=== PATIENT | female | born 1955 | race African-American/Black ===

== ENCOUNTER 2016-10-30 14:17 | Emergency (ER) | payer MEDICAID, OTHER ==
[~2016-10-30] VITALS: Ht 167.6 cm; Wt 104.1 kg
[~2016-10-30 14:17] MED LIST: ASPI81TA82 PO; CEPH-460 PO; CYCL5TAB PO; HYDR-3533 PO; HYDR2.5%T PR; LISI-587 PO; METH4PAK PO; METO25 PO; ZANT150T2 PO
[2016-10-30 14:19] VITALS: BP 120/72; PULSE 75; RESP 12; TEMP 98.2; O2SAT 97
[2016-10-30] MEDS ORDERED: METO25TA3 PO (14:39)
[2016-10-30] MEDS ORDERED: AMLO10 PO (14:39)
[2016-10-30] MEDS ORDERED: SODIUM CHLORIDE 0.9% FLUSH 5 ML FLUSH IVF PRN (14:45)
[2016-10-30] MEDS ORDERED: SODIUM CHLORID 0.9% 500 ML INJ 500 ML IV ONE ×2 (14:45→16:15)
--- NOTE | 2016-10-30 15:04 | PD ---
HPI Chief Complaint: General Weakness Time Seen by Provider: 14:29 Travel History International Travel<30 days: No Contact w/Intl Traveler<30days: No Traveled to known affect area: No History of Present Illness HPI 61-year-old female with a history of hypertension, arthritis, who presents today with complaints of general weakness and near syncopal episode. The patient states that she's been having chronic back pain and it's gotten a little worse over the last couple days. She states that while at the store today she became lightheaded and felt as though she is given a pass out. She states she feels better when she is lying flat. She denies any other complaints time my examination. PFSH Past Medical History Arthritis: Yes Heart Rhythm Problems: No Cancer: No Cardiac Catheterization: No Cardiovascular Problems: Yes (htn) High Cholesterol: No Congestive Heart Failure: No Diabetes: No Diminished Hearing: No Diverticulitis: Yes (COLONOSCOPY 2004 WAS TOLD SHE HAD "ALITIS") Endocrine: No GERD: Yes (ABD TENDER) Genitourinary: No Hepatitis: No Hiatal Hernia: No Hypertension: Yes Immune Disorder: No Musculoskeletal: Yes (ARTHRITIS, BACK PROBLEMS) Neurologic: No Psychiatric: Yes (SLIGHTLY CLAUSTROPHOBIC) Reproductive: No Respiratory: No Thyroid Disease: No Tetanus Vaccination: > 5 Years Menopausal: Yes : 8 Para: 6 Miscarriage: 2 Past Surgical History Abdominal Surgery: Yes (CHOLECYSTECTOMY ) AICD: No Cholecystectomy: Yes Coronary Artery Bypass Graft: No Gynecologic Surgery: Yes (HYSTERECTOMY ) Hysterectomy: Yes Joint Replacement: Yes (left knee) Pacemaker: No Other Surgery: Yes Social History Alcohol Use: Yes (glass of wine daily ) Tobacco Use: No Substance Use: No Allergies-Medications (Allergen,Severity, Reaction): Coded Allergies: Cipro (Verified Allergy, Severe, 10/30/16) Codeine (Verified Allergy, Severe, Rash, 10/30/16) Darvon (Verified Allergy, Severe, N&V, 10/30/16) Reported Meds & Prescriptions Reported Meds & Active Scripts Active Reported Metoprolol Tartrate 25 Mg Tab 25 Mg PO BID Norvasc (Amlodipine Besylate) 10 Mg Tab 10 Mg PO DAILY Review of Systems Except as stated in HPI: all other systems reviewed are Neg General / Constitutional: No: Fever, Chills HENT: Positive: Lightheadedness, No: Headaches, Vertigo Cardiovascular: No: Chest Pain or Discomfort, Palpitations Respiratory: No: Cough, Shortness of Breath Gastrointestinal: No: Nausea, Vomiting Genitourinary: No: Urgency, Frequency Musculoskeletal: Positive: Weakness (generalized), Pain (chronic back pain) Skin: No Rash Neurologic: Positive: Weakness (generalized), Other (felt as though she was given a pass out), No: Dizziness, Syncope Physical Exam Narrative GENERAL: Well-developed well-nourished female in no acute respiratory distress SKIN: Warm and dry. HEAD: Atraumatic. Normocephalic. EYES: No scleral icterus. No injection or drainage. ENT: No nasal bleeding or discharge. Mucous membranes pink and moist. NECK: Trachea midline. Supple CARDIOVASCULAR: Regular rate and rhythm. No murmur appreciated. RESPIRATORY: No accessory muscle use. Clear to auscultation. Breath sounds equal bilaterally. GASTROINTESTINAL: Abdomen soft, non-tender, nondistended. No pulsatile masses appreciated. MUSCULOSKELETAL: No obvious deformities. No clubbing. No cyanosis. Question trace edema bilateral lower extremities NEUROLOGICAL: Awake and alert. No obvious cranial nerve deficits. Motor grossly within normal limits. Normal speech. Data Data Last Documented VS Vital Signs Date Time Temp Pulse Resp B/P Pulse Ox O2 Delivery O2 Flow Rate FiO2 10/30/16 16:15 78 18 138/53 10/30/16 16:14 99 10/30/16 14:19 98.2 Room Air Orders Electrocardiogram (10/30/16 14:37) Basic Metabolic Panel (Bmp) (10/30/16 14:37) Complete Blood Count With Diff (10/30/16 14:37) Urinalysis - C+S If Indicated (10/30/16 14:37) Ecg Monitoring (10/30/16 14:37) Iv Access Insert/Monitor (10/30/16 14:37) Oximetry (10/30/16 14:37) Sodium Chloride 0.9% Flush (Ns Flush) (10/30/16 14:45) Orthostatic Vital Signs (10/30/16 14:37) Sodium Chlorid 0.9% 500 Ml Inj (Ns 500 M (10/30/16 14:45) Sodium Chlorid 0.9% 500 Ml Inj (Ns 500 M (10/30/16 16:15) Labs Laboratory Tests Test 10/30/16 10/30/16 14:51 15:55 White Blood Count 7.8 TH/MM3 Red Blood Count 4.10 MIL/MM3 Hemoglobin 12.1 GM/DL Hematocrit 36.1 % Mean Corpuscular Volume 88.0 FL Mean Corpuscular Hemoglobin 29.5 PG Mean Corpuscular Hemoglobin 33.5 % Concent Red Cell Distribution Width 14.3 % Platelet Count 213 TH/MM3 Mean Platelet Volume 8.9 FL Neutrophils (%) (Auto) 63.3 % Lymphocytes (%) (Auto) 28.5 % Monocytes (%) (Auto) 6.9 % Eosinophils (%) (Auto) 0.5 % Basophils (%) (Auto) 0.8 % Neutrophils # (Auto) 4.9 TH/MM3 Lymphocytes # (Auto) 2.2 TH/MM3 Monocytes # (Auto) 0.5 TH/MM3 Eosinophils # (Auto) 0.0 TH/MM3 Basophils # (Auto) 0.1 TH/MM3 CBC Comment DIFF FINAL Differential Comment Sodium Level 143 MEQ/L Potassium Level 3.8 MEQ/L Chloride Level 109 MEQ/L Carbon Dioxide Level 25.6 MEQ/L Anion Gap 8 MEQ/L Blood Urea Nitrogen 20 MG/DL Creatinine 0.90 MG/DL Estimat Glomerular Filtration 77 ML/MIN Rate Random Glucose 104 MG/DL Calcium Level 9.0 MG/DL Urine Color LIGHT-YELLOW Urine Turbidity CLEAR Urine pH 6.0 Urine Specific [place] 1.010 Urine Protein NEG mg/dL Urine Glucose (UA) NEG mg/dL Urine Ketones NEG mg/dL Urine Occult Blood NEG Urine Nitrite NEG Urine Bilirubin NEG Urine Urobilinogen LESS THAN 2.0 MG/DL Urine Leukocyte Esterase NEG Urine RBC 1 /hpf Urine WBC 2 /hpf Urine Squamous Epithelial 1 /hpf Cells Urine Bacteria OCC /hpf Urine Mucus FEW /lpf Microscopic Urinalysis Comment CULT NOT INDICATED MDM Medical Decision Making Medical Screen Exam Complete: Yes Emergency Medical Condition: Yes Medical Record Reviewed: Yes Differential Diagnosis Near syncope versus dehydration versus anemia electrolyte abnormality Narrative Course 61-year-old female with multiple medical complaints. The patient reports she had a dizzy spell where she felt as though she was given a pass out what the store. Patient has chronic back pain. She denies any weakness of her extremities. She denies any numbness of her extremities. She does report that she's had tingling in her legs but states that was when she felt as though she was given a pass out. The patient was noted to be dehydrated by laboratory tests with an elevated BUN/creatinine ratio. She's been given 1 L fluid in his been observed and went to and from the restroom with no difficulty. I did inform the patient that she will need to increase her fluid intake. Nursing notes were reviewed. This includes past medical and social history. Diagnosis Primary Impression: Postural dizziness with presyncope Additional Impression: Mild dehydration Additional Instructions: Increase fluid intake. Make appointment with a new primary care physician. His important that you have routine follow up appointments with a primary care physician. Disposition: 01 DISCHARGE HOME Condition: Stable Jomar Alva MD Oct 30, 2016 15:04 Jomar Alva MD Oct 30, 2016 15:04
[2016-10-30 15:18] LABS: AUTOMATED NEUTROPHIL # 4.9 TH/MM3 (1.8-7.7); BASOPHIL # 0.1 TH/MM3 (0-0.2); BASOPHIL % 0.8 % (0.0-2.0); EOSINOPHIL % 0.5 % (0.0-4.0); HEMATOCRIT 36.1 % (35.0-46.0); HEMO FLAGS DIFF FINAL; LYMPH % 28.5 % (9.0-44.0); LYMPHOCYTE # 2.2 TH/MM3 (1.0-4.8); MEAN CORPUSCULAR HEMOGLOBIN 29.5 PG (27.0-34.0); MEAN CORPUSCULAR HGB CONC 33.5 % (32.0-36.0); MONO % 6.9 % (0.0-8.0); NEUT % 63.3 % (16.0-70.0); PLATELET COUNT 213 TH/MM3 (150-450); RED CELL DISTRIBUTION WIDTH 14.3 % (11.6-17.2); WHITE BLOOD COUNT 7.8 TH/MM3 (4.0-11.0)
[2016-10-30 15:37] LABS: BICARBONATE 25.6 MEQ/L (21.0-32.0); POTASSIUM 3.8 MEQ/L (3.5-5.1)
[2016-10-30 16:14] VITALS: BP_SYST 138; BP_SYST 139; BP_DIAS 77; BP_DIAS 83; PULSE 78; RESP 18; O2SAT 99
[2016-10-30 16:15] VITALS: BP 138/53; RESP 18
[2016-10-30 16:24] LABS: BACTERIA, URINE OCC /hpf; BLOOD, URINE NEG (NEG); COMMENT (UR) CULT NOT INDICATED; CULTURE IF INDICATED CULT NOT INDICATED; GLUCOSE,URINE NEG (NEG); KETONE, URINE NEG (NEG); MUCUS URINE FEW /lpf (OCC); NITRITE,URINE NEG (NEG); SQUAMOUS EPITHELIAL CELL URINE 1 /hpf (0-5); URINE COLOR LIGHT-YELLOW (YELLW/STRAW)
[2016-10-30 17:00] VITALS: BP 127/75; PULSE 60; RESP 18; O2SAT 97
--- NOTE | 2016-10-31 20:43 | EKG ---
Date Performed: 10/30/2016 Time Performed: 15:48:33 PTAGE: 61 years EKG: SINUS BRADYCARDIA MODERATE VOLTAGE CRITERIA FOR LVH, CONSIDER NORMAL VARIANT. When compared to previous tracing, heart rate is slower, Otherwise no significant change. BORDERLINE ECG PREVIOUS TRACING : 09/14/2016 19.11 DOCTOR: Dontrell Quinones Interpretating Date/Time 10/31/2016 20:43:22
== END 2016-10-30 18:40 | disposition home or self-care (01) ==
LOC: NEPC 14:17
DX: R42 Dizziness and giddiness (principal); E86.0 Dehydration; R94.31 Abnormal electrocardiogram [ECG] [EKG]; I10 Essential (primary) hypertension; Z88.5 Allergy status to narcotic agent
CPT/HCPCS: 80048; 81001; 85025; 93005; 99285; J7040

== ENCOUNTER → 2016-12-22 | Outpatient (CLI) | payer OTHER, MEDICAID ==
[~2016-12-22] MED LIST changes: +AMLO10 PO; -ASPI81TA82 PO; -CEPH-460 PO; -CYCL5TAB PO; +DICL75TA PO; +GAS-80CH CHEW; -HYDR-3533 PO; -HYDR2.5%T PR; -LISI-587 PO; -METH4PAK PO; -METO25 PO; +METO25TA3 PO; +PANT40TA3 PO; +PRED50 PO; +PROM25TA5 PO; +SITA25 PO; +TRAM50TA PO
[2016-12-22 08:41] LABS: HEMATOCRIT 36.2 % (35.0-46.0); MEAN CELL VOLUME 88.3 FL (80.0-100.0); MEAN CORPUSCULAR HEMOGLOBIN 28.8 PG (27.0-34.0); MEAN CORPUSCULAR HGB CONC 32.7 % (32.0-36.0); PLATELET COUNT 200 TH/MM3 (150-450); RED CELL DISTRIBUTION WIDTH 14.8 % (11.6-17.2); REVIEW FLAG FINAL; WHITE BLOOD COUNT 5.1 TH/MM3 (4.0-11.0)
[2016-12-22 09:30] LABS: ALKALINE PHOSPHATASE 88 U/L (45-117); ALT (GPT) 18 U/L (10-53); ANION GAP 10 MEQ/L (5-15); AST (GOT) 10 U/L (15-37); BICARBONATE 25.2 MEQ/L (21.0-32.0); BLOOD UREA NITROGEN 11 MG/DL (7-18); CHLORIDE 109 MEQ/L (98-107); GLOMERULAR FILTRATION RATE 90 ML/MIN (>89); GLUCOSE,FASTING 131 MG/DL (74-99); HDL CHOLESTEROL 60.5 MG/DL (40.0-60.0); LDL CHOLESTEROL 101 MG/DL (0-99); POTASSIUM 3.6 MEQ/L (3.5-5.1); SODIUM (NA) 144 MEQ/L (136-145); TOTAL BILIRUBIN ADULT 0.4 MG/DL (0.2-1.0)
== END ==
LOC: CLAB 08:16
PROVIDERS: ATTEND Family Medicine
DX: I10 Essential (primary) hypertension (principal); M75.52 Bursitis of left shoulder
CPT/HCPCS: 36415; 80050; 80053; 80061; 84443; 85027

== ENCOUNTER 2017-01-14 18:41 | Emergency (ER) | payer OTHER, MEDICAID ==
[~2017-01-14] VITALS: Ht 167.6 cm; Wt 100.0 kg
[~2017-01-14 18:41] MED LIST changes: -DICL75TA PO; -GAS-80CH CHEW; -PANT40TA3 PO; -PRED50 PO; -PROM25TA5 PO; -SITA25 PO; -TRAM50TA PO; -ZANT150T2 PO
[2017-01-14 18:42] VITALS: BP 126/84; PULSE 80; RESP 15; TEMP 98.2; O2SAT 98
--- NOTE | 2017-01-14 19:16 | PD ---
HPI Chief Complaint: Pain: Acute or Chronic Time Seen by Provider: 19:08 Travel History International Travel<30 days: No Contact w/Intl Traveler<30days: No Traveled to known affect area: No History of Present Illness HPI This is a 61-year-old female who presents for evaluation of left leg pain. Symptoms started 2-3 weeks ago. She describes it as a pressure that seems to encompass the lower leg from the knee to the ankle. Pain is worse when walking and standing. She denies any trauma or increase in activity. She notes that she walks a somewhat irregular about and she typically ambulates with a cane. She has been using ibuprofen and an occasional small dose of [place] for pain control. She has never had this type of pain before. She relays a history of total knee replacement in the left knee in 2014 and she is concerned that this has something to do with her pain today. She saw her primary care physician, Dr. Garcia, today about this issue and he was going to "run some tests" but she decided to come here instead. She denies any recent travel, recent surgery , history of DVT or PE. Denies any pain, shortness of breath, abdominal pain, numbness or tingling or weakness.. She has no other complaints at this time. PFSH Past Medical History Arthritis: Yes Heart Rhythm Problems: No Cancer: No Cardiac Catheterization: No Cardiovascular Problems: Yes (HTN) High Cholesterol: No Congestive Heart Failure: No Diabetes: Yes ("BORDERLINE" ) Patient Takes Glucophage: No Diminished Hearing: No Diverticulitis: Yes (COLONOSCOPY 2004 WAS TOLD SHE HAD "ALITIS") Endocrine: No GERD: Yes (ABD TENDER) Genitourinary: No Hepatitis: No Hiatal Hernia: No Hypertension: Yes Immune Disorder: No Musculoskeletal: Yes (ARTHRITIS, BACK PROBLEMS) Neurologic: No Psychiatric: Yes (SLIGHTLY CLAUSTROPHOBIC) Reproductive: No Respiratory: No Thyroid Disease: No Tetanus Vaccination: Never Vaccinated Influenza Vaccination: No Menopausal: Yes : 8 Para: 6 Miscarriage: 2 Past Surgical History Abdominal Surgery: Yes (CHOLECYSTECTOMY ) AICD: No Cholecystectomy: Yes Coronary Artery Bypass Graft: No Gynecologic Surgery: Yes (HYSTERECTOMY ) Hysterectomy: Yes Joint Replacement: Yes (left knee) Pacemaker: No Other Surgery: Yes Social History Alcohol Use: Yes (glass of wine daily ) Tobacco Use: Yes (chew) Substance Use: No Allergies-Medications (Allergen,Severity, Reaction): Coded Allergies: Cipro (Verified Allergy, Severe, 01/14/17) Codeine (Verified Allergy, Severe, Rash, 01/14/17) Darvon (Verified Allergy, Severe, N&V, 01/14/17) Reported Meds & Prescriptions Reported Meds & Active Scripts Active Diclofenac Sodium DR (Diclofenac Sodium) 75 Mg Tabdr 75 Mg PO BID 10 Days Tramadol (Tramadol HCl) 50 Mg Tab 50 Mg PO Q6H PRN Reported Metoprolol Tartrate 25 Mg Tab 25 Mg PO BID Norvasc (Amlodipine Besylate) 10 Mg Tab 10 Mg PO DAILY Review of Systems Except as stated in HPI: all other systems reviewed are Neg Physical Exam Narrative GENERAL: Well-developed well-nourished female in no acute distress SKIN: Warm and dry. Old surgical scar noted to the anterior left knee. CARDIOVASCULAR: Regular rate and rhythm. No murmur appreciated. RESPIRATORY: No accessory muscle use. Clear to auscultation. Breath sounds equal bilaterally. GASTROINTESTINAL: Abdomen soft, nontender, nondistended. Musculoskeletal: There is slight tenderness to palpation to the left knee and ankle joints. There is no joint effusion. There is no erythema or soft tissue swelling. There is no lower extremity pitting edema. She has some pain with Homans test in the left calf region. Achilles tendon is intact. 2+ dorsalis pedis and posterior tibial pulses. She maintains full spontaneous use of the hips, knees and ankles bilaterally with no apparent difficulty or range of motion limitation. NEUROLOGICAL: Awake and alert. No obvious cranial nerve deficits. Motor grossly within normal limits. Normal speech. Data Data Last Documented VS Vital Signs Date Time Temp Pulse Resp B/P Pulse Ox O2 Delivery O2 Flow Rate FiO2 01/14/17 18:42 98.2 80 15 126/84 98 Orders Tibia/Fibula (Ap/Lat) (01/14/17 ) Us Leg Venous Doppler (01/14/17 20:04) MDM Medical Decision Making Medical Screen Exam Complete: Yes Emergency Medical Condition: Yes Medical Record Reviewed: Yes Differential Diagnosis Muscle strain, arthritis, DVT, tendinitis Narrative Course 61-year-old female with history of left total knee replacement in 2014 presents with 2-3 weeks of pain in the left lower leg from the knee to the ankle. Examination is unremarkable. Plan is for ultrasound to rule out DVT, tibia- fibula x-ray. She is declining pain medication on initial examination. The patient's x-ray reveals nonspecific soft tissue swelling, no acute abnormality. Doppler ultrasound is negative for DVT. Suspect nonspecific musculoskeletal pain as etiology for her symptoms. She'll be discharged with a short course of NSAIDs, tramadol for pain control. Diagnosis Primary Impression: Left leg pain Additional Instructions: Medication as needed. Do not drive or drink alcohol when taking tramadol. Phenergan for nausea. Take diclofenac with meals. Follow-up with primary care physician in 2 weeks for recheck. Return for any emergent medical conditions. Med/Other Pt SpecificInfo: Prescription(s) given Scripts Promethazine (Phenergan)25 Mg Tab25 Mg PO Q6H PRN (Nausea/Vomiting) #20 TAB Ref 0 Prov:Ned Eaton MD 01/14/[address] 75 Mg Tabdr75 Mg PO BID 10 Days Ref 0 Prov:Ned Eaton MD 01/14/17 Tramadol 50 Mg Tab50 Mg PO Q6H PRN (PAIN) #20 TAB Ref 0 Prov:Ned Eaton MD 01/14/17 Disposition: 01 DISCHARGE HOME Condition: Stable Lucio Moreno Jan 14, 2017 19:15
--- NOTE | 2017-01-14 20:02 | RADRPT ---
EXAM DATE/TIME: 01/14/2017 19:33 [facility] COMPARISON: No previous studies available for comparison. INDICATIONS : Left tibia pain with no known injury. MEDICAL HISTORY : None. SURGICAL HISTORY : Total knee replacement, left. ENCOUNTER: Initial ACUITY: 2 weeks PAIN SCORE: 9/10 LOCATION: Left middle tibia. FINDINGS: Left tibia and fibula are intact. Soft tissues are diffusely edematous. No radiopaque foreign body. Patient has a left total knee arthroplasty appears intact and normally aligned. No evidence of hardwa re failure or loosening. CONCLUSION: Nonspecific diffuse soft tissue edema. No fracture. Bora Yin MD on January 14, 2017 at 19:59 Board Certified Radiologist. This report was verified electronically.
--- NOTE | 2017-01-14 21:00 | RADRPT ---
EXAM DATE/TIME: 01/14/2017 20:28 [facility] COMPARISON: No previous studies available for comparison. INDICATIONS : Left leg pain. MEDICAL HISTORY : Diverticulitis. Gastroesophageal reflux disease. Hypertension. . Arthritis. Borderline di abetic. Hiatal hernia. SURGICAL HISTORY : Hysterectomy. Cholecystectomy. Left knee replacement. ENCOUNTER: Initial ACUITY: 1 week PAIN SCORE: 2/10 LOCATION: Left leg. TECHNIQUE: Venous ultrasound of the leg was performed from the inguinal ligament to the proximal calf. Real-ulysses e, color Doppler and spectral tracing, compression and augmentation techniques were used. FINDINGS: There is normal compressibility of the deep venous system from the inguinal region to the proximal ca lf. No echogenic clot is seen in the lumen of the common femoral, femoral, popliteal, and posterior tibial veins. There is a normal response of the venous system to proximal and distal augmentation an d respiration. CONCLUSION: Normal. No DVT of the left lower extremity. Bora Yin MD on January 14, 2017 at 20:58 Board Certified Radiologist. This report was verified electronically.
[2017-01-14] MEDS ORDERED: TRAM50TA PO (21:03)
[2017-01-14] MEDS ORDERED: DICL75TA PO (21:03)
[2017-01-14] MEDS ORDERED: PROM25TA5 PO (21:08)
== END 2017-01-14 21:31 | disposition home or self-care (01) ==
LOC: NEPK 18:41
DX: M79.605 Pain in left leg (principal); I10 Essential (primary) hypertension; R60.9 Edema, unspecified; Z72.0 Tobacco use; Z96.652 Presence of left artificial knee joint
CPT/HCPCS: 73590; 93971

== ENCOUNTER 2017-02-05 21:09 | Emergency (ER) | payer OTHER, MEDICAID ==
[~2017-02-05] VITALS: Ht 175.3 cm; Wt 88.0 kg
[~2017-02-05 21:09] MED LIST changes: +DICL75TA PO; +PROM25TA5 PO; +TRAM50TA PO
[2017-02-05 21:12] VITALS: BP 121/78; PULSE 77; RESP 16; TEMP 98.2; O2SAT 98
[2017-02-06] MEDS ORDERED: PRED50 PO (18:47)
== END 2017-02-06 00:55 | disposition left against medical advice (07) ==
LOC: NED 21:09
DX: M54.5 Low back pain (principal)
CPT/HCPCS: 99281

== ENCOUNTER 2017-02-06 17:50 | Emergency (ER) | payer OTHER, MEDICAID ==
[~2017-02-06] VITALS: Ht 167.6 cm; Wt 102.0 kg
[2017-02-06 17:52] VITALS: BP 131/66; PULSE 98; RESP 13; TEMP 98.7; O2SAT 98
--- NOTE | 2017-02-06 18:06 | PD ---
HPI . back pain Chief Complaint: Pain: Acute or Chronic Time Seen by Provider: 18:00 Travel History International Travel<30 days: No Contact w/Intl Traveler<30days: No Traveled to known affect area: No History of Present Illness HPI 61-year-old female with history of chronic back pain here with complaints of acute back pain. Patient tells me that she recently had x-rays done and has been trying to get in touch with her primary care provider, but has been unable to do so. She decided to come to the emergency department today as she noticed increased back pain, increased urine production and some dysuria. She tells me the pain in her back is a pulling sensation and she rates it as moderate. She has not had injury to the area. She does report longstanding hx of over 5 years worth of back pain, but tells me that often times that pain is higher up. She admits to some constipation and is not taking anything. She denies any fever or chills. She denies any urinary hesitancy or dribbling. No bowel or bladder dysfunction. No saddle anesthesia. She is requesting lab work. PFSH Past Medical History Arthritis: Yes Heart Rhythm Problems: No Cancer: No Cardiac Catheterization: No Cardiovascular Problems: Yes (HTN) High Cholesterol: No Congestive Heart Failure: No Diabetes: Yes ("BORDERLINE" ) Diminished Hearing: No Diverticulitis: Yes (COLONOSCOPY 2004 WAS TOLD SHE HAD "ALITIS") Endocrine: No GERD: Yes (ABD TENDER) Genitourinary: No Hepatitis: No Hiatal Hernia: No Hypertension: Yes Immune Disorder: No Musculoskeletal: Yes (ARTHRITIS, BACK PROBLEMS) Neurologic: No Psychiatric: Yes (SLIGHTLY CLAUSTROPHOBIC) Reproductive: No Respiratory: No Thyroid Disease: No ?: Not Menopausal: Yes : 8 Para: 6 Miscarriage: 2 Past Surgical History Abdominal Surgery: Yes (CHOLECYSTECTOMY ) AICD: No Cholecystectomy: Yes Coronary Artery Bypass Graft: No Gynecologic Surgery: Yes (HYSTERECTOMY ) Hysterectomy: Yes Joint Replacement: Yes (left knee) Pacemaker: No Other Surgery: Yes Social History Alcohol Use: Yes (glass of wine daily ) Tobacco Use: Yes (chew) Substance Use: No Allergies-Medications (Allergen,Severity, Reaction): Coded Allergies: Cipro (Verified Allergy, Severe, 02/06/17) Darvon (Verified Allergy, Severe, N&V, 02/06/17) Reported Meds & Prescriptions Reported Meds & Active Scripts Active Prednisone 50 Mg Tab 50 Mg PO DAILY Reported Metoprolol Tartrate 25 Mg Tab 25 Mg PO BID Norvasc (Amlodipine Besylate) 10 Mg Tab 10 Mg PO DAILY Review of Systems General / Constitutional: No: Fever Eyes: No: Visual changes HENT: No: Headaches Cardiovascular: No: Chest Pain or Discomfort Respiratory: No: Shortness of Breath Gastrointestinal: Positive: Constipation, No: Abdominal Pain Genitourinary: Positive: Frequency, Dysuria Musculoskeletal: Positive: Pain Skin: No Rash Neurologic: No: Weakness Psychiatric: No: Depression Endocrine: No: Polydipsia Hematologic/Lymphatic: No: Easy Bruising Physical Exam Narrative GENERAL: AAO x 3, no acute distress, Well-nourished, well-developed patient. SKIN: Warm and dry. No visible rashes or bruising. normal skin turgor HEAD: Normocephalic and atraumatic. EYES: No scleral icterus. No injection or drainage. ENT: No nasal drainage noted. Mucous membranes pink. Airway patent. Moist mucous membranes. NECK: Supple, trachea midline. No JVD. CARDIOVASCULAR: Regular rate and rhythm without murmurs, gallops, or rubs. RESPIRATORY: Breath sounds equal bilaterally. No accessory muscle use. No rhonchi or rales. GASTROINTESTINAL: Abdomen soft, non-tender, nondistended. normoactive bowel sounds EXTREMITIES: No cyanosis or edema. BACK: Nontender without obvious deformity. No CVA tenderness. No paraspinal muscle tenderness. Negative SLR b/l. Gait normal. PSYCH: AAO x 3, normal affect. Data Data Last Documented VS Vital Signs Date Time Temp Pulse Resp B/P Pulse Ox O2 Delivery O2 Flow Rate FiO2 02/06/17 17:52 98.7 98 13 131/66 98 Orders Urinalysis - C+S If Indicated (02/06/17 18:06) Labs Laboratory Tests Test 02/06/17 18:15 Urine Color YELLOW Urine Turbidity CLEAR Urine pH 5.5 Urine Specific [place] 1.023 Urine Protein TRACE mg/dL Urine Glucose (UA) NEG mg/dL Urine Ketones TRACE mg/dL Urine Occult Blood NEG Urine Nitrite NEG Urine Bilirubin NEG Urine Urobilinogen LESS THAN 2.0 MG/DL Urine Leukocyte Esterase NEG Urine WBC LESS THAN 1 /hpf Urine Squamous Epithelial 1 /hpf Cells Urine Bacteria OCC /hpf Urine Hyaline Casts 1 /lpf Urine Mucus FEW /lpf Microscopic Urinalysis Comment CULT NOT INDICATED MDM Medical Decision Making Medical Screen Exam Complete: Yes Emergency Medical Condition: Yes Medical Record Reviewed: Yes Differential Diagnosis acute on chronic back pain, UTI, lumbar radiculopathy Narrative Course 61 yr old female here with acute on chronic back pain and symptoms suggesting UTI. UA ordered. She recently had images done at [facility]. I do not see the need for additional imaging or labs except UA. Patient agreed that she does not want additional imaging due to radiation exposure. I will check UA, if positive, I will treat her for UTI. She is not taking any medications for back pain. She has history of bulging discs and is being worked up by her PCP. She could be discharged home with a short course of steroids to reduce inflammation and f/u with PCP. UA is negative. In regards to her constipation, I advised her to try OTC stool softener such as miralax. Patient verbalized understanding of instructions, questions were answered, and thanked me for their care. I advised them if their condition worsens, please return to the nearest emergency room for further care. Diagnosis Primary Impression: Lumbago Qualified Code: M54.5 - Chronic midline low back pain without sciatica Additional Impression: Constipated Qualified Code: K59.00 - Constipation, unspecified constipation type Patient Instructions: General Instructions Additional Instructions: Please return to emergency department if your symptoms return or worsen. Follow up with your primary care provider. Take medications as prescribed. You can try alternating ice and heat to her back as tolerated. Try [id number] Miralax for constipation. Med/Other Pt SpecificInfo: Prescription(s) given Scripts Prednisone 50 Mg Tab50 Mg PO DAILY #5 TAB Prov:Brendon Mcnulty MD 02/06/17 Disposition: 01 DISCHARGE HOME Condition: Stable Chloé Wallace February 06, 2017 18:06
[2017-02-06 18:40] LABS: BACTERIA, URINE OCC /hpf; BLOOD, URINE NEG (NEG); COMMENT (UR) CULT NOT INDICATED; CULTURE IF INDICATED CULT NOT INDICATED; GLUCOSE,URINE NEG (NEG); HYALINE CAST, URINE 1 /lpf (RARE); KETONE, URINE TRACE mg/dL (NEG); MUCUS URINE FEW /lpf (OCC); NITRITE,URINE NEG (NEG); PH, URINE 5.5 (5.0-8.5); SQUAMOUS EPITHELIAL CELL URINE 1 /hpf (0-5); URINE COLOR YELLOW (YELLW/STRAW)
[2017-02-06] MEDS ORDERED: PRED50 PO (18:47)
== END 2017-02-06 18:54 | disposition home or self-care (01) ==
LOC: NEPK 17:50
DX: M54.5 Low back pain (principal); K59.00 Constipation, unspecified; I10 Essential (primary) hypertension; Z72.0 Tobacco use
CPT/HCPCS: 81001; 99283

== ENCOUNTER 2017-02-09 14:21 | Emergency (ER) | payer OTHER, MEDICAID ==
[~2017-02-09 14:21] MED LIST changes: -DICL75TA PO; +PRED50 PO; -PROM25TA5 PO; -TRAM50TA PO
[2017-02-09 14:22] VITALS: BP 142/79; PULSE 84; RESP 16; TEMP 98.2; O2SAT 98
--- NOTE | 2017-02-09 15:15 | PD ---
Physical Exam Date Seen by Provider: February 09, 2017 Time Seen by Provider: 15:13 Narrative 61 y/o female presents with epigastric pain and nausea today. Seemed to start after eating a tuna sandwich. Patient tried some Zantac without relief. No fever or Vomitting. V/S Stable Awaiting Bed Placement. Data Data Last Documented VS Vital Signs Date Time Temp Pulse Resp B/P Pulse Ox O2 Delivery O2 Flow Rate FiO2 02/09/17 14:22 98.2 84 16 142/79 98 MDM Medical Record Reviewed: Yes Supervised Visit with MEGAN: Yes Condition: Stable Lowell Mcgee February 09, 2017 15:15
--- NOTE | 2017-02-09 16:47 | PD ---
HPI Chief Complaint: Medical Clearance Time Seen by Provider: 16:47 Travel History International Travel<30 days: No Contact w/Intl Traveler<30days: No Traveled to known affect area: No History of Present Illness HPI 61-year-old female with a history of hypertension and diabetes presents to the emergency department for evaluation of an episode of shortness of breath after eating a tuna sandwich. States about 1 hour ago she ate a sandwich and about 30 minutes afterward she had a sudden feeling of "not being able to catch my breath" that lasted about 2-3 minutes with some nausea. States that she drank water and the symptoms resolved. States that she has had some excessive belching over the past week. She denies any chest pain, lightheadedness, dizziness, abdominal pain, vomiting, diarrhea. She does describe a slight epigastric burning sensation but no abdominal pain. She does have a history of constipation, last bowel movement was 2 days ago. States that she also has a history of reflux. PCP Dr. Castelan. No other complaints. PFSH Past Medical History Arthritis: Yes Heart Rhythm Problems: No Cancer: No Cardiac Catheterization: No Cardiovascular Problems: Yes (HTN) High Cholesterol: No Congestive Heart Failure: No Diabetes: Yes ("BORDERLINE" ) Patient Takes Glucophage: Yes Diminished Hearing: No Diverticulitis: Yes (COLONOSCOPY 2004 WAS TOLD SHE HAD "ALITIS") Endocrine: No GERD: Yes (ABD TENDER) Genitourinary: No Hepatitis: No Hiatal Hernia: No Heparin Induced Thrombocytopen: No Hypertension: Yes Immune Disorder: No Medical other: No Musculoskeletal: Yes (ARTHRITIS, BACK PROBLEMS) Neurologic: No Psychiatric: Yes (SLIGHTLY CLAUSTROPHOBIC) Reproductive: No Respiratory: No Thyroid Disease: No ?: Not Menopausal: Yes : 8 Para: 6 Miscarriage: 2 Past Surgical History Abdominal Surgery: Yes (CHOLECYSTECTOMY ) AICD: No Cholecystectomy: Yes Coronary Artery Bypass Graft: No Gynecologic Surgery: Yes (HYSTERECTOMY ) Hysterectomy: Yes Joint Replacement: Yes (left knee) Pacemaker: No Other Surgery: Yes Family History Family Myocardial Infarction: No Social History Alcohol Use: Yes (glass of wine daily ) Tobacco Use: Yes (chew) Substance Use: No Allergies-Medications (Allergen,Severity, Reaction): Coded Allergies: Cipro (Verified Allergy, Severe, rash, 02/09/17) Darvon (Verified Adverse Reaction, Severe, N&V, 02/09/17) Reported Meds & Prescriptions Reported Meds & Active Scripts Active Prednisone 50 Mg Tab 50 Mg PO DAILY Reported Metoprolol Tartrate 25 Mg Tab 25 Mg PO BID Norvasc (Amlodipine Besylate) 10 Mg Tab 10 Mg PO DAILY Review of Systems Except as stated in HPI: all other systems reviewed are Neg Physical Exam Narrative GENERAL: Well-nourished and well-developed pleasant female patient in no acute distress who is nontoxic appearing. SKIN: Warm and dry. HEAD: Normocephalic and atraumatic. EYES: No injection, drainage, or hyphema noted. PERRLA. EOMI. ENT: No nasal drainage noted. Oropharynx is clear. NECK: Supple and the trachea is midline. CARDIOVASCULAR: Regular rate and rhythm. RESPIRATORY: Breath sounds are equal bilaterally with no accessory muscle use, wheezing, rhonchi, or crackles. GASTROINTESTINAL: Abdomen is soft, non-tender, and nondistended. MUSCULOSKELETAL: No obvious deformities, swelling, cyanosis, or ecchymosis is present throughout the upper and lower extremities. Patient has full range of motion without any signs of neurovascular compromise. NEUROLOGICAL: Awake, alert, and oriented. Normal speech and gait. Cranial nerves are grossly intact. Data Data Last Documented VS Vital Signs Date Time Temp Pulse Resp B/P Pulse Ox O2 Delivery O2 Flow Rate FiO2 02/09/17 17:29 98.6 87 22 118/67 02/09/17 14:22 98 Orders Electrocardiogram (02/09/17 16:46) Chest, Pa & Lat (02/09/17 16:46) [facility] Medical Decision Making Medical Screen Exam Complete: Yes Emergency Medical Condition: Yes Differential Diagnosis Indigestion versus reflux versus pleurisy versus other Narrative Course 61-year-old female presents to the emergency department for evaluation of episode of shortness of breath after eating a tuna sandwich. Patient is afebrile, vital signs are stable. Physical examination is essentially benign. Patient appears well overall. She seems to be describing an episode of indigestion. We'll do EKG and chest x-ray. If these are unremarkable the patient can be discharged home to follow-up with her PCP. EKG shows normal sinus rhythm with no acute ST elevations or depressions. Chest x-ray is negative for any acute abnormalities. Patient has remained stable and without complaint while here in the emergency department. Discussed results with the patient. She is stable to be discharged home to follow-up with her PCP. I discussed the case with my attending physician Dr. Hutton who is aware of the patients history, physical examination findings, and treatment plan. 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 Follow-up with your Primary Care Physician. Return to the ED for any acute worsening of symptoms. Med/Other Pt SpecificInfo: Prescription(s) given Scripts Simethicone (Gas-X)80 Mg Chew80 Mg CHEW QID PRN (GAS RETENTION) 5 Days Ref 0 Prov:Cary Hutton MD 02/09/17 Ranitidine (Zantac)150 Mg Ihs464 Mg PO BID 7 Days Ref 0 Prov:Cary Hutton MD 02/09/17 Disposition: 01 DISCHARGE HOME Condition: Stable Jody Bar February 09, 2017 16:47
[2017-02-09 17:29] VITALS: BP 118/67; PULSE 87; RESP 22; TEMP 98.6
--- NOTE | 2017-02-09 17:32 | RADRPT ---
EXAM DATE/TIME: 02/09/2017 17:15 [facility] COMPARISON: No previous studies available for comparison. INDICATIONS : Short of breath. MEDICAL HISTORY : Gastroesophageal reflux disease. Hypertension Diverticulitis. SURGICAL HISTORY : Total knee replacement, left. Hysterectomy. Cholecystectomy. ENCOUNTER: Initial ACUITY: 1 day PAIN SCORE: 5/10 LOCATION: Bilateral upper chest FINDINGS: PA and lateral views of the chest demonstrate the lungs to be symmetrically aerated without evidence of mass, infiltrate or effusion. The cardiomediastinal contours are unremarkable. Osseous structure s are intact. CONCLUSION: No acute disease. Edilson Mcgrath MD on February 09, 2017 at 17:30 Board Certified Radiologist. This report was verified electronically.
[2017-02-09] MEDS ORDERED: ZANT150T2 PO (17:39)
[2017-02-09] MEDS ORDERED: GAS-80CH CHEW (17:39)
--- NOTE | 2017-02-10 15:18 | EKG ---
Date Performed: 02/09/2017 Time Performed: 16:58:07 PTAGE: 61 years EKG: SINUS BRADYCARDIA MINIMAL VOLTAGE CRITERIA FOR LVH, CONSIDER NORMAL VARIANT NONSPECIFIC T-W AVE ABNORMALITY BORDERLINE ECG INTERPRETATION BASED ON A DEFAULT AGE OF 40 YEARS Compared to prior tr acing no significant change PREVIOUS TRACING : 10/30/2016 15.48 DOCTOR: Ramon Bernardo Interpretating Date/Time 02/10/2017 15:17:20
== END 2017-02-09 17:58 | disposition home or self-care (01) ==
LOC: NEPD 14:21
DX: K30 Functional dyspepsia (principal); R94.31 Abnormal electrocardiogram [ECG] [EKG]; I10 Essential (primary) hypertension; R73.03 Prediabetes; Z72.0 Tobacco use; Z87.39 Personal history of other diseases of the musculoskeletal system and connective tissue; Z86.79 Personal history of other diseases of the circulatory system; Z87.19 Personal history of other diseases of the digestive system
CPT/HCPCS: 71020; 93005; 99284

== ENCOUNTER 2017-03-09 23:21 | Emergency (ER) | payer OTHER, MEDICAID ==
[~2017-03-09] VITALS: Ht 167.6 cm; Wt 97.0 kg
[~2017-03-09 23:21] MED LIST changes: +GAS-80CH CHEW; +ZANT150T2 PO
[2017-03-09 23:23] VITALS: BP 116/77; PULSE 62; RESP 16; TEMP 98.7; O2SAT 98
[2017-03-09] MEDS ORDERED: SITA25 PO (23:30)
--- NOTE | 2017-03-09 23:33 | PD ---
HPI . patient here because she is not certain if her januvia is working properly Chief Complaint: Diabetic Time Seen by Provider: 23:39 Travel History International Travel<30 days: No Contact w/Intl Traveler<30days: No Traveled to known affect area: No History of Present Illness HPI 61-year-old female who recently started Januvia 10 days ago here because she was concerned about her blood sugars fluctuating between 105-112. She tells me that at one point her sugar was at 82 and also got as high as 140. She tells me that her primary care provider did not review what would happen with her blood sugars with this medication and she did not know what to expect. She had some nausea, that is now gone and tells me she never vomited. She has no complaints right now, but just needed to know how Januvia works. She also tells me she needs a test for a hiatal hernia and colonoscopy and she was getting in through her PCP, but it is taking long. She has no other complaints. PFSH Past Medical History Arthritis: Yes Heart Rhythm Problems: No Cancer: No Cardiac Catheterization: No Cardiovascular Problems: Yes (HTN) High Cholesterol: No Congestive Heart Failure: No Diabetes: Yes ("BORDERLINE" ) Patient Takes Glucophage: No Diminished Hearing: No Diverticulitis: Yes (COLONOSCOPY 2004 WAS TOLD SHE HAD "ALITIS") Endocrine: No GERD: Yes (ABD TENDER) Genitourinary: No Hepatitis: No Hiatal Hernia: No Heparin Induced Thrombocytopen: No Hypertension: Yes Immune Disorder: No Musculoskeletal: Yes (ARTHRITIS, BACK PROBLEMS) Neurologic: No Psychiatric: Yes (SLIGHTLY CLAUSTROPHOBIC) Reproductive: No Respiratory: No Thyroid Disease: No Influenza Vaccination: No Menopausal: Yes : 8 Para: 6 Miscarriage: 2 Past Surgical History Abdominal Surgery: Yes (CHOLECYSTECTOMY ) AICD: No Cholecystectomy: Yes Coronary Artery Bypass Graft: No Gynecologic Surgery: Yes (HYSTERECTOMY ) Hysterectomy: Yes Joint Replacement: Yes (left knee) Pacemaker: No Other Surgery: Yes Social History Alcohol Use: Yes (glass of wine daily ) Tobacco Use: Yes (chew) Substance Use: No Allergies-Medications (Allergen,Severity, Reaction): Coded Allergies: Cipro (Verified Allergy, Severe, rash, 03/09/17) Darvon (Verified Adverse Reaction, Severe, N&V, 03/09/17) Reported Meds & Prescriptions Reported Meds & Active Scripts Active Zantac (Ranitidine HCl) 150 Mg Tab 150 Mg PO BID 7 Days Prednisone 50 Mg Tab 50 Mg PO DAILY Reported Januvia (Sitagliptin Phosphate) 25 Mg Tab 25 Mg PO DAILY Metoprolol Tartrate 25 Mg Tab 25 Mg PO BID Norvasc (Amlodipine Besylate) 10 Mg Tab 10 Mg PO DAILY Review of Systems General / Constitutional: No: Fever Eyes: No: Visual changes HENT: No: Headaches Cardiovascular: No: Chest Pain or Discomfort Respiratory: No: Shortness of Breath Gastrointestinal: No: Abdominal Pain Genitourinary: No: Dysuria Musculoskeletal: No: Pain Skin: No Rash Neurologic: No: Weakness Psychiatric: No: Depression Endocrine: No: Polydipsia Hematologic/Lymphatic: No: Easy Bruising Physical Exam Narrative GENERAL: AAO x 3, no acute distress, Well-nourished, well-developed patient. SKIN: Warm and dry. No visible rashes or bruising. HEAD: Normocephalic and atraumatic. EYES: No scleral icterus. No injection or drainage. EOM intact, PERRLA ENT: No nasal drainage noted. Mucous membranes pink. Airway patent. NECK: Supple, trachea midline. No JVD. CARDIOVASCULAR: Regular rate and rhythm without murmurs, gallops, or rubs. RESPIRATORY: Breath sounds equal bilaterally. No accessory muscle use. No rhonchi or rales. GASTROINTESTINAL: Abdomen soft, non-tender, nondistended. EXTREMITIES: No cyanosis or edema. BACK: Nontender without obvious deformity. No CVA tenderness. NEURO: CN II-12 intact, still tender strength normal b/l, UE and LE 5/5, no focal deficits PSYCH: AAO x 3, normal affect. Data Data Last Documented VS Vital Signs Date Time Temp Pulse Resp B/P Pulse Ox O2 Delivery O2 Flow Rate FiO2 03/09/17 23:28 16 03/09/17 23:23 98.7 62 116/77 98 Orders Blood Glucose (03/09/17 23:45) [facility] Medical Decision Making Medical Screen Exam Complete: Yes Emergency Medical Condition: Yes Medical Record Reviewed: Yes Differential Diagnosis medication side effects, diabetes education, newly dx diabetes Narrative Course 61 yr old female here with questions about her blood sugars. She started Januvia and has sugars that are jumping around. Exam is unremarkable. I have had a discussion with her regarding this medication and possible side effects. I discussed hypoglycemia and what to do if an event occurs. Her current blood sugar is 107. I advised her that I cannot get the test for her hiatal hernia here nor can I order the screening colonoscopy here. She has no other complaints. I recommend she f/u with her PCP this week to further discuss her diabetes meds. Diagnosis Primary Impression: Diabetes Qualified Code: E11.9 - Type 2 diabetes mellitus without complication, without long-term current use of insulin Patient Instructions: Diabetic Hypoglycemia (ED), General Instructions Additional Instructions: Please follow-up with your primary care provider as we discussed. Return to the emergency department for any worsening of your condition. Med/Other Pt SpecificInfo: No Change to Meds Disposition: 01 DISCHARGE HOME Condition: Stable Chloé Wallace Mar 09, 2017 23:33 Chloé Wallace Mar 09, 2017 23:33
== END 2017-03-10 00:07 | disposition home or self-care (01) ==
LOC: NEPD 23:21
DX: E11.9 Type 2 diabetes mellitus without complications (principal); Z72.0 Tobacco use; Z96.652 Presence of left artificial knee joint
CPT/HCPCS: 99282

== ENCOUNTER 2017-03-15 05:22 | Emergency (ER) | payer OTHER, MEDICAID ==
[~2017-03-15] VITALS: Ht 167.6 cm; Wt 97.0 kg
[~2017-03-15 05:22] MED LIST changes: +SITA25 PO
[2017-03-15 05:25] VITALS: BP 146/79; PULSE 73; RESP 16; TEMP 99.1; O2SAT 98
[2017-03-15] MEDS ORDERED: PANT40TA3 PO (05:48)
[2017-03-15] MEDS ORDERED: SODIUM CHLORIDE 0.9% FLUSH 10 ML FLUSH IVF PRN (06:00)
[2017-03-15] MEDS ORDERED: SODIUM CHLORID 0.9% 500 ML INJ 500 ML IV ONE (06:00)
[2017-03-15 06:06] VITALS: O2SAT 98
--- NOTE | 2017-03-15 06:08 | PD ---
HPI Chief Complaint: Medical Clearance Time Seen by Provider: 05:51 Travel History International Travel<30 days: No Contact w/Intl Traveler<30days: No Traveled to known affect area: No History of Present Illness HPI The patient is a 61-year-old [place] female who presents to the emergency Department with multiple complaints. The patient states she was discharged from [facility] approximately 10 days ago and a new medication for her diabetes, Januvia. The patient started the medication and now is complaining of multiple complaints including generalized weakness, lightheadedness, palpitations, and occasional nausea. The patient has been monitoring her blood sugars and they have ranged between 80 and 120. Her blood sugar upon arrival was 132. The patient has not followed up with her primary physician in regards to her questions about Januvia. She denies any current chest pain, shortness of breath, or headache. She denies any associated dysuria , frequency, or urgency. Symptoms are intermittent, appeared to have started after she started Januvia, and there are no current alleviating factors. She has been eating without difficulty. PFSH Past Medical History Arthritis: Yes Heart Rhythm Problems: No Cancer: No Cardiac Catheterization: No Cardiovascular Problems: Yes (HTN) High Cholesterol: No Congestive Heart Failure: No Diabetes: Yes ("BORDERLINE" ) Patient Takes Glucophage: No Diminished Hearing: No Diverticulitis: Yes (COLONOSCOPY 2004 WAS TOLD SHE HAD "ALITIS") Endocrine: No GERD: Yes Genitourinary: No Hepatitis: No Hiatal Hernia: No Heparin Induced Thrombocytopen: No Hypertension: Yes Immune Disorder: No Musculoskeletal: Yes (BONE SPUR LEFT SHOULDER, BACK PROBLEMS) Neurologic: No Psychiatric: Yes (SLIGHTLY CLAUSTROPHOBIC) Reproductive: No Respiratory: No Thyroid Disease: No Menopausal: Yes : 8 Para: 6 Miscarriage: 2 Past Surgical History Abdominal Surgery: Yes (CHOLECYSTECTOMY ) AICD: No Cholecystectomy: Yes Coronary Artery Bypass Graft: No Gynecologic Surgery: Yes (HYSTERECTOMY ) Hysterectomy: Yes Joint Replacement: Yes (left knee) Pacemaker: No Other Surgery: Yes Social History Alcohol Use: Yes (glass of wine daily ) Tobacco Use: Yes (chew 2X PER WEEK) Substance Use: No Allergies-Medications (Allergen,Severity, Reaction): Coded Allergies: Cipro (Verified Allergy, Severe, rash, 03/15/17) Darvon (Verified Adverse Reaction, Severe, N&V, 03/15/17) Reported Meds & Prescriptions Reported Meds & Active Scripts Active Prednisone 50 Mg Tab 50 Mg PO DAILY Reported Pantoprazole (Pantoprazole Sodium) 40 Mg Tab 40 Mg PO DAILY Januvia (Sitagliptin Phosphate) 25 Mg Tab 25 Mg PO DAILY Metoprolol Tartrate 25 Mg Tab 25 Mg PO BID Norvasc (Amlodipine Besylate) 10 Mg Tab 10 Mg PO DAILY Review of Systems Except as stated in HPI: all other systems reviewed are Neg General / Constitutional: No: Fever HENT: Positive: Lightheadedness Cardiovascular: Positive: Palpitations, No: Chest Pain or Discomfort Gastrointestinal: Positive: Nausea, No: Vomiting, Abdominal Pain Genitourinary: No: Dysuria Musculoskeletal: Positive: Weakness Neurologic: Positive: Weakness, Dizziness Physical Exam Narrative GENERAL: Awake, alert, pleasant 61-year-old female who appears her stated age and is in no acute respiratory distress. SKIN: Focused skin assessment warm/dry. HEAD: Atraumatic. Normocephalic. EYES: Pupils equal and round. Pupils are 4 mm bilateral reactive. ENT: No nasal bleeding or discharge. Mucous membranes pink and moist. No upper or lower teeth noted. NECK: Trachea midline. No JVD. CARDIOVASCULAR: Regular rate and rhythm. No murmur appreciated. RESPIRATORY: No accessory muscle use. Clear to auscultation. Breath sounds equal bilaterally. Abdomen: Soft, nontender, no rebound tenderness, guarding, rigidity. MUSCULOSKELETAL: No obvious deformities. No clubbing. No cyanosis. No edema. NEUROLOGICAL: Awake and alert. No obvious cranial nerve deficits. Motor grossly within normal limits. Normal speech. PSYCHIATRIC: Appropriate mood and affect; insight and judgment normal. Data Data Last Documented VS Vital Signs Date Time Temp Pulse Resp B/P Pulse Ox O2 Delivery O2 Flow Rate FiO2 03/15/17 09:25 80 20 110/57 98 03/15/17 07:00 Room Air 03/15/17 05:25 99.1 Orders Electrocardiogram (03/15/17 05:58) Complete Blood Count With Diff (03/15/17 05:58) Comprehensive Metabolic Panel (03/15/17 05:58) Urinalysis - C+S If Indicated (03/15/17 05:58) Ecg Monitoring (03/15/17 05:58) Iv Access Insert/Monitor (03/15/17 05:58) Oximetry (03/15/17 05:58) Sodium Chloride 0.9% Flush (Ns Flush) (03/15/17 06:00) Sodium Chlorid 0.9% 500 Ml Inj (Ns 500 M (03/15/17 06:00) Labs Laboratory Tests Test 03/15/17 03/15/17 06:14 07:35 White Blood Count 5.6 TH/MM3 Red Blood Count 4.22 MIL/MM3 Hemoglobin 12.3 GM/DL Hematocrit 36.9 % Mean Corpuscular Volume 87.4 FL Mean Corpuscular Hemoglobin 29.1 PG Mean Corpuscular Hemoglobin 33.3 % Concent Red Cell Distribution Width 14.8 % Platelet Count 193 TH/MM3 Mean Platelet Volume 8.7 FL Neutrophils (%) (Auto) 63.1 % Lymphocytes (%) (Auto) 27.1 % Monocytes (%) (Auto) 9.0 % Eosinophils (%) (Auto) 0.4 % Basophils (%) (Auto) 0.4 % Neutrophils # (Auto) 3.5 TH/MM3 Lymphocytes # (Auto) 1.5 TH/MM3 Monocytes # (Auto) 0.5 TH/MM3 Eosinophils # (Auto) 0.0 TH/MM3 Basophils # (Auto) 0.0 TH/MM3 CBC Comment DIFF FINAL Differential Comment Sodium Level 143 MEQ/L Potassium Level 3.4 MEQ/L Chloride Level 107 MEQ/L Carbon Dioxide Level 27.6 MEQ/L Anion Gap 8 MEQ/L Blood Urea Nitrogen 10 MG/DL Creatinine 0.80 MG/DL Estimat Glomerular Filtration 88 ML/MIN Rate Random Glucose 126 MG/DL Calcium Level 9.3 MG/DL Total Bilirubin 0.4 MG/DL Aspartate Amino Transf 15 U/L (AST/SGOT) Alanine Aminotransferase 28 U/L (ALT/SGPT) Alkaline Phosphatase 107 U/L Total Protein 7.5 GM/DL Albumin 3.6 GM/DL Urine Color LIGHT-YELLOW Urine Turbidity CLEAR Urine pH 7.0 Urine Specific [place] 1.006 Urine Protein NEG mg/dL Urine Glucose (UA) NEG mg/dL Urine Ketones NEG mg/dL Urine Occult Blood NEG Urine Nitrite NEG Urine Bilirubin NEG Urine Urobilinogen LESS THAN 2.0 MG/DL Urine Leukocyte Esterase NEG Urine RBC LESS THAN 1 /hpf Urine WBC 1 /hpf Urine Squamous Epithelial <1 /hpf Cells Microscopic Urinalysis Comment CULT NOT INDICATED MDM Medical Decision Making Medical Screen Exam Complete: Yes Emergency Medical Condition: Yes Medical Record Reviewed: Yes Interpretation(s) EKG reveals normal sinus rhythm with a rate of 63. Nonspecific T-wave changes. Differential Diagnosis Differential diagnosis includes medication side effect, hypoglycemia, hyperglycemia, dehydration, electrolyte abnormality, UTI. Narrative Course IV was established, labs are drawn and sent, and the patient was placed on cardiac telemetry monitoring and continuous pulse oximetry monitoring. EKG was ordered and interpreted. UA was ordered. I had a discussion with the patient regarding the need to follow-up with her primary physician in regards to her medications, if she believes the Januvia is causing the symptoms, she may consider stopping the Januvia, monitoring her blood sugars closely, and evaluating if her symptoms resolve. The patient was signed out to the oncoming physician with laboratory evaluation pending. If labs are unremarkable, patient can follow-up with her primary physician on an outpatient basis. Diagnosis Primary Impression: Diabetes Qualified Code: E11.8 - Type 2 diabetes mellitus with complication, without long-term current use of insulin Additional Impression: Generalized weakness Patient Instructions: General Instructions Additional Instructions: Please provide the patient a copy of her labs at discharge. Follow-up with your primary physician. Monitor your blood sugars. Disposition: 01 DISCHARGE HOME Condition: Stable Ramos Mo MD Mar 15, 2017 06:07
[2017-03-15 06:34] LABS: AUTOMATED NEUTROPHIL # 3.5 TH/MM3 (1.8-7.7); BASOPHIL % 0.4 % (0.0-2.0); EOSINOPHIL % 0.4 % (0.0-4.0); HEMATOCRIT 36.9 % (35.0-46.0); HEMO FLAGS DIFF FINAL; LYMPH % 27.1 % (9.0-44.0); LYMPHOCYTE # 1.5 TH/MM3 (1.0-4.8); MEAN CELL VOLUME 87.4 FL (80.0-100.0); MEAN CORPUSCULAR HEMOGLOBIN 29.1 PG (27.0-34.0); MEAN CORPUSCULAR HGB CONC 33.3 % (32.0-36.0); NEUT % 63.1 % (16.0-70.0); PLATELET COUNT 193 TH/MM3 (150-450); RED BLOOD COUNT 4.22 MIL/MM3 (4.00-5.30); RED CELL DISTRIBUTION WIDTH 14.8 % (11.6-17.2); WHITE BLOOD COUNT 5.6 TH/MM3 (4.0-11.0)
[2017-03-15 06:49] LABS: ALT (GPT) 28 U/L (10-53); ANION GAP 8 MEQ/L (5-15); AST (GOT) 15 U/L (15-37); BICARBONATE 27.6 MEQ/L (21.0-32.0); BLOOD UREA NITROGEN 10 MG/DL (7-18); CHLORIDE 107 MEQ/L (98-107); GLOMERULAR FILTRATION RATE 88 ML/MIN (>89); POTASSIUM 3.4 MEQ/L (3.5-5.1); SODIUM (NA) 143 MEQ/L (136-145)
[2017-03-15 06:52] LABS: ALKALINE PHOSPHATASE 107 U/L (45-117); TOTAL BILIRUBIN ADULT 0.4 MG/DL (0.2-1.0)
[2017-03-15 07:00] VITALS: BP 110/64; PULSE 68; RESP 18; O2SAT 97
[2017-03-15 08:05] LABS: BLOOD, URINE NEG (NEG); GLUCOSE,URINE NEG (NEG); KETONE, URINE NEG (NEG); NITRITE,URINE NEG (NEG); SQUAMOUS EPITHELIAL CELL URINE <1 /hpf (0-5); URINE COLOR LIGHT-YELLOW (YELLW/STRAW)
[2017-03-15 08:07] LABS: COMMENT (UR) CULT NOT INDICATED; CULTURE IF INDICATED CULT NOT INDICATED
--- NOTE | 2017-03-15 08:19 | PD ---
Physical Exam Date Seen by Provider: Mar 15, 2017 Narrative GENERAL: SKIN: Warm and dry. HEAD: Atraumatic. Normocephalic. EYES: Pupils equal and round. No scleral icterus. No injection or drainage. ENT: No nasal bleeding or discharge. Mucous membranes pink and moist. NECK: Trachea midline. No JVD. CARDIOVASCULAR: Regular rate and rhythm. RESPIRATORY: No accessory muscle use. Clear to auscultation. Breath sounds equal bilaterally. GASTROINTESTINAL: Abdomen soft, non-tender, nondistended. MUSCULOSKELETAL: Extremities without clubbing, cyanosis, or edema. No obvious deformities. NEUROLOGICAL: Awake and alert. No obvious cranial nerve deficits. Motor grossly within normal limits. Five out of 5 muscle strength in the arms and legs. Normal speech. PSYCHIATRIC: Appropriate mood and affect; insight and judgment normal. Data Data Last Documented VS Vital Signs Date Time Temp Pulse Resp B/P Pulse Ox O2 Delivery O2 Flow Rate FiO2 03/15/17 07:00 68 18 110/64 97 Room Air 03/15/17 05:25 99.1 Orders Electrocardiogram (03/15/17 05:58) Complete Blood Count With Diff (03/15/17 05:58) Comprehensive Metabolic Panel (03/15/17 05:58) Urinalysis - C+S If Indicated (03/15/17 05:58) Ecg Monitoring (03/15/17 05:58) Iv Access Insert/Monitor (03/15/17 05:58) Oximetry (03/15/17 05:58) Sodium Chloride 0.9% Flush (Ns Flush) (03/15/17 06:00) Sodium Chlorid 0.9% 500 Ml Inj (Ns 500 M (03/15/17 06:00) Labs Laboratory Tests Test 03/15/17 03/15/17 06:14 07:35 White Blood Count 5.6 TH/MM3 Red Blood Count 4.22 MIL/MM3 Hemoglobin 12.3 GM/DL Hematocrit 36.9 % Mean Corpuscular Volume 87.4 FL Mean Corpuscular Hemoglobin 29.1 PG Mean Corpuscular Hemoglobin 33.3 % Concent Red Cell Distribution Width 14.8 % Platelet Count 193 TH/MM3 Mean Platelet Volume 8.7 FL Neutrophils (%) (Auto) 63.1 % Lymphocytes (%) (Auto) 27.1 % Monocytes (%) (Auto) 9.0 % Eosinophils (%) (Auto) 0.4 % Basophils (%) (Auto) 0.4 % Neutrophils # (Auto) 3.5 TH/MM3 Lymphocytes # (Auto) 1.5 TH/MM3 Monocytes # (Auto) 0.5 TH/MM3 Eosinophils # (Auto) 0.0 TH/MM3 Basophils # (Auto) 0.0 TH/MM3 CBC Comment DIFF FINAL Differential Comment Sodium Level 143 MEQ/L Potassium Level 3.4 MEQ/L Chloride Level 107 MEQ/L Carbon Dioxide Level 27.6 MEQ/L Anion Gap 8 MEQ/L Blood Urea Nitrogen 10 MG/DL Creatinine 0.80 MG/DL Estimat Glomerular Filtration 88 ML/MIN Rate Random Glucose 126 MG/DL Calcium Level 9.3 MG/DL Total Bilirubin 0.4 MG/DL Aspartate Amino Transf 15 U/L (AST/SGOT) Alanine Aminotransferase 28 U/L (ALT/SGPT) Alkaline Phosphatase 107 U/L Total Protein 7.5 GM/DL Albumin 3.6 GM/DL Urine Color LIGHT-YELLOW Urine Turbidity CLEAR Urine pH 7.0 Urine Specific [place] 1.006 Urine Protein NEG mg/dL Urine Glucose (UA) NEG mg/dL Urine Ketones NEG mg/dL Urine Occult Blood NEG Urine Nitrite NEG Urine Bilirubin NEG Urine Urobilinogen LESS THAN 2.0 MG/DL Urine Leukocyte Esterase NEG Urine RBC LESS THAN 1 /hpf Urine WBC 1 /hpf Urine Squamous Epithelial <1 /hpf Cells Microscopic Urinalysis Comment CULT NOT INDICATED MDM Medical Record Reviewed: Yes Supervised Visit with MEGAN: No Diagnosis Primary Impression: Diabetes Qualified Code: E11.8 - Type 2 diabetes mellitus with complication, without long-term current use of insulin Additional Impression: Generalized weakness Patient Instructions: General Instructions Additional Instruction: Please provide the patient a copy of her labs at discharge. Follow-up with your primary physician to fully discuss if your symptoms are related to januvia. Monitor your blood sugars. Disposition: 01 DISCHARGE HOME Condition: Stable Howard Mccoy MD Mar 15, 2017 08:19
[2017-03-15 09:25] VITALS: BP 110/57
--- NOTE | 2017-03-15 12:14 | EKG ---
Date Performed: 03/15/2017 Time Performed: 06:10:18 PTAGE: 61 years EKG: Sinus rhythm MODERATE VOLTAGE CRITERIA FOR LVH, CONSIDER NORMAL VARIANT NONSPECIFIC T-WAVE ABNORMALITY Since prev ious tracing, no significant change noted BORDERLINE ECG PREVIOUS TRACING : 02/09/2017 16.58 DOCTOR: Hugo Rodríguez Interpretating Date/Time 03/15/2017 12:12:26
== END 2017-03-15 09:25 | disposition home or self-care (01) ==
LOC: NEPC 05:22
DX: E11.8 Type 2 diabetes mellitus with unspecified complications (principal); R53.1 Weakness; R42 Dizziness and giddiness; R00.2 Palpitations; R11.0 Nausea; R94.31 Abnormal electrocardiogram [ECG] [EKG]; I10 Essential (primary) hypertension; Z72.0 Tobacco use; Z79.84 Long term (current) use of oral hypoglycemic drugs; Z87.39 Personal history of other diseases of the musculoskeletal system and connective tissue; Z87.19 Personal history of other diseases of the digestive system; Z86.79 Personal history of other diseases of the circulatory system
CPT/HCPCS: 80053; 81001; 85025; 93005; 96360; 99284; J7040

== ENCOUNTER 2017-03-25 21:21 | Emergency (ER) | payer OTHER, MEDICAID ==
[~2017-03-25] VITALS: Ht 167.6 cm; Wt 100.0 kg
[~2017-03-25 21:21] MED LIST changes: -GAS-80CH CHEW; +PANT40TA3 PO; -ZANT150T2 PO
[2017-03-25 21:23] VITALS: BP 132/72; PULSE 84; RESP 16; TEMP 98.6; O2SAT 99
== END 2017-03-25 22:41 | disposition left against medical advice (07) ==
LOC: NED 21:21
DX: R68.89 Other general symptoms and signs (principal)
CPT/HCPCS: 99281

== ENCOUNTER 2017-03-28 16:50 | Emergency (ER) | payer OTHER, MEDICAID ==
[~2017-03-28] VITALS: Ht 167.6 cm; Wt 100.0 kg
[2017-03-28 16:52] VITALS: BP 138/83; PULSE 97; RESP 16; TEMP 98.2; O2SAT 98
[2017-03-28] MEDS ORDERED: DULA10IN SQ (17:09)
[2017-03-28] MEDS ORDERED: DULA0.5I SQ (17:09)
--- NOTE | 2017-03-28 17:24 | PD ---
HPI Chief Complaint: Diabetic Time Seen by Provider: 16:59 Travel History International Travel<30 days: No Contact w/Intl Traveler<30days: No Traveled to known affect area: No History of Present Illness HPI 61 y/o female presents with feeling like her sugar was low so she had a peppermint and is now feeling better. She states she felt lightheaded before she took the peppermint. She denies any other concurrent complaints. She denies current symptoms at this time. She states that Thursday she was given a shot of trulicity for the first time through her primary care physician for management of her diabetes. She states that she gets the shot weekly. She states that she could not tolerate januvia and that is why they switched her. She states when she checked her sugar at home and it was 91 and did not drop below this. PFSH Past Medical History Arthritis: Yes Heart Rhythm Problems: No Cancer: No Cardiac Catheterization: No Cardiovascular Problems: Yes High Cholesterol: No Congestive Heart Failure: No Diabetes: Yes Patient Takes Glucophage: No Diminished Hearing: No Diverticulitis: Yes (COLONOSCOPY 2004 WAS TOLD SHE HAD "ALITIS") Endocrine: No GERD: Yes Genitourinary: No Hepatitis: No Hiatal Hernia: No Heparin Induced Thrombocytopen: No Hypertension: Yes Immune Disorder: No Medical other: No Musculoskeletal: Yes (BONE SPUR LEFT SHOULDER, BACK PROBLEMS) Neurologic: No Psychiatric: Yes (SLIGHTLY CLAUSTROPHOBIC) Reproductive: No Respiratory: No Thyroid Disease: No Menopausal: Yes : 8 Para: 6 Miscarriage: 2 Past Surgical History Abdominal Surgery: Yes (CHOLECYSTECTOMY ) AICD: No Cholecystectomy: Yes Coronary Artery Bypass Graft: No Gynecologic Surgery: Yes (HYSTERECTOMY ) Hysterectomy: Yes Joint Replacement: Yes (left knee) Pacemaker: No Other Surgery: Yes Social History Alcohol Use: Yes (glass of wine daily ) Tobacco Use: Yes (chew 2X PER WEEK) Substance Use: No Allergies-Medications (Allergen,Severity, Reaction): Coded Allergies: Cipro (Verified Allergy, Severe, rash, 03/25/17) Darvon (Verified Adverse Reaction, Severe, N&V, 03/25/17) Reported Meds & Prescriptions Reported Meds & Active Scripts Active Reported Trulicity Inj (Dulaglutide Inj) 0.75 Mg/0.5 Ml Pen 0.75 Mg SQ Q7D Pantoprazole (Pantoprazole Sodium) 40 Mg Tab 40 Mg PO DAILY Metoprolol Tartrate 25 Mg Tab 25 Mg PO BID Norvasc (Amlodipine Besylate) 10 Mg Tab 10 Mg PO DAILY Review of Systems Except as stated in HPI: all other systems reviewed are Neg Physical Exam Narrative GENERAL: Well-nourished, well-developed patient. well appearing SKIN: Warm and dry. HEAD: Normocephalic and atraumatic. EYES: No injection or drainage. ENT: No nasal drainage noted. NECK: Supple, trachea midline. CARDIOVASCULAR: Regular rate and rhythm RESPIRATORY: no increased effort. No accessory muscle use. GASTROINTESTINAL: Abdomen soft, non-tender, nondistended. NEUROLOGICAL: Awake and alert. Motor and sensory grossly within normal limits. Normal speech. Data Data Last Documented VS Vital Signs Date Time Temp Pulse Resp B/P Pulse Ox O2 Delivery O2 Flow Rate FiO2 03/28/17 16:52 98.2 97 16 138/83 98 Orders Complete Blood Count With Diff (03/28/17 17:09) Basic Metabolic Panel (Bmp) (03/28/17 17:09) Urinalysis - C+S If Indicated (03/28/17 17:09) Iv Access Insert/Monitor (03/28/17 17:09) Blood Glucose (03/28/17 17:09) Blood Glucose (03/28/17 18:30) Labs Laboratory Tests Test 03/28/17 17:15 White Blood Count 5.0 TH/MM3 Red Blood Count 4.29 MIL/MM3 Hemoglobin 12.3 GM/DL Hematocrit 38.1 % Mean Corpuscular Volume 88.7 FL Mean Corpuscular Hemoglobin 28.6 PG Mean Corpuscular Hemoglobin 32.3 % Concent Red Cell Distribution Width 14.9 % Platelet Count 198 TH/MM3 Mean Platelet Volume 8.6 FL Neutrophils (%) (Auto) 58.7 % Lymphocytes (%) (Auto) 31.9 % Monocytes (%) (Auto) 8.6 % Eosinophils (%) (Auto) 0.3 % Basophils (%) (Auto) 0.5 % Neutrophils # (Auto) 3.0 TH/MM3 Lymphocytes # (Auto) 1.6 TH/MM3 Monocytes # (Auto) 0.4 TH/MM3 Eosinophils # (Auto) 0.0 TH/MM3 Basophils # (Auto) 0.0 TH/MM3 CBC Comment DIFF FINAL Differential Comment Urine Color LIGHT-YELLOW Urine Turbidity CLEAR Urine pH 6.0 Urine Specific [place] 1.002 Urine Protein NEG mg/dL Urine Glucose (UA) NEG mg/dL Urine Ketones NEG mg/dL Urine Occult Blood NEG Urine Nitrite NEG Urine Bilirubin NEG Urine Urobilinogen LESS THAN 2.0 MG/DL Urine Leukocyte Esterase NEG Urine WBC 1 /hpf Urine Squamous Epithelial <1 /hpf Cells Urine Bacteria OCC /hpf Microscopic Urinalysis Comment CULT NOT INDICATED Sodium Level 143 MEQ/L Potassium Level 3.4 MEQ/L Chloride Level 106 MEQ/L Carbon Dioxide Level 27.6 MEQ/L Anion Gap 9 MEQ/L Blood Urea Nitrogen 9 MG/DL Creatinine 0.87 MG/DL Estimat Glomerular Filtration 80 ML/MIN Rate Random Glucose 108 MG/DL Calcium Level 9.5 MG/DL [facility] Medical Decision Making Medical Screen Exam Complete: Yes Emergency Medical Condition: Yes Medical Record Reviewed: Yes (pmh confirmed) Interpretation(s) CBC & BMP Diagram 03/28/17 17:15 ua no acute Differential Diagnosis Electrolyte abnormality, renal failure, transient hypoglycemia Narrative Course Will check blood work, urinalysis and reevaluate. Patient without documented hypoglycemia here in triage but this is after a peppermint so we'll need to observe here repeat glucose after 1.5 hours 107, Patient denies any new complaints and states that they are feeling better. Patient happy with care, all questions answered. Patient knows that follow up is incumbent on them and to return to the emergency room immediately if new or worsening symptoms develop. Patient given strict return precautions, vitals reviewed and are normal, agrees to further workup as an outpatient. Diagnosis Primary Impression: Lightheaded Patient Instructions: General Instructions Additional Instructions: return as needed, follow with primary thursday, eat dinner Med/Other Pt SpecificInfo: No Change to Meds Disposition: 01 DISCHARGE HOME Condition: Stable Jeanette Figueroa MD Mar 28, 2017 17:24
[2017-03-28 17:40] LABS: BACTERIA, URINE OCC /hpf; BLOOD, URINE NEG (NEG); COMMENT (UR) CULT NOT INDICATED; CULTURE IF INDICATED CULT NOT INDICATED; GLUCOSE,URINE NEG (NEG); KETONE, URINE NEG (NEG); NITRITE,URINE NEG (NEG); SQUAMOUS EPITHELIAL CELL URINE <1 /hpf (0-5); URINE COLOR LIGHT-YELLOW (YELLW/STRAW)
[2017-03-28 17:53] LABS: BICARBONATE 27.6 MEQ/L (21.0-32.0); POTASSIUM 3.4 MEQ/L (3.5-5.1)
[2017-03-28 17:58] LABS: BASOPHIL % 0.5 % (0.0-2.0); EOSINOPHIL % 0.3 % (0.0-4.0); HEMATOCRIT 38.1 % (35.0-46.0); HEMO FLAGS DIFF FINAL; LYMPH % 31.9 % (9.0-44.0); LYMPHOCYTE # 1.6 TH/MM3 (1.0-4.8); MEAN CELL VOLUME 88.7 FL (80.0-100.0); MEAN CORPUSCULAR HEMOGLOBIN 28.6 PG (27.0-34.0); MEAN CORPUSCULAR HGB CONC 32.3 % (32.0-36.0); MONO % 8.6 % (0.0-8.0); NEUT % 58.7 % (16.0-70.0); PLATELET COUNT 198 TH/MM3 (150-450); RED BLOOD COUNT 4.29 MIL/MM3 (4.00-5.30); RED CELL DISTRIBUTION WIDTH 14.9 % (11.6-17.2)
== END 2017-03-28 19:46 | disposition home or self-care (01) ==
LOC: NEPE 16:50
DX: R42 Dizziness and giddiness (principal); E11.9 Type 2 diabetes mellitus without complications; K21.9 Gastro-esophageal reflux disease without esophagitis; I10 Essential (primary) hypertension; Z72.0 Tobacco use
CPT/HCPCS: 80048; 81001; 85025; 99283

== ENCOUNTER 2017-03-28 22:46 | Emergency (ER) | payer OTHER ==
[~2017-03-28] VITALS: Ht 167.6 cm; Wt 100.0 kg
[~2017-03-28 22:46] MED LIST changes: +DULA0.5I SQ; +DULA10IN SQ
[2017-03-28 22:49] VITALS: BP 120/73; PULSE 83; RESP 16; TEMP 99; O2SAT 98
--- NOTE | 2017-03-28 23:51 | PD ---
HPI Chief Complaint: GI Complaint Time Seen by Provider: 23:50 Travel History International Travel<30 days: No Contact w/Intl Traveler<30days: No Traveled to known affect area: No History of Present Illness HPI 61-year-old female came to the emergency room with history of rectal bleeding. Patient was seen in the emergency department and discharged just couple hours ago for constipation. Patient says she went home and had 2 bowel movements and both of them had some blood in it. So is complaining of some lower abdominal discomfort. She describes the discomfort in the left lower quadrant which is vague in nature. No aggravating or relieving factors identified. When she was here earlier last night she had blood work done which were within normal limits. Vital signs are stable. Patient says she has been little woozy since this started. She is awake and answering questions appropriately. Does not look in any distress. Patient says she had a colonoscopy done on March 13. They had removed 2 polyps and said she has diverticulosis she thinks. [facility] Past Medical History Narrative Medical List of her past medical, surgical, social and family history is reviewed from the nursing note. Arthritis: Yes Heart Rhythm Problems: No Cancer: No Cardiac Catheterization: No Cardiovascular Problems: Yes High Cholesterol: No Congestive Heart Failure: No Diabetes: Yes Diminished Hearing: No Diverticulitis: Yes (COLONOSCOPY 2004 WAS TOLD SHE HAD "ALITIS") Endocrine: No GERD: Yes Genitourinary: No Hepatitis: No Hiatal Hernia: No Heparin Induced Thrombocytopen: No Hypertension: Yes Immune Disorder: No Musculoskeletal: Yes (BONE SPUR LEFT SHOULDER, BACK PROBLEMS) Neurologic: No Psychiatric: Yes (SLIGHTLY CLAUSTROPHOBIC) Reproductive: No Respiratory: No Thyroid Disease: No Menopausal: Yes : 8 Para: 6 Miscarriage: 2 Past Surgical History Abdominal Surgery: Yes (CHOLECYSTECTOMY ) AICD: No Cholecystectomy: Yes Coronary Artery Bypass Graft: No Gynecologic Surgery: Yes (HYSTERECTOMY ) Hysterectomy: Yes Joint Replacement: Yes (left knee) Pacemaker: No Other Surgery: Yes Social History Alcohol Use: Yes (glass of wine daily ) Tobacco Use: Yes (chew 2X PER WEEK) Substance Use: No Allergies-Medications (Allergen,Severity, Reaction): Coded Allergies: Cipro (Verified Allergy, Severe, rash, 03/30/17) Darvon (Verified Adverse Reaction, Severe, N&V, 7/10/17) Comments List of her past medical, surgical, social and family history is reviewed from the nursing note. Reported Meds & Prescriptions Reported Meds & Active Scripts Active Reported Trulicity Inj (Dulaglutide Inj) 0.75 Mg/0.5 Ml Pen 0.75 Mg SQ Q7D Pantoprazole (Pantoprazole Sodium) 40 Mg Tab 40 Mg PO DAILY Metoprolol Tartrate 25 Mg Tab 25 Mg PO BID Norvasc (Amlodipine Besylate) 10 Mg Tab 10 Mg PO DAILY Narrative Medication List of her home medications reviewed from the nursing note. Review of Systems Except as stated in HPI: all other systems reviewed are Neg Physical Exam Narrative GENERAL: Awake, alert, no obvious distress SKIN: Focused skin assessment warm/dry. HEAD: Atraumatic. Normocephalic. EYES: Pupils equal and round. No scleral icterus. No injection or drainage. ENT: No nasal bleeding or discharge. Mucous membranes pink and moist. NECK: Trachea midline. No JVD. CARDIOVASCULAR: Regular rate and rhythm. No murmur appreciated. RESPIRATORY: No accessory muscle use. Clear to auscultation. Breath sounds equal bilaterally. GASTROINTESTINAL: Abdomen soft, non-tender, nondistended. Hepatic and splenic margins not palpable. MUSCULOSKELETAL: No obvious deformities. No clubbing. No cyanosis. No edema. NEUROLOGICAL: Awake and alert. No obvious cranial nerve deficits. Motor grossly within normal limits. Normal speech. PSYCHIATRIC: Appropriate mood and affect; insight and judgment normal. Data Data Last Documented VS Vital Signs Date Time Temp Pulse Resp B/P Pulse Ox O2 Delivery O2 Flow Rate FiO2 03/28/17 23:59 79 16 119/79 03/28/17 22:49 99.0 98 Room Air MDM Medical Decision Making Medical Screen Exam Complete: Yes Emergency Medical Condition: Yes Medical Record Reviewed: Yes Differential Diagnosis Upper GI bleed, lower GI bleed Narrative Course 12:06 AM based on negative Hemoccult and normal orthostatic vital signs and the fact that she recently was assessed thoroughly along with lab work I'm comfortable discharging her home. Procedures EKG Prior to Arrival: No HemaPrompt Point of Care Internal Pos. & Neg. Controls: Passed Fecal Specimen Occult Blood: Negative Diagnosis Primary Impression: Normal physical exam Referrals: Primary Care Physician Additional Instructions: Follow-up with your primary care physician. Disposition: 01 DISCHARGE HOME Condition: Stable Sierra Diaz MD Mar 28, 2017 23:51
[2017-03-28 23:58] VITALS: BP 117/71; RESP 16
[2017-03-28 23:59] VITALS: BP_SYST 119; BP_SYST 120; BP_DIAS 77; BP_DIAS 79; RESP 16
== END 2017-03-29 00:44 | disposition home or self-care (01) ==
LOC: NEPE 22:46
DX: K62.5 Hemorrhage of anus and rectum (principal)
CPT/HCPCS: 99281

== ENCOUNTER 2017-03-30 19:42 | Observation (INO) | payer OTHER ==
[~2017-03-30] VITALS: Ht 167.6 cm; Wt 95.0 kg
[~2017-03-30 19:42] MED LIST changes: -DULA0.5I SQ; -PRED50 PO; -SITA25 PO
[2017-03-30 19:43] VITALS: BP 128/70; PULSE 100; RESP 16; TEMP 99.2; O2SAT 98
[2017-03-30 21:10] VITALS: BP 108/69; PULSE 81; RESP 18; O2SAT 98
[2017-03-30 21:21] VITALS: RESP 18; O2SAT 98
--- NOTE | 2017-03-30 21:23 | PD ---
HPI Chief Complaint: Chest Pain Time Seen by Provider: 21:07 Travel History International Travel<30 days: No Contact w/Intl Traveler<30days: No Traveled to known affect area: No History of Present Illness HPI The patient is a 61 year old female who presents to the [facility] emergency department with a history of reportedly having a sensation of an irregular heartbeat that lasted for a few minutes one time last night and then again at 7 PM today. The patient also reports that she has intermittently today experienced pain in the center of her chest. She reports that this comes and goes and is brought on with movement. She reports that she also has a pain in her upper back. She reports that the pain in her upper back as a 9 out of 10 in severity. She denies having any chest pain at this time. She reports that she did have some shortness of breath while driving to the emergency department, however this also resolved. She denies having any diaphoresis. She does report having some acid reflux symptoms, however she has been taking pantoprazole on a daily basis. She denies having any increased lower extremity edema, calf pain, or erythema. She does report having a history of hypertension , hyperlipidemia, and chest pain in the past. From reviewing the electronic medical record, the patient had an abnormal stress test in October 2015. She has not had a stress test since then or a cardiac catheterization previously. On review of systems, the patient denies any recent fevers, cough, congestion, neck pain, abdominal pain, vomiting, diarrhea, urinary symptoms, or neurologic symptoms. The patient denies taking an aspirin on a daily basis. [facility] Past Medical History Narrative Medical The patient's past medical history consists of hypertension, arthritis, history of an abnormal stress test in October 2015 with a follow-up consultation with Dr. Herman while in the hospital. At that time the patient was ruled out with serial cardiac enzymes. The chest pain at the patient was experiencing on that occasion was atypical. He recommended medical management at that time and did prescribe Imdur and low-dose aspirin daily in addition to her metoprolol and amlodipine that she was on at that time. He recommended that she closely follow up with him. He did not recommend a cardiac catheterization at that time. The patient reports having a history of hyperlipidemia. Arthritis: Yes Heart Rhythm Problems: No Cancer: No Cardiac Catheterization: No Cardiovascular Problems: Yes High Cholesterol: No Congestive Heart Failure: No Diabetes: Yes Patient Takes Glucophage: No Diminished Hearing: No Diverticulitis: Yes (COLONOSCOPY 2004 WAS TOLD SHE HAD "ALITIS") Endocrine: No GERD: Yes Genitourinary: No Hepatitis: No Hiatal Hernia: No Heparin Induced Thrombocytopen: No Hypertension: Yes Immune Disorder: No Musculoskeletal: Yes (BONE SPUR LEFT SHOULDER, BACK PROBLEMS) Neurologic: No Psychiatric: Yes (SLIGHTLY CLAUSTROPHOBIC) Reproductive: No Respiratory: No Thyroid Disease: No Tetanus Vaccination: > 5 Years Influenza Vaccination: No Menopausal: Yes : 8 Para: 6 Miscarriage: 2 Past Surgical History Narrative Surgical The patient's past surgical history is significant for a prior left knee surgery , cholecystectomy, and a hysterectomy. Abdominal Surgery: Yes (CHOLECYSTECTOMY ) AICD: No Cholecystectomy: Yes Coronary Artery Bypass Graft: No Gynecologic Surgery: Yes (HYSTERECTOMY ) Hysterectomy: Yes Joint Replacement: Yes (left knee) Pacemaker: No Other Surgery: Yes Social History Alcohol Use: Yes (glass of wine daily ) Tobacco Use: No Substance Use: No Allergies-Medications (Allergen,Severity, Reaction): Coded Allergies: Cipro (Verified Allergy, Severe, rash, 03/30/17) Darvon (Verified Adverse Reaction, Severe, N&V, 03/30/17) Reported Meds & Prescriptions Reported Meds & Active Scripts Active Reported Trulicity Inj (Dulaglutide Inj) 0.75 Mg/0.5 Ml Pen 0.75 Mg SQ Q7D Pantoprazole (Pantoprazole Sodium) 40 Mg Tab 40 Mg PO DAILY Metoprolol Tartrate 25 Mg Tab 25 Mg PO BID Norvasc (Amlodipine Besylate) 10 Mg Tab 10 Mg PO DAILY Review of Systems Except as stated in HPI: all other systems reviewed are Neg General / Constitutional: No: Fever Eyes: No: Visual changes HENT: No: Headaches Cardiovascular: Positive: Chest Pain or Discomfort, Irregular Rhythm Respiratory: Positive: Shortness of Breath Gastrointestinal: No: Abdominal Pain Genitourinary: No: Dysuria Musculoskeletal: Positive: Myalgias, Pain Skin: No Rash Neurologic: No: Weakness Psychiatric: No: Depression Endocrine: No: Polydipsia Hematologic/Lymphatic: No: Easy Bruising Physical Exam Narrative General: The patient is a well-developed well-nourished female in no acute distress. Head and Neck exam: Head is normocephalic atraumatic. Eyes: EOMI, pupils are equal round and reactive to light. Nose: Midline septum with pink mucous membranes Mouth: Dentition unremarkable. Moist mucus membranes. Posterior oropharynx is not erythematous. No tonsillar hypertrophy. Uvula midline. Airway patent. Neck: No palpable lymphadenopathy. No nuchal rigidity. No thyromegaly. Cardiovascular: Regular rate and rhythm without murmurs, gallops, or rubs. No pulse deficit to the extremities and simultaneous auscultation and palpation of her radial artery. Lungs: Clear to auscultation bilaterally. No wheezes, rhonchi, or rales. Abdomen: Soft, without tenderness to palpation in all 4 quadrants of the abdomen. No guarding, rebound, or rigidity. Normal bowel sounds are audible. No tenderness on palpation of McBurney's point. Negative Ringoes sign. Extremities: No clubbing or cyanosis. The patient has trace pedal edema bilateral lower extremities. 2+ pulses in all 4 extremities. No calf tenderness on palpation. Back: No spinous process tenderness to palpation. No costovertebral angle tenderness to palpation. Neurologic Exam: Grossly nonfocal. Skin Exam: No rash noted. Intact skin that is warm and dry. Data Data Last Documented VS Vital Signs Date Time Temp Pulse Resp B/P Pulse Ox O2 Delivery O2 Flow Rate FiO2 03/30/17 21:21 18 98 Room Air 03/30/17 21:10 85 03/30/17 21:10 108/69 03/30/17 19:43 99.2 Orders Electrocardiogram (03/30/17 ) Electrocardiogram (03/30/17 21:14) Complete Blood Count With Diff (03/30/17 21:14) Comprehensive Metabolic Panel (03/30/17 21:14) Creatine Kinase (Cpk) (03/30/17 21:14) Ckmb (Isoenzyme) Profile (03/30/17 21:14) Troponin I (03/30/17 21:14) B-Type Natriuretic Peptide (03/30/17 21:14) Prothrombin Time / Inr (Pt) (03/30/17 21:14) Act Partial Throm Time (Ptt) (03/30/17 21:14) Lipase (03/30/17 21:14) Magnesium (Mg) (03/30/17 21:14) Thyroid Stimulating Hormone (03/30/17 21:14) Chest, Single Ap (03/30/17 21:14) Iv Access Insert/Monitor (03/30/17 21:14) Ecg Monitoring (03/30/17 21:14) Oximetry (03/30/17 21:14) Admit Order (Ed Use Only) (03/30/17 22:40) Labs Laboratory Tests Test 03/30/17 21:15 White Blood Count 5.9 TH/MM3 Red Blood Count 4.17 MIL/MM3 Hemoglobin 12.2 GM/DL Hematocrit 36.7 % Mean Corpuscular Volume 87.8 FL Mean Corpuscular Hemoglobin 29.2 PG Mean Corpuscular Hemoglobin 33.3 % Concent Red Cell Distribution Width 15.1 % Platelet Count 219 TH/MM3 Mean Platelet Volume 8.5 FL Neutrophils (%) (Auto) 63.6 % Lymphocytes (%) (Auto) 23.9 % Monocytes (%) (Auto) 9.3 % Eosinophils (%) (Auto) 0.8 % Basophils (%) (Auto) 2.4 % Neutrophils # (Auto) 3.7 TH/MM3 Lymphocytes # (Auto) 1.4 TH/MM3 Monocytes # (Auto) 0.5 TH/MM3 Eosinophils # (Auto) 0.0 TH/MM3 Basophils # (Auto) 0.1 TH/MM3 CBC Comment DIFF FINAL Differential Comment Prothrombin Time 11.1 SEC Prothromb Time International 1.0 RATIO Ratio Activated Partial 23.8 SEC Thromboplast Time Sodium Level 141 MEQ/L Potassium Level 3.5 MEQ/L Chloride Level 108 MEQ/L Carbon Dioxide Level 25.0 MEQ/L Anion Gap 8 MEQ/L Blood Urea Nitrogen 14 MG/DL Creatinine 0.95 MG/DL Estimat Glomerular Filtration 72 ML/MIN Rate Random Glucose 95 MG/DL Calcium Level 9.5 MG/DL Magnesium Level 2.2 MG/DL Total Bilirubin 0.5 MG/DL Aspartate Amino Transf 17 U/L (AST/SGOT) Alanine Aminotransferase 21 U/L (ALT/SGPT) Alkaline Phosphatase 102 U/L Total Creatine Kinase 95 U/L Troponin I LESS THAN 0.02 NG/ML B-Type Natriuretic Peptide 2 PG/ML Total Protein 7.4 GM/DL Albumin 3.6 GM/DL Lipase 327 U/L Thyroid Stimulating Hormone 1.760 uIU/ML [facility] Medical Decision Making Medical Screen Exam Complete: Yes Emergency Medical Condition: Yes Medical Record Reviewed: Yes Interpretation(s) Last Impressions Chest X-Ray 03/30/172113 Signed Impressions: Service Date/Time: Thursday, March 30, 2017 21:10 - CONCLUSION: No acute disease. Edinson Carter MD FACR Differential Diagnosis Acute coronary syndrome, versus acid reflux, versus pneumonia, versus new-onset congestive heart failure Narrative Course During the course of the patients emergency department visit, the patients history, examination, and differential diagnosis were reviewed with the patient. The patient had IV access obtained and blood work sent for analysis. The patient was placed on a shelter monitor with oximetry and blood pressure monitoring. An ECG was done on arrival. The patient's ECG reveals a sinus rhythm of 69, QRS duration 94 ms, QTC 395 ms, no acute ST segment elevation or depression, T waves are inverted in V1. The patient was initially provided aspirin and 162 mg by mouth 1. The patients laboratory studies were reviewed and remarkable for a white count of 5.9, hemoglobin 12.2, platelets 219 with 9.3 monocytes, CMP is remarkable for chloride of 108, GFR 72, CPK 95, troponin I less than 0.02, BNP 2, lipase 327, TSH 1.76, PT 11.1, PTT 23.8. Radiology studies were reviewed and remarkable for a chest x-ray that showed no acute abnormality. The patients results were discussed with the patient, including the plan of care. I explained that further testing and/ or monitoring is indicated based on the patients history, examination, and/ or laboratory findings. Therefore, I recommended admission for additional evaluation. The patient expressed understanding and was agreeable with this plan. The patient was admitted to the hospital in stable condition and sent to a bed under the care of the chest pain center. Diagnosis Primary Impression: Chest pain, rule out acute myocardial infarction Admitting Information Admitting Physician Requests: Observation Janis Cedeno MD Mar 30, 2017 21:23
--- NOTE | 2017-03-30 21:34 | RADRPT ---
EXAM DATE/TIME: 03/30/2017 21:10 [place] COMPARISON: CHEST SINGLE AP, September 14, 2016, 18:58. INDICATIONS : Heart palpitations. Some shortness of breath that started today. MEDICAL HISTORY : Gastroesophageal reflux disease. Hypertension Diverticulitis SURGICAL HISTORY : Hysterectomy. Cholecystectomy ENCOUNTER: Initial ACUITY: 1 day PAIN SCORE: 5/10 LOCATION: Bilateral chest FINDINGS: A single view of the chest demonstrates the lungs to be symmetrically aerated without evidence of mas s, infiltrate or effusion. The cardiomediastinal contours are unremarkable. Osseous structures are intact. CONCLUSION: No acute disease. Edinson Carter MD FACR on March 30, 2017 at 21:32 Board Certified Radiologist. This report was verified electronically.
[2017-03-30 21:56] LABS: AUTOMATED NEUTROPHIL # 3.7 TH/MM3 (1.8-7.7); BASOPHIL # 0.1 TH/MM3 (0-0.2); BASOPHIL % 2.4 % (0.0-2.0); EOSINOPHIL % 0.8 % (0.0-4.0); HEMATOCRIT 36.7 % (35.0-46.0); HEMO FLAGS DIFF FINAL; LYMPH % 23.9 % (9.0-44.0); LYMPHOCYTE # 1.4 TH/MM3 (1.0-4.8); MEAN CELL VOLUME 87.8 FL (80.0-100.0); MEAN CORPUSCULAR HEMOGLOBIN 29.2 PG (27.0-34.0); MEAN CORPUSCULAR HGB CONC 33.3 % (32.0-36.0); MONO % 9.3 % (0.0-8.0); NEUT % 63.6 % (16.0-70.0); PLATELET COUNT 219 TH/MM3 (150-450); RED BLOOD COUNT 4.17 MIL/MM3 (4.00-5.30); RED CELL DISTRIBUTION WIDTH 15.1 % (11.6-17.2); WHITE BLOOD COUNT 5.9 TH/MM3 (4.0-11.0)
[2017-03-30 22:00] LABS: APTT (PATIENT) 23.8 SEC (24.3-30.1); PROTHROMBIN TIME - PATIENT 11.1 SEC (9.8-11.6)
[2017-03-30 22:08] LABS: ALT (GPT) 21 U/L (10-53); ANION GAP 8 MEQ/L (5-15); AST (GOT) 17 U/L (15-37); BLOOD UREA NITROGEN 14 MG/DL (7-18); CHLORIDE 108 MEQ/L (98-107); GLOMERULAR FILTRATION RATE 72 ML/MIN (>89); MAGNESIUM 2.2 MG/DL (1.5-2.5); POTASSIUM 3.5 MEQ/L (3.5-5.1); SODIUM (NA) 141 MEQ/L (136-145)
[2017-03-30 22:18] LABS: ALKALINE PHOSPHATASE 102 U/L (45-117); TOTAL BILIRUBIN ADULT 0.5 MG/DL (0.2-1.0)
[2017-03-30 22:32] LABS: CREATINE KINASE 95 U/L (26-192)
[2017-03-31] MEDS ORDERED: ONDANSETRON HCL 4 MG/2 ML VIAL IV PRN
[2017-03-31] MEDS ORDERED: SODIUM CHLORIDE 0.9% FLUSH 10 ML FLUSH IV FLUSH PRN
[2017-03-31 01:03] LABS: CREATINE KINASE 76 U/L (26-192)
[2017-03-31 02:21] VITALS: BP 101/57; PULSE 83; RESP 18; TEMP 98.3; O2SAT 98
[2017-03-31 04:20] LABS: CREATINE KINASE 73 U/L (26-192)
[2017-03-31 04:57] VITALS: BP 114/69; PULSE 81; RESP 18; TEMP 98.4; O2SAT 99
[2017-03-31 06:16] VITALS: O2SAT 98
[2017-03-31 07:22] VITALS: BP 116/70; PULSE 94; RESP 18; TEMP 98.7; O2SAT 99
[2017-03-31 08:00] VITALS: PULSE 75; PULSE 85
[2017-03-31] MEDS ORDERED: PANTOPRAZOLE SOD 40 MG DELAYED RELEASE TAB PO SCH (09:00)
[2017-03-31] MEDS ORDERED: SODIUM CHLORIDE 0.9% FLUSH 10 ML FLUSH IV FLUSH SCH (09:00)
--- NOTE | 2017-03-31 10:59 | HHI.HP ---
[facility] Primary Care Physician Bora Frederick DO Chief Complaint Chest pain History of Present Illness This is a 61-year-old female with history of hypertension, diabetes, and hyperlipidemia that presents to the ED with a complaint of 2 episodes of chest discomfort that began yesterday afternoon. She states around 7:00 while she is walking in her house she developed a sharp discomfort in the center of her chest. She states the last a couple seconds at most. But then it recurred a few minutes later also lasting a couple seconds at the most. There are some air -filled little nauseous and weak. No shortness breath or diaphoresis. The discomfort has not recurred. She denies history of coronary disease. Upon reviewing her records, patient had a stress test in October 2015 that had a reversible defect. She was seen by Dr. Herman in consultation and was placed on Imdur and he followed her in the office. She states that she has seen in his office a couple times in his and EKGs. She is no longer on Imdur. She is on amlodipine and metoprolol. She denies recent illness. Denies fevers or chills. Review of Systems General: Patient denies fevers, chills recent, and recent travel HEENT: Patient denies headache, sore throat, difficulty swallowing. Cardiovascular: Has the chest discomfort as mentioned above. Denies sensation of heart beating rapidly or irregularly. No syncope. Denies diaphoresis. Respiratory: Denies shortness of breath or inspirational chest discomfort. Denies coughing wheezing or hemoptysis. GI: Brief episode of nausea without emesis during her second episode of chest discomfort. Patient denies vomiting, diarrhea, abdominal pain, bloody stools. Musculoskeletal: Patient denies joint pain or edema. Denies calf pain or edema. Neurovascular: Patient denies numbness, tingling, weakness in extremities. Denies headache. Endocrine: Denies polyuria and polydipsia. Hematologic: Denies easy bruising. Skin: Denies rash or itching. Past Family Social History Allergies: Coded Allergies: Cipro (Verified Allergy, Severe, rash, 03/30/17) Darvon (Verified Adverse Reaction, Severe, N&V, 03/30/17) Past Medical History Hypertension, diabetes, and hyperlipidemia however she states she takes the medication. Denies known coronary artery disease. Past Surgical History Cholecystectomy, hysterectomy, and left knee replacement. Reported Medications Reported Meds & Active Scripts Active Reported Trulicity Inj (Dulaglutide Inj) 0.75 Mg/0.5 Ml Pen 0.75 Mg SQ Q7D Pantoprazole (Pantoprazole Sodium) 40 Mg Tab 40 Mg PO DAILY Metoprolol Tartrate 25 Mg Tab 25 Mg PO BID Norvasc (Amlodipine Besylate) 10 Mg Tab 10 Mg PO DAILY Active Ordered Medications Current Medications Medications (Trade) Dose Ordered Sig/Dino Route Start Time Stop Time Status Last Admin (NS Flush) 2 ml UNSCH PRN IV FLUSH 03/31/17 00:00 (NS Flush) 2 ml BID IV FLUSH 03/31/17 09:00 03/31/17 08:56 (Zofran Inj) 4 mg Q6H PRN IV 03/31/17 00:00 (Protonix) 40 mg DAILY PO 03/31/17 09:00 03/31/17 08:55 Family History She cannot recall family history of CAD. Social History Patient does not smoke. She has occasional glass of wine. Denies illicit drugs. Physical Exam Vital Signs Vital Signs Date Time Temp Pulse Resp B/P Pulse Ox O2 Delivery O2 Flow Rate FiO2 03/31/17 07:22 98.7 94 18 116/70 99 03/31/17 06:16 98 21 03/31/17 04:57 98.4 81 18 114/69 99 03/31/17 02:21 98.3 83 18 101/57 98 03/30/17 21:21 18 98 Room Air 03/30/17 21:10 85 98 Room Air 03/30/17 21:10 81 18 108/69 98 Room Air 03/30/17 19:43 99.2 100 16 128/70 98 Room Air Physical Exam GENERAL: This is a well-nourished, well-developed patient, in no apparent distress. Patient speaks in clear complete sentences. Patient is pleasant. HEENT: Head is atraumatic and normocephalic. Neck is supple without lymphadenopathy and trachea is midline. No JVD or carotid bruits. CARDIOVASCULAR: Regular rate and rhythm without murmurs, gallops, or rubs. RESPIRATORY: Clear to auscultation. Breath sounds equal bilaterally. No wheezes , rales, or rhonchi. Chest wall is tender when palpating over the sternum. She states this brings back the discomfort she had yesterday. No use of accessory muscles. GASTROINTESTINAL: Abdomen is nontender, nondistended. Abdomen soft. No obvious pulsatile mass or bruit. No CVA tenderness. Strong femoral pulses bilaterally. Normal bowel sounds in all quadrants. MUSCULOSKELETAL: Patient is moving upper and lower extremities freely. No calf tenderness or edema, no Homans sign. Strong pulses in upper and lower extremities. NEUROLOGICAL: Patient is alert and oriented. Cranial nerves 2-12 are grossly intact. No focal deficits and speech is clear. SKIN: No rash and turgor is normal. Laboratory Laboratory Tests Test 03/30/17 03/31/17 03/31/17 21:15 00:10 03:30 White Blood Count 5.9 Red Blood Count 4.17 Hemoglobin 12.2 Hematocrit 36.7 Mean Corpuscular Volume 87.8 Mean Corpuscular Hemoglobin 29.2 Mean Corpuscular Hemoglobin 33.3 Concent Red Cell Distribution Width 15.1 Platelet Count 219 Mean Platelet Volume 8.5 Neutrophils (%) (Auto) 63.6 Lymphocytes (%) (Auto) 23.9 Monocytes (%) (Auto) 9.3 Eosinophils (%) (Auto) 0.8 Basophils (%) (Auto) 2.4 Neutrophils # (Auto) 3.7 Lymphocytes # (Auto) 1.4 Monocytes # (Auto) 0.5 Eosinophils # (Auto) 0.0 Basophils # (Auto) 0.1 CBC Comment DIFF FINAL Differential Comment Prothrombin Time 11.1 Prothromb Time International 1.0 Ratio Activated Partial 23.8 Thromboplast Time Sodium Level 141 Potassium Level 3.5 Chloride Level 108 Carbon Dioxide Level 25.0 Anion Gap 8 Blood Urea Nitrogen 14 Creatinine 0.95 Estimat Glomerular Filtration 72 Rate Random Glucose 95 Calcium Level 9.5 Magnesium Level 2.2 Total Bilirubin 0.5 Aspartate Amino Transf 17 (AST/SGOT) Alanine Aminotransferase 21 (ALT/SGPT) Alkaline Phosphatase 102 Total Creatine Kinase 95 76 73 Troponin I LESS THAN 0.02 LESS THAN 0.02 LESS THAN 0.02 B-Type Natriuretic Peptide 2 Total Protein 7.4 Albumin 3.6 Lipase 327 Thyroid Stimulating Hormone 1.760 3rd Gen Result Diagram: 03/30/17211403/30/172114 Imaging Last 24 hours Impressions Chest X-Ray 03/30/172113 Signed Impressions: Service Date/Time: Thursday, March 30, 2017 21:10 - CONCLUSION: No acute disease. Edinson Carter MD FACR Course EKGs have sinus rhythm without significant ST segment depressions or elevations. Assessment and Plan Assessment and Plan * Atypical chest pain: Patient has had serial cardiac enzymes and EKGs for ruling out purposes. She has been seen by Dr. 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 Herman. * Diabetes: Patient should follow diabetic diet. She does not was stay on the diabetic medication that was just recently started. She states she's due for the injection tomorrow with her PCP. She should discuss this with Dr. Frederick tomorrow to see if they can switch her medication. * Hypertension: Continue current medication. * Hyperlipidemia: Patient states takes a medication. She should discuss this with her physician. Patient is stable at this time. She is agreeable to this plan. Manny Castaneda Mar 31, 2017 10:59
--- NOTE | 2017-03-31 11:02 | HHI.DCPOC ---
Discharge Care Plan Diagnosis: (1) Chest pain, atypical (2) Hypertension (3) Diabetes (4) Hyperlipidemia Goals to Promote Your Health Discuss taking cholesterol medication with your primary care physician. Also discuss taking an LEAH inhibitor as you have diabetes and this may be of benefit to prevent kidney issues. * To prevent worsening of your condition and complications * To maintain your health at the optimal level Directions to Meet Your Goals Take your medications as prescribed Follow your dietary instruction Follow activity as directed Keep your appointments as scheduled Take your immunizations and boosters as scheduled If your symptoms worsen call your PCP, if no PCP go to Urgent Care Center or Emergency Room Smoking is Dangerous to Your Health. Avoid second hand smoke Call the 24-hour hour crisis hotline for domestic abuse at Manny Castaneda Mar 31, 2017 11:01
--- NOTE | 2017-03-31 11:08 | PD.CARD.PN ---
Subjective Subjective Remarks CARDIOLOGY ATTENDING NOTE S: 61 yo black female known to Dr. Herman who has followed up on an abnormal stress test previous developed sudden sharp CP last night lasting only a second or so. She also felt a heart flip-flop. This recurred again later but lasted a bit longer. She became concerned and came to the ED. She has hx of back pain , HTN, lipids and GERD. O: HEENT mildly obese WNWD CHEST Tender over lower CC jcts but clear to AP CV RSR no GRM ABD Diffusely tender but no GR and no mass EXT no CC but a trace of pitting edema EKG neg x3 LAB neg x3 CXR neg A: Atypical CP, non cardiac but in pt with known hx of an abnormal stress test P: She has ruled out for ACS and pain is non cardiac. Repeating stress test would be useless in view of previous positive. Since she is known to Dr. Herman and followed closely we will discharge her to his care for determination of how he wishes to proceed. She may return if she has any further concern. Objective Vital Signs / I&O Vital Signs Date Time Temp Pulse Resp B/P Pulse Ox O2 Delivery O2 Flow Rate FiO2 03/31/17 07:22 98.7 94 18 116/70 99 03/31/17 06:16 98 21 03/31/17 04:57 98.4 81 18 114/69 99 03/31/17 02:21 98.3 83 18 101/57 98 03/30/17 21:21 18 98 Room Air 03/30/17 21:10 85 98 Room Air 03/30/17 21:10 81 18 108/69 98 Room Air 03/30/17 19:43 99.2 100 16 128/70 98 Room Air Laboratory Laboratory Tests Test 03/30/17 03/31/17 03/31/17 21:15 00:10 03:30 White Blood Count 5.9 TH/MM3 Red Blood Count 4.17 MIL/MM3 Hemoglobin 12.2 GM/DL Hematocrit 36.7 % Mean Corpuscular Volume 87.8 FL Mean Corpuscular Hemoglobin 29.2 PG Mean Corpuscular Hemoglobin 33.3 % Concent Red Cell Distribution Width 15.1 % Platelet Count 219 TH/MM3 Mean Platelet Volume 8.5 FL Neutrophils (%) (Auto) 63.6 % Lymphocytes (%) (Auto) 23.9 % Monocytes (%) (Auto) 9.3 % Eosinophils (%) (Auto) 0.8 % Basophils (%) (Auto) 2.4 % Neutrophils # (Auto) 3.7 TH/MM3 Lymphocytes # (Auto) 1.4 TH/MM3 Monocytes # (Auto) 0.5 TH/MM3 Eosinophils # (Auto) 0.0 TH/MM3 Basophils # (Auto) 0.1 TH/MM3 CBC Comment DIFF FINAL Differential Comment Prothrombin Time 11.1 SEC Prothromb Time International 1.0 RATIO Ratio Activated Partial 23.8 SEC Thromboplast Time Sodium Level 141 MEQ/L Potassium Level 3.5 MEQ/L Chloride Level 108 MEQ/L Carbon Dioxide Level 25.0 MEQ/L Anion Gap 8 MEQ/L Blood Urea Nitrogen 14 MG/DL Creatinine 0.95 MG/DL Estimat Glomerular Filtration 72 ML/MIN Rate Random Glucose 95 MG/DL Calcium Level 9.5 MG/DL Magnesium Level 2.2 MG/DL Total Bilirubin 0.5 MG/DL Aspartate Amino Transf 17 U/L (AST/SGOT) Alanine Aminotransferase 21 U/L (ALT/SGPT) Alkaline Phosphatase 102 U/L Total Creatine Kinase 95 U/L 76 U/L 73 U/L Troponin I LESS THAN 0.02 LESS THAN 0.02 LESS THAN 0.02 NG/ML NG/ML NG/ML B-Type Natriuretic Peptide 2 PG/ML Total Protein 7.4 GM/DL Albumin 3.6 GM/DL Lipase 327 U/L Thyroid Stimulating Hormone 1.760 uIU/ML 3rd Gen Gage Vale MD Mar 31, 2017 11:08
[2017-03-31 11:10] VITALS: BP 124/76; PULSE 88; RESP 18; TEMP 99.1; O2SAT 97
[2017-03-31] MEDS ORDERED: GLUCAGON 1 MG/ML VIAL IM/SQ PRN (11:15)
[2017-03-31] MEDS ORDERED: DEXTROSE 50% IN WATER 50 ML VIAL(D50) IV PRN (11:15)
--- NOTE | 2017-03-31 15:25 | EKG ---
Date Performed: 03/31/2017 Time Performed: 03:44:12 PTAGE: 61 years EKG: Sinus rhythm NORMAL ECG NO SIG CHANGE PREVIOUS TRACING : 03/31/2017 00.20 DOCTOR: Gage Vale Interpretating Date/Time 03/31/2017 15:23:49
--- NOTE | 2017-03-31 15:28 | EKG ---
Date Performed: 03/31/2017 Time Performed: 00:20:10 PTAGE: 61 years EKG: Sinus rhythm NONSPECIFIC T-WAVE ABNORMALITY BORDERLINE ECG NO SIG CHANGE PREVIOUS TRACING : 03/30/2017 20.52 DOCTOR: Gage Vale Interpretating Date/Time 03/31/2017 15:26:24
--- NOTE | 2017-03-31 15:30 | EKG ---
Date Performed: 03/30/2017 Time Performed: 20:52:07 PTAGE: 61 years EKG: Sinus rhythm NS STT CHANGES BUT NO SIG CHANGE PREVIOUS TRACING : 03/15/2017 06.10 DOCTOR: Gage Vale Interpretating Date/Time 03/31/2017 15:29:06
[2017-03-31] MEDS ORDERED: INSULIN ASPART SUPPLEMENTAL SCALE SQ SCH (16:00)
== END 2017-03-31 14:43 | disposition home or self-care (01) ==
LOC: NEPC 19:42 → NEDA 22:41 → NEPFCDU 03-31 01:18
PROVIDERS: ADMIT Internal Medicine Cardiovascular Disease; ATTEND Internal Medicine Cardiovascular Disease
DX: R07.89 Other chest pain (principal); I10 Essential (primary) hypertension; E78.5 Hyperlipidemia, unspecified; E11.9 Type 2 diabetes mellitus without complications; Z79.899 Other long term (current) drug therapy; Z79.84 Long term (current) use of oral hypoglycemic drugs
CPT/HCPCS: 71010; 80053; 82550; 82948; 83690; 83735; 83880; 84443; 84484; 85025; 85610; 85730; 93005; 99285; G0378

== ENCOUNTER 2017-04-05 05:13 | Emergency (ER) | payer OTHER ==
[2017-04-05 05:19] VITALS: BP 128/85; PULSE 85; RESP 18; TEMP 98.6; O2SAT 98
--- NOTE | 2017-04-05 06:12 | PD ---
HPI Chief Complaint: Medical Clearance Time Seen by Provider: 06:02 Travel History International Travel<30 days: No Contact w/Intl Traveler<30days: No Traveled to known affect area: No History of Present Illness HPI 61-year-old female with history of HTN, HLD, DM here with complaint of palpitations, nausea. Patient states that she started a new medication, Trulicity, for her diabetes. This is a once weekly injection, she has taken 2 of them. Since starting the medication patient states she feels nauseous. She has not had any associated diarrhea or abdominal pain. She notes some palpitations as though her heart is racing and skipping beats. She has not however had any chest pain since her recent overnight hospitalization for chest pain here earlier in March. PFSH Past Medical History Arthritis: Yes Heart Rhythm Problems: No Cancer: No Cardiac Catheterization: No Cardiovascular Problems: Yes High Cholesterol: No Congestive Heart Failure: No Diabetes: Yes Diminished Hearing: No Diverticulitis: Yes (COLONOSCOPY 2004 WAS TOLD SHE HAD "ALITIS") Endocrine: No GERD: Yes Genitourinary: No Hepatitis: No Hiatal Hernia: No Heparin Induced Thrombocytopen: No Hypertension: Yes Immune Disorder: No Musculoskeletal: Yes (BONE SPUR LEFT SHOULDER, BACK PROBLEMS) Neurologic: No Psychiatric: Yes (SLIGHTLY CLAUSTROPHOBIC) Reproductive: No Respiratory: No Thyroid Disease: No Menopausal: Yes : 8 Para: 6 Miscarriage: 2 Past Surgical History Abdominal Surgery: Yes (CHOLECYSTECTOMY ) AICD: No Cholecystectomy: Yes Coronary Artery Bypass Graft: No Gynecologic Surgery: Yes (HYSTERECTOMY ) Hysterectomy: Yes Joint Replacement: Yes (left knee) Pacemaker: No Other Surgery: Yes Social History Alcohol Use: Yes (glass of wine daily ) Tobacco Use: No Substance Use: No Allergies-Medications (Allergen,Severity, Reaction): Coded Allergies: Cipro (Verified Allergy, Severe, rash, 04/05/17) Darvon (Verified Adverse Reaction, Severe, N&V, 04/05/17) Reported Meds & Prescriptions Reported Meds & Active Scripts Active Reported Trulicity Inj (Dulaglutide Inj) 0.75 Mg/0.5 Ml Pen 0.75 Mg SQ Q7D Pantoprazole (Pantoprazole Sodium) 40 Mg Tab 40 Mg PO DAILY Metoprolol Tartrate 25 Mg Tab 25 Mg PO BID Norvasc (Amlodipine Besylate) 10 Mg Tab 10 Mg PO DAILY Review of Systems Except as stated in HPI: all other systems reviewed are Neg Physical Exam Narrative GENERAL: Well-appearing female in no acute distress SKIN: Focused skin assessment warm/dry. HEAD: Normocephalic. EYES: No scleral icterus. No injection or drainage. ENT: Mucous membranes pink and moist. NECK: Supple CARDIOVASCULAR: Regular rate and rhythm. No murmur appreciated. RESPIRATORY: No accessory muscle use. Clear to auscultation. Breath sounds equal bilaterally. GASTROINTESTINAL: Abdomen soft, non-tender, nondistended. MUSCULOSKELETAL: No obvious deformities. No edema. NEUROLOGICAL: Awake and alert. Normal gait. Normal speech. PSYCHIATRIC: Appropriate mood and affect; insight and judgment normal. Data Data Last Documented VS Vital Signs Date Time Temp Pulse Resp B/P Pulse Ox O2 Delivery O2 Flow Rate FiO2 04/05/17 06:22 18 96 Room Air 04/05/17 05:19 98.6 85 128/85 Orders Electrocardiogram (04/05/17 06:07) Basic Metabolic Panel (Bmp) (04/05/17 06:07) Complete Blood Count With Diff (04/05/17 06:07) Magnesium (Mg) (04/05/17 06:07) Ecg Monitoring (04/05/17 06:07) Iv Access Insert/Monitor (04/05/17 06:07) Oximetry (04/05/17 06:07) Sodium Chloride 0.9% Flush (Ns Flush) (04/05/17 06:15) Labs Laboratory Tests Test 04/05/17 06:18 White Blood Count 4.4 TH/MM3 Red Blood Count 4.14 MIL/MM3 Hemoglobin 12.2 GM/DL Hematocrit 36.7 % Mean Corpuscular Volume 88.5 FL Mean Corpuscular Hemoglobin 29.5 PG Mean Corpuscular Hemoglobin 33.3 % Concent Red Cell Distribution Width 15.2 % Platelet Count 187 TH/MM3 Mean Platelet Volume 8.1 FL Neutrophils (%) (Auto) 56.8 % Lymphocytes (%) (Auto) 30.0 % Monocytes (%) (Auto) 11.1 % Eosinophils (%) (Auto) 0.6 % Basophils (%) (Auto) 1.5 % Neutrophils # (Auto) 2.5 TH/MM3 Lymphocytes # (Auto) 1.3 TH/MM3 Monocytes # (Auto) 0.5 TH/MM3 Eosinophils # (Auto) 0.0 TH/MM3 Basophils # (Auto) 0.1 TH/MM3 CBC Comment DIFF FINAL Differential Comment Sodium Level 144 MEQ/L Potassium Level 3.5 MEQ/L Chloride Level 109 MEQ/L Carbon Dioxide Level 28.0 MEQ/L Anion Gap 7 MEQ/L Blood Urea Nitrogen 9 MG/DL Creatinine 0.81 MG/DL Estimat Glomerular Filtration 86 ML/MIN Rate Random Glucose 104 MG/DL Calcium Level 9.2 MG/DL Magnesium Level 2.4 MG/DL [facility] Medical Decision Making Medical Screen Exam Complete: Yes Emergency Medical Condition: Yes Medical Record Reviewed: Yes Differential Diagnosis 61-year-old female with history of HTN, HLD, DM here with complaint of nausea and palpitations since starting a new that occasion, Trulicity. Differential includes medication side effect, approximately 12 to 21% will experience nausea and 3-6% low experience some degree of tachycardia, arrhythmia, palpitations. I suspect given the temporal relation that this is a medication side effect. Differential includes arrhythmia, electrolyte abnormality, symptomatic anemia, anxiety Narrative Course Patient placed on monitor, IV established and blood obtained. A twelve-lead EKG showed sinus rhythm without notable ST or T-wave abnormalities, normal intervals. CBC, BMP, magnesium unremarkable. Diagnosis Primary Impression: Medication side effect Qualified Code: T88.7XXA - Medication side effect, initial encounter Additional Impressions: Nausea Palpitations Additional Instructions: Discontinue Trulicity. Follow-up with prescribing physician for further diabetic management. Med/Other Pt SpecificInfo: Med Stopped Disposition: DISCHARGE HOME Condition: Stable Katelyn Dawn MD Apr 05, 2017 06:12
[2017-04-05] MEDS ORDERED: SODIUM CHLORIDE 0.9% FLUSH 10 ML FLUSH IVF PRN (06:15)
[2017-04-05 06:22] VITALS: RESP 18; O2SAT 96
[2017-04-05 06:30] LABS: AUTOMATED NEUTROPHIL # 2.5 TH/MM3 (1.8-7.7); BASOPHIL # 0.1 TH/MM3 (0-0.2); BASOPHIL % 1.5 % (0.0-2.0); EOSINOPHIL % 0.6 % (0.0-4.0); HEMATOCRIT 36.7 % (35.0-46.0); HEMO FLAGS DIFF FINAL; LYMPHOCYTE # 1.3 TH/MM3 (1.0-4.8); MEAN CELL VOLUME 88.5 FL (80.0-100.0); MEAN CORPUSCULAR HEMOGLOBIN 29.5 PG (27.0-34.0); MEAN CORPUSCULAR HGB CONC 33.3 % (32.0-36.0); MONO % 11.1 % (0.0-8.0); NEUT % 56.8 % (16.0-70.0); PLATELET COUNT 187 TH/MM3 (150-450); RED BLOOD COUNT 4.14 MIL/MM3 (4.00-5.30); RED CELL DISTRIBUTION WIDTH 15.2 % (11.6-17.2); WHITE BLOOD COUNT 4.4 TH/MM3 (4.0-11.0)
[2017-04-05 06:57] LABS: MAGNESIUM 2.4 MG/DL (1.5-2.5); POTASSIUM 3.5 MEQ/L (3.5-5.1)
--- NOTE | 2017-04-05 12:57 | EKG ---
Date Performed: 04/05/2017 Time Performed: 06:14:08 PTAGE: 61 years EKG: Sinus rhythm MINIMAL VOLTAGE CRITERIA FOR LVH, CONSIDER NORMAL VARIANT Compared to previous tracing, LVH is more appearant BORDERLINE ECG PREVIOUS TRACING : 03/31/2017 03.44 DOCTOR: Uriel Sams Interpretating Date/Time 04/05/2017 12:56:19
== END 2017-04-05 07:15 | disposition home or self-care (01) ==
LOC: NEPE 05:13
DX: T50.995A Adverse effect of other drugs, medicaments and biological substances, initial encounter (principal); R00.2 Palpitations; R11.0 Nausea; I10 Essential (primary) hypertension; E78.5 Hyperlipidemia, unspecified; E11.9 Type 2 diabetes mellitus without complications; M13.80 Other specified arthritis, unspecified site; K21.9 Gastro-esophageal reflux disease without esophagitis; Z79.899 Other long term (current) drug therapy
CPT/HCPCS: 80048; 83735; 85025; 93005

== ENCOUNTER 2017-04-08 00:04 | Emergency (ER) | payer OTHER ==
[2017-04-08 00:07] VITALS: BP 124/74; PULSE 74; RESP 18; TEMP 98.5; O2SAT 98
[2017-04-08] MEDS ORDERED: ALPR.25 PO (02:09)
--- NOTE | 2017-04-08 02:09 | PD ---
HPI Chief Complaint: Anxiety Time Seen by Provider: 01:58 Travel History International Travel<30 days: No Contact w/Intl Traveler<30days: No Traveled to known affect area: No History of Present Illness HPI This is a 61-year-old female who presents to the emergency department with sleeplessness. She says she feels somewhat anxious and hasn't been able to sleep in several nights. She doesn't feel herself ever since she started taking a new diabetes medication. She was seen here yesterday in the emergency department for similar symptoms and she was admitted earlier in the week for chest pain. She denies any chest pain or shortness of breath currently. PFSH Past Medical History Arthritis: Yes Heart Rhythm Problems: No Cancer: No Cardiac Catheterization: No Cardiovascular Problems: Yes High Cholesterol: No Congestive Heart Failure: No Diabetes: Yes Patient Takes Glucophage: Yes Diminished Hearing: No Diverticulitis: Yes (COLONOSCOPY 2004 WAS TOLD SHE HAD "ALITIS") Endocrine: No Gastrointestinal Disorders: Yes (HIATAL HERNIA, CONSTIPATION) GERD: Yes Genitourinary: No Hepatitis: No Hiatal Hernia: No Heparin Induced Thrombocytopen: No Hypertension: Yes Immune Disorder: No Musculoskeletal: Yes (BONE SPUR LEFT SHOULDER, BACK PROBLEMS) Neurologic: No Psychiatric: Yes (SLIGHTLY CLAUSTROPHOBIC) Reproductive: No Respiratory: No Thyroid Disease: No Menopausal: Yes : 8 Para: 6 Miscarriage: 2 Past Surgical History Abdominal Surgery: Yes (CHOLECYSTECTOMY ) AICD: No Cholecystectomy: Yes Coronary Artery Bypass Graft: No Gynecologic Surgery: Yes (HYSTERECTOMY ) Hysterectomy: Yes Joint Replacement: Yes (left knee) Pacemaker: No Other Surgery: Yes Social History Tobacco Use: No (never) Substance Use: No Allergies-Medications (Allergen,Severity, Reaction): Coded Allergies: Cipro (Verified Allergy, Severe, rash, 04/05/17) Darvon (Verified Adverse Reaction, Severe, N&V, 04/05/17) Reported Meds & Prescriptions Reported Meds & Active Scripts Active Reported Trulicity Inj (Dulaglutide Inj) 0.75 Mg/0.5 Ml Pen 0.75 Mg SQ Q7D Pantoprazole (Pantoprazole Sodium) 40 Mg Tab 40 Mg PO DAILY Metoprolol Tartrate 25 Mg Tab 25 Mg PO BID Norvasc (Amlodipine Besylate) 10 Mg Tab 10 Mg PO DAILY Review of Systems Except as stated in HPI: all other systems reviewed are Neg Physical Exam Narrative GENERAL:Well appearing, no acute distress SKIN: Focused skin assessment warm and dry. HEAD: Atraumatic. Normocephalic. EYES: Pupils equal and round. No injection or drainage. ENT: Moist mucous membranes NECK: Trachea midline. CARDIOVASCULAR: Regular rate and rhythm. No murmur appreciated. RESPIRATORY: Clear to auscultation. Breath sounds equal bilaterally. GASTROINTESTINAL: Abdomen soft, non-tender, nondistended. MUSCULOSKELETAL: No obvious deformities. NEUROLOGICAL: Awake and alert. No obvious cranial nerve deficits. Moving all extremities. Data Data Last Documented VS Vital Signs Date Time Temp Pulse Resp B/P Pulse Ox O2 Delivery O2 Flow Rate FiO2 04/08/17 00:07 98.5 74 18 124/74 98 MDM Medical Decision Making Medical Screen Exam Complete: Yes Emergency Medical Condition: Yes Interpretation(s) Afebrile, no tachycardia, normotensive Differential Diagnosis Anxiety, panic attack, medication side effect Narrative Course This is a 61-year-old female who presents to the emergency department with nonspecific symptoms her chief concern being that she can't sleep. She's been here multiple times this week with variable complaints. She's had multiple workups which have been unremarkable. I think she may benefit from some low- dose benzodiazepine just to help her with anxiety. I asked her to follow up with her primary care physician. I don't think any further lab testing would be high yield in this patient. Patient was discharged home. Diagnosis Primary Impression: Anxiety Patient Instructions: General Instructions Additional Instructions: If you develop severe chest pain, shortness of breath, sweating, lightheadedness , dizziness or difficulty breathing return to the emergency department immediately. Followup with your primary care physician in 2-3 days if your symptoms are not resolved. Med/Other Pt SpecificInfo: Prescription(s) given Scripts Alprazolam (Xanax)0.25 Mg Tab0.25 Mg PO Q8H PRN (ANXIETY) #10 TAB Ref 0 Prov:Eloise Richter MD 04/08/17 Disposition: 01 DISCHARGE HOME Condition: Stable Eloise Richter MD Apr 08, 2017 02:09
[2017-04-08] MEDS ORDERED: ALPRAZolam 0.5 MG TAB PO ONE (02:15)
[2017-04-08 03:06] VITALS: BP 108/66
== END 2017-04-08 03:14 | disposition home or self-care (01) ==
LOC: NEPE 00:04
DX: F41.9 Anxiety disorder, unspecified (principal); I10 Essential (primary) hypertension; E11.9 Type 2 diabetes mellitus without complications; M13.80 Other specified arthritis, unspecified site; K21.9 Gastro-esophageal reflux disease without esophagitis; Z79.899 Other long term (current) drug therapy
CPT/HCPCS: 99283

== ENCOUNTER 2017-04-14 13:52 | Emergency (ER) | payer OTHER ==
[~2017-04-14] VITALS: Ht 167.6 cm; Wt 100.0 kg
[~2017-04-14 13:52] MED LIST changes: +ALPR.25 PO
[2017-04-14 13:54] VITALS: BP 107/65; PULSE 75; RESP 15; TEMP 98.2; O2SAT 99
[2017-04-14 14:42] LABS: BLOOD, URINE NEG (NEG); CALCIUM OXALATE CRYSTALS,URINE OCC /hpf; COMMENT (UR) CULT NOT INDICATED; CULTURE IF INDICATED CULT NOT INDICATED; GLUCOSE,URINE TRACE mg/dL (NEG); HYALINE CAST, URINE 11 /lpf (RARE); KETONE, URINE NEG (NEG); MUCUS URINE MANY /lpf (OCC); NITRITE,URINE NEG (NEG); SQUAMOUS EPITHELIAL CELL URINE 1 /hpf (0-5); URINE COLOR YELLOW (YELLW/STRAW)
[2017-04-14 14:59] LABS: AUTOMATED NEUTROPHIL # 2.6 TH/MM3 (1.8-7.7); BASOPHIL % 0.7 % (0.0-2.0); EOSINOPHIL % 0.9 % (0.0-4.0); HEMATOCRIT 38.2 % (35.0-46.0); HEMO FLAGS DIFF FINAL; LYMPH % 32.5 % (9.0-44.0); LYMPHOCYTE # 1.5 TH/MM3 (1.0-4.8); MEAN CELL VOLUME 90.1 FL (80.0-100.0); MEAN CORPUSCULAR HEMOGLOBIN 29.2 PG (27.0-34.0); MEAN CORPUSCULAR HGB CONC 32.4 % (32.0-36.0); MONO % 9.9 % (0.0-8.0); PLATELET COUNT 214 TH/MM3 (150-450); RED BLOOD COUNT 4.24 MIL/MM3 (4.00-5.30); WHITE BLOOD COUNT 4.7 TH/MM3 (4.0-11.0)
[2017-04-14 15:13] LABS: ANION GAP 7 MEQ/L (5-15); BICARBONATE 29.4 MEQ/L (21.0-32.0); BLOOD UREA NITROGEN 11 MG/DL (7-18); CHLORIDE 108 MEQ/L (98-107); GLOMERULAR FILTRATION RATE 70 ML/MIN (>89); POTASSIUM 3.9 MEQ/L (3.5-5.1); SODIUM (NA) 144 MEQ/L (136-145)
[2017-04-14 15:43] LABS: CREATINE KINASE 62 U/L (26-192)
--- NOTE | 2017-04-14 17:24 | PD ---
HPI Chief Complaint: General Weakness Time Seen by Provider: 17:10 Travel History International Travel<30 days: No Contact w/Intl Traveler<30days: No Traveled to known affect area: No History of Present Illness HPI This is a 60-year-old female who presents for evaluation of anxiety, sleeplessness and fatigue. Symptoms have been going on for at least 2 months. She denies any feelings of depression or suicidal thoughts. She denies any chest pain, shortness breath, nausea or vomiting, recent illness, abdominal pain , diarrhea or constipation. She reports that the only recent medication change was she was started on trajenta however this was discontinued by her primary care physician. The patient has been seen here several times in the past few months with similar complaints and also with other various complaints. She's had numerous workups. Most recently she was seen here April 07 and prescribed Xanax for anxiety. She reports that this helps a little bit but symptoms have persisted which prompted evaluation. She has not yet seen her primary care physician about this. She has no other complaints at this time. PFSH Past Medical History Arthritis: Yes Heart Rhythm Problems: No Cancer: No Cardiac Catheterization: No Cardiovascular Problems: Yes High Cholesterol: No Congestive Heart Failure: No Diabetes: Yes Patient Takes Glucophage: No Diminished Hearing: No Diverticulitis: Yes (COLONOSCOPY 2004 WAS TOLD SHE HAD "ALITIS") Endocrine: No Gastrointestinal Disorders: Yes (HIATAL HERNIA, CONSTIPATION) GERD: Yes Genitourinary: No Hepatitis: No Hiatal Hernia: No Heparin Induced Thrombocytopen: No Hypertension: Yes Immune Disorder: No Musculoskeletal: Yes (BONE SPUR LEFT SHOULDER, BACK PROBLEMS) Neurologic: No Psychiatric: Yes (SLIGHTLY CLAUSTROPHOBIC) Reproductive: No Respiratory: No Thyroid Disease: No Menopausal: Yes : 8 Para: 6 Miscarriage: 2 Past Surgical History Abdominal Surgery: Yes (CHOLECYSTECTOMY ) AICD: No Cholecystectomy: Yes Coronary Artery Bypass Graft: No Gynecologic Surgery: Yes (HYSTERECTOMY ) Hysterectomy: Yes Joint Replacement: Yes (left knee) Pacemaker: No Other Surgery: Yes Social History Alcohol Use: Yes (RARE ) Tobacco Use: No (never) Substance Use: No Allergies-Medications (Allergen,Severity, Reaction): Coded Allergies: Cipro (Verified Allergy, Severe, rash, 04/14/17) Darvon (Verified Adverse Reaction, Severe, N&V, 04/14/17) Reported Meds & Prescriptions Reported Meds & Active Scripts Active Xanax (Alprazolam) 0.25 Mg Tab 0.25 Mg PO Q8H PRN Reported Trulicity Inj (Dulaglutide Inj) 0.75 Mg/0.5 Ml Pen 0.75 Mg SQ Q7D Pantoprazole (Pantoprazole Sodium) 40 Mg Tab 40 Mg PO DAILY Metoprolol Tartrate 25 Mg Tab 25 Mg PO BID Norvasc (Amlodipine Besylate) 10 Mg Tab 10 Mg PO DAILY Review of Systems Except as stated in HPI: all other systems reviewed are Neg Physical Exam Narrative GENERAL: Pleasant well-developed well-nourished female in no acute distress SKIN: Warm and dry. HEAD: Atraumatic. Normocephalic. EYES: Pupils equal and round. No scleral icterus. No injection or drainage. ENT: No nasal bleeding or discharge. Mucous membranes pink and moist. NECK: Trachea midline. No JVD. CARDIOVASCULAR: Regular rate and rhythm. No murmur appreciated. RESPIRATORY: No accessory muscle use. Clear to auscultation. Breath sounds equal bilaterally. GASTROINTESTINAL: Abdomen soft, non-tender, nondistended. Hepatic and splenic margins not palpable. MUSCULOSKELETAL: No obvious deformities. No clubbing. No cyanosis. No edema. NEUROLOGICAL: Awake and alert. No obvious cranial nerve deficits. Motor grossly within normal limits. Normal speech. PSYCHIATRIC: Appropriate mood and affect; insight and judgment normal. Slightly anxious. Data Data Last Documented VS Vital Signs Date Time Temp Pulse Resp B/P Pulse Ox O2 Delivery O2 Flow Rate FiO2 04/14/17 13:54 98.2 75 15 107/65 99 Orders Electrocardiogram (04/14/17 14:08) Complete Blood Count With Diff (04/14/17 14:08) Basic Metabolic Panel (Bmp) (04/14/17 14:08) Ckmb (Isoenzyme) Profile (04/14/17 14:08) Troponin I (04/14/17 14:08) Urinalysis - C+S If Indicated (04/14/17 14:10) Labs Laboratory Tests Test 04/14/17 04/14/17 14:10 14:40 Urine Color YELLOW Urine Turbidity HAZY Urine pH 6.0 Urine Specific [place] 1.026 Urine Protein 30 mg/dL Urine Glucose (UA) TRACE mg/dL Urine Ketones NEG mg/dL Urine Occult Blood NEG Urine Nitrite NEG Urine Bilirubin NEG Urine Urobilinogen 2.0 MG/DL Urine Leukocyte Esterase NEG Urine RBC 3 /hpf Urine WBC 2 /hpf Urine Squamous Epithelial 1 /hpf Cells Urine Calcium Oxalate Crystals OCC /hpf Urine Hyaline Casts 11 /lpf Urine Mucus MANY /lpf Microscopic Urinalysis Comment CULT NOT INDICATED White Blood Count 4.7 TH/MM3 Red Blood Count 4.24 MIL/MM3 Hemoglobin 12.4 GM/DL Hematocrit 38.2 % Mean Corpuscular Volume 90.1 FL Mean Corpuscular Hemoglobin 29.2 PG Mean Corpuscular Hemoglobin 32.4 % Concent Red Cell Distribution Width 15.0 % Platelet Count 214 TH/MM3 Mean Platelet Volume 8.3 FL Neutrophils (%) (Auto) 56.0 % Lymphocytes (%) (Auto) 32.5 % Monocytes (%) (Auto) 9.9 % Eosinophils (%) (Auto) 0.9 % Basophils (%) (Auto) 0.7 % Neutrophils # (Auto) 2.6 TH/MM3 Lymphocytes # (Auto) 1.5 TH/MM3 Monocytes # (Auto) 0.5 TH/MM3 Eosinophils # (Auto) 0.0 TH/MM3 Basophils # (Auto) 0.0 TH/MM3 CBC Comment DIFF FINAL Differential Comment Sodium Level 144 MEQ/L Potassium Level 3.9 MEQ/L Chloride Level 108 MEQ/L Carbon Dioxide Level 29.4 MEQ/L Anion Gap 7 MEQ/L Blood Urea Nitrogen 11 MG/DL Creatinine 0.97 MG/DL Estimat Glomerular Filtration 70 ML/MIN Rate Random Glucose 115 MG/DL Calcium Level 9.6 MG/DL Total Creatine Kinase 62 U/L Troponin I LESS THAN 0.02 NG/ML MDM Medical Decision Making Medical Screen Exam Complete: Yes Emergency Medical Condition: Yes Medical Record Reviewed: Yes Differential Diagnosis Anxiety, insomnia, sleep apnea, medication side effect, hypothyroidism, metabolic disturbance Narrative Course This is a 60-year-old female who has been suffering from insomnia, anxiety for the past few months. She's been seen here several times in the past few months and had numerous tests done. Her symptoms seem more related to anxiety or insomnia than anything else. She may be suffering from sleep apnea. Lab work was done in triage including a urinalysis, CBC, BMP, troponin and CK which were essentially unremarkable. The patient's arrived and discussed the findings of all the previous visits with him as well. He has noticed symptoms at night that seems suspicious for sleep apnea which could be explaining her symptoms of anxiety/sleepiness/insomnia. At this point in time the plan will be to have the patient follow up with her primary care physician for further testing and treatment. She is agreeable. Diagnosis Primary Impression: Anxiety Additional Impression: Fatigue due to sleep pattern disturbance Additional Instructions: As discussed, follow-up closely with primary care physician for further evaluation. Return for any emergent medical conditions. Med/Other Pt SpecificInfo: No Change to Meds Disposition: 01 DISCHARGE HOME Condition: Stable Lucio Moreno Apr 14, 2017 17:24
--- NOTE | 2017-04-15 21:11 | EKG ---
Date Performed: 04/14/2017 Time Performed: 17:34:14 PTAGE: 61 years EKG: Sinus rhythm NORMAL ECG PREVIOUS TRACING : 04/05/2017 06.14 Compared to prior tracing no significant change DOCTOR: Ankita Barber Interpretating Date/Time 04/15/2017 21:10:49
== END 2017-04-14 18:20 | disposition home or self-care (01) ==
LOC: NEPE 13:52
DX: F41.9 Anxiety disorder, unspecified (principal); G47.00 Insomnia, unspecified; R53.83 Other fatigue; E11.9 Type 2 diabetes mellitus without complications; K21.9 Gastro-esophageal reflux disease without esophagitis; M19.90 Unspecified osteoarthritis, unspecified site; R07.9 Chest pain, unspecified
CPT/HCPCS: 80048; 81001; 82550; 84484; 85025; 93005

== ENCOUNTER 2017-05-23 20:11 | Emergency (ER) | payer OTHER, MEDICAID ==
[~2017-05-23] VITALS: Ht 167.6 cm; Wt 88.0 kg
[2017-05-23 20:17] VITALS: BP 152/83; PULSE 71; RESP 16; TEMP 98.4; O2SAT 99
[2017-05-23] MEDS ORDERED: ESCI10TA PO (20:24)
[2017-05-23] MEDS ORDERED: TRAZ50TA12 PO (20:24)
[2017-05-23 20:34] VITALS: BP 115/65; PULSE 63; RESP 16; O2SAT 98
[2017-05-23] MEDS ORDERED: SODIUM CHLORIDE 0.9% FLUSH 10 ML FLUSH IVF PRN (21:15)
[2017-05-23] MEDS ORDERED: ASPIRIN 81 MG CHEW TAB CHEW ONE (21:15)
[2017-05-23 21:24] VITALS: RESP 16; O2SAT 98
[2017-05-23 21:34] LABS: BASOPHIL % 0.7 % (0.0-2.0); EOSINOPHIL # 0.1 TH/MM3 (0-0.4); HEMATOCRIT 36.3 % (35.0-46.0); HEMO FLAGS DIFF FINAL; LYMPH % 37.9 % (9.0-44.0); LYMPHOCYTE # 2.2 TH/MM3 (1.0-4.8); MEAN CELL VOLUME 89.8 FL (80.0-100.0); MEAN CORPUSCULAR HEMOGLOBIN 29.3 PG (27.0-34.0); MEAN CORPUSCULAR HGB CONC 32.6 % (32.0-36.0); MONO % 9.1 % (0.0-8.0); NEUT % 51.3 % (16.0-70.0); PLATELET COUNT 255 TH/MM3 (150-450); RED BLOOD COUNT 4.05 MIL/MM3 (4.00-5.30); RED CELL DISTRIBUTION WIDTH 14.9 % (11.6-17.2); WHITE BLOOD COUNT 5.7 TH/MM3 (4.0-11.0)
--- NOTE | 2017-05-23 21:34 | PD ---
HPI Chief Complaint: Chest Pain Time Seen by Provider: 21:05 Travel History International Travel<30 days: No Contact w/Intl Traveler<30days: No Traveled to known affect area: No History of Present Illness HPI 61-year-old female presents to the emergency department by private transportation for complaint of intermittent shortness of breath and recurrent chest discomfort since 7 PM. No prior history of shortness of breath. Patient has history of hypertension dyslipidemia and diabetes. Patient is a nonsmoker. Patient denies any history of known coronary vessel disease. Patient has had chest pain in the past. Patient states she has been evaluated for GI issues and is to have a special procedure performed in 2 months. Patient denies any recent long distance travel protracted bedrest her surgical procedure. Patient' s had no lower from a pain or swelling. Patient does not report any orthopnea or PND. Patient's had no recent febrile illness or productive cough. Patient' s had minor cough but does not seem to be a problem today. Patient's had no wheezing. Patient is currently not short of breath and has no discomfort at this time. Pain is 0/10 in intensity. Reportedly at home pain was 8/10 in intensity. Patient took no medications prior to arrival. Patient is unable to identify exacerbating or alleviating factors. Patient reports history of anxiety and has not taken her antianxiety medication. PFSH Past Medical History Narrative Medical Hypertension diabetes dyslipidemia no tobacco use hiatal hernia GERD cholecystectomy hysterectomy: Nursing notes reviewed Arthritis: Yes Anxiety: Yes Heart Rhythm Problems: No Cancer: No Cardiac Catheterization: No Cardiovascular Problems: Yes High Cholesterol: No Congestive Heart Failure: No Diabetes: Yes Patient Takes Glucophage: No Diminished Hearing: No Diverticulitis: Yes Endocrine: No Gastrointestinal Disorders: Yes (HIATAL HERNIA, CONSTIPATION) GERD: Yes Genitourinary: No Hepatitis: No Hiatal Hernia: No Heparin Induced Thrombocytopen: No Hypertension: Yes Immune Disorder: No Musculoskeletal: Yes (BONE SPUR LEFT SHOULDER, BACK PROBLEMS) Neurologic: No Psychiatric: Yes (SLIGHTLY CLAUSTROPHOBIC) Reproductive: No Respiratory: No Thyroid Disease: No Tetanus Vaccination: < 5 Years Influenza Vaccination: No ?: Not Menopausal: Yes : 8 Para: 6 Miscarriage: 2 Past Surgical History Abdominal Surgery: Yes (CHOLECYSTECTOMY ) AICD: No Cholecystectomy: Yes Coronary Artery Bypass Graft: No Gynecologic Surgery: Yes (hysterctomy) Hysterectomy: Yes Joint Replacement: Yes (left knee) Pacemaker: No Other Surgery: Yes Social History Alcohol Use: Yes (RARE ) Tobacco Use: No (never) Substance Use: No Allergies-Medications (Allergen,Severity, Reaction): Coded Allergies: ciprofloxacin (Unverified Allergy, Severe, rash, 05/05/17) propoxyphene (Unverified Adverse Reaction, Severe, N&V, 05/05/17) Reported Meds & Prescriptions Reported Meds & Active Scripts Active Xanax (Alprazolam) 0.25 Mg Tab 0.25 Mg PO Q8H PRN Reported Trazodone (Trazodone HCl) 50 Mg Tab 50 Mg PO HS Escitalopram (Escitalopram Oxalate) 10 Mg Tab 10 Mg PO DAILY Pantoprazole (Pantoprazole Sodium) 40 Mg Tab 40 Mg PO DAILY Metoprolol Tartrate 25 Mg Tab 25 Mg PO BID Norvasc (Amlodipine Besylate) 10 Mg Tab 10 Mg PO DAILY Review of Systems Except as stated in HPI: all other systems reviewed are Neg General / Constitutional: No: Fever, Chills HENT: No: Congestion Cardiovascular: Positive: Chest Pain or Discomfort ("on occasion") Respiratory: Positive: Shortness of Breath, No: Cough Gastrointestinal: No: Nausea, Vomiting, Diarrhea, Abdominal Pain Genitourinary: No: Dysuria, Decreased Urinary Output Musculoskeletal: No: Myalgias, Arthralgias, Edema, Pain Skin: No Rash Neurologic: No: Weakness Hematologic/Lymphatic: No: Easy Bruising Physical Exam Narrative GENERAL: Well-developed well-nourished female in no acute distress appears mildly anxious SKIN: Warm and dry. HEAD: Normocephalic. EYES: No scleral icterus. No injection or drainage. NECK: Supple, trachea midline. No JVD or lymphadenopathy. CARDIOVASCULAR: Regular rate and rhythm without murmurs, gallops, or rubs. RESPIRATORY: Breath sounds equal bilaterally. No accessory muscle use. GASTROINTESTINAL: Abdomen soft, non-tender, nondistended. MUSCULOSKELETAL: No cyanosis, or edema. BACK: Nontender without obvious deformity. No CVA tenderness. Data Data Last Documented VS Vital Signs Date Time Temp Pulse Resp B/P (MAP) Pulse Ox O2 Delivery O2 Flow Rate FiO2 05/24/17 00:31 05/23/17 21:24 16 98 Room Air 05/23/17 20:37 64 05/23/17 20:17 98.4 Orders Orders Complete Blood Count With Diff (05/23/17 21:05) Comprehensive Metabolic Panel (05/23/17 21:05) B-Type Natriuretic Peptide (05/23/17 21:05) D-Dimer (05/23/17 21:05) Act Partial Throm Time (Ptt) (05/23/17 21:05) Prothrombin Time / Inr (Pt) (05/23/17 21:05) Magnesium (Mg) (05/23/17 21:05) Ckmb (Isoenzyme) Profile (05/23/17 21:05) Troponin I (05/23/17 21:05) Iv Access Insert/Monitor (05/23/17 21:05) Electrocardiogram (05/23/17 21:05) Ecg Monitoring (05/23/17 21:05) Oximetry (05/23/17 21:05) Oxygen Administration (05/23/17 21:05) Chest, Single Ap (05/23/17 21:05) Sodium Chloride 0.9% Flush (Ns Flush) (05/23/17 21:15) Aspirin Chew (Aspirin Chew) (05/23/17 21:15) Ct Pulmonary Angiogram (05/23/17 ) Iohexol 350 Inj (Omnipaque 350 Inj) (05/23/17 22:48) Labs Laboratory Tests Test 05/23/17 21:12 White Blood Count 5.7 TH/MM3 Red Blood Count 4.05 MIL/MM3 Hemoglobin 11.8 GM/DL Hematocrit 36.3 % Mean Corpuscular Volume 89.8 FL Mean Corpuscular Hemoglobin 29.3 PG Mean Corpuscular Hemoglobin Concent 32.6 % Red Cell Distribution Width 14.9 % Platelet Count 255 TH/MM3 Mean Platelet Volume 9.0 FL Neutrophils (%) (Auto) 51.3 % Lymphocytes (%) (Auto) 37.9 % Monocytes (%) (Auto) 9.1 % Eosinophils (%) (Auto) 1.0 % Basophils (%) (Auto) 0.7 % Neutrophils # (Auto) 3.0 TH/MM3 Lymphocytes # (Auto) 2.2 TH/MM3 Monocytes # (Auto) 0.5 TH/MM3 Eosinophils # (Auto) 0.1 TH/MM3 Basophils # (Auto) 0.0 TH/MM3 CBC Comment DIFF FINAL Differential Comment Prothrombin Time 11.6 SEC Prothromb Time International Ratio 1.0 RATIO Activated Partial Thromboplast Time 23.8 SEC D-Dimer Quantitative (PE/DVT) 3.10 MG/L FEU Blood Urea Nitrogen 11 MG/DL Creatinine 0.90 MG/DL Random Glucose 126 MG/DL Total Protein 7.2 GM/DL Albumin 3.5 GM/DL Calcium Level 9.0 MG/DL Magnesium Level 2.2 MG/DL Alkaline Phosphatase 122 U/L Aspartate Amino Transf (AST/SGOT) 18 U/L Alanine Aminotransferase (ALT/SGPT) 28 U/L Total Bilirubin 0.4 MG/DL Sodium Level 142 MEQ/L Potassium Level 3.5 MEQ/L Chloride Level 109 MEQ/L Carbon Dioxide Level 25.8 MEQ/L Anion Gap 7 MEQ/L Estimat Glomerular Filtration Rate 77 ML/MIN Total Creatine Kinase 56 U/L Troponin I LESS THAN 0.02 NG/ML B-Type Natriuretic Peptide 13 PG/ML MDM Medical Decision Making Medical Screen Exam Complete: Yes Emergency Medical Condition: Yes Medical Record Reviewed: Yes Interpretation(s) Troponin I: 0.02, not elevated; CK: 56, not elevated; BNP: 13, not elevated D-dimer: 3.10, elevated Last Impressions Chest X-Ray 05/23/17 2105 Signed Impressions: Service Date/Time: Tuesday, May 23, 2017 21:33 - CONCLUSION: No acute disease. Edilson Mcgrath MD CT Angiography 05/23/17 0000 Signed Impressions: Service Date/Time: Tuesday, May 23, 2017 22:45 - CONCLUSION: 1. Negative for pulmonary embolus. Mild atelectasis in the lungs dependently with trace right pleural fluid. Felipe Sanchez MD CBC & BMP Diagram 05/23/17 21:12 Total Protein 7.2, Albumin 3.5, Calcium Level 9.0, Magnesium Level 2.2, Alkaline Phosphatase 122 H, Aspartate Amino Transf (AST/SGOT) 18, Alanine Aminotransferase (ALT/SGPT) 28, Total Bilirubin 0.4 Vital Signs Date Time Temp Pulse Resp B/P (MAP) Pulse Ox O2 Delivery O2 Flow Rate FiO2 05/23/17 21:24 16 98 Room Air 05/23/17 20:37 64 65 99 Room Air 05/23/17 20:34 63 16 115/65 (82) 98 Room Air 05/23/17 20:17 98.4 71 16 152/83 (106) 99 Room Air EKG: Normal sinus rhythm EKG: Normal sinus rhythm rate [address] elevation or injury pattern or ectopy noted QS inferiorly age-indeterminate Differential Diagnosis Dyspnea, CHF, ACS, PA, PE, uncontrolled hypertension, pneumonia, anemia, dehydration, anxiety Narrative Course Patient placed on media technician IV access obtained EKG performed which shows sinus rhythm no acute ST elevation or injury pattern patient administered aspirin 162 mg by mouth; patient without any discomfort pain or shortness of breath Chest x-ray reveals no acute process Cardiac enzymes are found to be within normal range D-dimer is elevated at 3.[address] pulmonary angiogram ordered CT pulmonary angiogram reveals no acute abnormalities specifically no PE also no report of mass infiltrate or vascular congestion. Trace right pleural effusion noted Patient informed of lab results patient states she feels well states she does not want to be admitted for observation states she just wanted to check to see if this was her anxiety but did not take her medication to see if it would relieve her symptoms at home. Patient offered observation admission for atypical chest pain to obtain serial enzymes and possible stress test and patient states that she does not want to stay that she is asymptomatic and only had symptoms for 5 minutes that resolved but because she was concerned it was her anxiety decided to come to the emergency room. Diagnosis Primary Impression: Dyspnea, unspecified Qualified Codes: R06.02 - Shortness of breath Additional Impression: History of anxiety Referrals: Primary Care Physician Patient Instructions: General Instructions Additional Instructions: Increase fluid hydration Follow-up with primary care provider Return to the emergency department for any concerns or change in condition continue chronic medications as chronically prescribed Med/Other Pt SpecificInfo: No Change to Meds Disposition: 01 DISCHARGE HOME Condition: Stable Berta Gamez MD May 23, 2017 21:34
--- NOTE | 2017-05-23 21:42 | RADRPT ---
EXAM DATE/TIME: 05/23/2017 21:33 [facility] COMPARISON: CHEST SINGLE AP, March 30, 2017, 21:10. INDICATIONS : Short of breath. MEDICAL HISTORY : None. SURGICAL HISTORY : None. ENCOUNTER: Initial ACUITY: 1 day PAIN SCORE: 6/10 LOCATION: Bilateral chest FINDINGS: A single view of the chest obtained it is more Midinspiratory. This demonstrates the lungs to be symm etrically aerated without evidence of mass, infiltrate or effusion. The cardiomediastinal contours a re unremarkable. Osseous structures are intact. CONCLUSION: No acute disease. Edilson Mcgrath MD on May 23, 2017 at 21:39 Board Certified Radiologist. This report was verified electronically.
[2017-05-23 21:47] LABS: ALT (GPT) 28 U/L (10-53); ANION GAP 7 MEQ/L (5-15); AST (GOT) 18 U/L (15-37); BICARBONATE 25.8 MEQ/L (21.0-32.0); BLOOD UREA NITROGEN 11 MG/DL (7-18); CHLORIDE 109 MEQ/L (98-107); GLOMERULAR FILTRATION RATE 77 ML/MIN (>89); MAGNESIUM 2.2 MG/DL (1.5-2.5); POTASSIUM 3.5 MEQ/L (3.5-5.1); SODIUM (NA) 142 MEQ/L (136-145)
[2017-05-23 21:48] LABS: APTT (PATIENT) 23.8 SEC (24.3-30.1); PROTHROMBIN TIME - PATIENT 11.6 SEC (9.8-11.6)
[2017-05-23 21:52] LABS: ALKALINE PHOSPHATASE 122 U/L (45-117); TOTAL BILIRUBIN ADULT 0.4 MG/DL (0.2-1.0)
[2017-05-23 21:54] LABS: CREATINE KINASE 56 U/L (26-192)
[2017-05-23] MEDS ORDERED: IOHEXOL 350 MG/ML 10 ML VIAL (for RAD DIAG) IVCONTRAST ONE (22:48)
--- NOTE | 2017-05-23 23:12 | RADRPT ---
EXAM DATE/TIME: 05/23/2017 22:45 [facility] COMPARISON: CT PULMONARY ANGIOGRAM, June 30, 2016, 4:26. INDICATIONS : Shortness of breath; rule out pulmonary embolus. IV CONTRAST: 75 cc Omnipaque 350 (iohexol) IV RADIATION DOSE: 23.27 CTDIvol (mGy) MEDICAL HISTORY : Diverticulitis. Hypertension. Hernia, hiatal.GERD. SURGICAL HISTORY : Hysterectomy. Cholecystectomy. ENCOUNTER: Initial ACUITY: 1 day PAIN SCALE: 8/10 LOCATION: Bilateral chest TECHNIQUE: Volumetric scanning of the chest was performed using a pulmonary embolism protocol MIP images were re constructed. Using automated exposure control and adjustment of the mA and/or kV according to patien t size, radiation dose was kept as low as reasonably achievable to obtain optimal diagnostic quality images. DICOM format image data is available electronically for review and comparison. Follow-up recommendations for detected pulmonary nodules are based at a minimum on nodule size and pa tient risk factors according to Fleischner Society Guidelines. FINDINGS: Dependent atelectasis in the lungs. No focal consolidation. No significant left effusion. Trace right pleural fluid. No filling defects to suggest pulmonary embolus. Upper abdomen unremarkable. CONCLUSION: 1. Negative for pulmonary embolus. Mild atelectasis in the lungs dependently with trace right pleural fluid. Felipe Sanchez MD on May 23, 2017 at 23:04 Board Certified Radiologist. This report was verified electronically.
--- NOTE | 2017-05-24 09:13 | EKG ---
Date Performed: 05/23/2017 Time Performed: 20:40:58 PTAGE: 61 years EKG: Sinus rhythm MINIMAL VOLTAGE CRITERIA FOR LVH, CONSIDER NORMAL VARIANT NONSPECIFIC T-WAVE ABNORMALITY BORDERLINE ECG NO PREVIOUS TRACING DOCTOR: Truman Leblanc Interpretating Date/Time 05/24/2017 09:11:21
== END 2017-05-24 00:32 | disposition home or self-care (01) ==
LOC: NEPC 20:11
DX: R06.02 Shortness of breath (principal); R07.89 Other chest pain; F41.9 Anxiety disorder, unspecified; E78.5 Hyperlipidemia, unspecified; E11.9 Type 2 diabetes mellitus without complications; I10 Essential (primary) hypertension; Z79.899 Other long term (current) drug therapy
CPT/HCPCS: 71010; 71275; 80053; 82550; 83735; 83880; 84484; 85025; 85379; 85610; 85730; 93005; 99285; Q9967

== ENCOUNTER 2017-05-29 14:36 | Emergency (ER) | payer OTHER, MEDICAID ==
[~2017-05-29] VITALS: Ht 167.6 cm; Wt 90.0 kg
[~2017-05-29 14:36] MED LIST changes: -DULA10IN SQ; +ESCI10TA PO; +TRAZ50TA12 PO
[2017-05-29 14:40] VITALS: BP 121/77; PULSE 89; RESP 15; TEMP 98.4; O2SAT 98
[2017-05-29] MEDS ORDERED: IBUPROFEN 600 MG TAB PO ONE (15:15)
--- NOTE | 2017-05-29 15:34 | RADRPT ---
EXAM DATE/TIME: 05/29/2017 15:18 [facility] COMPARISON: CHEST SINGLE AP, May 23, 2017, 21:33. INDICATIONS : Left sided chest pain. MEDICAL HISTORY : None. SURGICAL HISTORY : None. ENCOUNTER: Initial ACUITY: 2 days PAIN SCORE: 5/10 LOCATION: Left chest FINDINGS: The lungs are clear without infiltrate, nodule, or mass. There is no appreciable pleural effusion fo r technique. Heart and mediastinum are unremarkable. CONCLUSION: No acute cardiopulmonary disease. Rozina Thomas MD on May 29, 2017 at 15:32 Board Certified Radiologist. This report was verified electronically.
--- NOTE | 2017-05-29 16:15 | PD ---
HPI Chief Complaint: Chest Pain Time Seen by Provider: 15:01 Travel History International Travel<30 days: No Contact w/Intl Traveler<30days: No Traveled to known affect area: No History of Present Illness HPI 61-year-old female describes a history of anxiety. She reports feeling some chest pain which she states is typical when she feels anxious. She takes anxiolytics at home, 5 mg however she cannot recall the name of the medication. Her medical record shows 0.25 mg Xanax every 8 hours. The patient reports taking anxiolytics 2 hours prior to ER arrival and still reports anxiety. She describes some pain in the region of the posterior left shoulder and the anterior chest wall which is worse with palpation and with elevation of left arm. No pleuritic chest pain or shortness of breath. No diaphoresis. The patient underwent chest pain center protocol in March with 3 negative troponins and more than 10 negative troponins are record within the last 2 years. The patient also describes some constipation. She has been taking MiraLAX which seems to help at times. No vomiting. PFSH Past Medical History Arthritis: Yes Anxiety: Yes Heart Rhythm Problems: No Cancer: No Cardiac Catheterization: No Cardiovascular Problems: Yes High Cholesterol: No Congestive Heart Failure: No Diabetes: Yes Patient Takes Glucophage: No Diminished Hearing: No Diverticulitis: Yes Endocrine: No Gastrointestinal Disorders: Yes (HIATAL HERNIA, CONSTIPATION) GERD: Yes Genitourinary: No Hepatitis: No Hiatal Hernia: No Heparin Induced Thrombocytopen: No Hypertension: Yes Immune Disorder: No Musculoskeletal: Yes (BONE SPUR LEFT SHOULDER, BACK PROBLEMS) Neurologic: No Psychiatric: Yes (SLIGHTLY CLAUSTROPHOBIC) Reproductive: No Respiratory: No Thyroid Disease: No ?: Not Menopausal: Yes : 8 Para: 6 Miscarriage: 2 Past Surgical History Abdominal Surgery: Yes (CHOLECYSTECTOMY ) AICD: No Cholecystectomy: Yes Coronary Artery Bypass Graft: No Gynecologic Surgery: Yes (hysterctomy) Hysterectomy: Yes Joint Replacement: Yes (left knee) Pacemaker: No Other Surgery: Yes Social History Alcohol Use: Yes (RARE ) Tobacco Use: No (never) Substance Use: No Allergies-Medications (Allergen,Severity, Reaction): Coded Allergies: ciprofloxacin (Unverified Allergy, Severe, rash, 05/05/17) propoxyphene (Unverified Adverse Reaction, Severe, N&V, 05/05/17) Reported Meds & Prescriptions Reported Meds & Active Scripts Active Valium (Diazepam) 5 Mg Tab 5 Mg PO BID PRN Xanax (Alprazolam) 0.25 Mg Tab 0.25 Mg PO Q8H PRN Reported Trazodone (Trazodone HCl) 50 Mg Tab 50 Mg PO HS Escitalopram (Escitalopram Oxalate) 10 Mg Tab 10 Mg PO DAILY Pantoprazole (Pantoprazole Sodium) 40 Mg Tab 40 Mg PO DAILY Metoprolol Tartrate 25 Mg Tab 25 Mg PO BID Norvasc (Amlodipine Besylate) 10 Mg Tab 10 Mg PO DAILY Review of Systems Except as stated in HPI: all other systems reviewed are Neg General / Constitutional: No: Fever Cardiovascular: Positive: Chest Pain or Discomfort Respiratory: No: Cough, Shortness of Breath Physical Exam Narrative GENERAL: Well-nourished well-developed 61-year-old female no acute distress SKIN: Warm and dry. HEAD: Atraumatic. Normocephalic. EYES: Pupils equal and round. No scleral icterus. No injection or drainage. ENT: No nasal bleeding or discharge. Mucous membranes pink and moist. NECK: Trachea midline. No JVD. CARDIOVASCULAR: Regular rate and rhythm. RESPIRATORY: No accessory muscle use. Clear to auscultation. Breath sounds equal bilaterally. GASTROINTESTINAL: Abdomen soft, non-tender, nondistended. Hepatic and splenic margins not palpable. MUSCULOSKELETAL: Extremities without clubbing, cyanosis, or edema. No obvious deformities. NEUROLOGICAL: Awake and alert. No obvious cranial nerve deficits. Motor grossly within normal limits. Five out of 5 muscle strength in the arms and legs. Normal speech. PSYCHIATRIC: No suicidal or homicidal ideation. Data Data Last Documented VS Vital Signs Date Time Temp Pulse Resp B/P (MAP) Pulse Ox O2 Delivery O2 Flow Rate FiO2 05/29/17 14:40 98.4 89 15 121/77 (92) 98 Vital signs reviewed Orders Orders Electrocardiogram (05/29/17 15:06) Chest, Single Ap (05/29/17 15:06) Ibuprofen (Motrin) (05/29/17 15:15) MDM Medical Decision Making Medical Screen Exam Complete: Yes Emergency Medical Condition: Yes Medical Record Reviewed: Yes Differential Diagnosis NSTEMI, unstable angina, coronary vasospasm, PE, PTX, aortic dissection, pericarditis, myocarditis, endocarditis, PNA, esophageal disease, aneurysm, musculoskeletal etiologies, anxiety, cocaine/sympathomimetic abuse Narrative Course Overall presentation is considered to be most in keeping with a musculoskeletal etiology for the patient's chest pain and/or anxiety as she has attributed similar symptoms numerous times previously to anxiety. EKG shows sinus bradycardia rate 53 ischemic injury pattern Chest x-ray reveals no acute cardio pulmonary disease. Dialyzed on modification discussed along with a plan to stop taking Xanax and to use Valium to taper off. states he will keep care of the pt's Xanax and ensure she takes none of it. Patient agreeable with plan. Diagnosis Primary Impression: Anxiety Referrals: Primary Care Physician 2 days Additional Instructions: You have a choice when it comes to health care, and we are glad that you chose [facility]. Hopefully, we have met your expectations on today's visit. You are welcome to return to [facility] at any time, as we are committed to meeting the health care needs of our community. Scripts Diazepam (Valium) 5 Mg Tab 5 MG PO BID Y for MOD - SEVERE ANXIETY/AGITATION, #30 TAB 0 Refills Prov: Osbaldo Nix MD 05/29/17 Disposition: 01 DISCHARGE HOME Condition: Stable Osbaldo Nix MD May 29, 2017 16:15
[2017-05-29] MEDS ORDERED: DIAZ5 PO (16:26)
[2017-05-29 16:32] VITALS: BP 137/69
--- NOTE | 2017-05-30 13:32 | EKG ---
Date Performed: 05/29/2017 Time Performed: 16:17:01 PTAGE: 61 years EKG: SINUS BRADYCARDIA MINIMAL VOLTAGE CRITERIA FOR LVH, CONSIDER NORMAL VARIANT Compared to mina or tracing no significant change BORDERLINE ECG PREVIOUS TRACING : 05/23/2017 20.40 DOCTOR: Uriel Sams Interpretating Date/Time 05/30/2017 13:31:01
== END 2017-05-29 16:51 | disposition home or self-care (01) ==
LOC: NEPE 14:36
DX: F41.9 Anxiety disorder, unspecified (principal); I10 Essential (primary) hypertension
CPT/HCPCS: 71010; 93005; 99284

== ENCOUNTER 2017-05-30 14:34 | Emergency (ER) | payer MEDICAID, OTHER ==
[~2017-05-30] VITALS: Ht 167.6 cm; Wt 90.0 kg
[~2017-05-30 14:34] MED LIST changes: +DIAZ5 PO
[2017-05-30 14:38] VITALS: BP 151/83; PULSE 92; RESP 20; TEMP 98.8; O2SAT 98
[2017-05-30] MEDS ORDERED: SODIUM CHLORIDE 0.9% FLUSH 10 ML FLUSH IVF PRN (15:15)
[2017-05-30] MEDS ORDERED: diphenhydrAMINE HCL 50 MG/ML VIAL IV PUSH ONE (15:15)
[2017-05-30] MEDS ORDERED: ASPIRIN 81 MG CHEW TAB PO ONE (15:15)
[2017-05-30 16:03] LABS: AUTOMATED NEUTROPHIL # 2.9 TH/MM3 (1.8-7.7); BASOPHIL % 0.5 % (0.0-2.0); EOSINOPHIL % 0.3 % (0.0-4.0); HEMO FLAGS DIFF FINAL; LYMPH % 30.7 % (9.0-44.0); LYMPHOCYTE # 1.5 TH/MM3 (1.0-4.8); MEAN CELL VOLUME 90.6 FL (80.0-100.0); MEAN CORPUSCULAR HEMOGLOBIN 29.7 PG (27.0-34.0); MEAN CORPUSCULAR HGB CONC 32.9 % (32.0-36.0); MONO % 8.3 % (0.0-8.0); NEUT % 60.2 % (16.0-70.0); PLATELET COUNT 195 TH/MM3 (150-450); RED BLOOD COUNT 4.08 MIL/MM3 (4.00-5.30); RED CELL DISTRIBUTION WIDTH 14.8 % (11.6-17.2); WHITE BLOOD COUNT 4.8 TH/MM3 (4.0-11.0)
[2017-05-30 16:09] VITALS: RESP 19; O2SAT 98
[2017-05-30 16:25] LABS: ANION GAP 6 MEQ/L (5-15); BICARBONATE 28.5 MEQ/L (21.0-32.0); BLOOD UREA NITROGEN 13 MG/DL (7-18); CHLORIDE 108 MEQ/L (98-107); GLOMERULAR FILTRATION RATE 82 ML/MIN (>89); POTASSIUM 3.8 MEQ/L (3.5-5.1); SODIUM (NA) 142 MEQ/L (136-145)
[2017-05-30 16:26] LABS: CREATINE KINASE 60 U/L (26-192)
[2017-05-30 16:28] LABS: APTT (PATIENT) 24.5 SEC (24.3-30.1); PROTHROMBIN TIME - PATIENT 11.6 SEC (9.8-11.6)
--- NOTE | 2017-05-30 16:36 | RADRPT ---
EXAM DATE/TIME: 05/30/2017 15:53 [facility] COMPARISON: CHEST SINGLE AP, May 29, 2017, 15:18. INDICATIONS : Short of Breath with chest pain MEDICAL HISTORY : None. SURGICAL HISTORY : None. ENCOUNTER: Initial ACUITY: 2 days PAIN SCORE: 0/10 LOCATION: Bilateral chest FINDINGS: Single AP view of the chest. Subsegmental atelectasis of the left lung base. The lungs are c otherwis e lear. Cardiomediastinal silhouette within normal limits. No evidence of pleural effusion or pneumot horax. Left glenohumeral joint osteoarthritic findings. CONCLUSION: Left lung base subsegmental atelectasis. No other acute cardiopulmonary disease id entified. Jez Bahena MD on May 30, 2017 at 16:33 Board Certified Radiologist. This report was verified electronically.
--- NOTE | 2017-05-30 17:22 | PD ---
HPI Chief Complaint: Anxiety Time Seen by Provider: 14:58 Travel History International Travel<30 days: No Contact w/Intl Traveler<30days: No Traveled to known affect area: No History of Present Illness HPI Patient is a 61-year-old female comes in complaining of an anxiety attack. She has been here multiple times for this. Most recently she was here yesterday and was given a prescription for 30 Valium. She has this and took one this morning, but says it is not helping. She complains of pain in her chest and shortness of breath. These are typical symptoms she has had in the past. Every time she has had any blood work or testing done, it has been within normal limits. She denies fever or chills. She denies cough or cold symptoms. PFSH Past Medical History Arthritis: Yes Anxiety: Yes Heart Rhythm Problems: No Cancer: No Cardiac Catheterization: No Cardiovascular Problems: Yes High Cholesterol: No Congestive Heart Failure: No Diabetes: Yes Patient Takes Glucophage: No Diminished Hearing: No Diverticulitis: Yes Endocrine: No Gastrointestinal Disorders: Yes (HIATAL HERNIA, CONSTIPATION) GERD: Yes Genitourinary: No Hepatitis: No Hiatal Hernia: No Heparin Induced Thrombocytopen: No Hypertension: Yes Immune Disorder: No Musculoskeletal: Yes (BONE SPUR LEFT SHOULDER, BACK PROBLEMS) Neurologic: No Psychiatric: Yes (SLIGHTLY CLAUSTROPHOBIC) Reproductive: No Respiratory: No Thyroid Disease: No ?: Not Menopausal: Yes : 8 Para: 6 Miscarriage: 2 Past Surgical History Abdominal Surgery: Yes (CHOLECYSTECTOMY ) AICD: No Cholecystectomy: Yes Coronary Artery Bypass Graft: No Gynecologic Surgery: Yes (hysterctomy) Hysterectomy: Yes Joint Replacement: Yes (left knee) Pacemaker: No Other Surgery: Yes Social History Alcohol Use: Yes (RARE ) Tobacco Use: No (never) Substance Use: No Allergies-Medications (Allergen,Severity, Reaction): Coded Allergies: ciprofloxacin (Unverified Allergy, Severe, rash, 05/05/17) propoxyphene (Unverified Adverse Reaction, Severe, N&V, 05/05/17) Reported Meds & Prescriptions Reported Meds & Active Scripts Active Valium (Diazepam) 5 Mg Tab 5 Mg PO BID PRN Xanax (Alprazolam) 0.25 Mg Tab 0.25 Mg PO Q8H PRN Reported Trazodone (Trazodone HCl) 50 Mg Tab 50 Mg PO HS Escitalopram (Escitalopram Oxalate) 10 Mg Tab 10 Mg PO DAILY Pantoprazole (Pantoprazole Sodium) 40 Mg Tab 40 Mg PO DAILY Metoprolol Tartrate 25 Mg Tab 25 Mg PO BID Norvasc (Amlodipine Besylate) 10 Mg Tab 10 Mg PO DAILY Review of Systems Except as stated in HPI: all other systems reviewed are Neg General / Constitutional: No: Fever, Chills HENT: No: Headaches, Lightheadedness Cardiovascular: Positive: Chest Pain or Discomfort, Palpitations Respiratory: Positive: Shortness of Breath Gastrointestinal: No: Nausea, Vomiting Musculoskeletal: No: Edema, Pain Skin: No Rash, No Change in Pigmentation Neurologic: No: Weakness, Dizziness Physical Exam Narrative GENERAL: Awake and alert, in no acute distress. SKIN: Focused skin assessment warm/dry. HEAD: Atraumatic. Normocephalic. EYES: Pupils equal and round. No scleral icterus. ENT: Mucous membranes pink and moist. NECK: Trachea midline. No JVD. CARDIOVASCULAR: Regular rate and rhythm. No murmur appreciated. RESPIRATORY: No accessory muscle use. Clear to auscultation. Breath sounds equal bilaterally. GASTROINTESTINAL: Abdomen soft, non-tender, nondistended. MUSCULOSKELETAL: No obvious deformities. No clubbing. No cyanosis. No edema. NEUROLOGICAL: Awake and alert. No obvious cranial nerve deficits. Motor grossly within normal limits. Normal speech. PSYCHIATRIC: Appropriate mood and affect; insight and judgment normal. Data Data Last Documented VS Vital Signs Date Time Temp Pulse Resp B/P (MAP) Pulse Ox O2 Delivery O2 Flow Rate FiO2 05/30/17 16:09 98 Room Air 05/30/17 16:09 19 05/30/17 14:38 98.8 92 Orders Orders Electrocardiogram (05/30/17 15:12) Basic Metabolic Panel (Bmp) (05/30/17 15:12) Ckmb (Isoenzyme) Profile (05/30/17 15:12) Complete Blood Count With Diff (05/30/17 15:12) Prothrombin Time / Inr (Pt) (05/30/17 15:12) Act Partial Throm Time (Ptt) (05/30/17 15:12) Troponin I (05/30/17 15:12) Chest, Single Ap (05/30/17 15:12) Ecg Monitoring (05/30/17 15:12) Bilateral Bp Monitoring (05/30/17 15:12) Iv Access Insert/Monitor (05/30/17 15:12) Oximetry (05/30/17 15:12) Oxygen Administration (05/30/17 15:12) Aspirin Chew (Aspirin Chew) (05/30/17 15:15) Sodium Chloride 0.9% Flush (Ns Flush) (05/30/17 15:15) Diphenhydramine Inj (Benadryl Inj) (05/30/17 15:15) Labs Laboratory Tests Test 05/30/17 15:30 White Blood Count 4.8 TH/MM3 Red Blood Count 4.08 MIL/MM3 Hemoglobin 12.1 GM/DL Hematocrit 37.0 % Mean Corpuscular Volume 90.6 FL Mean Corpuscular Hemoglobin 29.7 PG Mean Corpuscular Hemoglobin Concent 32.9 % Red Cell Distribution Width 14.8 % Platelet Count 195 TH/MM3 Mean Platelet Volume 8.4 FL Neutrophils (%) (Auto) 60.2 % Lymphocytes (%) (Auto) 30.7 % Monocytes (%) (Auto) 8.3 % Eosinophils (%) (Auto) 0.3 % Basophils (%) (Auto) 0.5 % Neutrophils # (Auto) 2.9 TH/MM3 Lymphocytes # (Auto) 1.5 TH/MM3 Monocytes # (Auto) 0.4 TH/MM3 Eosinophils # (Auto) 0.0 TH/MM3 Basophils # (Auto) 0.0 TH/MM3 CBC Comment DIFF FINAL Differential Comment Prothrombin Time 11.6 SEC Prothromb Time International Ratio 1.0 RATIO Activated Partial Thromboplast Time 24.5 SEC Blood Urea Nitrogen 13 MG/DL Creatinine 0.85 MG/DL Random Glucose 127 MG/DL Calcium Level 8.4 MG/DL Sodium Level 142 MEQ/L Potassium Level 3.8 MEQ/L Chloride Level 108 MEQ/L Carbon Dioxide Level 28.5 MEQ/L Anion Gap 6 MEQ/L Estimat Glomerular Filtration Rate 82 ML/MIN Total Creatine Kinase 60 U/L Troponin I LESS THAN 0.02 NG/ML MDM Medical Decision Making Medical Screen Exam Complete: Yes Emergency Medical Condition: Yes Medical Record Reviewed: Yes Interpretation(s) ECG shows normal sinus rhythm at 80, no ST elevation or depression, normal intervals Differential Diagnosis Anxiety versus panic attack versus ACS (unlikely) Narrative Course Patient is a 61-year-old female who comes in complaining of an anxiety attack. Exam shows no acute abnormalities. IV established, labs sent. Labs show no acute abnormalities. Patient given a dose of Benadryl. She says she feels much better. She is advised to take one medication at a time and see if this helps her. Advised to take medications only as needed. Advised follow-up with a primary care doctor. Advised to return to the ED as needed for any worsening symptoms. Diagnosis Primary Impression: Anxiety Patient Instructions: Anxiety (ED), General Instructions Additional Instructions: Medication as needed. Only take one medication at a time and give it time to work before taking anything else. Follow-up with your doctor. Return to the ED as needed for any worsening symptoms. Disposition: 01 DISCHARGE HOME Condition: Stable Idalia Galindo MD May 30, 2017 17:22
--- NOTE | 2017-05-31 09:42 | EKG ---
Date Performed: 05/30/2017 Time Performed: 15:16:33 PTAGE: 61 years EKG: Sinus rhythm NONSPECIFIC T-WAVE ABNORMALITY Compared to previous tracing, sinus rate is faster BORDERLINE ECG PREVIOUS TRACING : 05/29/2017 16.17 DOCTOR: Uriel Sams Interpretating Date/Time 05/31/2017 09:40:37
== END 2017-05-30 18:23 | disposition home or self-care (01) ==
LOC: NEPC 14:34
DX: F41.9 Anxiety disorder, unspecified (principal); I10 Essential (primary) hypertension; E11.9 Type 2 diabetes mellitus without complications; R07.9 Chest pain, unspecified; R00.2 Palpitations
CPT/HCPCS: 71010; 80048; 82550; 84484; 85025; 85610; 85730; 93005; 96374; 99285; J1200

== ENCOUNTER 2017-06-02 10:03 | Observation (INO) | payer OTHER ==
[2017-06-02] VITALS (13 sets, daily range): BP systolic 120–139; BP diastolic 74–86; PULSE 60–100; RESP 17–20; TEMP 98.4; O2SAT 94–99
[~2017-06-02] VITALS: Ht 167.6 cm; Wt 89.0 kg
--- NOTE | 2017-06-02 10:22 | PD ---
HPI Chief Complaint: Chest Pain Time Seen by Provider: 10:21 Travel History International Travel<30 days: No Contact w/Intl Traveler<30days: No Traveled to known affect area: No History of Present Illness HPI 61-year-old female came to the emergency room with history of left-sided chest pain. Patient says that the pain started this morning. She is also experiencing a lot of anxiety she said. She was here twice in the past 1 week with chest pain and anxiety. She was discharged home on Valium. Patient says that she has not taken any Valium since when she took it once it made her sick. She took 2 baby aspirin last night. Patient had a stress test done 2 months ago which was abnormal. She has not had any follow-up cardiac catheterization since then. 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 Vital signs are stable. Pain radiates to the left shoulder. She does not know of any aggravating or relieving factors. PFSH Past Medical History Narrative Medical List of her past medical, surgical, social and family history is reviewed from the nursing note. Hx Anticoagulant Therapy: No Arthritis: Yes Anxiety: Yes Heart Rhythm Problems: No Cancer: No Cardiac Catheterization: No Cardiovascular Problems: No High Cholesterol: No Chemotherapy: No Congestive Heart Failure: No Cerebrovascular Accident: No Diabetes: Yes Diminished Hearing: No Diverticulitis: Yes Endocrine: No Gastrointestinal Disorders: Yes (HIATAL HERNIA, CONSTIPATION) GERD: Yes Genitourinary: No Hepatitis: No Hiatal Hernia: No Heparin Induced Thrombocytopen: No Hypertension: Yes Immune Disorder: No Musculoskeletal: Yes (BONE SPUR LEFT SHOULDER, BACK PROBLEMS) Neurologic: No Psychiatric: Yes (SLIGHTLY CLAUSTROPHOBIC) Reproductive: No Respiratory: No Thyroid Disease: No ?: Not Menopausal: Yes : 8 Para: 6 Miscarriage: 2 Past Surgical History Abdominal Surgery: Yes (CHOLECYSTECTOMY ) AICD: No Cholecystectomy: Yes Coronary Artery Bypass Graft: No Gynecologic Surgery: Yes (hysterctomy) Hysterectomy: No Joint Replacement: Yes (left knee) Pacemaker: No Other Surgery: Yes Social History Alcohol Use: Yes (RARE ) Tobacco Use: No (never) Substance Use: No Allergies-Medications (Allergen,Severity, Reaction): Coded Allergies: ciprofloxacin (Unverified Allergy, Severe, rash, 06/02/17) propoxyphene (Unverified Adverse Reaction, Severe, N&V, 06/02/17) Comments List of her allergies reviewed from the nursing note. Reported Meds & Prescriptions Reported Meds & Active Scripts Active Reported Trazodone (Trazodone HCl) 50 Mg Tab 50 Mg PO HS Escitalopram (Escitalopram Oxalate) 10 Mg Tab 10 Mg PO DAILY Pantoprazole (Pantoprazole Sodium) 40 Mg Tab 40 Mg PO DAILY Metoprolol Tartrate 25 Mg Tab 25 Mg PO BID Norvasc (Amlodipine Besylate) 10 Mg Tab 10 Mg PO DAILY Narrative Medication List of her home medications reviewed from the nursing note. Review of Systems Except as stated in HPI: all other systems reviewed are Neg Physical Exam Narrative GENERAL: Awake, alert, mild distress, obese SKIN: Focused skin assessment warm/dry. HEAD: Atraumatic. Normocephalic. EYES: Pupils equal and round. No scleral icterus. No injection or drainage. ENT: No nasal bleeding or discharge. Mucous membranes pink and moist. NECK: Trachea midline. No JVD. CARDIOVASCULAR: Regular rate and rhythm. No murmur appreciated. RESPIRATORY: No accessory muscle use. Clear to auscultation. Breath sounds equal bilaterally. GASTROINTESTINAL: Abdomen soft, non-tender, nondistended. Hepatic and splenic margins not palpable. MUSCULOSKELETAL: No obvious deformities. No clubbing. No cyanosis. No edema. NEUROLOGICAL: Awake and alert. No obvious cranial nerve deficits. Motor grossly within normal limits. Normal speech. PSYCHIATRIC: Appropriate mood and affect; insight and judgment normal. Data Data Last Documented VS Vital Signs Date Time Temp Pulse Resp B/P (MAP) Pulse Ox O2 Delivery O2 Flow Rate FiO2 06/02/17 10:40 99 06/02/17 10:05 98.4 93 17 Orders Orders Electrocardiogram (06/02/17 10:45) Basic Metabolic Panel (Bmp) (06/02/17 10:45) Ckmb (Isoenzyme) Profile (06/02/17 10:45) Complete Blood Count With Diff (06/02/17 10:45) Magnesium (Mg) (06/02/17 10:45) Prothrombin Time / Inr (Pt) (06/02/17 10:45) Act Partial Throm Time (Ptt) (06/02/17 10:45) Troponin I (06/02/17 10:45) Chest, Single Ap (06/02/17 10:45) Ecg Monitoring (06/02/17 10:45) Bilateral Bp Monitoring (06/02/17 10:45) Iv Access Insert/Monitor (06/02/17 10:45) Oximetry (06/02/17 10:45) Oxygen Administration (06/02/17 10:45) Aspirin Chew (Aspirin Chew) (06/02/17 10:45) Sodium Chloride 0.9% Flush (Ns Flush) (06/02/17 10:45) Labs Laboratory Tests Test 06/02/17 10:45 White Blood Count 5.7 TH/MM3 Red Blood Count 4.60 MIL/MM3 Hemoglobin 13.8 GM/DL Hematocrit 41.2 % Mean Corpuscular Volume 89.5 FL Mean Corpuscular Hemoglobin 30.0 PG Mean Corpuscular Hemoglobin Concent 33.6 % Red Cell Distribution Width 15.0 % Platelet Count 207 TH/MM3 Mean Platelet Volume 8.9 FL Neutrophils (%) (Auto) 64.5 % Lymphocytes (%) (Auto) 27.6 % Monocytes (%) (Auto) 7.4 % Eosinophils (%) (Auto) 0.2 % Basophils (%) (Auto) 0.3 % Neutrophils # (Auto) 3.7 TH/MM3 Lymphocytes # (Auto) 1.6 TH/MM3 Monocytes # (Auto) 0.4 TH/MM3 Eosinophils # (Auto) 0.0 TH/MM3 Basophils # (Auto) 0.0 TH/MM3 CBC Comment DIFF FINAL Differential Comment Prothrombin Time 11.7 SEC Prothromb Time International Ratio 1.1 RATIO Activated Partial Thromboplast Time 24.0 SEC Blood Urea Nitrogen 10 MG/DL Creatinine 0.86 MG/DL Random Glucose 165 MG/DL Calcium Level 9.4 MG/DL Magnesium Level 2.2 MG/DL Sodium Level 141 MEQ/L Potassium Level 3.5 MEQ/L Chloride Level 108 MEQ/L Carbon Dioxide Level 24.8 MEQ/L Anion Gap 8 MEQ/L Estimat Glomerular Filtration Rate 81 ML/MIN Total Creatine Kinase 57 U/L Troponin I LESS THAN 0.02 NG/ML MDM Medical Decision Making Medical Screen Exam Complete: Yes Emergency Medical Condition: Yes Medical Record Reviewed: Yes Interpretation(s) Twelve-lead EKG was reviewed by me. Normal sinus rhythm, left axis deviation, nonspecific ST-T wave changes. Heart rate of 88 bpm. Differential Diagnosis ACS, non-STEMI, unstable angina Narrative Course 11:13 AM based on the last stress test it was abnormal and patient did not have a cardiac catheterization. I discussed with Dr. Herman who happened to be in the department and he agreed with admission. He'll consult on the patient and probably do a cardiac catheterization. 11:31 AM blood test results of back and within normal limit. Awaiting for the hospitalist to call back. Procedures EKG Prior to Arrival: No Physician Communication Physician Communication Dr. Herman Diagnosis Primary Impression: Chest pain Qualified Codes: R07.9 - Chest pain, unspecified Admitting Information Admitting Physician Requests: Observation Sierra Diaz MD Jun 02, 2017 10:22
[2017-06-02] MEDS ORDERED: ASPIRIN 81 MG CHEW TAB PO ONE (10:45)
[2017-06-02] MEDS ORDERED: SODIUM CHLORIDE 0.9% FLUSH 10 ML FLUSH IVF PRN (10:45)
[2017-06-02 11:03] LABS: AUTOMATED NEUTROPHIL # 3.7 TH/MM3 (1.8-7.7); BASOPHIL % 0.3 % (0.0-2.0); EOSINOPHIL % 0.2 % (0.0-4.0); HEMATOCRIT 41.2 % (35.0-46.0); HEMO FLAGS DIFF FINAL; LYMPH % 27.6 % (9.0-44.0); LYMPHOCYTE # 1.6 TH/MM3 (1.0-4.8); MEAN CELL VOLUME 89.5 FL (80.0-100.0); MEAN CORPUSCULAR HGB CONC 33.6 % (32.0-36.0); MONO % 7.4 % (0.0-8.0); NEUT % 64.5 % (16.0-70.0); PLATELET COUNT 207 TH/MM3 (150-450); WHITE BLOOD COUNT 5.7 TH/MM3 (4.0-11.0)
[2017-06-02 11:14] LABS: INTERNATIONAL NORMALIZED RATIO 1.1 RATIO; PROTHROMBIN TIME - PATIENT 11.7 SEC (9.8-11.6)
[2017-06-02 11:29] LABS: ANION GAP 8 MEQ/L (5-15); BICARBONATE 24.8 MEQ/L (21.0-32.0); BLOOD UREA NITROGEN 10 MG/DL (7-18); CHLORIDE 108 MEQ/L (98-107); GLOMERULAR FILTRATION RATE 81 ML/MIN (>89); MAGNESIUM 2.2 MG/DL (1.5-2.5); POTASSIUM 3.5 MEQ/L (3.5-5.1); SODIUM (NA) 141 MEQ/L (136-145)
[2017-06-02 11:30] LABS: CREATINE KINASE 57 U/L (26-192)
--- NOTE | 2017-06-02 11:56 | RADRPT ---
EXAM DATE/TIME: 06/02/2017 11:11 [facility] COMPARISON: CHEST SINGLE AP, May 30, 2017, 15:53. INDICATIONS : Midsternal chest pains radiating into back and left chest. MEDICAL HISTORY : None. SURGICAL HISTORY : None. ENCOUNTER: Initial ACUITY: 2 days PAIN SCORE: 8/10 LOCATION: Left chest FINDINGS: A single view of the chest demonstrates the lungs to be symmetrically aerated without evidence of mas s, infiltrate or effusion. The cardiomediastinal contours are unremarkable. Osseous structures are intact. CONCLUSION: No acute disease. Edilson Mcgrath MD on June 02, 2017 at 11:54 Board Certified Radiologist. This report was verified electronically.
[2017-06-02] MEDS: SODIUM CHLOR 0.9% 1000 ML INJ 1,000 ML IV SCH (12:02)
[2017-06-02] MEDS ORDERED: IOHEXOL 350 MG/ML 50 ML BTL (for Cath Lab) OTHER ONE (12:05)
[2017-06-02] MEDS ORDERED: BISACODYL 10 MG SUPP RECTAL PRN (12:15)
[2017-06-02] MEDS ORDERED: LACTULOSE SYRUP 20 GM/30 ML CUP PO PRN (12:15)
[2017-06-02] MEDS ORDERED: DIAZEPAM 10 MG TAB PO SCH (12:15)
[2017-06-02] MEDS ORDERED: ONDANSETRON HCL 4 MG/2 ML VIAL IVP PRN (12:15)
[2017-06-02] MEDS ORDERED: MAGNESIUM HYDROXIDE SUSP 30 ML CUP PO PRN (12:15)
[2017-06-02] MEDS ORDERED: diphenhydrAMINE HCL 50 MG CAP PO SCH (12:15)
[2017-06-02] MEDS ORDERED: SENNOSIDES 8.6 MG TAB PO PRN (12:15)
[2017-06-02] MEDS ORDERED: NALOXONE HCL 0.4 MG/ML AMP IV PRN (12:15)
[2017-06-02] MEDS: NITROGLYCERIN 2% OINT 1 GM PACKET TOPICAL SCH ×2 (12:15→17:53)
[2017-06-02] MEDS ORDERED: ASPIRIN 325 MG TAB PO SCH (12:15)
[2017-06-02] MEDS ORDERED: LORazepam 2 MG/ML VIAL IV PUSH ONE (12:15)
[2017-06-02] MEDS ORDERED: SODIUM CHLORIDE 0.9% FLUSH 10 ML FLUSH IV FLUSH PRN (12:15)
[2017-06-02] MEDS: ESCITALOPRAM OXALATE 10 MG TAB PO SCH (12:15)
[2017-06-02] MEDS: ASPIRIN EC 81 MG TABEC PO SCH (12:15)
[2017-06-02] MEDS ORDERED: ENOXAPARIN SODIUM 40 MG/0.4 ML SYRINGE SQ SCH (13:00)
--- NOTE | 2017-06-02 16:26 | HHI.HP ---
HPI Service [facility] Primary Care Physician Bora Bellamy M.D. Admission Diagnosis chest pain, stable angina Diagnoses: (1) Chest pain (2) Anxiety Chief Complaint: Chest pain Travel History International Travel<30 Days: No Contact w/Intl Traveler <30 Da: No Traveled to Known Affected Are: No History of Present Illness Written by Idalia Medina, acting as scribe for Dr. Moyer on 06/02/17 at 16:06. Ms. Borjas is a 61-year-old female patient with a known medical history of anxiety, diet controlled diabetes and hypertension who presented to the ED with complaints of left sided chest pain. She states that this chest pain started early this morning, intermittent, located in her left anterior chest with radiation to her left shoulder and back, rated an 8/10 on pain scale, tight and heavy in nature. Patient states pain is worse with increased stress and activity. Patient states she has been having multiple anxiety attacks over the past few months with multiple presentations to the hospital for complaints of anxiety with associated chest pain. She states that she was discharged home with Valium but believes it has not been effective in relieving her anxiety. Its important to note that patient had an abnormal stress test done 2 months ago with no further cardiac cancerization or work up. Heel Padder is Dr. Herman. Does admit to recent nonproductive cough. Denies any recent fever, chills , cough, shortness of breath, abdominal pain, nausea, vomiting, diarrhea or dysuria. Review of Systems Constitutional: DENIES: Fever Respiratory: COMPLAINS OF: Cough, Shortness of breath Cardiovascular: COMPLAINS OF: Chest pain, Palpitations Gastrointestinal: COMPLAINS OF: Constipation, DENIES: Nausea, Vomiting Psychiatric: COMPLAINS OF: Anxiety Except as stated in HPI: all other systems reviewed are Neg Past Family Social History Past Medical History Anxiety Depression Diet controlled diabetes mellitus Diverticulitis Hiatal hernia Constipation GERD Hypertension Past Surgical History Cholecystectomy Hysterectomy Left knee replacement Reported Medications Active Reported Trazodone (Trazodone HCl) 50 Mg Tab 50 Mg PO HS Escitalopram (Escitalopram Oxalate) 10 Mg Tab 10 Mg PO DAILY Pantoprazole (Pantoprazole Sodium) 40 Mg Tab 40 Mg PO DAILY Metoprolol Tartrate 25 Mg Tab 25 Mg PO BID Norvasc (Amlodipine Besylate) 10 Mg Tab 10 Mg PO DAILY Allergies: Coded Allergies: ciprofloxacin (Unverified Allergy, Severe, rash, 06/02/17) propoxyphene (Unverified Adverse Reaction, Severe, N&V, 06/02/17) Active Ordered Medications Current Medications Medications (Trade) Dose Ordered Sig/Dino Route Start Time Stop Time Status Last Admin (NS Flush) 2 ml UNSCH PRN IVF 06/02/17 10:45 (NS Flush) 2 ml UNSCH PRN IV FLUSH 06/02/17 12:15 (NS Flush) 2 ml BID IV FLUSH 06/02/17 21:00 (Zofran Inj) 4 mg Q6H PRN IVP 06/02/17 12:15 (Lovenox Inj) 40 mg Q24H SQ 06/02/17 13:00 06/02/17 12:44 (Narcan Inj) 0.4 mg UNSCH PRN IV 06/02/17 12:15 (Puja-Colace) 1 tab BID PO 06/02/17 21:00 (Milk Of Magnesia Liq) 30 ml Q12H PRN PO 06/02/17 12:15 (Senokot) 17.2 mg Q12H PRN PO 06/02/17 12:15 (Dulcolax Supp) 10 mg DAILY PRN RECTAL 06/02/17 12:15 (Lactulose Liq) 30 ml DAILY PRN PO 06/02/17 12:15 (Norvasc) 10 mg DAILY PO 06/03/17 09:00 (Lopressor) 25 mg Q12HR PO 06/02/17 21:00 (Nitroglycerin 2% Oint) 0.5 inch Q6HR TOPICAL 06/02/17 12:15 06/02/17 12:15 (Ecotrin Ec) 81 mg DAILY PO 06/02/17 12:15 06/02/17 12:15 Sodium Chloride 1,000 ml @ 100 mls/hr Q10H IV 06/02/17 12:02 06/07/17 12:01 06/02/17 12:02 (Aspirin) 325 mg PST SPECIALIST PO 9/12/17 12:15 06/06/17 12:14 (Benadryl) 50 mg PST SPECIALIST PO 06/02/17 12:15 06/06/17 12:14 (Valium) 10 mg PST SPECIALIST PO 06/02/17 12:15 06/06/17 12:14 (Desyrel) 50 mg HS PO 06/02/17 21:00 (Lexapro) 10 mg DAILY PO 06/02/17 12:15 06/02/17 12:15 Family History Significant family medical history significant for hypertension, hyperlipidemia , DM and stroke. Social History Denies any current tobacco use. Denies any alcohol use. Denies any illicit drug use. Physical Exam Vital Signs Vital Signs Date Time Temp Pulse Resp B/P (MAP) Pulse Ox O2 Delivery O2 Flow Rate FiO2 06/02/17 16:02 78 20 120/74 (89) 95 06/02/17 15:17 94 06/02/17 10:40 99 06/02/17 10:40 99 06/02/17 10:05 98.4 93 17 139/86 (103) 99 Physical Exam GENERAL: This is a well-nourished, well-developed female patient, lying in bed in no apparent distress. SKIN: No rashes, ecchymoses or lesions. Warm and dry. HEENT: Atraumatic. Normocephalic. Pupils equal round and reactive. Extraocular motions intact. No scleral icterus. No injection or drainage. Nose without bleeding. Airway patent. NECK: Trachea midline. No JVD. Supple. CARDIOVASCULAR: Regular rate and rhythm without murmurs, gallops, or rubs. RESPIRATORY: Clear to auscultation. Breath sounds equal bilaterally. No wheezes , rales, or rhonchi. GASTROINTESTINAL: Abdomen soft, non-tender, nondistended. No guarding. MUSCULOSKELETAL: Extremities without clubbing, cyanosis, or edema. No joint tenderness, effusion, or edema noted. NEUROLOGICAL: Awake and alert. Cranial nerves II through XII intact. Motor and sensory grossly within normal limits. Five out of 5 muscle strength in all muscle groups. Normal speech. Laboratory Laboratory Tests Test 06/02/17 10:45 White Blood Count 5.7 Red Blood Count 4.60 Hemoglobin 13.8 Hematocrit 41.2 Mean Corpuscular Volume 89.5 Mean Corpuscular Hemoglobin 30.0 Mean Corpuscular Hemoglobin Concent 33.6 Red Cell Distribution Width 15.0 Platelet Count 207 Mean Platelet Volume 8.9 Neutrophils (%) (Auto) 64.5 Lymphocytes (%) (Auto) 27.6 Monocytes (%) (Auto) 7.4 Eosinophils (%) (Auto) 0.2 Basophils (%) (Auto) 0.3 Neutrophils # (Auto) 3.7 Lymphocytes # (Auto) 1.6 Monocytes # (Auto) 0.4 Eosinophils # (Auto) 0.0 Basophils # (Auto) 0.0 CBC Comment DIFF FINAL Differential Comment Prothrombin Time 11.7 Prothromb Time International Ratio 1.1 Activated Partial Thromboplast Time 24.0 Blood Urea Nitrogen 10 Creatinine 0.86 Random Glucose 165 Calcium Level 9.4 Magnesium Level 2.2 Sodium Level 141 Potassium Level 3.5 Chloride Level 108 Carbon Dioxide Level 24.8 Anion Gap 8 Estimat Glomerular Filtration Rate 81 Total Creatine Kinase 57 Troponin I LESS THAN 0.02 Result Diagram: 06/02/17 1045 06/02/17 1045 Imaging Last Impressions Chest X-Ray 06/02/17 1045 Signed Impressions: Service Date/Time: Friday, June 02, 2017 11:11 - CONCLUSION: No acute disease. Edilson Mcgrath MD Caprini VTE Risk Assessment Caprini VTE Risk Assessment: Mod/High Risk (score >= 2) Caprini Risk Assessment Model Point Value = 1 Point Value = 2 Point Value = 3 Point Value = 5 Age 41-60 Minor surgery BMI > 25 kg/m2 Swollen legs Varicose veins or History of unexplained or recurrent spontaneous Oral contraceptives or hormone replacement Sepsis (< 1 month) Serious lung disease, including pneumonia (< 1 month) Abnormal pulmonary function Acute myocardial infarction Congestive heart failure (< 1 month) History of inflammatory bowel disease Medical patient at bed rest Age 61-74 Arthroscopic surgery Major open surgery (> 45 min) Laparoscopic surgery (> 45 min) Malignancy Confined to bed (> 72 hours) Immobilizing plaster cast Central venous access Age >= 75 History of VTE Family history of VTE Factor V Leiden Prothrombin [id number] Lupus anticoagulant Anticardiolipin antibodies Elevated serum homocysteine Heparin-induced thrombocytopenia Other congenital or acquired thrombophilia Stroke (< 1 month) Elective arthroplasty Hip, pelvis, or leg fracture Acute spinal cord injury (< 1 month) Prophylaxis Regimen Total Risk Factor Score Risk Level Prophylaxis Regimen 0-1 Low Early ambulation 2 Moderate Order ONE of the following: *Sequential Compression Device (SCD) *Heparin 5000 units SQ BID 3-4 Higher Order ONE of the following medications: *Heparin 5000 units SQ TID *Enoxaparin/Lovenox 40 mg SQ daily (WT < 150 kg, CrCl > 30 mL/min) *Enoxaparin/Lovenox 30 mg SQ daily (WT < 150 kg, CrCl > 10-29 mL/min) *Enoxaparin/Lovenox 30 mg SQ BID (WT < 150 kg, CrCl > 30 mL/min) AND/OR *Sequential Compression Device (SCD) 5 or more Highest Order ONE of the following medications: *Heparin 5000 units SQ TID (Preferred with Epidurals) *Enoxaparin/Lovenox 40 mg SQ daily (WT < 150 kg, CrCl > 30 mL/min) *Enoxaparin/Lovenox 30 mg SQ daily (WT < 150 kg, CrCl > 10-29 mL/min) *Enoxaparin/Lovenox 30 mg SQ BID (WT < 150 kg, CrCl > 30 mL/min) AND *Sequential Compression Device (SCD) Assessment and Plan Assessment and Plan Ms. Borjas is a 61-year-old female patient with a known medical history of anxiety, diet controlled diabetes and hypertension who presented to the ED with complaints of left sided chest pain. She states that this chest pain started early this morning, intermittent, located in her left anterior chest with radiation to her left shoulder and back, rated an 8/10 on pain scale, tight and heavy in nature. Patient states pain is worse with increased stress and activity. Chest pain - Consult placed to cardiology, patient known to Dr. Herman. Appreciate input. Plan for possible cardiac catheterization tomorrow. NPO after midnight. - Trending troponins. Initial troponin flat. - EKG reviewed showing SR, no arrhythmias. - CXR reviewed showing no acute disease. - Continue IVF NS @ 100 ml/hr. - Supplemental O2 to keep sats > 92%. Hypertension, controlled: Continue home Amlodipine. Monitor BP trends. Depression: Continue home Lexapro. Anxiety: Valium available PRN. DVT prophylaxis: SCDs/Lovenox This note was transcribed by kaitlyn RICHTER I, Dr. Concepción Cosma personally performed the history, physical exam, and medical decision making; and confirmed the accuracy of the information in the transcribed note. Authenticated by Dr. Concepción Moyer on 06/02/17 at 16:06. Physician Certification 2 Midnight Certification Type: Admission for Inpatient Services Order for Inpatient Services The services are ordered in accordance with Medicare regulations or non- Medicare payer requirements, as applicable. In the case of services not specified as inpatient-only, they are appropriately provided as inpatient services in accordance with the 2-midnight benchmark. Estimated LOS (days): 2 2 days is the estimated time the patient will need to remain in the hospital, assuming treatment plan goals are met and no additional complications. Post-Hospital Plan: Home Problem Qualifiers (1) Chest pain: Qualified Codes: R07.9 - Chest pain, unspecified Idalia Medina Jun 02, 2017 16:26 Concepción Moyer MD Jun 02, 2017 20:09
[2017-06-02] MEDS: DOCUSATE SODIUM 50 MG/SENNA 8.6 MG TAB PO SCH (20:56)
[2017-06-02] MEDS: METOPROLOL TARTRATE 25 MG TAB PO SCH (20:56)
[2017-06-02] MEDS ORDERED: traZODone HCL 50 MG TAB PO SCH (21:00)
[2017-06-02 22:46] LABS: CREATINE KINASE 50 U/L (26-192)
--- NOTE | 2017-06-02 23:10 | PD.CONS ---
HPI Service Consult dictated ~12 hours ago, still not transcribed. Recommend cath in am. Consult Requested By Primary Care Physician Bora Bellamy M.D. Past Family Social History Allergies: Coded Allergies: ciprofloxacin (Unverified Allergy, Severe, rash, 06/02/17) propoxyphene (Unverified Adverse Reaction, Severe, N&V, 06/02/17) Reported Medications Reported Meds & Active Scripts Active Reported Trazodone (Trazodone HCl) 50 Mg Tab 50 Mg PO HS Escitalopram (Escitalopram Oxalate) 10 Mg Tab 10 Mg PO DAILY Pantoprazole (Pantoprazole Sodium) 40 Mg Tab 40 Mg PO DAILY Metoprolol Tartrate 25 Mg Tab 25 Mg PO BID Norvasc (Amlodipine Besylate) 10 Mg Tab 10 Mg PO DAILY Active Ordered Medications Current Medications Medications (Trade) Dose Ordered Sig/Dino Route Start Time Stop Time Status Last Admin (NS Flush) 2 ml UNSCH PRN IVF 06/02/17 10:45 (NS Flush) 2 ml UNSCH PRN IV FLUSH 06/02/17 12:15 (NS Flush) 2 ml BID IV FLUSH 06/02/17 21:00 (Zofran Inj) 4 mg Q6H PRN IVP 06/02/17 12:15 (Lovenox Inj) 40 mg Q24H SQ 06/02/17 13:00 06/02/17 12:44 (Narcan Inj) 0.4 mg UNSCH PRN IV 06/02/17 12:15 (Puja-Colace) 1 tab BID PO 06/02/17 21:00 06/02/17 20:56 (Milk Of Magnesia Liq) 30 ml Q12H PRN PO 06/02/17 12:15 (Senokot) 17.2 mg Q12H PRN PO 06/02/17 12:15 (Dulcolax Supp) 10 mg DAILY PRN RECTAL 06/02/17 12:15 (Lactulose Liq) 30 ml DAILY PRN PO 06/02/17 12:15 (Norvasc) 10 mg DAILY PO 06/03/17 09:00 (Lopressor) 25 mg Q12HR PO 06/02/17 21:00 06/02/17 20:56 (Nitroglycerin 2% Oint) 0.5 inch Q6HR TOPICAL 9/12/17 12:15 06/02/17 17:53 (Ecotrin Ec) 81 mg DAILY PO 06/02/17 12:15 06/02/17 12:15 Sodium Chloride 1,000 ml @ 100 mls/hr Q10H IV 06/02/17 12:02 06/07/17 12:01 06/02/17 12:02 (Aspirin) 325 mg ACCOUNT ASSOCIATE PO 06/02/17 12:15 06/06/17 12:14 (Benadryl) 50 mg ACCOUNT ASSOCIATE PO 06/02/17 12:15 06/06/17 12:14 (Valium) 10 mg ACCOUNT ASSOCIATE PO 06/02/17 12:15 06/06/17 12:14 (Desyrel) 50 mg HS PO 06/02/17 21:00 06/02/17 20:56 (Lexapro) 10 mg DAILY PO 06/02/17 12:15 06/02/17 12:15 Physical Exam Vital Signs Vital Signs Date Time Temp Pulse Resp B/P (MAP) Pulse Ox O2 Delivery O2 Flow Rate FiO2 06/02/17 20:46 100 18 139/85 (103) 98 06/02/17 18:00 88 06/02/17 17:00 92 06/02/17 16:02 78 20 120/74 (89) 95 06/02/17 16:00 100 06/02/17 15:17 94 06/02/17 10:40 99 06/02/17 10:40 99 06/02/17 10:05 98.4 93 17 139/86 (103) 99 Laboratory Laboratory Tests Test 06/02/17 10:45 06/02/17 20:24 White Blood Count 5.7 Red Blood Count 4.60 Hemoglobin 13.8 Hematocrit 41.2 Mean Corpuscular Volume 89.5 Mean Corpuscular Hemoglobin 30.0 Mean Corpuscular Hemoglobin Concent 33.6 Red Cell Distribution Width 15.0 Platelet Count 207 Mean Platelet Volume 8.9 Neutrophils (%) (Auto) 64.5 Lymphocytes (%) (Auto) 27.6 Monocytes (%) (Auto) 7.4 Eosinophils (%) (Auto) 0.2 Basophils (%) (Auto) 0.3 Neutrophils # (Auto) 3.7 Lymphocytes # (Auto) 1.6 Monocytes # (Auto) 0.4 Eosinophils # (Auto) 0.0 Basophils # (Auto) 0.0 CBC Comment DIFF FINAL Differential Comment Prothrombin Time 11.7 Prothromb Time International Ratio 1.1 Activated Partial Thromboplast Time 24.0 Blood Urea Nitrogen 10 Creatinine 0.86 Random Glucose 165 Calcium Level 9.4 Magnesium Level 2.2 Sodium Level 141 Potassium Level 3.5 Chloride Level 108 Carbon Dioxide Level 24.8 Anion Gap 8 Estimat Glomerular Filtration Rate 81 Total Creatine Kinase 57 50 Troponin I LESS THAN 0.02 LESS THAN 0.02 Result Diagram: 06/02/17 1045 06/02/17 1045 Melvin Herman MD Jun 02, 2017 23:10
[2017-06-03] VITALS (19 sets, daily range): BP systolic 114–124; BP diastolic 70–80; PULSE 48–80; RESP 18–20; TEMP 98.3–98.6; O2SAT 96–98
[2017-06-03] MEDS: SODIUM CHLOR 0.9% 1000 ML INJ 1,000 ML IV SCH (01:27)
[2017-06-03] MEDS: NITROGLYCERIN 2% OINT 1 GM PACKET TOPICAL SCH ×2 (01:27→06:00)
[2017-06-03] MEDS: SODIUM CHLORIDE 0.9% FLUSH 10 ML FLUSH IV FLUSH SCH ×2 (01:28→08:47)
[2017-06-03 02:16] LABS: AUTOMATED NEUTROPHIL # 2.7 TH/MM3 (1.8-7.7); BASOPHIL # 0.1 TH/MM3 (0-0.2); EOSINOPHIL # 0.1 TH/MM3 (0-0.4); EOSINOPHIL % 1.1 % (0.0-4.0); HEMATOCRIT 36.6 % (35.0-46.0); HEMO FLAGS DIFF FINAL; LYMPH % 37.4 % (9.0-44.0); MEAN CELL VOLUME 89.9 FL (80.0-100.0); MEAN CORPUSCULAR HEMOGLOBIN 30.2 PG (27.0-34.0); MEAN CORPUSCULAR HGB CONC 33.6 % (32.0-36.0); NEUT % 50.5 % (16.0-70.0); PLATELET COUNT 185 TH/MM3 (150-450); RED BLOOD COUNT 4.07 MIL/MM3 (4.00-5.30); RED CELL DISTRIBUTION WIDTH 15.1 % (11.6-17.2); WHITE BLOOD COUNT 5.4 TH/MM3 (4.0-11.0)
[2017-06-03 02:33] LABS: ALT (GPT) 22 U/L (10-53); ANION GAP 8 MEQ/L (5-15); AST (GOT) 13 U/L (15-37); BICARBONATE 25.5 MEQ/L (21.0-32.0); BLOOD UREA NITROGEN 13 MG/DL (7-18); CHLORIDE 110 MEQ/L (98-107); GLOMERULAR FILTRATION RATE 71 ML/MIN (>89); POTASSIUM 3.5 MEQ/L (3.5-5.1); SODIUM (NA) 143 MEQ/L (136-145)
[2017-06-03 02:39] LABS: ALKALINE PHOSPHATASE 115 U/L (45-117); HDL CHOLESTEROL 46.8 MG/DL (40.0-60.0); LDL CHOLESTEROL 108 MG/DL (0-99); TOTAL BILIRUBIN ADULT 0.5 MG/DL (0.2-1.0)
[2017-06-03 03:00] LABS: CREATINE KINASE 43 U/L (26-192)
--- NOTE | 2017-06-03 08:19 | HHI.PR ---
Subjective Remarks In the bed. little anxious for upcoming procedure. Says no pain overnight. No sob, nausea, diaphoresis. Denies fever or chills. Objective Vitals Vital Signs Date Time Temp Pulse Resp B/P (MAP) Pulse Ox O2 Delivery O2 Flow Rate FiO2 06/03/17 07:05 76 20 124/80 (95) 98 06/03/17 07:00 64 06/03/17 06:00 48 06/03/17 05:00 63 06/03/17 04:00 98.6 64 18 114/70 (85) 98 06/03/17 04:00 60 06/03/17 03:00 49 06/03/17 02:00 61 06/03/17 01:00 74 06/03/17 00:00 98.4 64 18 118/73 (88) 96 06/03/17 00:00 62 06/02/17 23:00 60 06/02/17 22:00 70 06/02/17 21:00 98 06/02/17 20:46 98.4 63 18 139/85 (103) 98 06/02/17 20:00 94 06/02/17 19:00 90 06/02/17 18:00 88 06/02/17 17:00 92 06/02/17 16:02 78 20 120/74 (89) 95 06/02/17 16:00 100 06/02/17 15:17 94 06/02/17 10:40 99 06/02/17 10:40 99 06/02/17 10:05 98.4 93 17 139/86 (103) 99 I/O 06/02/17 06/02/17 06/02/17 06/03/17 06/03/17 06/03/17 07:00 15:00 23:00 07:00 15:00 23:00 Intake Total 240 ml Balance 240 ml Intake Oral 240 ml # Voids 1 Result Diagram: 06/03/17 0150 06/03/17 0150 Imaging Last Impressions Chest X-Ray 06/02/17 1045 Signed Impressions: Service Date/Time: Friday, June 02, 2017 11:11 - CONCLUSION: No acute disease. Edilson Mcgrath MD Objective Remarks GENERAL: This is a well-nourished, well-developed female patient, lying in bed in no apparent distress. CARDIOVASCULAR: Regular rate and rhythm without murmurs, gallops, or rubs. RESPIRATORY: Clear to auscultation. Breath sounds equal bilaterally. No wheezes , rales, or rhonchi. GASTROINTESTINAL: Abdomen soft, non-tender, nondistended. No guarding. MUSCULOSKELETAL: Extremities without clubbing, cyanosis, or edema. No joint tenderness, effusion, or edema noted. NEUROLOGICAL: Awake and alert. Cranial nerves II through XII intact. Motor and sensory grossly within normal limits. Five out of 5 muscle strength in all muscle groups. Normal speech. A/P Problem List: (1) Chest pain ICD Code: R07.9 - Chest pain, unspecified Status: Acute (2) Anxiety ICD Code: F41.9 - Anxiety disorder, unspecified Status: Acute Assessment and Plan Ms. Borjas is a 61-year-old female patient with a known medical history of anxiety, diet controlled diabetes and hypertension who presented to the ED with complaints of left sided chest pain. She states that this chest pain started early this morning, intermittent, located in her left anterior chest with radiation to her left shoulder and back, rated an 8/10 on pain scale, tight and heavy in nature. Patient states pain is worse with increased stress and activity. Chest pain r/o ACS Consult placed to cardiology, patient known to Dr. Herman. Appreciate input. Plan for possible cardiac catheterization tomorrow. NPO after midnight. Troponins neg EKG reviewed showing SR, no arrhythmias. CXR reviewed showing no acute disease. Continue IVF NS @ 100 ml/hr. Supplemental O2 to keep sats > 92%. NPO after midnight, plan for cardiac cath today AM Hypertension, controlled: Continue home Amlodipine. Monitor BP trends. Depression: Continue home Lexapro. Anxiety: Valium available PRN. DVT prophylaxis: SCDs/Lovenox Discussed with the patient, nurse Problem Qualifiers (1) Chest pain: Qualified Codes: R07.9 - Chest pain, unspecified Concepción Moyer MD Jun 03, 2017 08:19
--- NOTE | 2017-06-03 08:47 | MB ---
cc: AYESHA TAPIA M.D. DATE OF CONSULTATION: 06/02/2017 REASON FOR CONSULTATION Chest pain. HISTORY OF PRESENT ILLNESS The patient is somewhat of a poor historian. She is a 61-year-old -[place] female with a history of hypertension who, for the past several days, has been having daily episodes of left parasternal chest discomfort described as "pressure" without associated shortness of breath, nausea or diaphoresis. The chest discomforts last up to 30 minutes and are almost always precipitated by anxiety attacks. She has had similar chest discomforts for at least the last couple of years. Rarely, she experiences these chest pains while relaxed and at rest. She denies pleurisy, dizziness, syncope, near-syncope, palpitations, pedal edema, paroxysmal nocturnal dyspnea. This morning she continues to have episodic left-sided chest discomfort with anxiety. PAST MEDICAL HISTORY 1. Hypertension. 2. Diet-controlled diabetes. PAST SURGICAL HISTORY 1. Left total knee arthroplasty 2014. 2. Cholecystectomy. 3. Hysterectomy. MEDICATIONS Her cardiac medications at home: 1. Metoprolol tartrate 25 mg b.i.d. 2. Amlodipine 10 mg daily. ALLERGIES CIPRO. PROPOXYPHENE. FAMILY HISTORY Noncontributory. SOCIAL HISTORY The patient denies any history of alcohol or tobacco abuse. REVIEW OF SYSTEMS Review of systems as in the history of present illness otherwise negative or noncontributory. She also denies headache, visual changes, unilateral weakness or numbness, abdominal pain, melena, dyspepsia, bright red blood per rectum. PHYSICAL EXAMINATION VITAL SIGNS: Blood pressure 139/86 with a pulse of 93, respirations 17. GENERAL: In general she is a well-developed, well-nourished -[place] female in no acute distress. HEAD, EYES, EARS, NOSE, AND THROAT: On HEENT examination, jugular venous pressure is normal. Carotid pulses are 2+ bilaterally and without bruits. Examination of the chest reveals clear lung branham. CARDIAC: On cardiac examination, she has a regular rhythm and rate without S3-S4 or murmur. ABDOMEN: On abdominal examination, she has a soft, nontender abdomen. Bowel sounds are present. There is no definite hepatosplenomegaly. EXTREMITIES: Examination of extremities, reveals no clubbing, cyanosis or edema. Peripheral pulses are normal throughout. EKG shows sinus rhythm, nonspecific T-wave abnormalities. LABORATORY DATA Laboratory data includes normal CBC, potassium 3.5, BUN 10, creatinine 0.86, CK 57. Chest x-ray shows no acute disease. IMPRESSION Daily chest pains in this 61-year-old -[place] female with a history of hypertension, diet-controlled diabetes. Initial cardiac enzymes are negative for myocardial infarction. EKG shows no acute diagnostic ST-segment or T-wave changes. Most of her symptoms are somewhat atypical for myocardial ischemia. Some of her symptoms certainly could be due to angina precipitated by emotional stress. She did have a nuclear stress test sometime last year showing inferior and apical ischemia. In light of the instability of her symptoms and her history of abnormal nuclear stress testing, I would agree with the need for cardiac catheterization. She has been in the emergency room two or three times recently with chest pains. The nature of cardiac catheterization and the potential risks including but not limited to , myocardial infarction, stroke, arrhythmia, bleeding, infection, renal failure have been outlined to the patient. She agrees to proceed. RECOMMENDATIONS 1. Cardiac catheterization tomorrow. 2. Continue her same home cardiac medications. 3. Daily aspirin. 4. Check a fasting lipid profile. MD SOUMYA Chino/JESUS /11:57 AM /8:31 AM MTDD
[2017-06-03] MEDS: METOPROLOL TARTRATE 25 MG TAB PO SCH (08:48)
[2017-06-03] MEDS: ASPIRIN EC 81 MG TABEC PO SCH (08:48)
[2017-06-03] MEDS: ESCITALOPRAM OXALATE 10 MG TAB PO SCH (08:48)
[2017-06-03] MEDS: DOCUSATE SODIUM 50 MG/SENNA 8.6 MG TAB PO SCH (09:00)
[2017-06-03] MEDS ORDERED: HEPARIN-NS/PF INJ 1,000 ML ONE (09:33)
[2017-06-03] MEDS ORDERED: VERAPAMIL HCL 5 MG/2 ML VIAL ONE (09:56)
[2017-06-03] MEDS ORDERED: HEPARIN SODIUM - IV 10,000 UNITS/10 ML VIAL ONE (09:57)
[2017-06-03] MEDS ORDERED: NITROGLYCERIN INJ 5 ML ONE ×2 (09:57→10:19)
--- NOTE | 2017-06-03 10:27 | CATHPROC ---
[employer] HIS Report Study Information Study Number Scheduled Start Study Start [id number] 06/03/2017 Jun 03 2017 9:16AM Referring Institution Admit Source Facility Department 1 Emergency department [facility] - Crew Leader Physician and Clinical Staff Initial Melvin Becerra Environmental Remediation Specialist Cristine Bishop,VIPUL Environmental Remediation SpecialistDeya Kaminski,VIPUL Other Dorina Cesar,ACTIVITY AID TECH2 Recorder Angelo Kay,RT(R) Scrub Sophie De La Torre,RT(R) Procedures Performed Procedure Location (Site) Vessel Name Coronary Angiograms LCA Left Coronary Coronary Angiograms RCA Right Coronary L Heart Cath LV Gram-hand inj. LV LV Ventricle Equipment Time Surgical Aide Description Size Mfg Part Number Used/Scraped TRANSDUCER, TRUWAVE [id number] 09:18 CONTRERAS POWER * Used W/STOCKCOCK *[id number] *[id number] WIRE, HYDROSTEER 260CM [id number] 10:02 DAIG/ST. MOUSTAPHA MEDICAL 260CM Used ANGLED GLIDE *[id number] 09:18 MALLINCKRODT SYRINGE, ANGIOMAT 150ML 150ML *[id number] Used 2S Flypad CONCEPT DRAPE, RADIAL FEMORAL FULL 09:18 * [id number] *[id number] Used DEVELOPMENT BODY [id number] 09:18 [employer] PACK, CCL CUSTOM * Used *[id number] 09:18 [employer] SUPPORT, ARTERIAL ADULT [id number] *[id number] Used [id number] 09:18 [employer] PACER PEN, SKIN DUAL W/ RULER * Used *[id number] BAND, RADIAL COMPRESSION TR [id number] 10:13 [employer] MEDICAL 24CM Used SHORT 24 *[id number] 09:18 [place] WIRE, EXCHANGE 260CM 3MMJ 260CM Used *[id number] 09:18 NAMIC MANIFOLD, 4 PORT * Used *[id number] 10:11 NAMIC TUBING, HIGH PRESSURE 48" 48" Used *[id number] 09:18 [employer] OMNIPAQUE, 350 MG, 150ML 150ML [id number] Used [id number] 09:18 [employer] BLANKET,WARM AIR CCL * Used *[id number] CATHETER, FR5 OPTITORQUE [id number] 09:58 [employer] FR 5 Used RADIAL TIG 4.0 *[id number] SHEATH, FR6 TRANSRADIAL RM*[id number] 09:58 [employer] FR 6 Used SLENDER 10CM *[id number] Equipment Model, Serial, Lot Number and Expiration Data Description Model Number Serial Number Lot Number Expiration Date MARYCRUZ WILLIAMSTEER 260CM [id number] 11-19-2019 ANGLED GLIDE History: Current Medications Medication Dosage/Unit Route Frequency Last Date/Time Taken ASA LOVENOX NORVASC NTG Patch LOPRESSOR History: Allergies Allergy Reaction Cipro rash Codeine Rash Darvon N propoxyphene N ciprofloxacin rash History: Risk Factors Family History of Hypertension Dyslipidemia Previous KS Previous Heart Failure Premature CAD Yes Yes No No No Prior Valve Prior PCI Prior CABG Surgery No No No Cerebrovascular Peripheral Artery Chronic Lung On Dialysis Diabetes Diabetes Therapy Disease Disease Disease No No No No Yes Diet History: Symptoms/Diagnosis Selection Items Chest pain History: Stress Tests Stress or Imaging Studies Performed Yes Standard Exercise Stress Test No Stress Echo No Stress Test SPECT Stress Test SPECT Result Yes Positive Stress Test CMR No Cardiac CTA Coronary Calcium Score No No History: Other Disease Selection Items HTN History: Other Current Smoker No Labs Hgb (g/dl) Hct (%) RBC (MIL/MM3) WBC (l/cumm) Platelets (thousands) 11.60-17.00 35.00-51.00 4.00-5.90 4.00-11.00 150.00-450.00 13.8 41.2 4.6 5.7 207 Glucose (mg/dl) BUN (mg/dl) Creatinine (mg/dl) BUN:Creatinine (1:x) 74.00-106.00 7.00-18.00 0.50-1.30 10.00-20.00 165 10 0.8 12.5 Na (meq/l) K (meq/l) Cl (meq/l) CO2 (mmol/L) Ca (mg/dl) 136.00-145.00 3.50-5.10 98.00-107.00 21.00-32.00 8.50-10.10 141 3.5 108 24.8 9.4 PT (sec) PTT (sec) INR (PTT:PT) 9.80-11.60 24.30-30.10 0.90-1.10 11.7 24 1.1 Troponin I (ng/ml) CPK (u/l) CPK-MB (ng/ML) 0.02-0.05 26.00-308.00 0.50-3.60 0.02 57 Not Drawn Medication Medication Total Dose (Bolus/Oral) Medication Total Dosage/Unit 1% XYLOCAINE 5 mL FENTANYL 50 mcg RADIAL COCKTAIL 5 mL (Bolus) Medications (Bolus/Oral) Medication Time Given Dosage/Unit Administered By Reason 1% XYLOCAINE 06/03/2017 9:56:13 AM 5 mL Cristine Bishop 5 mL 1% XYLOCAINE given in lab by Cristine Bishop RN in Right Radial via Subcutaneous. Ntg 200mcg Verapamil 2.5mg Heparin RADIAL COCKTAIL 06/03/2017 9:58:53 AM 5 mL (Bolus) Cristine Bishop 2500U 5 mL (Bolus) RADIAL COCKTAIL given in lab by Cristine Bishop RN via Radial. Using [Solution Name]. R benitez: Ntg 200mcg Heparin 2500U. FENTANYL 06/03/2017 10:06:47 AM 50 mcg Cristine Bishop 50 mcg FENTANYL given in lab by Cristine Bishop RN in Right Antecubital via Peripheral IV. Medication (Drip) Medication Time Given Dosage/Unit Concentration/Unit Diluent (ml) Solution IV Solutions 06/03/2017 9:35:52 AM 0 mL (IV) 500 NaCl .9 IV Solutions given in lab by rCistine Bishop RN in Right Antecubital via Peripheral IV. Pump/Drip Fl ow = 20 ml/hr using NaCl .9. Initial Case Assessment Cardiovascular HR Rhythm NIBP Chest Pain 57 Sinus 119/72 0 Edema Present Skin color Skin None Normal Warm Dry Circulatory - Right Pulses Dorsalis Pedis Femoral Radial 2 2 2 Scale (0,1,2,3,4,d) Circulatory - Left Pulses Dorsalis Pedis Femoral Radial 2 Scale (0,1,2,3,4,d) Neurological State Oriented to time-place- Alert Moves all extremities person Respiration - General Respiration Rate SpO2 (%) O2 (lpm) (B/min) 17 98 0 Final Case Assessment Cardiovascular HR Rhythm NIBP Chest Pain 64 Sinus 116/73 0 Edema Present Skin color Skin None Normal Warm Dry Circulatory - Right Pulses Dorsalis Pedis Femoral Radial 2 2 2 Scale (0,1,2,3,4,d) Circulatory - Left Pulses Dorsalis Pedis Femoral Radial 2 Scale (0,1,2,3,4,d) Neurological State Oriented to time-place- Alert Moves all extremities person Respiration - General Respiration Rate SpO2 (%) O2 (lpm) (B/min) 14 93 0 Chronological Log Time Study Chronological Log 9:26:04 Patient arrived via Bed. 9:26:04 Patient Name, D.O.B, / Armband Verified By R.N. 9:26:05 Consent signed by the physician and the patient and verified by the Crew Leader staff. 9:26:06 Pre-op and post- op instructions given; patient acknowledges understanding of instructions. 9:26:13 Presedation assessment performed by Crew Leader RN. 9:26:16 Allens test performed on the right radial and ulnar artery. 9:26:28 Patient has been NPO for More than 6Hrs. 9:26:29 Skin Breakdown- none per patient. 9:26:29 Patient Warmer Placed on the Table. 9:26:30 Srikanth Prominences Protected 9:26:32 A # 20 IV was noted in the Antecubital (right). Grade = 0 9:26:34 History and physical on the chart or being dictated. Assessment: Initial Case, HR=57 BPM, Rhythm=Sinus, LVBW=963/72 mmhg, Chest Pain=0, Edema=None, Color=Normal, Skin = Warm, Dry Right Pulses: Choco Ped=2, Femoral=2, Radial=2 9:26:35 Left Pulses: Femoral=2 Neurological: State=Alert, Ox3, MATTA Respiration: Resp=17 B/min, SpO2=98 %, O2=0 lpm 9:26:41 Verbal Stimulation=2 Physical Stimulation=2 Airway=2 Respiration=2 TOTAL=8. (0=absent, 1=li mited, 2=present) Vitals capture started with the following parameters, Patient=Adult, Interval=5 min, Initial Pr nxekkq=226 mmHg, 9:32:48 Deflation Rate=5 mmHg, Cuff placed on Right Arm 9:32:50 Vitals capture stopped. Vitals capture started with the following parameters, Patient=Adult, Interval=5 min, Initial Pr hdpqho=305 mmHg, 9:32:56 Deflation Rate=5 mmHg, Cuff placed on Right Arm 9:33:31 HR=56 bpm, QZST=250/72 mmhg, SpO2=98.0 %, Resp=17 B/min, Pain=0, Cecelia=10, Caballero=2 IV Solutions given in lab by Cristine Bishop, RN in Right Antecubital via Peripheral IV. Pump/D rip Flow = 20 ml/hr 9:35:52 using NaCl .9. 9:38:30 HR=55 bpm, DFLV=967/70 mmhg, SpO2=97.0 %, Resp=16 B/min, Pain=0, Cecelia=10, Caballero=2 9:42:01 Right Radial and groin(s) prepped with 2% chlorhexidine, and with a 3 min. waiting time. 9:43:29 HR=53 bpm, LBRP=961/71 mmhg, Resp=18 B/min, Pain=0, Cecelia=10, Caballero=2 9:43:42 MD paged 9:45:47 MD responded 9:47:08 Pressure channel 1 zeroed. 9:48:30 HR=60 bpm, TYTN=883/72 mmhg, SpO2=96.0 %, Resp=15 B/min, Pain=0, Cecelia=10, Caballero=2 9:52:12 MD arrived. 9:52:32 Reference ECG taken 9:53:31 HR=56 bpm, WPXC=798/67 mmhg, SpO2=99.0 %, Resp=17 B/min, Pain=0, Cecelia=10, Caballero=2 Time Out. Correct patient, correct procedure,correct physician, power injector not loaded with contrast with surgical 9:55:34 team present. Time Out Concurred by MD, individual staff in procedure 9:56:02 Case Start 9:56:13 5 mL 1% XYLOCAINE given in lab by Cristine Bishop, RN in Right Radial via Subcutaneous. 9:57:43 Access site was Radial Artery. A SHEATH, FR6 TRANSRADIAL SLENDER 10CM FR 6 was advanced into the Radial (right) using the Perc utaneous 9:58:14 technique. 9:58:28 HR=55 bpm, EROV=506/70 mmhg, Resp=10 B/min, Pain=0, Cecelia=10, Caballero=2 5 mL (Bolus) RADIAL COCKTAIL given in lab by Cristine Bishop, RN via Radial. Using [Solution Na me]. Reason: Ntg 9:58:53 200mcg Heparin 2500U. A CATHETER, FR5 OPTITORQUE RADIAL TIG 4.0 FR 5 was advanced over a wire. OMNIPAQUE, 350 MG, 150 ML 150ML 9:59:48 was used for injections. 10:01:59 The previous wire was exchanged for a WIRE, HYDROSTEER 260CM ANGLED GLIDE 260CM. 10:03:31 HR=59 bpm, ISGV=452/66 mmhg, SpO2=94.0 %, Resp=17 B/min, Pain=0, Cecelia=10, Caballero=2 10:04:39 The LCA was injected and visualized at various angles. OMNIPAQUE, 350 MG, 150ML 150ML used . Recorded Pressure: Ao, HR=63, Condition=Condition 1 10:05:45 (Aorta) Ao 108/69/87 10:06:47 50 mcg FENTANYL given in lab by Cristine Bishop, VIPUL in Right Antecubital via Peripheral IV. 10:08:10 The RCA was injected and visualized at various angles. OMNIPAQUE, 350 MG, 150ML 150ML used . 10:08:28 HR=59 bpm, LNBG=267/68 mmhg, Resp=0 B/min, Pain=0, Cecelia=10, Caballero=2 After removing the current catheter a CATHETER, FR5 OPTITORQUE RADIAL TIG 4.0 FR 5 was advanced over a WIRE, 10:09:32 EXCHANGE 260CM 3MMJ 260CM. Recorded Pressure: LV, HR=68, Condition=Condition 1 10:11:59 (Left Ventricle) LV 117/7/14 10:12:15 The LV was manually injected with 8 cc's and visualized. OMNIPAQUE, 350 MG, 150ML 150ML use d. Recorded Pressure: LV, Ao, HR=73, Condition=Condition 1 10:12:26 (Left Ventricle) LV 106/5/14, (Aorta) Ao 123/68/93 10:12:44 Catheter was removed 10:13:29 HR=67 bpm, PIIM=848/73 mmhg, SpO2=92.0 %, Resp=0 B/min, Pain=0, Cecelia=10, Caballero=2 10:13:43 Case End 10:13:57 No case complications noted. 10:13:59 Cine recording checked. Assessment: Final Case, HR=64 BPM, Rhythm=Sinus, FXCA=117/73 mmhg, Chest Pain=0, Edema=None, Color=Normal, Skin = Warm, Dry Right Pulses: Choco Ped=2, Femoral=2, Radial=2 10:15:33 Left Pulses: Femoral=2 Neurological: State=Alert, Ox3, MATTA Respiration: Resp=14 B/min, SpO2=93 %, O2=0 lpm Radial Compression Device Used. 12 mLs of air placed in BAND, RADIAL COMPRESSION TR SHORT 24 2 4CM. Affected 10:18:08 hand 95 % O2 saturation. 10:18:55 Bedside Report will be given. 10:19:00 A Left Heart Cath was performed. 10:22:02 Patient moved to stretcher End Study - Contrast Media Used In Study Contrast Total Opened (mL) Total Used (mL) Total Wasted (mL) Omnipaque 150 50 100 End Study - Maximum Contrast Load Max Contrast Load (mL) 562.5 End Study - Radiation Exposure Fluoro Time (minutes) 6.1 End Study - Patient Disposition Complications Transferred To Interventional Outcome No Telemetry Bed No attempt made
--- NOTE | 2017-06-03 10:29 | PD.CARD.PN ---
Subjective Subjective Remarks No CP today. No dyspnea, dizziness, palpitations. Objective Medications Item Value Date Time Amlodipine 10 mg 06/03/17 0900 Besylate DAILY/PO 06/03/17 0848 (Norvasc) Metoprolol 25 mg 06/02/17 2100 Tartrate Q12HR/PO 06/03/17 0848 (Lopressor) Enoxaparin Sodium 40 mg 06/02/17 1300 (Lovenox Inj) Q24H/SQ 06/02/17 1244 Nitroglycerin 0.5 inch 06/02/17 1215 (Nitroglycerin Q6HR/TOPICAL 2% Oint) Aspirin 81 mg 06/02/17 1215 (Ecotrin Ec) DAILY/PO 06/03/17 0848 Vital Signs / I&O Vital Signs Date Time Temp Pulse Resp B/P (MAP) Pulse Ox O2 Delivery O2 Flow Rate FiO2 06/03/17 09:47 96 06/03/17 07:05 76 20 124/80 (95) 98 06/03/17 07:00 64 06/03/17 06:00 48 06/03/17 05:00 63 06/03/17 04:00 98.6 64 18 114/70 (85) 98 06/03/17 04:00 60 06/03/17 03:00 49 06/03/17 02:00 61 06/03/17 01:00 74 06/03/17 00:00 98.4 64 18 118/73 (88) 96 06/03/17 00:00 62 06/02/17 23:00 60 06/02/17 22:00 70 06/02/17 21:00 98 06/02/17 20:46 98.4 63 18 139/85 (103) 98 06/02/17 20:00 94 06/02/17 19:00 90 06/02/17 18:00 88 06/02/17 17:00 92 06/02/17 16:02 78 20 120/74 (89) 95 06/02/17 16:00 100 06/02/17 15:17 94 06/02/17 10:40 99 06/02/17 10:40 99 I/O 06/02/17 06/02/17 06/02/17 06/03/17 06/03/17 06/03/17 07:00 15:00 23:00 07:00 15:00 23:00 Intake Total 240 ml Balance 240 ml Intake Oral 240 ml # Voids 1 Physical Exam GENERAL: Well developed, well nourished. No acute distress. HEENT: Jugular venous pressure is normal. CHEST: Lungs clear to auscultation bilaterally. Unlabored respiratory effort. CARDIAC: Regular rate and rhythm without S3, S4, or murmur. ABDOMEN: Soft, nontender, no hepatosplenomegaly. Bowel sounds present. EXTREMITIES: No clubbing, cyanosis, or edema. Laboratory Laboratory Tests Test 06/02/17 10:45 06/02/17 20:24 06/03/17 01:50 White Blood Count 5.7 TH/MM3 5.4 TH/MM3 Red Blood Count 4.60 MIL/MM3 4.07 MIL/MM3 Hemoglobin 13.8 GM/DL 12.3 GM/DL Hematocrit 41.2 % 36.6 % Mean Corpuscular Volume 89.5 FL 89.9 FL Mean Corpuscular Hemoglobin 30.0 PG 30.2 PG Mean Corpuscular Hemoglobin Concent 33.6 % 33.6 % Red Cell Distribution Width 15.0 % 15.1 % Platelet Count 207 TH/MM3 185 TH/MM3 Mean Platelet Volume 8.9 FL 8.6 FL Neutrophils (%) (Auto) 64.5 % 50.5 % Lymphocytes (%) (Auto) 27.6 % 37.4 % Monocytes (%) (Auto) 7.4 % 10.0 % Eosinophils (%) (Auto) 0.2 % 1.1 % Basophils (%) (Auto) 0.3 % 1.0 % Neutrophils # (Auto) 3.7 TH/MM3 2.7 TH/MM3 Lymphocytes # (Auto) 1.6 TH/MM3 2.0 TH/MM3 Monocytes # (Auto) 0.4 TH/MM3 0.5 TH/MM3 Eosinophils # (Auto) 0.0 TH/MM3 0.1 TH/MM3 Basophils # (Auto) 0.0 TH/MM3 0.1 TH/MM3 CBC Comment DIFF FINAL DIFF FINAL Differential Comment Prothrombin Time 11.7 SEC Prothromb Time International Ratio 1.1 RATIO Activated Partial Thromboplast Time 24.0 SEC Blood Urea Nitrogen 10 MG/DL 13 MG/DL Creatinine 0.86 MG/DL 0.96 MG/DL Random Glucose 165 MG/DL 110 MG/DL Calcium Level 9.4 MG/DL 9.0 MG/DL Magnesium Level 2.2 MG/DL Sodium Level 141 MEQ/L 143 MEQ/L Potassium Level 3.5 MEQ/L 3.5 MEQ/L Chloride Level 108 MEQ/L 110 MEQ/L Carbon Dioxide Level 24.8 MEQ/L 25.5 MEQ/L Anion Gap 8 MEQ/L 8 MEQ/L Estimat Glomerular Filtration Rate 81 ML/MIN 71 ML/MIN Total Creatine Kinase 57 U/L 50 U/L 43 U/L Troponin I LESS THAN 0.02 NG/ML LESS THAN 0.02 NG/ML LESS THAN 0.02 NG/ML Total Protein 6.7 GM/DL Albumin 3.3 GM/DL Alkaline Phosphatase 115 U/L Aspartate Amino Transf (AST/SGOT) 13 U/L Alanine Aminotransferase (ALT/SGPT) 22 U/L Total Bilirubin 0.5 MG/DL Triglycerides Level 63 MG/DL Cholesterol Level 167 MG/DL LDL Cholesterol 108 MG/DL HDL Cholesterol 46.8 MG/DL Cholesterol/HDL Ratio 3.56 RATIO Assessment and Plan Problem List: (1) Chest pain ICD Codes: R07.9 - Chest pain, unspecified Status: Acute Plan: Stable overnight. Cardiac cath today shows no CAD though possibly slightly sluggish flow in the coronaries. She may have "microvascular disease" . Rec add isosorbide 60 mg qd. Can discharge home today, 3-4 week f/u with me. Code Status full code Discussed Condition With patient and her Problem Qualifiers (1) Chest pain: Qualified Codes: R07.9 - Chest pain, unspecified Melvin Herman MD Jun 03, 2017 10:29
[2017-06-03] MEDS ORDERED: MISC INFORMATION XX ONE (10:30)
[2017-06-03] MEDS ORDERED: ISOSORBIDE MONONITRATE 60 MG TAB PO SCH (10:30)
--- NOTE | 2017-06-03 15:11 | MA ---
cc: AYESHA TAPIA M.D. DATE: 06/03/2017. PROCEDURE PERFORMED: Left heart catheterization, selective coronary angiography, left ventriculography. PROCEDURE NOTE: The patient was brought to the cardiac catheterization laboratory in a fasting state after having signed informed consent. The right radial region was prepped and draped as per policy and anesthetized with 1% lidocaine. Arterial access was obtained via the right radial artery and a 6-Slovak sheath placed. Coronary arteriography was performed using a Kirkland catheter. Left ventriculography was done using a multipurpose catheter. There were no apparent immediate complications. A radial artery compression band was applied to her right wrist at the end of the case to achieve good hemostasis. HEMODYNAMIC DATA: Left ventricle 126 with an end-diastolic pressure of 16. Aorta 130/70 with a mean of 88. There was no significant transvalvular aortic gradient on pullback of the pigtail catheter. CORONARY ARTERIOGRAPHY: The left main is a large vessel with no disease. The left anterior descending is a large vessel giving rise to a medium-sized diagonal. No disease is seen in the LAD. There is slightly sluggish flow in the left anterior descending. The left circumflex is a small vessel giving rise to a small obtuse marginal. No disease is seen in the left circumflex system. The ramus intermedius is an early branching small vessel with no disease. The right coronary artery is a large dominant vessel with no definite disease. There is slightly sluggish flow in the right coronary. LEFT VENTRICULOGRAPHY: Contrast injection of the left ventricle reveals no segmental wall motion abnormalities. Ejection fraction is estimated at 50%. CONCLUSIONS: 1. Angiographically normal coronary arteries except for slightly sluggish flow in the LAD and right coronary. 2. Low normal left ventricular systolic function with estimated ejection fraction of 50% MD SOUMYA [place]/OCHOA /10:31 AM /3:01 PM MTDFrancisco J
[2017-06-03] MEDS ORDERED: ISOS60TA PO (15:37)
--- NOTE | 2017-06-03 15:37 | HHI.DCPOC ---
Discharge Care Plan Your Health Problems Are: Chest Pain Goals to Promote Your Health * To prevent worsening of your condition and complications * To maintain your health at the optimal level Directions to Meet Your Goals Take your medications as prescribed Follow your dietary instruction Follow activity as directed Keep your appointments as scheduled Take your immunizations and boosters as scheduled If your symptoms worsen call your PCP, if no PCP go to Urgent Care Center or Emergency Room Smoking is Dangerous to Your Health. Avoid second hand smoke Call the 24-hour hour crisis hotline for domestic abuse at Concepción Moyer MD Jun 03, 2017 15:37
--- NOTE | 2017-06-03 21:39 | EKG ---
Date Performed: 06/02/2017 Time Performed: 18:08:12 PTAGE: 61 years EKG: Sinus rhythm Inferior infarct - age undetermined Anterior T wave changes are nonspecific Abnormal ECG PREVIOUS TRACING : 06/02/2017 10.26 Compared to prior tracing no significant change DOCTOR: Ankita Barber Interpretating Date/Time 06/03/2017 21:38:45
--- NOTE | 2017-06-03 22:01 | EKG ---
Date Performed: 06/02/2017 Time Performed: 10:26:50 PTAGE: 61 years EKG: Sinus rhythm NONSPECIFIC T-WAVE ABNORMALITY BORDERLINE ECG NO PREVIOUS TRACING Compared to prior tracing no significant change DOCTOR: Ankita Barber Interpretating Date/Time 06/03/2017 21:59:05
== END 2017-06-03 18:20 | disposition home or self-care (01) ==
LOC: NEPE 10:03 → NEDA 12:04 → HCIN 14:55
PROVIDERS: ADMIT Hospitalist; ATTEND Hospitalist
DX: I20.8 Other forms of angina pectoris (principal); F41.9 Anxiety disorder, unspecified; F40.240 Claustrophobia; F32.9 Major depressive disorder, single episode, unspecified; E11.9 Type 2 diabetes mellitus without complications; I10 Essential (primary) hypertension; R94.31 Abnormal electrocardiogram [ECG] [EKG]; K21.9 Gastro-esophageal reflux disease without esophagitis; Z96.652 Presence of left artificial knee joint
CPT/HCPCS: 71010; 80048; 80053; 80061; 82550; 83735; 84484; 85025; 85610; 85730; 93005; 93458; 96361; 96372; 96374; 97162; 99285; C1769; C1893; G0378; G8987; G8988; J1644; J1650; J2060; J3010; J7030; Q0163; Q9967

== ENCOUNTER 2017-06-07 14:54 | Emergency (ER) | payer OTHER ==
[~2017-06-07] VITALS: Ht 167.6 cm; Wt 86.0 kg
[~2017-06-07 14:54] MED LIST changes: -ALPR.25 PO; -DIAZ5 PO; +ISOS60TA PO
[2017-06-07 14:55] VITALS: BP 114/71; PULSE 86; RESP 15; TEMP 98.2; O2SAT 98
[2017-06-07] MEDS ORDERED: SODIUM CHLORID 0.9% 500 ML INJ 500 ML IV ONE (16:15)
[2017-06-07] MEDS ORDERED: PROCHLORPERAZINE INJ 10 MG/2 ML VIAL IVP ONE (16:15)
[2017-06-07] MEDS ORDERED: SODIUM CHLORIDE 0.9% FLUSH 10 ML FLUSH IVF PRN (16:15)
[2017-06-07] MEDS ORDERED: diphenhydrAMINE HCL 50 MG/ML VIAL IVP ONE (16:15)
[2017-06-07] MEDS ORDERED: MORPHINE SULFATE 4 MG/ML INJ IV PUSH ONE (16:15)
--- NOTE | 2017-06-07 16:23 | PD ---
HPI Chief Complaint: Headache Time Seen by Provider: 16:03 Travel History International Travel<30 days: No Contact w/Intl Traveler<30days: No Traveled to known affect area: No History of Present Illness HPI The patient is a 61-year-old [place] female who presents to the emergency department for 1 day history of headache. The patient states she developed a headache yesterday at rest, came on gradually, located over the left aspect of her head, behind her eye, and radiates to the back of the head. She does note mild photophobia but denies any nausea, vomiting, or visual acuity changes. The patient denies any history of chronic headaches or previous migraines. The patient denies any trauma to the head or taking anticoagulants. The patient denies any focal deficits of the upper or lower extremities. She denies any weakness, numbness, or tingling of the upper or lower extremities. She denies any known history of temporal arteritis. Symptoms are moderate, not alleviated by Aleve that she took yesterday, and there are no current exacerbating factors. The patient's primary physician is Dr. Bora Bellamy. [facility] Past Medical History Hx Anticoagulant Therapy: No Arthritis: Yes Anxiety: Yes Heart Rhythm Problems: No Cancer: No Cardiac Catheterization: No Cardiovascular Problems: No High Cholesterol: No Chemotherapy: No Congestive Heart Failure: No Cerebrovascular Accident: No Diabetes: Yes Diminished Hearing: No Diverticulitis: Yes Endocrine: No Gastrointestinal Disorders: Yes (HIATAL HERNIA, CONSTIPATION) GERD: Yes Genitourinary: No Hepatitis: No Hiatal Hernia: No Heparin Induced Thrombocytopen: No Hypertension: Yes Immune Disorder: No Musculoskeletal: Yes (BONE SPUR LEFT SHOULDER, BACK PROBLEMS) Neurologic: No Psychiatric: Yes (SLIGHTLY CLAUSTROPHOBIC) Reproductive: No Respiratory: No Thyroid Disease: No ?: Not Menopausal: Yes : 8 Para: 6 Miscarriage: 2 Past Surgical History Abdominal Surgery: Yes (CHOLECYSTECTOMY ) AICD: No Cholecystectomy: Yes Coronary Artery Bypass Graft: No Gynecologic Surgery: Yes (hysterctomy) Hysterectomy: Yes Joint Replacement: Yes (left knee) Pacemaker: No Other Surgery: Yes Social History Alcohol Use: Yes (RARE ) Tobacco Use: No (never) Substance Use: No Allergies-Medications (Allergen,Severity, Reaction): Coded Allergies: ciprofloxacin (Unverified Allergy, Severe, rash, 06/02/17) propoxyphene (Unverified Adverse Reaction, Severe, N&V, 06/02/17) Reported Meds & Prescriptions Reported Meds & Active Scripts Active Isosorbide Mononitrate ER (Isosorbide Mononitrate) 60 Mg Tab 60 Mg PO DAILY@0700 Reported Trazodone (Trazodone HCl) 50 Mg Tab 50 Mg PO HS Escitalopram (Escitalopram Oxalate) 10 Mg Tab 10 Mg PO DAILY Pantoprazole (Pantoprazole Sodium) 40 Mg Tab 40 Mg PO DAILY Metoprolol Tartrate 25 Mg Tab 25 Mg PO BID Norvasc (Amlodipine Besylate) 10 Mg Tab 10 Mg PO DAILY Review of Systems Except as stated in HPI: all other systems reviewed are Neg General / Constitutional: No: Fever Eyes: Positive: Photophobia, No: Blurred Vision, Visual changes HENT: Positive: Headaches, No: Neck Pain Cardiovascular: No: Chest Pain or Discomfort Respiratory: No: Shortness of Breath Gastrointestinal: No: Nausea, Vomiting Musculoskeletal: No: Weakness Neurologic: Positive: Headache, No: Weakness, Focal Abnormalities, Change in Mentation, Slurred Speech, Paresthesia, Sensory Disturbance Physical Exam Narrative GENERAL: Awake, alert, pleasant 61-year-old female who appears her stated age and is in no acute respiratory distress. SKIN: Focused skin assessment warm/dry. HEAD: Atraumatic. Normocephalic. No tenderness over the temporal regions bilaterally. EYES: Pupils equal and round. Pupils are 3 mm bilateral and reactive. There is no injection of the left eye. Extraocular muscles are intact and do not exacerbate her pain. ENT: No nasal bleeding or discharge. Mucous membranes pink and moist. NECK: Trachea midline. No JVD. No meningeal signs. CARDIOVASCULAR: Regular rate and rhythm. No murmur appreciated. RESPIRATORY: No accessory muscle use. Clear to auscultation. Breath sounds equal bilaterally. GASTROINTESTINAL: Abdomen soft, non-tender, nondistended. No rebound tenderness. MUSCULOSKELETAL: No obvious deformities. No clubbing. No cyanosis. No edema. NEUROLOGICAL: Awake and alert. No obvious cranial nerve deficits. Motor grossly within normal limits. Normal speech. Alert and oriented 3. Follows commands without difficulty. Nonfocal on exam. PSYCHIATRIC: Appropriate mood and affect; insight and judgment normal. Data Data Last Documented VS Vital Signs Date Time Temp Pulse Resp B/P (MAP) Pulse Ox O2 Delivery O2 Flow Rate FiO2 06/07/17 14:55 98.2 86 15 114/71 (85) [address] Brain W/O Iv Contrast(Rout) (06/07/17 16:09) Ecg Monitoring (06/07/17 16:09) Iv Access Insert/Monitor (06/07/17 16:09) Oximetry (06/07/17 16:09) Sodium Chloride 0.9% Flush (Ns Flush) (06/07/17 16:15) Prochlorperazine Inj (Compazine Inj) (06/07/17 16:15) Diphenhydramine Inj (Benadryl Inj) (06/07/17 16:15) Morphine Inj (Morphine Inj) (06/07/17 16:15) Sodium Chlorid 0.9% 500 Ml Inj (Ns 500 M (06/07/17 16:15) Ketorolac Inj (Toradol Inj) (06/07/17 16:45) MDM Medical Decision Making Medical Screen Exam Complete: Yes Emergency Medical Condition: Yes Medical Record Reviewed: Yes Interpretation(s) Last Impressions Head CT 06/07/17 1609 Signed Impressions: Service Date/Time: Wednesday, June 07, 2017 16:20 - CONCLUSION: 1. No acute intracranial abnormality. Genaro Flores MD Differential Diagnosis Differential diagnosis includes tension headache, migraine, glaucoma, cavernous sinus thrombosis, cluster headache, temporal arteritis. Narrative Course IV was established and the patient was placed on cardiac telemetry monitoring and continuous pulse oximetry monitoring. The patient was administered morphine , Compazine, Benadryl, and IV fluids for her headache. Noncontrast CT of the brain was obtained. CT the brain is negative. The patient was administered Toradol 30 mg intravenously. Patient is advised to follow-up with her primary physician and return if symptoms worsen or progress. Diagnosis Primary Impression: Cephalgia Qualified Codes: R51 - Headache Patient Instructions: General Instructions, Narcotic given in the ED Additional Instructions: Medications as directed. Follow-up with her primary physician. Return if symptoms worsen or progress. Med/Other Pt SpecificInfo: No Change to Meds Disposition: 01 DISCHARGE HOME Condition: Stable Ramos Mo MD Jun 07, 2017 16:23
--- NOTE | 2017-06-07 16:27 | RADRPT ---
EXAM DATE/TIME: 06/07/2017 16:20 [facility] COMPARISON: CT BRAIN W/O CONTRAST, May 28, 2016, 12:26. INDICATIONS : Cephalgia for two days. RADIATION DOSE: 39.63 CTDIvol (mGy) MEDICAL HISTORY : Hypertension. SURGICAL HISTORY : Cholecystectomy. ENCOUNTER: Initial ACUITY: 2 days PAIN SCALE: 4/10 LOCATION: Left cranial TECHNIQUE: Multiple contiguous axial images were obtained of the head. Using automated exposure control and adj ustment of the mA and/or kV according to patient size, radiation dose was kept as low as reasonably a chievable to obtain optimal diagnostic quality images. DICOM format image data is available electro nically for review and comparison. FINDINGS: CEREBRUM: The ventricles are normal for age. No evidence of midline shift, mass lesion, hemorrhage or acute in farction. No extra-axial fluid collections are seen. POSTERIOR FOSSA: The cerebellum and brainstem are intact. The 4th ventricle is midline. The cerebellopontine angle i s unremarkable. EXTRACRANIAL: The visualized portion of the orbits is intact. SKULL: The calvaria is intact. No evidence of skull fracture. CONCLUSION: 1. No acute intracranial abnormality. Genaro Flores MD on June 07, 2017 at 16:25 Board Certified Radiologist. This report was verified electronically.
[2017-06-07] MEDS ORDERED: KETOROLAC TROMETHAMINE 30 MG/ML (IVP) VIAL IV PUSH ONE (16:45)
[2017-06-07 17:02] VITALS: O2SAT 97
[2017-06-07 17:47] VITALS: RESP 16
[2017-06-07 17:58] VITALS: BP 152/78
== END 2017-06-07 17:59 | disposition home or self-care (01) ==
LOC: NEPD 14:54
DX: R51 Headache (principal); E11.9 Type 2 diabetes mellitus without complications; K21.9 Gastro-esophageal reflux disease without esophagitis; I10 Essential (primary) hypertension
CPT/HCPCS: 70450; 96361; 96374; 96375; 99285; J0780; J1200; J1885; J2270; J7040

== ENCOUNTER 2017-06-10 15:21 | Emergency (ER) | payer OTHER, MEDICAID ==
[~2017-06-10] VITALS: Ht 167.6 cm; Wt 91.0 kg
[2017-06-10 15:33] VITALS: BP 144/77; PULSE 75; RESP 18; TEMP 98.7; O2SAT 98
[2017-06-10] MEDS ORDERED: ALPR.5 PO (16:24)
--- NOTE | 2017-06-10 16:26 | PD ---
HPI Chief Complaint: Musculoskeletal Complaint Time Seen by Provider: 16:08 Travel History International Travel<30 days: No Contact w/Intl Traveler<30days: No Traveled to known affect area: No History of Present Illness HPI 61-year-old female presents to the emergency department for evaluation of left shoulder pain. Patient reports chronic left shoulder pain for [address] Sesay, orthopedist, on Thursday received cortisone injection. She states that she is still continuing to have left shoulder pain. She states it is worse than normal. Patient denies a loss of range of motion. No fevers or chills. Patient has past medical history of anxiety, diet-controlled diabetes, hypertension. Of note, patient recently had cardiac catheterization on June 03, 2017 which showed no CAD though possibly slightly sluggish flow in the coronaries. Patient states the pain is worse with movement. No paresthesias. No other complaints. PFSH Past Medical History Hx Anticoagulant Therapy: No Arthritis: Yes Anxiety: Yes Heart Rhythm Problems: No Cancer: No Cardiac Catheterization: No Cardiovascular Problems: No High Cholesterol: No Chemotherapy: No Congestive Heart Failure: No Cerebrovascular Accident: No Diabetes: Yes Diminished Hearing: No Diverticulitis: Yes Endocrine: No Gastrointestinal Disorders: Yes (HIATAL HERNIA, CONSTIPATION) GERD: Yes Genitourinary: No Hepatitis: No Hiatal Hernia: No Heparin Induced Thrombocytopen: No Hypertension: Yes Immune Disorder: No Musculoskeletal: Yes (BONE SPUR LEFT SHOULDER, BACK PROBLEMS) Neurologic: No Psychiatric: Yes (SLIGHTLY CLAUSTROPHOBIC) Reproductive: No Respiratory: No Thyroid Disease: No ?: Not Menopausal: Yes : 8 Para: 6 Miscarriage: 2 Past Surgical History Abdominal Surgery: Yes (CHOLECYSTECTOMY ) AICD: No Cholecystectomy: Yes Coronary Artery Bypass Graft: No Gynecologic Surgery: Yes (hysterctomy) Hysterectomy: Yes Joint Replacement: Yes (left knee) Pacemaker: No Other Surgery: Yes Social History Alcohol Use: Yes (RARE ) Tobacco Use: No (never) Substance Use: No Allergies-Medications (Allergen,Severity, Reaction): Coded Allergies: ciprofloxacin (Unverified Allergy, Severe, rash, 06/10/17) propoxyphene (Unverified Adverse Reaction, Severe, N&V, 06/10/17) Reported Meds & Prescriptions Reported Meds & Active Scripts Active Reported Xanax (Alprazolam) 0.5 Mg Tab 0.5 Mg PO BID PRN Trazodone (Trazodone HCl) 50 Mg Tab 50 Mg PO HS Pantoprazole (Pantoprazole Sodium) 40 Mg Tab 40 Mg PO DAILY Metoprolol Tartrate 25 Mg Tab 25 Mg PO BID Norvasc (Amlodipine Besylate) 10 Mg Tab 10 Mg PO DAILY Review of Systems Except as stated in HPI: all other systems reviewed are Neg Physical Exam Narrative GENERAL: Well-nourished, well-developed female patient, afebrile. SKIN: Focused skin assessment warm/dry. HEAD: Normocephalic. Atraumatic. EYES: No scleral icterus. No injection or drainage. NECK: Supple, trachea midline. No JVD or lymphadenopathy. CARDIOVASCULAR: Regular rate and rhythm without murmurs, gallops, or rubs. Left radial pulses 2+. RESPIRATORY: Breath sounds equal bilaterally. No accessory muscle use. Lungs sounds are clear to auscultation GASTROINTESTINAL: Abdomen soft, non-tender, nondistended. MUSCULOSKELETAL: No cyanosis, or edema. Patient has tenderness over trapezius muscle and left shoulder joint. Pain is worsened with movement of the left shoulder. BACK: Nontender without obvious deformity. No CVA tenderness. Data Data Last Documented VS Vital Signs Date Time Temp Pulse Resp B/P (MAP) Pulse Ox O2 Delivery O2 Flow Rate FiO2 06/10/17 15:33 98.7 75 18 144/77 (99) 98 Orders Orders Electrocardiogram (06/10/17 ) Shoulder, Complete (>2vws) (06/10/17 ) Acetamin-Hydrocod 325-5 Mg ([facility] 5-325 (06/10/17 16:30) MDM Medical Decision Making Medical Screen Exam Complete: Yes Emergency Medical Condition: Yes Medical Record Reviewed: Yes Interpretation(s) Last Impressions Shoulder X-Ray 06/10/17 0000 Signed Impressions: Service Date/Time: Saturday, June 10, 2017 16:35 - CONCLUSION: Degenerative osteoarthritic changes. Vincent Gunn MD Differential Diagnosis Chronic shoulder pain versus muscle strain versus muscle spasm Narrative Course 61-year-old female presents to the emergency department for evaluation of worsening left shoulder pain. She has history of 2 years of chronic shoulder pain. She did receive cortisone injection this Thursday. There is no erythema or loss of range of motion. I do not suspect a septic joint. No fevers or chills. The patient is requesting to have an EKG done. Patient did have recent cardiac catheterization done one week ago. He do not suspect this is a cardiac issue and is consistent with her chronic shoulder pain. However, patient is insistent on getting an EKG. EKG is ordered and pending. X-ray left shoulder is ordered and pending. Patient states she took Aleve this morning without improvement. She is asking for a stronger pain medication. She states she cannot take tramadol. I discussed that I would give her a one- time dose of Lortab here, but she should take Tylenol or ibuprofen at home for her pain. She verbalized agreement and understanding. EKG shows sinus rhythm, heart rate 64, no acute ST changes. X-ray of the left shoulder shows degenerative osteoarthritic changes. Patient is instructed to follow back up with Dr. Sesay. She is to return here for any acute, worsening of symptoms. The patient was discharged in stable condition with instructions, including return instructions and follow up instructions. Diagnosis Primary Impression: Chronic left shoulder pain Referrals: Orthopedist call for appointment Patient Instructions: General Instructions, Shoulder Pain (ED) Additional Instructions: Use heating pad on low for 20 minutes 4-5 times daily. Follow-up with orthopedist. Return to the emergency department for any acute worsening of symptoms. Med/Other Pt SpecificInfo: No Change to Meds Disposition: 01 DISCHARGE HOME Condition: Stable Klarissa Gonzalez Jun 10, 2017 16:26
[2017-06-10] MEDS ORDERED: ACETAMINOPHEN/HYDROcodone 325 MG/5 MG TAB PO ONE (16:30)
--- NOTE | 2017-06-10 17:26 | RADRPT ---
EXAM DATE/TIME: 06/10/2017 16:35 [facility] COMPARISON: No previous studies available for comparison. INDICATIONS : Left shoulder pain after patient recieved cortisone shot 2 days ago. No known injury to left shoulder MEDICAL HISTORY : None. SURGICAL HISTORY : None. ENCOUNTER: Initial ACUITY: 2 days PAIN SCORE: 8/10 LOCATION: Left entire shoulder FINDINGS: Multiple view examination of the left shoulder demonstrates degenerative osteoarthritic changes with marginal spurring off the humeral head. No fracture CONCLUSION: Degenerative osteoarthritic changes. Vincent Gunn MD on June 10, 2017 at 17:25 Board Certified Radiologist. This report was verified electronically.
--- NOTE | 2017-06-10 23:34 | EKG ---
Date Performed: 06/10/2017 Time Performed: 16:23:17 PTAGE: 61 years EKG: Sinus rhythm MODERATE VOLTAGE CRITERIA FOR LVH, CONSIDER NORMAL VARIANT POSSIBLE INFERIOR INFARCTION, AGE INDETER MINATE BORDERLINE ECG PREVIOUS TRACING : 06/02/2017 18.08 Compared to prior tracing no significant change DOCTOR: Luis Nix Interpretating Date/Time 06/10/2017 23:33:20
== END 2017-06-10 17:51 | disposition home or self-care (01) ==
LOC: PHED 15:21
DX: M25.512 Pain in left shoulder (principal); G89.29 Other chronic pain; I10 Essential (primary) hypertension
CPT/HCPCS: 73030; 93005

== ENCOUNTER 2017-06-22 07:07 | Emergency (ER) | payer OTHER, MEDICAID ==
[~2017-06-22] VITALS: Ht 167.6 cm; Wt 90.0 kg
[~2017-06-22 07:07] MED LIST changes: +ALPR.5 PO; -ESCI10TA PO; -ISOS60TA PO
[2017-06-22 07:08] VITALS: BP 175/107; PULSE 112; RESP 14; TEMP 97.2; O2SAT 98
[2017-06-22] MEDS ORDERED: ZOLO50TA PO (07:24)
[2017-06-22 07:26] VITALS: BP 174/96; PULSE 96; RESP 16; O2SAT 99
[2017-06-22 07:44] VITALS: BP 148/85
[2017-06-22] MEDS ORDERED: SODIUM CHLORIDE 0.9% FLUSH 10 ML FLUSH IVF PRN (07:45)
[2017-06-22 08:00] LABS: AUTOMATED NEUTROPHIL # 2.7 TH/MM3 (1.8-7.7); BASOPHIL % 0.5 % (0.0-2.0); EOSINOPHIL # 0.1 TH/MM3 (0-0.4); EOSINOPHIL % 1.3 % (0.0-4.0); HEMATOCRIT 36.5 % (35.0-46.0); HEMO FLAGS DIFF FINAL; LYMPH % 38.4 % (9.0-44.0); MEAN CELL VOLUME 90.3 FL (80.0-100.0); MEAN CORPUSCULAR HEMOGLOBIN 30.3 PG (27.0-34.0); MEAN CORPUSCULAR HGB CONC 33.5 % (32.0-36.0); MONO % 7.5 % (0.0-8.0); NEUT % 52.3 % (16.0-70.0); PLATELET COUNT 182 TH/MM3 (150-450); RED BLOOD COUNT 4.05 MIL/MM3 (4.00-5.30); RED CELL DISTRIBUTION WIDTH 14.7 % (11.6-17.2); WHITE BLOOD COUNT 5.2 TH/MM3 (4.0-11.0)
[2017-06-22 08:13] LABS: ALT (GPT) 27 U/L (10-53); ANION GAP 8 MEQ/L (5-15); AST (GOT) 16 U/L (15-37); BICARBONATE 24.9 MEQ/L (21.0-32.0); BLOOD UREA NITROGEN 10 MG/DL (7-18); CHLORIDE 109 MEQ/L (98-107); GLOMERULAR FILTRATION RATE 87 ML/MIN (>89); MAGNESIUM 2.2 MG/DL (1.5-2.5); POTASSIUM 3.6 MEQ/L (3.5-5.1); SODIUM (NA) 142 MEQ/L (136-145)
[2017-06-22 08:17] LABS: ALKALINE PHOSPHATASE 120 U/L (45-117); TOTAL BILIRUBIN ADULT 0.5 MG/DL (0.2-1.0)
[2017-06-22 08:18] LABS: CREATINE KINASE 34 U/L (26-192)
[2017-06-22 08:36] LABS: BLOOD, URINE NEG (NEG); GLUCOSE,URINE NEG (NEG); KETONE, URINE NEG (NEG); NITRITE,URINE NEG (NEG); URINE COLOR LIGHT-YELLOW (YELLW/STRAW)
[2017-06-22 08:39] LABS: COMMENT (UR) CULT NOT INDICATED; CULTURE IF INDICATED CULT NOT INDICATED
--- NOTE | 2017-06-22 09:41 | PD ---
HPI Chief Complaint: General Weakness Time Seen by Provider: 07:41 Travel History International Travel<30 days: No Contact w/Intl Traveler<30days: No Traveled to known affect area: No History of Present Illness HPI 62-year-old female patient with history of psychiatric issues, hypertension, anxiety, presents to the ER today with generalized complaint of weakness and not feeling like getting out of bed this morning. She denies any focal weakness , headaches, chest pains, shortness of breath, vomiting, fevers, or any other symptoms. She states that she had started Zoloft on . She otherwise is fairly conversant, denies any focal deficits. Modifying Factors: None Associated Signs & Symptoms: General weakness Risk Factors: None PFSH Past Medical History Hx Anticoagulant Therapy: No Arthritis: Yes Anxiety: Yes Heart Rhythm Problems: No Cancer: No Cardiac Catheterization: No Cardiovascular Problems: No High Cholesterol: No Chemotherapy: No Congestive Heart Failure: No Cerebrovascular Accident: No Diabetes: Yes Patient Takes Glucophage: No Diminished Hearing: No Diverticulitis: Yes Endocrine: No Gastrointestinal Disorders: Yes (HIATAL HERNIA, CONSTIPATION) GERD: Yes (colon polyps h pylori) Genitourinary: No Hepatitis: No Hiatal Hernia: Yes Heparin Induced Thrombocytopen: No Hypertension: Yes Immune Disorder: No Musculoskeletal: Yes (BONE SPUR LEFT SHOULDER, BACK PROBLEMS) Neurologic: No Psychiatric: Yes (SLIGHTLY CLAUSTROPHOBIC) Reproductive: No Respiratory: No Immunizations Current: Yes Thyroid Disease: No Influenza Vaccination: No Menopausal: Yes : 8 Para: 6 Miscarriage: 2 Past Surgical History Abdominal Surgery: Yes (CHOLECYSTECTOMY ) AICD: No Cholecystectomy: Yes Coronary Artery Bypass Graft: No Gynecologic Surgery: Yes (hysterctomy) Hysterectomy: Yes Joint Replacement: Yes (left knee) Pacemaker: No Other Surgery: Yes Social History Alcohol Use: Yes (RARE ) Tobacco Use: No Substance Use: No Allergies-Medications (Allergen,Severity, Reaction): Coded Allergies: ciprofloxacin (Unverified Allergy, Severe, rash, 06/10/17) propoxyphene (Unverified Adverse Reaction, Severe, N&V, 06/10/17) Reported Meds & Prescriptions Reported Meds & Active Scripts Active Reported Zoloft (Sertraline HCl) 50 Mg Tab 50 Mg PO DAILY Trazodone (Trazodone HCl) 50 Mg Tab 50 Mg PO HS Metoprolol Tartrate 25 Mg Tab 25 Mg PO BID Norvasc (Amlodipine Besylate) 10 Mg Tab 10 Mg PO DAILY Review of Systems Except as stated in HPI: all other systems reviewed are Neg Physical Exam Narrative GENERAL: Well-developed elderly -[place] female patient currently in no acute distress. Awake, alert, oriented 3. Ambulatory in the ER. SKIN: Focused skin assessment warm/dry. HEAD: Atraumatic. Normocephalic. EYES: Pupils equal and round. No scleral icterus. No injection or drainage. ENT: No nasal bleeding or discharge. Mucous membranes pink and moist. NECK: Trachea midline. No JVD. CARDIOVASCULAR: Regular rate and rhythm. No murmur appreciated. RESPIRATORY: No accessory muscle use. Clear to auscultation. Breath sounds equal bilaterally. GASTROINTESTINAL: Abdomen soft, non-tender, nondistended. Hepatic and splenic margins not palpable. MUSCULOSKELETAL: No obvious deformities. No clubbing. No cyanosis. No edema. NEUROLOGICAL: Awake and alert. No obvious cranial nerve deficits. Motor grossly within normal limits. Normal speech. PSYCHIATRIC: Appropriate mood and flat affect; insight and judgment normal. Data Data Last Documented VS Vital Signs Date Time Temp Pulse Resp B/P (MAP) Pulse Ox O2 Delivery O2 Flow Rate FiO2 06/22/17 07:44 148/85 (106) 06/22/17 07:26 96 16 99 Room Air 06/22/17 07:08 97.2 Orders Orders Electrocardiogram (06/22/17 07:41) Complete Blood Count With Diff (06/22/17 07:41) Comprehensive Metabolic Panel (06/22/17 07:41) Magnesium (Mg) (06/22/17 07:41) Ckmb (Isoenzyme) Profile (06/22/17 07:41) Troponin I (06/22/17 07:41) Urinalysis - C+S If Indicated (06/22/17 07:41) Ecg Monitoring (06/22/17 07:41) Iv Access Insert/Monitor (06/22/17 07:41) Oximetry (06/22/17 07:41) Sodium Chloride 0.9% Flush (Ns Flush) (06/22/17 07:45) Labs Laboratory Tests Test 06/22/17 07:45 06/22/17 08:15 White Blood Count 5.2 TH/MM3 Red Blood Count 4.05 MIL/MM3 Hemoglobin 12.3 GM/DL Hematocrit 36.5 % Mean Corpuscular Volume 90.3 FL Mean Corpuscular Hemoglobin 30.3 PG Mean Corpuscular Hemoglobin Concent 33.5 % Red Cell Distribution Width 14.7 % Platelet Count 182 TH/MM3 Mean Platelet Volume 8.0 FL Neutrophils (%) (Auto) 52.3 % Lymphocytes (%) (Auto) 38.4 % Monocytes (%) (Auto) 7.5 % Eosinophils (%) (Auto) 1.3 % Basophils (%) (Auto) 0.5 % Neutrophils # (Auto) 2.7 TH/MM3 Lymphocytes # (Auto) 2.0 TH/MM3 Monocytes # (Auto) 0.4 TH/MM3 Eosinophils # (Auto) 0.1 TH/MM3 Basophils # (Auto) 0.0 TH/MM3 CBC Comment DIFF FINAL Differential Comment Blood Urea Nitrogen 10 MG/DL Creatinine 0.80 MG/DL Random Glucose 123 MG/DL Total Protein 6.9 GM/DL Albumin 3.4 GM/DL Calcium Level 8.9 MG/DL Magnesium Level 2.2 MG/DL Alkaline Phosphatase 120 U/L Aspartate Amino Transf (AST/SGOT) 16 U/L Alanine Aminotransferase (ALT/SGPT) 27 U/L Total Bilirubin 0.5 MG/DL Sodium Level 142 MEQ/L Potassium Level 3.6 MEQ/L Chloride Level 109 MEQ/L Carbon Dioxide Level 24.9 MEQ/L Anion Gap 8 MEQ/L Estimat Glomerular Filtration Rate 87 ML/MIN Total Creatine Kinase 34 U/L Troponin I LESS THAN 0.02 NG/ML Urine Color LIGHT-YELLOW Urine Turbidity CLEAR Urine pH 7.0 Urine Specific [place]vel Switch 1.007 Urine Protein NEG mg/dL Urine Glucose (UA) NEG mg/dL Urine Ketones NEG mg/dL Urine Occult Blood NEG Urine Nitrite NEG Urine Bilirubin NEG Urine Urobilinogen LESS THAN 2.0 MG/DL Urine Leukocyte Esterase NEG Urine RBC LESS THAN 1 /hpf Urine WBC LESS THAN 1 /hpf Microscopic Urinalysis Comment CULT NOT INDICATED MDM Medical Decision Making Medical Screen Exam Complete: Yes Emergency Medical Condition: Yes Medical Record Reviewed: Yes Interpretation(s) EKG shows NSR, no ST elevation or depression, and no arrhythmias. No significant T-wave inversions. Laboratory Tests Test 06/22/17 07:45 06/22/17 08:15 Random Glucose 123 MG/DL (74-106) Alkaline Phosphatase 120 U/L (45-117) Chloride Level 109 MEQ/L (98-107) Estimat Glomerular Filtration Rate 87 ML/MIN (>89) Troponin I LESS THAN 0.02 NG/ML Differential Diagnosis General weakness: Medication side effects versus dehydration versus metabolic issues versus viral syndrome Narrative Course Patient has no focal deficits, is ambulatory in the ER, vital signs are stable in the ER. She requested Xanax in the ER which she takes on a regular basis but at this point, considering her complaints, I have asked her to take that on her regular schedule rather than right now. I do not suspect an underlying stroke in this case, patient has no focal deficits. This appears to be more of a generalized issue. Metabolic panel was unremarkable and did not show any signs of dehydration. Vital signs are stable. At this point, symptoms may be related to medication but I do not see any focal neurological deficits and my plan would be to release her with follow-up to primary care physician. Return for any worsening in symptoms as necessary. The plan has discussed with her and she states understanding. Diagnosis Primary Impression: Generalized weakness Disposition: 01 DISCHARGE HOME Condition: Stable Brandi Baer MD Jun 22, 2017 09:41
[2017-06-22 09:51] VITALS: BP 148/85; PULSE 78; RESP 16; O2SAT 98
--- NOTE | 2017-06-22 19:21 | EKG ---
Date Performed: 06/22/2017 Time Performed: 08:10:37 PTAGE: 62 years EKG: Sinus rhythm WITH SINUS ARRHYTHMIA MINIMAL VOLTAGE CRITERIA FOR LVH, CONSIDER NORMAL VARIANT BORDERLINE ECG INTER PRETATION BASED ON A DEFAULT AGE OF 40 YEARS PREVIOUS TRACING : 06/10/2017 16.23 Compared to prior tracing no significant change DOCTOR: Jose Salzaar Interpretating Date/Time 06/22/2017 19:19:00
== END 2017-06-22 09:53 | disposition home or self-care (01) ==
LOC: NEPE 07:07
DX: R53.1 Weakness (principal); I10 Essential (primary) hypertension; F41.9 Anxiety disorder, unspecified; M19.90 Unspecified osteoarthritis, unspecified site; E11.9 Type 2 diabetes mellitus without complications; K57.92 Diverticulitis of intestine, part unspecified, without perforation or abscess without bleeding; K21.9 Gastro-esophageal reflux disease without esophagitis; F40.240 Claustrophobia; I49.8 Other specified cardiac arrhythmias
CPT/HCPCS: 80053; 81001; 82550; 83735; 84484; 85025; 93005

== ENCOUNTER 2017-06-25 15:04 | Emergency (ER) | payer OTHER, MEDICAID ==
[~2017-06-25] VITALS: Ht 167.6 cm; Wt 90.0 kg
[~2017-06-25 15:04] MED LIST changes: -ALPR.5 PO; -PANT40TA3 PO; +ZOLO50TA PO
[2017-06-25 15:06] VITALS: BP 117/75; PULSE 59; RESP 22; TEMP 98.6; O2SAT 97
[2017-06-25 15:45] LABS: BACTERIA, URINE RARE /hpf; BLOOD, URINE NEG (NEG); COMMENT (UR) CULT NOT INDICATED; CULTURE IF INDICATED CULT NOT INDICATED; GLUCOSE,URINE NEG (NEG); KETONE, URINE NEG (NEG); MUCUS URINE FEW /lpf (OCC); NITRITE,URINE NEG (NEG); PH, URINE 5.5 (5.0-8.5); SQUAMOUS EPITHELIAL CELL URINE <1 /hpf (0-5); URINE COLOR YELLOW (YELLW/STRAW)
[2017-06-25 15:48] LABS: AUTOMATED NEUTROPHIL # 2.4 TH/MM3 (1.8-7.7); BASOPHIL % 0.7 % (0.0-2.0); EOSINOPHIL # 0.1 TH/MM3 (0-0.4); EOSINOPHIL % 1.2 % (0.0-4.0); HEMATOCRIT 38.4 % (35.0-46.0); HEMO FLAGS DIFF FINAL; LYMPHOCYTE # 1.5 TH/MM3 (1.0-4.8); MEAN CELL VOLUME 90.7 FL (80.0-100.0); MEAN CORPUSCULAR HEMOGLOBIN 29.8 PG (27.0-34.0); MEAN CORPUSCULAR HGB CONC 32.9 % (32.0-36.0); MONO % 8.4 % (0.0-8.0); NEUT % 54.7 % (16.0-70.0); PLATELET COUNT 202 TH/MM3 (150-450); RED BLOOD COUNT 4.24 MIL/MM3 (4.00-5.30); RED CELL DISTRIBUTION WIDTH 14.8 % (11.6-17.2); WHITE BLOOD COUNT 4.4 TH/MM3 (4.0-11.0)
[2017-06-25 16:02] LABS: ALT (GPT) 23 U/L (10-53); ANION GAP 6 MEQ/L (5-15); AST (GOT) 13 U/L (15-37); BICARBONATE 27.9 MEQ/L (21.0-32.0); BLOOD UREA NITROGEN 11 MG/DL (7-18); CHLORIDE 107 MEQ/L (98-107); GLOMERULAR FILTRATION RATE 70 ML/MIN (>89); POTASSIUM 3.9 MEQ/L (3.5-5.1); SODIUM (NA) 141 MEQ/L (136-145)
[2017-06-25 16:05] LABS: ALKALINE PHOSPHATASE 127 U/L (45-117); TOTAL BILIRUBIN ADULT 0.4 MG/DL (0.2-1.0)
[2017-06-25] MEDS ORDERED: PANT40TA3 PO (16:49)
[2017-06-25] MEDS ORDERED: CARA1TAB6 PO (16:49)
--- NOTE | 2017-06-25 16:50 | PD ---
HPI Chief Complaint: Abdominal Pain Time Seen by Provider: 16:30 Travel History International Travel<30 days: No Contact w/Intl Traveler<30days: No Traveled to known affect area: No History of Present Illness HPI This is a 62-year-old female who presents to the emergency department with epigastric abdominal discomfort. She says her stomach hurts after she eats. It 's been going on for several days. It's mild associated with some nausea and then it resolves on its own. She denies any pain currently. She denies any fevers, chills, diarrhea, dysuria or vomiting. She says she is being followed by [facility]. She's not a great historian but she said she had an endoscopy and a colonoscopy and she was diagnosed with a "bug" in her stomach and she says she completed antibiotics for the needs to get retested. PFSH Past Medical History Hx Anticoagulant Therapy: No Arthritis: Yes Anxiety: Yes Heart Rhythm Problems: No Cancer: No Cardiac Catheterization: No Cardiovascular Problems: Yes High Cholesterol: No Chemotherapy: No Congestive Heart Failure: No Cerebrovascular Accident: No Diabetes: Yes Diminished Hearing: No Diverticulitis: Yes Endocrine: No Gastrointestinal Disorders: Yes (HIATAL HERNIA, CONSTIPATION) GERD: Yes (colon polyps h pylori) Genitourinary: No Hepatitis: No Hiatal Hernia: Yes Heparin Induced Thrombocytopen: No Hypertension: Yes Immune Disorder: No Musculoskeletal: Yes (BONE SPUR LEFT SHOULDER, BACK PROBLEMS) Neurologic: No Psychiatric: Yes (SLIGHTLY CLAUSTROPHOBIC) Reproductive: No Respiratory: No Immunizations Current: Yes Thyroid Disease: No Menopausal: Yes : 8 Para: 6 Miscarriage: 2 Past Surgical History Abdominal Surgery: Yes (CHOLECYSTECTOMY ) AICD: No Cholecystectomy: Yes Coronary Artery Bypass Graft: No Gynecologic Surgery: Yes (hysterctomy) Hysterectomy: Yes Joint Replacement: Yes (left knee) Pacemaker: No Other Surgery: Yes Social History Alcohol Use: Yes (RARE ) Tobacco Use: No Substance Use: No Allergies-Medications (Allergen,Severity, Reaction): Coded Allergies: ciprofloxacin (Unverified Allergy, Severe, rash, 06/10/17) propoxyphene (Unverified Adverse Reaction, Severe, N&V, 06/10/17) Reported Meds & Prescriptions Reported Meds & Active Scripts Active Reported Zoloft (Sertraline HCl) 50 Mg Tab 50 Mg PO DAILY Trazodone (Trazodone HCl) 50 Mg Tab 50 Mg PO HS Metoprolol Tartrate 25 Mg Tab 25 Mg PO BID Norvasc (Amlodipine Besylate) 10 Mg Tab 10 Mg PO DAILY Review of Systems Except as stated in HPI: all other systems reviewed are Neg Physical Exam Narrative GENERAL:Well appearing, no acute distress SKIN: Focused skin assessment warm and dry. HEAD: Atraumatic. Normocephalic. EYES: Pupils equal and round. No injection or drainage. ENT: Moist mucous membranes NECK: Trachea midline. CARDIOVASCULAR: Regular rate and rhythm. No murmur appreciated. RESPIRATORY: Clear to auscultation. Breath sounds equal bilaterally. GASTROINTESTINAL: Abdomen soft, mildly tender to palpation in the epigastrium with no rebound/guarding. MUSCULOSKELETAL: No obvious deformities. NEUROLOGICAL: Awake and alert. No obvious cranial nerve deficits. Moving all extremities. PSYCHIATRIC: Appropriate mood and affect; insight and judgment normal. Data Data Last Documented VS Vital Signs Date Time Temp Pulse Resp B/P (MAP) Pulse Ox O2 Delivery O2 Flow Rate FiO2 06/25/17 15:06 98.6 59 22 117/75 (89) 97 Orders Orders Complete Blood Count With Diff (06/25/17 15:17) Comprehensive Metabolic Panel (06/25/17 15:17) Urinalysis - C+S If Indicated (06/25/17 15:17) Lipase (06/25/17 15:17) Labs Laboratory Tests Test 06/25/17 15:22 06/25/17 15:29 Urine Color YELLOW Urine Turbidity CLEAR Urine pH 5.5 Urine Specific [place] 1.021 Urine Protein NEG mg/dL Urine Glucose (UA) NEG mg/dL Urine Ketones NEG mg/dL Urine Occult Blood NEG Urine Nitrite NEG Urine Bilirubin NEG Urine Urobilinogen 2.0 MG/DL Urine Leukocyte Esterase NEG Urine RBC 15 /hpf Urine WBC 1 /hpf Urine Squamous Epithelial Cells <1 /hpf Urine Bacteria RARE /hpf Urine Mucus FEW /lpf Microscopic Urinalysis Comment CULT NOT INDICATED White Blood Count 4.4 TH/MM3 Red Blood Count 4.24 MIL/MM3 Hemoglobin 12.6 GM/DL Hematocrit 38.4 % Mean Corpuscular Volume 90.7 FL Mean Corpuscular Hemoglobin 29.8 PG Mean Corpuscular Hemoglobin Concent 32.9 % Red Cell Distribution Width 14.8 % Platelet Count 202 TH/MM3 Mean Platelet Volume 8.2 FL Neutrophils (%) (Auto) 54.7 % Lymphocytes (%) (Auto) 35.0 % Monocytes (%) (Auto) 8.4 % Eosinophils (%) (Auto) 1.2 % Basophils (%) (Auto) 0.7 % Neutrophils # (Auto) 2.4 TH/MM3 Lymphocytes # (Auto) 1.5 TH/MM3 Monocytes # (Auto) 0.4 TH/MM3 Eosinophils # (Auto) 0.1 TH/MM3 Basophils # (Auto) 0.0 TH/MM3 CBC Comment DIFF FINAL Differential Comment Blood Urea Nitrogen 11 MG/DL Creatinine 0.97 MG/DL Random Glucose 114 MG/DL Total Protein 7.6 GM/DL Albumin 3.8 GM/DL Calcium Level 9.0 MG/DL Alkaline Phosphatase 127 U/L Aspartate Amino Transf (AST/SGOT) 13 U/L Alanine Aminotransferase (ALT/SGPT) 23 U/L Total Bilirubin 0.4 MG/DL Sodium Level 141 MEQ/L Potassium Level 3.9 MEQ/L Chloride Level 107 MEQ/L Carbon Dioxide Level 27.9 MEQ/L Anion Gap 6 MEQ/L Estimat Glomerular Filtration Rate 70 ML/MIN Lipase 250 U/L MDM Medical Decision Making Medical Screen Exam Complete: Yes Emergency Medical Condition: Yes Interpretation(s) Afebrile, no tachycardia, normotensive No leukocytosis Electrolytes are reassuring Lipase is normal Urinalysis: Some red blood cells Differential Diagnosis Gastritis, peptic ulcer disease, pancreatitis, cholecystitis Narrative Course This is a 62-year-old female who presents to the emergency department with epigastric discomfort after she eats. She is a pretty poor historian but it sounds like she had an endoscopy by [facility] and may have been diagnosed with H. pylori for which she's been treated. She has a very benign exam with some tenderness in the epigastrium. She is requesting treatment because she is concerned she is given a go home and eat and the pains can come back. Her labs are reassuring with no leukocytosis to suggest cholecystitis. I don't suspect a surgical etiology of her symptoms and I think she has gastritis or peptic ulcer disease. I think she is appropriate for outpatient follow-up and I don't think she requires imaging at this time. This is her ninth visit to the emergency department this month for a variety of complaints. Diagnosis Primary Impression: Gastritis Qualified Codes: K29.00 - Acute gastritis without bleeding Patient Instructions: General Instructions Additional Instructions: If you develop severe or worsening abdominal pain, fever>100.4, persistent vomiting or inability to eat or drink return to the emergency department immediately. You have blood in your urine. Your urinalysis should be repeated by your primary care physician to ensure that this resolves. Med/Other Pt SpecificInfo: Prescription(s) given Scripts Pantoprazole (Pantoprazole) 40 Mg Tab 40 MG PO DAILY for Reflux, #30 TAB 0 Refills Prov: Eloise Richter MD 06/25/17 Sucralfate (Carafate) 1 Gram Tab 1 GM PO TID for Ulcer Prevention, #90 TAB 0 Refills On empty stomach Prov: Eloise Richter MD 06/25/17 Disposition: 01 DISCHARGE HOME Condition: Stable Eloise Richter MD Jun 25, 2017 16:50
[2017-06-25] MEDS ORDERED: LIDOCAINE VISCOUS 2% SOLN 15 ML UDC PO ONE (17:15)
[2017-06-25] MEDS ORDERED: ALUMINUM/MAGNESIUM/SIMETH 30 ML CUP PO ONE (17:15)
[2017-06-25 17:20] VITALS: BP 182/79; PULSE 75; RESP 16; O2SAT 96
== END 2017-06-25 17:22 | disposition home or self-care (01) ==
LOC: NEPD 15:04
DX: K29.00 Acute gastritis without bleeding (principal); E11.9 Type 2 diabetes mellitus without complications; I10 Essential (primary) hypertension; R11.0 Nausea
CPT/HCPCS: 80053; 81001; 83690; 85025; 99284

== ENCOUNTER 2017-06-27 14:32 | Emergency (ER) | payer OTHER, MEDICAID ==
[~2017-06-27] VITALS: Ht 167.6 cm; Wt 87.0 kg
[~2017-06-27 14:32] MED LIST changes: +CARA1TAB6 PO; +PANT40TA3 PO
[2017-06-27 14:34] VITALS: BP 111/69; PULSE 80; RESP 12; TEMP 99; O2SAT 96
[2017-06-27 15:35] VITALS: BP 110/64; PULSE 83; RESP 20; TEMP 98.1; O2SAT 97
[2017-06-27] MEDS ORDERED: FLUO10TA PO (15:35)
[2017-06-27] MEDS ORDERED: SODIUM CHLOR 0.9% 1000 ML INJ 1,000 ML IV SCH (15:42)
[2017-06-27] MEDS ORDERED: FAMOTIDINE 20 MG/2 ML VIAL IV PUSH ONE (15:45)
[2017-06-27] MEDS ORDERED: ALPR.5 PO (15:45)
[2017-06-27] MEDS ORDERED: PANTOPRAZOLE SODIUM 40 MG VIAL IVP ONE (15:45)
[2017-06-27] MEDS ORDERED: SODIUM CHLORIDE 0.9% FLUSH 10 ML FLUSH IV FLUSH PRN (15:45)
[2017-06-27] MEDS ORDERED: LIDOCAINE VISCOUS 2% SOLN 15 ML UDC PO ONE (16:00)
[2017-06-27] MEDS ORDERED: ALUMINUM/MAGNESIUM/SIMETH 30 ML CUP PO ONE (16:00)
--- NOTE | 2017-06-27 16:15 | PD ---
HPI Chief Complaint: Abdominal Pain Time Seen by Provider: 15:41 Travel History International Travel<30 days: No Contact w/Intl Traveler<30days: No Traveled to known affect area: No History of Present Illness HPI 62-year-old female that presents to the ED for evaluation of epigastric abdominal pain and burning. Per patient she has burning sensation in her stomach. She was seen here on June 25 for the same and she was diagnosed with gastritis. She states that she has a history of bacterial infection to her abdomen and this appears to be related to H. pylori. At the time patient was evaluated and had a was essentially unremarkable. CT was no recommended time as patient's exam was benign. She does have a history of anxiety and comes here frequently. This is the 7th time patient has been here in 30 days. She rates her pain as 6 out of 10. Denies any bowel movement or urinary issues. Per patient the pain only comes after she eats. She denies any recent surgeries to her abdomen. Per patient she has a GI follow-up on July 09. She states that she was able to finish antibiotic with no issues for her H. pylori and she was supposed to have a recheck to see if the infection had gone but has not done so yet. She does have an extensive history of psych including anxiety and depression and takes multiple medications for this. PFSH Past Medical History Hx Anticoagulant Therapy: No Arthritis: Yes Anxiety: Yes Heart Rhythm Problems: No Cancer: No Cardiac Catheterization: No Cardiovascular Problems: Yes High Cholesterol: No Chemotherapy: No Congestive Heart Failure: No Cerebrovascular Accident: No Diabetes: Yes Patient Takes Glucophage: No Diminished Hearing: No Diverticulitis: Yes Endocrine: No Gastrointestinal Disorders: Yes (HIATAL HERNIA, CONSTIPATION) GERD: Yes (colon polyps h pylori) Genitourinary: No Hepatitis: No Hiatal Hernia: Yes Heparin Induced Thrombocytopen: No Hypertension: Yes Immune Disorder: No Musculoskeletal: Yes (BONE SPUR LEFT SHOULDER, BACK PROBLEMS) Neurologic: No Psychiatric: Yes (SLIGHTLY CLAUSTROPHOBIC) Reproductive: No Respiratory: No Immunizations Current: Yes Thyroid Disease: No Menopausal: Yes : 8 Para: 6 Miscarriage: 2 Past Surgical History Abdominal Surgery: Yes (CHOLECYSTECTOMY ) AICD: No Cholecystectomy: Yes Coronary Artery Bypass Graft: No Gynecologic Surgery: Yes (hysterctomy) Hysterectomy: Yes Joint Replacement: Yes (left knee) Pacemaker: No Other Surgery: Yes Social History Alcohol Use: No Tobacco Use: No Substance Use: No Allergies-Medications (Allergen,Severity, Reaction): Coded Allergies: ciprofloxacin (Unverified Allergy, Severe, rash, 06/27/17) propoxyphene (Unverified Adverse Reaction, Severe, N&V, 06/27/17) Reported Meds & Prescriptions Reported Meds & Active Scripts Active Maalox Maximum Strength Susp (Mag Hydrox/Aluminum Hyd/Simeth) 400 Mg-400 Mg-40 Mg/5 Ml Oral.susp 5 Ml PO BID PRN Lortab (Hydrocodone-Acetaminophen) 5-325 Mg Tab 1 Tab PO Q6H PRN Ranitidine (Ranitidine HCl) 150 Mg Tab 150 Mg PO BID Pantoprazole (Pantoprazole Sodium) 40 Mg Tab 40 Mg PO DAILY Carafate (Sucralfate) 1 Gram Tab 1 Gm PO TID On empty stomach Reported Xanax (Alprazolam) 0.5 Mg Tab 0.5 Mg PO Q4H PRN Fluoxetine (Fluoxetine HCl) 10 Mg Tab 10 Mg PO DAILY Trazodone (Trazodone HCl) 50 Mg Tab 50 Mg PO HS Metoprolol Tartrate 25 Mg Tab 25 Mg PO BID Norvasc (Amlodipine Besylate) 10 Mg Tab 10 Mg PO DAILY Review of Systems Except as stated in HPI: all other systems reviewed are Neg Physical Exam Narrative GENERAL: SKIN: Warm and dry. HEAD: Atraumatic. Normocephalic. EYES: Pupils equal and round. No scleral icterus. No injection or drainage. ENT: No nasal bleeding or discharge. Mucous membranes pink and moist.Tongue is midline. No uvula deviation. NECK: Trachea midline. No JVD. CARDIOVASCULAR: Regular rate and rhythm. No murmurs, S3, S4. RESPIRATORY: No accessory muscle use. Clear to auscultation. Breath sounds equal bilaterally. GASTROINTESTINAL: Abdomen soft, non-tender, nondistended. Hepatic and splenic margins not palpable. MUSCULOSKELETAL: Extremities without clubbing, cyanosis, or edema. No obvious deformities. Full range of motion of the upper and lower extremities bilaterally. 2+ pulses bilaterally. NEUROLOGICAL: Awake and alert. No obvious cranial nerve deficits. Motor grossly within normal limits. Five out of 5 muscle strength in the arms and legs. Normal speech. PSYCHIATRIC: Appropriate mood and affect; insight and judgment normal. Data Data Last Documented VS Vital Signs Date Time Temp Pulse Resp B/P (MAP) Pulse Ox O2 Delivery O2 Flow Rate FiO2 06/27/17 15:35 98.1 83 20 110/64 (79) 97 Room Air Orders Orders Complete Blood Count With Diff (06/27/17 15:42) Comprehensive Metabolic Panel (06/27/17 15:42) Lipase (06/27/17 15:42) Iv Access Insert/Monitor (06/27/17 15:42) Pantoprazole Inj (Protonix Inj) (06/27/17 15:45) Sodium Chlor 0.9% 1000 Ml Inj (Ns 1000 M (06/27/17 15:42) Sodium Chloride 0.9% Flush (Ns Flush) (06/27/17 15:45) Famotidine Inj (Pepcid Inj) (06/27/17 15:45) Al-Mag Hy-Si 40-40-4 Mg/Ml Liq (Mag-Al P (06/27/17 16:00) Lidocaine 2% Viscous (Xylocaine 2% Visco (06/27/17 16:00) Labs Laboratory Tests Test 06/27/17 16:02 White Blood Count 4.0 TH/MM3 Red Blood Count 4.03 MIL/MM3 Hemoglobin 12.1 GM/DL Hematocrit 36.5 % Mean Corpuscular Volume 90.5 FL Mean Corpuscular Hemoglobin 30.0 PG Mean Corpuscular Hemoglobin Concent 33.1 % Red Cell Distribution Width 14.6 % Platelet Count 179 TH/MM3 Mean Platelet Volume 8.6 FL Neutrophils (%) (Auto) 56.9 % Lymphocytes (%) (Auto) 33.9 % Monocytes (%) (Auto) 6.8 % Eosinophils (%) (Auto) 1.5 % Basophils (%) (Auto) 0.9 % Neutrophils # (Auto) 2.3 TH/MM3 Lymphocytes # (Auto) 1.4 TH/MM3 Monocytes # (Auto) 0.3 TH/MM3 Eosinophils # (Auto) 0.1 TH/MM3 Basophils # (Auto) 0.0 TH/MM3 CBC Comment DIFF FINAL Differential Comment Blood Urea Nitrogen 12 MG/DL Creatinine 1.00 MG/DL Random Glucose 172 MG/DL Total Protein 7.2 GM/DL Albumin 3.6 GM/DL Calcium Level 9.2 MG/DL Alkaline Phosphatase 122 U/L Aspartate Amino Transf (AST/SGOT) 11 U/L Alanine Aminotransferase (ALT/SGPT) 20 U/L Total Bilirubin 0.4 MG/DL Sodium Level 143 MEQ/L Potassium Level 3.4 MEQ/L Chloride Level 108 MEQ/L Carbon Dioxide Level 29.3 MEQ/L Anion Gap 6 MEQ/L Estimat Glomerular Filtration Rate 68 ML/MIN Lipase 204 U/L MDM Medical Decision Making Medical Screen Exam Complete: Yes Emergency Medical Condition: Yes Medical Record Reviewed: Yes Interpretation(s) CBC & BMP Diagram 06/27/17 16:02 Total Protein 7.2, Albumin 3.6, Calcium Level 9.2, Alkaline Phosphatase 122 H, Aspartate Amino Transf (AST/SGOT) 11 L, Alanine Aminotransferase (ALT/SGPT) 20, Total Bilirubin 0.4 lipase WNL Differential Diagnosis Gastritis versus peptic ulcer disease versus heartburn versus H. pylori versus acute on chronic pain versus chronic pain versus pancreatitis Narrative Course 62-year-old female that presents to the ED for evaluation of a burning sensation on the abdomen. Patient was properly examined and was found to have signs and symptoms appear to be more consistent with gastritis as well as peptic ulcer disease. Labs will be redone make sure patient is having anything acute. Patient had a gallbladder removal also gallbladder disease less likely. She does have a history of H. pylori and supposed to follow up outpatient for recheck to see if the infection is gone. I suspect that it might be coming back. Patient was given IV fluids and heartburn medication. Labs showed no sign of acute disease. More specifically normal limits at 1 oral pancreatitis or liver disease. At this time this appears to be likely gastritis related to peptic ulcer disease. Case was discussed in my attending Dr Howell who agrees with plan. I will add H2 deanne for the patient to pain medication for the patient. Patient was given a prescription for Zantac as well as Maalox and Lortab. Told to follow with her GI doctor. See ED worsening symptoms. Diagnosis Primary Impression: Gastritis Qualified Codes: K29.00 - Acute gastritis without bleeding Patient Instructions: General Instructions Additional Instructions: Take medications as prescribed. Follow-up with PCP. See ED for any worsening symptoms. Do not drink or drive while taking pain medication. Apply ice or heat as needed for pain Med/Other Pt SpecificInfo: Prescription(s) given Scripts Mag Hydrox/Aluminum Hyd/Simeth (Maalox Maximum Strength Susp) 400 Mg-400 Mg-40 Mg/5 Ml Oral.susp 5 ML PO BID Y for ABDOMINAL PAIN, #10 Prov: Dimas Howell MD 06/27/17 Hydrocodone-Acetaminophen (Lortab) 5-325 Mg Tab 1 TAB PO Q6H Y for PAIN, #10 TAB 0 Refills Prov: Dimas Howell MD 06/27/17 Ranitidine (Ranitidine) 150 Mg Tab 150 MG PO BID for Heartburn Management, #30 TAB 0 Refills Prov: Dimas Howell MD 06/27/17 Disposition: 01 DISCHARGE HOME Condition: Stable Sandoval Serrano Jun 27, 2017 16:15
[2017-06-27 16:26] LABS: AUTOMATED NEUTROPHIL # 2.3 TH/MM3 (1.8-7.7); BASOPHIL % 0.9 % (0.0-2.0); EOSINOPHIL # 0.1 TH/MM3 (0-0.4); EOSINOPHIL % 1.5 % (0.0-4.0); HEMATOCRIT 36.5 % (35.0-46.0); HEMO FLAGS DIFF FINAL; LYMPH % 33.9 % (9.0-44.0); LYMPHOCYTE # 1.4 TH/MM3 (1.0-4.8); MEAN CELL VOLUME 90.5 FL (80.0-100.0); MEAN CORPUSCULAR HGB CONC 33.1 % (32.0-36.0); MONO % 6.8 % (0.0-8.0); NEUT % 56.9 % (16.0-70.0); PLATELET COUNT 179 TH/MM3 (150-450); RED BLOOD COUNT 4.03 MIL/MM3 (4.00-5.30); RED CELL DISTRIBUTION WIDTH 14.6 % (11.6-17.2)
[2017-06-27 16:39] LABS: ALT (GPT) 20 U/L (10-53); ANION GAP 6 MEQ/L (5-15); AST (GOT) 11 U/L (15-37); BICARBONATE 29.3 MEQ/L (21.0-32.0); BLOOD UREA NITROGEN 12 MG/DL (7-18); CHLORIDE 108 MEQ/L (98-107); GLOMERULAR FILTRATION RATE 68 ML/MIN (>89); POTASSIUM 3.4 MEQ/L (3.5-5.1); SODIUM (NA) 143 MEQ/L (136-145)
[2017-06-27 16:42] LABS: ALKALINE PHOSPHATASE 122 U/L (45-117); TOTAL BILIRUBIN ADULT 0.4 MG/DL (0.2-1.0)
[2017-06-27] MEDS ORDERED: RANI150T PO (17:09)
[2017-06-27] MEDS ORDERED: HYDR-3533 PO (17:09)
[2017-06-27] MEDS ORDERED: MAALSUS17 PO (17:11)
== END 2017-06-27 17:34 | disposition home or self-care (01) ==
LOC: NEPC 14:32
DX: K29.00 Acute gastritis without bleeding (principal)
CPT/HCPCS: 80053; 83690; 85025; 96374; 96375; 99284; C9113; J7030

== ENCOUNTER 2017-07-08 09:14 | Emergency (ER) | payer OTHER, MEDICAID ==
[~2017-07-08] VITALS: Ht 167.6 cm; Wt 90.0 kg
[~2017-07-08 09:14] MED LIST changes: +ALPR.5 PO; +FLUO10TA PO; +HYDR-3533 PO; +MAALSUS17 PO; +RANI150T PO; -ZOLO50TA PO
[2017-07-08 09:15] VITALS: BP 138/79; PULSE 85; RESP 16; TEMP 98.8; O2SAT 97
[2017-07-08] MEDS ORDERED: METO50TA PO (10:05)
--- NOTE | 2017-07-08 10:26 | PD ---
HPI Chief Complaint: Depression Time Seen by Provider: 09:56 Travel History International Travel<30 days: No Contact w/Intl Traveler<30days: No Traveled to known affect area: No History of Present Illness HPI To 62-year-old woman who presents to the emergency department complaining of increased anxiety and depression symptoms. She states she's had these ongoing for several months. She doesn't want to be alone. Even when she is not well and she still feels anxious and worried. She is on multiple medications which she feels like and not working. The prescribed by her primary physician. She has very frequent ED visits for the same complaints. She is here with a family member. Therefore that she has not seen a psychiatrist. Last saw her primary doctor a week or so ago. No somatic complaints. History Past Medical History Narrative Medical Anxiety/depression Hypertension Borderline diabetes Menopausal: Yes : 8 Para: 6 Social History Alcohol Use: No Tobacco Use: No Allergies-Medications (Allergen,Severity, Reaction): Coded Allergies: ciprofloxacin (Unverified Allergy, Severe, rash, 06/27/17) propoxyphene (Unverified Adverse Reaction, Severe, N&V, 06/27/17) Reported Meds & Prescriptions Reported Meds & Active Scripts Active Lortab (Hydrocodone-Acetaminophen) 5-325 Mg Tab 1 Tab PO Q6H PRN Pantoprazole (Pantoprazole Sodium) 40 Mg Tab 40 Mg PO DAILY Reported Metoprolol Tartrate 50 Mg Tab 50 Mg PO DAILY Xanax (Alprazolam) 0.5 Mg Tab 0.5 Mg PO BID PRN Fluoxetine (Fluoxetine HCl) 10 Mg Tab 10 Mg PO DAILY Trazodone (Trazodone HCl) 50 Mg Tab 100 Mg PO HS Norvasc (Amlodipine Besylate) 10 Mg Tab 10 Mg PO DAILY Review of Systems Except as stated in HPI: all other systems reviewed are Neg Physical Exam Narrative GENERAL: Well-appearing 62 old woman, no acute distress. SKIN: Focused skin assessment warm/dry. HEAD: Atraumatic. Normocephalic. EYES: Pupils equal and round. No scleral icterus. No injection or drainage. ENT: No nasal bleeding or discharge. Mucous membranes pink and moist. NECK: Trachea midline. No JVD. CARDIOVASCULAR: Regular rate and rhythm. No murmur appreciated. RESPIRATORY: No accessory muscle use. Clear to auscultation. Breath sounds equal bilaterally. GASTROINTESTINAL: Abdomen soft, non-tender, nondistended. Hepatic and splenic margins not palpable. MUSCULOSKELETAL: No obvious deformities. No edema. NEUROLOGICAL: Awake and alert. No obvious cranial nerve deficits. Motor grossly within normal limits. Normal speech. Data Data Last Documented VS Vital Signs Date Time Temp Pulse Resp B/P (MAP) Pulse Ox O2 Delivery O2 Flow Rate FiO2 07/08/17 09:15 98.8 85 16 138/79 (98) 97 Room Air Orders Orders Lorazepam (Ativan) (07/08/17 10:30) MDM Medical Decision Making Medical Screen Exam Complete: Yes Emergency Medical Condition: Yes Differential Diagnosis Anxiety, depression, other Narrative Course Medical decision making 62 old woman ongoing anxiety symptoms. This is been long-standing for several months now. This is being Addressed by her primary care provider. She may be due to for referral to a specialist at this point. She looks well. I don't think he is to be admitted or have emergency psychiatric evaluation. We'll recommend outpatient follow-up. Diagnosis Primary Impression: Anxiety Additional Instructions: Follow-up with one of the outpatient psychiatrist provided. Continue current medications. Med/Other Pt SpecificInfo: Prescription(s) given Disposition: 01 DISCHARGE HOME Condition: Stable Truman Perea MD Jul 08, 2017 10:26
[2017-07-08] MEDS ORDERED: LORazepam 0.5 MG TAB PO ONE (10:30)
== END 2017-07-08 11:38 | disposition home or self-care (01) ==
LOC: NEPD 09:14
DX: F41.9 Anxiety disorder, unspecified (principal); I10 Essential (primary) hypertension; R73.03 Prediabetes; Z86.59 Personal history of other mental and behavioral disorders
CPT/HCPCS: 99283

== ENCOUNTER 2017-10-27 16:39 | Emergency (ER) | payer MEDICAID, OTHER ==
[~2017-10-27] VITALS: Ht 167.6 cm; Wt 84.1 kg
[~2017-10-27 16:39] MED LIST changes: -CARA1TAB6 PO; -MAALSUS17 PO; -METO25TA3 PO; +METO50TA PO; -RANI150T PO
[2017-10-27 16:40] VITALS: BP 153/89; PULSE 88; RESP 18; TEMP 98.4; O2SAT 100
--- NOTE | 2017-10-27 18:56 | PD ---
HPI Chief Complaint: Musculoskeletal Complaint Time Seen by Provider: 18:33 Travel History International Travel<30 days: No Contact w/Intl Traveler<30days: No Traveled to known affect area: No History of Present Illness HPI 62-year-old female that presents to the ED for evaluation of back pain as well as right shoulder pain. Per patient she's had the back pain for about 2 weeks now. She didn't take anything for this. She does have a history of anxiety and states that this has brought somewhat anxiety to her. She denies any chest pain or shortness of breath. No falls or injuries. Denies any history of trauma or surgery to her back. She does state that she isn't having chronic shoulder pain for some time with no injury. Denies any numbness, tilling, weakness. States that the pain is 6 out of 10. Gets worse with movement. Denies any urinary or bowel movement issues. No saddle anesthesia signs. Has not seen anybody for this. Pain goes more severe today which is what prompted evaluation. PFSH Past Medical History Hx Anticoagulant Therapy: Yes Arthritis: Yes Anxiety: Yes Depression: Yes Heart Rhythm Problems: No Cancer: No Cardiac Catheterization: No Cardiovascular Problems: Yes (HTN) High Cholesterol: No Chemotherapy: No Congestive Heart Failure: No Cerebrovascular Accident: No Diabetes: Yes Diminished Hearing: No Diverticulitis: Yes Endocrine: No Gastrointestinal Disorders: Yes (HIATAL HERNIA, CONSTIPATION) GERD: Yes (colon polyps h pylori) Genitourinary: No Hepatitis: No Hiatal Hernia: Yes Heparin Induced Thrombocytopen: No Hypertension: Yes Immune Disorder: No Musculoskeletal: Yes (BONE SPUR LEFT SHOULDER, BACK PROBLEMS) Neurologic: No Psychiatric: Yes (SLIGHTLY CLAUSTROPHOBIC) Reproductive: No Respiratory: No Immunizations Current: Yes Thyroid Disease: No Menopausal: Yes : 8 Para: 6 Miscarriage: 2 Past Surgical History Abdominal Surgery: Yes (CHOLECYSTECTOMY ) AICD: No Cholecystectomy: Yes Coronary Artery Bypass Graft: No Gynecologic Surgery: Yes (hysterctomy) Hysterectomy: Yes Joint Replacement: Yes (left knee) Pacemaker: No Other Surgery: Yes Social History Alcohol Use: No Tobacco Use: No Substance Use: No Allergies-Medications (Allergen,Severity, Reaction): Coded Allergies: ciprofloxacin (Unverified Allergy, Severe, rash, 06/27/17) propoxyphene (Unverified Adverse Reaction, Severe, N&V, 06/27/17) Reported Meds & Prescriptions Reported Meds & Active Scripts Active Robaxin (Methocarbamol) 500 Mg Tab 500 Mg PO QID Diclofenac Sodium DR (Diclofenac Sodium) 75 Mg Tabdr 75 Mg PO BID PRN Lortab (Hydrocodone-Acetaminophen) 5-325 Mg Tab 1 Tab PO Q6H PRN Pantoprazole (Pantoprazole Sodium) 40 Mg Tab 40 Mg PO DAILY Reported Metoprolol Tartrate 50 Mg Tab 50 Mg PO DAILY Xanax (Alprazolam) 0.5 Mg Tab 0.5 Mg PO BID PRN Fluoxetine (Fluoxetine HCl) 10 Mg Tab 10 Mg PO DAILY Trazodone (Trazodone HCl) 50 Mg Tab 100 Mg PO HS Norvasc (Amlodipine Besylate) 10 Mg Tab 10 Mg PO DAILY Review of Systems Except as stated in HPI: all other systems reviewed are Neg Physical Exam Narrative GENERAL: SKIN: Warm and dry. HEAD: Atraumatic. Normocephalic. EYES: Pupils equal and round. No scleral icterus. No injection or drainage. ENT: No nasal bleeding or discharge. Mucous membranes pink and moist. NECK: Trachea midline. No JVD. CARDIOVASCULAR: Regular rate and rhythm. RESPIRATORY: No accessory muscle use. Clear to auscultation. Breath sounds equal bilaterally. GASTROINTESTINAL: Abdomen soft, non-tender, nondistended. Hepatic and splenic margins not palpable. MUSCULOSKELETAL: Extremities without clubbing, cyanosis, or edema. No obvious deformities. Full range of motion of the upper and lower extremities bilaterally. 2+ pulses bilaterally. Patient does appear to have some musculature pain in the lumbar area. No lumbar, thoracic, cervical spine tenderness to palpation. Pain is worse with bending. Neurovascular intact bilaterally. She'll likely is negative bilaterally. Full range of motion of the right upper shoulder. No obvious deformity noted. Patient does appear to be concerning about certain "bumps" on her wrist which appear to be varicose veins to his wrist. NEUROLOGICAL: Awake and alert. No obvious cranial nerve deficits. Motor grossly within normal limits. Five out of 5 muscle strength in the arms and legs. Normal speech. PSYCHIATRIC: Appropriate mood and affect; insight and judgment normal. Data Data Last Documented VS Vital Signs Date Time Temp Pulse Resp B/P (MAP) Pulse Ox O2 Delivery O2 Flow Rate FiO2 10/27/17 16:40 98.4 88 18 153/89 (110) 100 Room Air Orders Orders Spine, Lumbar Comp W/Obliq (10/27/17 18:37) Shoulder, Limited(2vws) (10/27/17 18:37) Urinalysis - C+S If Indicated (10/27/17 18:37) Ed Discharge Order (10/27/17 20:01) Labs Laboratory Tests Test 10/27/17 19:02 Urine Color YELLOW Urine Turbidity CLEAR Urine pH 5.5 Urine Specific Duncan 1.015 Urine Protein NEG mg/dL Urine Glucose (UA) NEG mg/dL Urine Ketones NEG mg/dL Urine Occult Blood TRACE Urine Nitrite NEG Urine Bilirubin NEG Urine Urobilinogen LESS THAN 2.0 MG/DL Urine Leukocyte Esterase MOD Urine RBC LESS THAN 1 /hpf Urine WBC 7 /hpf Urine Squamous Epithelial Cells <1 /hpf Microscopic Urinalysis Comment CULT NOT INDICATED MDM Medical Decision Making Medical Screen Exam Complete: Yes Emergency Medical Condition: Yes Medical Record Reviewed: Yes Interpretation(s) Last Impressions Shoulder X-Ray 10/27/[id number] Signed Impressions: Service Date/Time: Friday, October 27, 2017 18:53 - CONCLUSION: 1. No acute fracture or joint dislocation. 2. Primary degenerative changes involving the shoulder joint and a.c. joint characteristic for patient's age. Bucky Joyner MD Lumbar Spine X-Ray [id number]/27/171836 Signed Impressions: Service Date/Time: Friday, October 27, 2017 18:47 - CONCLUSION: Primary diffuse bony degenerative changes of the lumbar spine. Bucky Joyner MD UA shows blood in urine and leukerase esterase Differential Diagnosis Muscle strain versus acute on chronic pain versus chronic pain versus UTI Narrative Course 62-year-old female that presents to the ED for evaluation of back pain and right shoulder pain. Patient was properly examined and was found to have signs and symptoms which appear to be consistent with muscle scale pain. She is concerned about kidney infection which could be possible as she has a history of this in the past. We'll do urine as well as x-rays. Imaging and urine showed no sign of acute disease other than arthritis. No sign of infection. This time I recommend treating her pain with anti-inflammatory muscle relaxant. Follow with PCP. See ED worsening symptoms. Patient was reassured. Diagnosis Primary Impression: Back pain Qualified Codes: M54.5 - Low back pain Patient Instructions: General Instructions Additional Instructions: Take medications as prescribed. Follow with PCP. See ED for worsening symptoms. Med/Other Pt SpecificInfo: Prescription(s) given Scripts Methocarbamol (Robaxin) 500 Mg Tab 500 MG PO QID for Muscle Spasm, #14 TAB 0 Refills Prov: Ramos Mo MD 10/27/[address] (Diclofenac Sodium DR) 75 Mg Tabdr 75 MG PO BID Y for PAIN SCALE 1 TO 10, #20 TAB 0 Refills Prov: Ramos Mo MD 10/27/17 Disposition: 01 DISCHARGE HOME Condition: Stable Sandoval Serrano Oct 27, 2017 18:56
--- NOTE | 2017-10-27 19:11 | RADRPT ---
EXAM DATE/TIME: 10/27/2017 18:53 [facility] COMPARISON: No previous studies available for comparison. INDICATIONS : Left shoulder pain with tingling and numbness, no known injury. MEDICAL HISTORY : Hypertension. SURGICAL HISTORY : Cholecystectomy. ENCOUNTER: Initial ACUITY: 2 weeks PAIN SCORE: 10/10 LOCATION: Left shoulder FINDINGS: Two view examination of the left shoulder demonstrates no evidence of fracture or dislocation. There are primary bony degenerative changes at the shoulder joint and a.c. joint.. Bony mineralization is normal. Soft tissues are unremarkable. CONCLUSION: 1. No acute fracture or joint dislocation. 2. Primary degenerative changes involving the shoulder joint and a.c. joint characteristic for patien t's age. Bucky Joyner MD on October 27, 2017 at 19:08 Board Certified Radiologist. This report was verified electronically.
--- NOTE | 2017-10-27 19:14 | RADRPT ---
EXAM DATE/TIME: 10/27/2017 18:47 [facility] COMPARISON: No previous studies available for comparison. INDICATIONS : Lower back pain, no known injury. MEDICAL HISTORY : Hypertension. SURGICAL HISTORY : Cholecystectomy. ENCOUNTER: Initial ACUITY: 2 weeks PAIN SCORE: 10/10 LOCATION: lumbar FINDINGS: There are five non-rib bearing vertebral bodies. The vertebral bodies are in normal alignment withou t evidence of subluxation or scoliosis. The bony structures are grossly intact. No compression fractu re injuries are demonstrated. There is mild diffuse primary degenerative changes throughout the lumba r spine. There is mild disc space narrowing at L5-S1. There is good alignment of the SI joints. Ather osclerotic changes are seen in the aorta. Surgical clips are noted in the right upper quadrant. There is a calcification to the right of L5. This is most likely a calcified mesenteric lymph node versus ureteral stone. Recommend correlation with patient's physical exam. There are multiple calcified phle boliths in the pelvis bilaterally... CONCLUSION: Primary diffuse bony degenerative changes of the lumbar spine. Bucky Joyner MD on October 27, 2017 at 19:09 Board Certified Radiologist. This report was verified electronically.
[2017-10-27 19:53] LABS: BILIRUBIN, URINE NEG (NEG); BLOOD, URINE TRACE (NEG); GLUCOSE,URINE NEG (NEG); KETONE, URINE NEG (NEG); NITRITE,URINE NEG (NEG); PH, URINE 5.5 (5.0-8.5); SQUAMOUS EPITHELIAL CELL URINE <1 /hpf (0-5); URINE COLOR YELLOW (YELLW/STRAW); URINE LEUKOCYTE ESTERASE MOD (NEG)
[2017-10-27] MEDS ORDERED: DICL75TA PO (19:56)
[2017-10-27] MEDS ORDERED: ROBA500T PO (19:56)
== END 2017-10-27 20:38 | disposition home or self-care (01) ==
LOC: NEPK 16:39
DX: M54.5 Low back pain (principal); M25.511 Pain in right shoulder; M25.512 Pain in left shoulder; I10 Essential (primary) hypertension; K21.9 Gastro-esophageal reflux disease without esophagitis
CPT/HCPCS: 72110; 73030; 81001; 99284

== ENCOUNTER 2017-11-07 19:54 | Emergency (ER) | payer OTHER ==
[~2017-11-07] VITALS: Ht 167.6 cm; Wt 80.0 kg
[2017-11-07 19:54] VITALS: BP 154/96; PULSE 95; RESP 16; TEMP 99.4; O2SAT 99
[~2017-11-07 19:54] MED LIST changes: +DICL75TA PO; +ROBA500T PO
--- NOTE | 2017-11-07 21:04 | PD ---
HPI Chief Complaint: Psychiatric Symptoms Time Seen by Provider: 20:28 Travel History International Travel<30 days: No Contact w/Intl Traveler<30days: No Traveled to known affect area: No History of Present Illness HPI 62-year-old black female presents emergency department calmative by her daughter for evaluation of depression with suicidal thoughts. Patient was just seen by Toya Bhagat this past . According to the daughter they did not relate to her that she has been feeling increasingly suicidal. Patient has no current plan but states that she does not want to live any longer. The daughter states that she does not feel comfortable leaving her to go to work. She feels overwhelmed. The patient denies any active plan. No homicidal ideation. No toxic ingestions. No medical complaints. She has not been sick recently. PFSH Past Medical History Hx Anticoagulant Therapy: Yes Arthritis: Yes Anxiety: Yes Depression: Yes Heart Rhythm Problems: No Cancer: No Cardiac Catheterization: No Cardiovascular Problems: Yes (HTN) High Cholesterol: No Chemotherapy: No Congestive Heart Failure: No Cerebrovascular Accident: No Diabetes: Yes Diminished Hearing: No Diverticulitis: Yes Endocrine: No Gastrointestinal Disorders: Yes (HIATAL HERNIA, CONSTIPATION) GERD: Yes (colon polyps h pylori) Genitourinary: No Hepatitis: No Hiatal Hernia: Yes Heparin Induced Thrombocytopen: No Hypertension: Yes Immune Disorder: No Musculoskeletal: Yes (BONE SPUR LEFT SHOULDER, BACK PROBLEMS) Neurologic: No Psychiatric: Yes (SLIGHTLY CLAUSTROPHOBIC) Reproductive: No Respiratory: No Immunizations Current: Yes Thyroid Disease: No Menopausal: Yes : 8 Para: 6 Miscarriage: 2 Past Surgical History Abdominal Surgery: Yes (CHOLECYSTECTOMY ) AICD: No Cholecystectomy: Yes Coronary Artery Bypass Graft: No Gynecologic Surgery: Yes (hysterctomy) Hysterectomy: Yes Joint Replacement: Yes (left knee) Pacemaker: No Other Surgery: Yes Social History Alcohol Use: No Tobacco Use: No Substance Use: No Allergies-Medications (Allergen,Severity, Reaction): Coded Allergies: ciprofloxacin (Unverified Allergy, Severe, rash, 11/07/17) propoxyphene (Unverified Adverse Reaction, Severe, N&V, 11/07/17) Reported Meds & Prescriptions Reported Meds & Active Scripts Active Robaxin (Methocarbamol) 500 Mg Tab 500 Mg PO QID Diclofenac Sodium DR (Diclofenac Sodium) 75 Mg Tabdr 75 Mg PO BID PRN Lortab (Hydrocodone-Acetaminophen) 5-325 Mg Tab 1 Tab PO Q6H PRN Pantoprazole (Pantoprazole Sodium) 40 Mg Tab 40 Mg PO DAILY Reported Metoprolol Tartrate 50 Mg Tab 50 Mg PO DAILY Xanax (Alprazolam) 0.5 Mg Tab 0.5 Mg PO BID PRN Fluoxetine (Fluoxetine HCl) 10 Mg Tab 10 Mg PO DAILY Trazodone (Trazodone HCl) 50 Mg Tab 100 Mg PO HS Norvasc (Amlodipine Besylate) 10 Mg Tab 10 Mg PO DAILY Review of Systems General / Constitutional: No: Fever Eyes: No: Visual changes HENT: No: Headaches Cardiovascular: No: Chest Pain or Discomfort Respiratory: No: Shortness of Breath Gastrointestinal: No: Abdominal Pain Genitourinary: No: Dysuria Musculoskeletal: No: Pain Skin: No Rash Neurologic: No: Weakness Psychiatric: Positive: Depression, Suicidal Ideations, Mood Disorder, No: Anxiety, Disorder of Thought, Substance Abuse, Homicidal Ideation Endocrine: No: Polydipsia Hematologic/Lymphatic: No: Easy Bruising Physical Exam Narrative GENERAL: Well-nourished, well-developed patient. SKIN: Warm and dry. HEAD: Normocephalic and atraumatic. EYES: No scleral icterus. No injection or drainage. ENT: No nasal drainage noted. Mucous membranes pink. Airway patent. NECK: Supple, trachea midline. Moves head freely without obvious discomfort. CARDIOVASCULAR: Regular rate and rhythm without murmurs, gallops, or rubs. RESPIRATORY: Breath sounds equal bilaterally. No accessory muscle use. GASTROINTESTINAL: Abdomen soft, non-tender, nondistended. EXTREMITIES: No cyanosis or edema. BACK: Nontender without obvious deformity. No CVA tenderness. NEURO: Patient is alert and oriented. no sensorimotor deficits. Nonfocal. Normal speech. PSYCH: No delusions. No auditory or visual hallucinations. Data Data Last Documented VS Vital Signs Date Time Temp Pulse Resp B/P (MAP) Pulse Ox O2 Delivery O2 Flow Rate FiO2 11/07/17 19:54 99.4 95 16 154/96 (115) 99 Room Air Orders Orders Complete Blood Count With Diff (11/07/17 20:28) Comprehensive Metabolic Panel (11/07/17 20:28) Thyroid Stimulating Hormone (11/07/17 20:28) Psych Screen (11/07/17 20:28) Drug Screen, Random Urine (11/07/17 20:28) Alcohol (Ethanol) (11/07/17 20:28) Salicylates (Aspirin) (11/07/17 20:28) Tylenol (Acetaminophen) (11/07/17 20:28) Labs Laboratory Tests Test 11/07/17 21:05 White Blood Count 4.6 TH/MM3 Red Blood Count 4.07 MIL/MM3 Hemoglobin 12.2 GM/DL Hematocrit 36.0 % Mean Corpuscular Volume 88.6 FL Mean Corpuscular Hemoglobin 30.1 PG Mean Corpuscular Hemoglobin Concent 33.9 % Red Cell Distribution Width 14.9 % Platelet Count 183 TH/MM3 Mean Platelet Volume 7.9 FL Neutrophils (%) (Auto) 46.9 % Lymphocytes (%) (Auto) 42.6 % Monocytes (%) (Auto) 8.5 % Eosinophils (%) (Auto) 1.3 % Basophils (%) (Auto) 0.7 % Neutrophils # (Auto) 2.1 TH/MM3 Lymphocytes # (Auto) 1.9 TH/MM3 Monocytes # (Auto) 0.4 TH/MM3 Eosinophils # (Auto) 0.1 TH/MM3 Basophils # (Auto) 0.0 TH/MM3 CBC Comment DIFF FINAL Differential Comment Blood Urea Nitrogen 11 MG/DL Creatinine 0.86 MG/DL Random Glucose 116 MG/DL Total Protein 7.0 GM/DL Albumin 3.4 GM/DL Calcium Level 9.1 MG/DL Alkaline Phosphatase 121 U/L Aspartate Amino Transf (AST/SGOT) 14 U/L Alanine Aminotransferase (ALT/SGPT) 15 U/L Total Bilirubin 0.3 MG/DL Sodium Level 145 MEQ/L Potassium Level 3.7 MEQ/L Chloride Level 111 MEQ/L Carbon Dioxide Level 27.8 MEQ/L Anion Gap 6 MEQ/L Estimat Glomerular Filtration Rate 80 ML/MIN Thyroid Stimulating Hormone 3rd Gen 1.720 uIU/ML Salicylates Level LESS THAN 1.7 MG/DL Urine Opiates Screen NEG Acetaminophen Level LESS THAN 2.0 MCG/ML Urine Barbiturates Screen NEG Urine Amphetamines Screen NEG Urine Benzodiazepines Screen NEG Urine Cocaine Screen NEG Urine Cannabinoids Screen NEG Ethyl Alcohol Level LESS THAN 3 MG/DL MDM Medical Decision Making Medical Screen Exam Complete: Yes Emergency Medical Condition: Yes Medical Record Reviewed: Yes Interpretation(s) Laboratory Tests Test 11/07/17 21:05 White Blood Count 4.6 TH/MM3 Red Blood Count 4.07 MIL/MM3 Hemoglobin 12.2 GM/DL Hematocrit 36.0 % Mean Corpuscular Volume 88.6 FL Mean Corpuscular Hemoglobin 30.1 PG Mean Corpuscular Hemoglobin Concent 33.9 % Red Cell Distribution Width 14.9 % Platelet Count 183 TH/MM3 Mean Platelet Volume 7.9 FL Neutrophils (%) (Auto) 46.9 % Lymphocytes (%) (Auto) 42.6 % Monocytes (%) (Auto) 8.5 % Eosinophils (%) (Auto) 1.3 % Basophils (%) (Auto) 0.7 % Neutrophils # (Auto) 2.1 TH/MM3 Lymphocytes # (Auto) 1.9 TH/MM3 Monocytes # (Auto) 0.4 TH/MM3 Eosinophils # (Auto) 0.1 TH/MM3 Basophils # (Auto) 0.0 TH/MM3 CBC Comment DIFF FINAL Differential Comment Blood Urea Nitrogen 11 MG/DL Creatinine 0.86 MG/DL Random Glucose 116 MG/DL Total Protein 7.0 GM/DL Albumin 3.4 GM/DL Calcium Level 9.1 MG/DL Alkaline Phosphatase 121 U/L Aspartate Amino Transf (AST/SGOT) 14 U/L Alanine Aminotransferase (ALT/SGPT) 15 U/L Total Bilirubin 0.3 MG/DL Sodium Level 145 MEQ/L Potassium Level 3.7 MEQ/L Chloride Level 111 MEQ/L Carbon Dioxide Level 27.8 MEQ/L Anion Gap 6 MEQ/L Estimat Glomerular Filtration Rate 80 ML/MIN Thyroid Stimulating Hormone 3rd Gen 1.720 uIU/ML Salicylates Level LESS THAN 1.7 MG/DL Urine Opiates Screen NEG Acetaminophen Level LESS THAN 2.0 MCG/ML Urine Barbiturates Screen NEG Urine Amphetamines Screen NEG Urine Benzodiazepines Screen NEG Urine Cocaine Screen NEG Urine Cannabinoids Screen NEG Ethyl Alcohol Level LESS THAN 3 MG/DL Differential Diagnosis MDM: High Differential diagnoses: Schizophrenia, schizoaffective disorder, bipolar, anxiety, depression, adjustment reaction, mood disorder NOS, ODD, depressive disorder NOS, dementia, dementia with agitation, psychosis NOS, substance induced mood disorder, DMDD, Asperger syndrome, infection,electrolyte abnormality, malingering. Narrative Course Mental health screening discussed with the patient. Psychiatric screen ordered. Patient has been medically cleared. This is medical clearance for psychiatric admission. Diagnosis Primary Impression: Medical clearance for psychiatric admission Condition: Stable Felipe Gentile Nov 07, 2017 21:04
[2017-11-07 21:22] LABS: AUTOMATED NEUTROPHIL # 2.1 TH/MM3 (1.8-7.7); BASOPHIL % 0.7 % (0.0-2.0); EOSINOPHIL # 0.1 TH/MM3 (0-0.4); EOSINOPHIL % 1.3 % (0.0-4.0); HEMOGLOBIN 12.2 GM/DL (11.6-15.3); LYMPH % 42.6 % (9.0-44.0); LYMPHOCYTE # 1.9 TH/MM3 (1.0-4.8); MEAN CELL VOLUME 88.6 FL (80.0-100.0); MEAN CORPUSCULAR HEMOGLOBIN 30.1 PG (27.0-34.0); MEAN CORPUSCULAR HGB CONC 33.9 % (32.0-36.0); MEAN PLATELET VOLUME 7.9 FL (7.0-11.0); MONO % 8.5 % (0.0-8.0); MONOCYTE # 0.4 TH/MM3 (0-0.9); NEUT % 46.9 % (16.0-70.0); PLATELET COUNT 183 TH/MM3 (150-450); RED BLOOD COUNT 4.07 MIL/MM3 (4.00-5.30); RED CELL DISTRIBUTION WIDTH 14.9 % (11.6-17.2); WHITE BLOOD COUNT 4.6 TH/MM3 (4.0-11.0)
[2017-11-07 21:42] LABS: ALT (GPT) 15 U/L (10-53)
[2017-11-07 21:52] LABS: ALKALINE PHOSPHATASE 121 U/L (45-117); TOTAL BILIRUBIN ADULT 0.3 MG/DL (0.2-1.0)
[2017-11-07 22:14] LABS: ALBUMIN 3.4 GM/DL (3.4-5.0); AST (GOT) 14 U/L (15-37); BICARBONATE 27.8 MEQ/L (21.0-32.0); BLOOD UREA NITROGEN 11 MG/DL (7-18); CALCIUM 9.1 MG/DL (8.5-10.1); CHLORIDE 111 MEQ/L (98-107); CREATININE 0.86 MG/DL (0.50-1.00); GLOMERULAR FILTRATION RATE 80 ML/MIN (>89); GLUCOSE,RANDOM 116 MG/DL (74-106); SODIUM (NA) 145 MEQ/L (136-145)
[2017-11-07 22:15] LABS: ACETAMINOPHEN LESS THAN 2.0 MCG/ML (10.0-30.0)
[2017-11-08] MEDS ORDERED: ACETAMINOPHEN 325 MG TAB PO ONE (04:45)
[2017-11-08 05:56] VITALS: BP 151/71; PULSE 79; RESP 16; O2SAT 98
[2017-11-08 09:01] VITALS: BP 137/88; PULSE 77; RESP 18; TEMP 97.7; O2SAT 97
[2017-11-08 12:58] VITALS: BP 121/84; PULSE 69; RESP 18; TEMP 97.7; O2SAT 99
[2017-11-08 15:19] VITALS: BP 141/87; PULSE 68; RESP 18; TEMP 97.6; O2SAT 97
--- NOTE | 2017-11-08 15:30 | PD ---
Physical Exam Date Seen by Provider: Nov 08, 2017 Time Seen by Provider: 15:29 Narrative 62-year-old female previously medically cleared for psychiatric evaluation has been determined by psychiatric staff to need transfer to the [facility]. Patient remains medically stable at this time and is appropriate for transfer. Data Data Last Documented VS Vital Signs Date Time Temp Pulse Resp B/P (MAP) Pulse Ox O2 Delivery O2 Flow Rate FiO2 11/08/17 15:19 97.6 68 18 141/87 (105) 97 11/08/17 05:56 Room Air Orders Orders Complete Blood Count With Diff (11/07/17 20:28) Comprehensive Metabolic Panel (11/07/17 20:28) Thyroid Stimulating Hormone (11/07/17 20:28) Psych Screen (11/07/17 20:28) Drug Screen, Random Urine (11/07/17 20:28) Alcohol (Ethanol) (11/07/17 20:28) Salicylates (Aspirin) (11/07/17 20:28) Tylenol (Acetaminophen) (11/07/17 20:28) Acetaminophen (Tylenol) (11/08/17 04:45) Diet Regular Basic (11/08/17 Breakfast) Labs Laboratory Tests Test 11/07/17 21:05 White Blood Count 4.6 TH/MM3 Red Blood Count 4.07 MIL/MM3 Hemoglobin 12.2 GM/DL Hematocrit 36.0 % Mean Corpuscular Volume 88.6 FL Mean Corpuscular Hemoglobin 30.1 PG Mean Corpuscular Hemoglobin Concent 33.9 % Red Cell Distribution Width 14.9 % Platelet Count 183 TH/MM3 Mean Platelet Volume 7.9 FL Neutrophils (%) (Auto) 46.9 % Lymphocytes (%) (Auto) 42.6 % Monocytes (%) (Auto) 8.5 % Eosinophils (%) (Auto) 1.3 % Basophils (%) (Auto) 0.7 % Neutrophils # (Auto) 2.1 TH/MM3 Lymphocytes # (Auto) 1.9 TH/MM3 Monocytes # (Auto) 0.4 TH/MM3 Eosinophils # (Auto) 0.1 TH/MM3 Basophils # (Auto) 0.0 TH/MM3 CBC Comment DIFF FINAL Differential Comment Blood Urea Nitrogen 11 MG/DL Creatinine 0.86 MG/DL Random Glucose 116 MG/DL Total Protein 7.0 GM/DL Albumin 3.4 GM/DL Calcium Level 9.1 MG/DL Alkaline Phosphatase 121 U/L Aspartate Amino Transf (AST/SGOT) 14 U/L Alanine Aminotransferase (ALT/SGPT) 15 U/L Total Bilirubin 0.3 MG/DL Sodium Level 145 MEQ/L Potassium Level 3.7 MEQ/L Chloride Level 111 MEQ/L Carbon Dioxide Level 27.8 MEQ/L Anion Gap 6 MEQ/L Estimat Glomerular Filtration Rate 80 ML/MIN Thyroid Stimulating Hormone 3rd Gen 1.720 uIU/ML Salicylates Level LESS THAN 1.7 MG/DL Urine Opiates Screen NEG Acetaminophen Level LESS THAN 2.0 MCG/ML Urine Barbiturates Screen NEG Urine Amphetamines Screen NEG Urine Benzodiazepines Screen NEG Urine Cocaine Screen NEG Urine Cannabinoids Screen NEG Ethyl Alcohol Level LESS THAN 3 MG/DL [facility] Medical Record Reviewed: Yes Supervised Visit with MEGAN: Yes Narrative Course 62-year-old female previously medically cleared for psychiatric evaluation has been determined by psychiatric staff to need transfer to the [facility]. Patient remains medically stable at this time and is appropriate for transfer. Diagnosis Primary Impression: Medical clearance for psychiatric admission Disposition: 70 TRANSFER TO OTHER FACILITY Condition: Stable Lowell Mcgee Nov 08, 2017 15:30
== END 2017-11-08 18:13 | disposition short-term general hospital (02) ==
LOC: NEPD 19:54 → NEPB 11-08 18:13
DX: F32.9 Major depressive disorder, single episode, unspecified (principal); R45.851 Suicidal ideations; F39 Unspecified mood [affective] disorder; M19.90 Unspecified osteoarthritis, unspecified site; F41.9 Anxiety disorder, unspecified; I10 Essential (primary) hypertension; E11.9 Type 2 diabetes mellitus without complications; Z87.19 Personal history of other diseases of the digestive system; Z79.899 Other long term (current) drug therapy
CPT/HCPCS: 80053; 80307; 84443; 85025; 99285

== ENCOUNTER → 2017-11-16 | Outpatient (CLI) | payer OTHER ==
[~2017-11-16] MED LIST changes: -DICL75TA PO; -FLUO10TA PO; -HYDR-3533 PO; -METO50TA PO; -ROBA500T PO; -TRAZ50TA12 PO
[2017-11-16 08:03] LABS: HEMATOCRIT 37.7 % (35.0-46.0); HEMOGLOBIN 12.7 GM/DL (11.6-15.3); MEAN CELL VOLUME 88.8 FL (80.0-100.0); MEAN CORPUSCULAR HGB CONC 33.7 % (32.0-36.0); MEAN PLATELET VOLUME 7.7 FL (7.0-11.0); PLATELET COUNT 200 TH/MM3 (150-450); RED BLOOD COUNT 4.25 MIL/MM3 (4.00-5.30); RED CELL DISTRIBUTION WIDTH 14.5 % (11.6-17.2); WHITE BLOOD COUNT 3.9 TH/MM3 (4.0-11.0)
[2017-11-16 08:18] LABS: BILIRUBIN, URINE NEG (NEG); BLOOD, URINE TRACE (NEG); GLUCOSE,URINE NEG (NEG); KETONE, URINE NEG (NEG); NITRITE,URINE NEG (NEG); PH, URINE 6.5 (5.0-8.5); SQUAMOUS EPITHELIAL CELL URINE 1 /hpf (0-5); URINE COLOR LIGHT-YELLOW (YELLW/STRAW); URINE LEUKOCYTE ESTERASE MOD (NEG)
[2017-11-16 08:24] LABS: ALBUMIN 3.7 GM/DL (3.4-5.0); AST (GOT) 14 U/L (15-37); BICARBONATE 28.1 MEQ/L (21.0-32.0); BLOOD UREA NITROGEN 12 MG/DL (7-18); CALCIUM 9.3 MG/DL (8.5-10.1); CHLORIDE 108 MEQ/L (98-107); CREATININE 0.75 MG/DL (0.50-1.00); GLOMERULAR FILTRATION RATE 94 ML/MIN (>89); GLUCOSE,FASTING 107 MG/DL (74-99); SODIUM (NA) 142 MEQ/L (136-145)
[2017-11-16 08:25] LABS: ALT (GPT) 12 U/L (10-53); CHOLESTEROL 177 MG/DL (120-200); TRIGLYCERIDES 60 MG/DL (42-150)
[2017-11-16 08:33] LABS: ALKALINE PHOSPHATASE 128 U/L (45-117); CHOLESTEROL/ HDL RATIO 3.03 RATIO; FREE T4 0.99 NG/DL (0.76-1.46); HDL CHOLESTEROL 58.3 MG/DL (40.0-60.0); LDL CHOLESTEROL 107 MG/DL (0-99); TOTAL BILIRUBIN ADULT 0.4 MG/DL (0.2-1.0); TOTAL PROTEIN 7.3 GM/DL (6.4-8.2)
[2017-11-16 16:45] LABS: HEMOGLOBIN A1C 5.8 % (4.3-6.0)
== END ==
LOC: CLAB 07:28
DX: F33.1 Major depressive disorder, recurrent, moderate (principal); F41.1 Generalized anxiety disorder; K21.9 Gastro-esophageal reflux disease without esophagitis; E11.9 Type 2 diabetes mellitus without complications; I10 Essential (primary) hypertension; Z68.30 Body mass index [BMI] 30.0-30.9, adult
CPT/HCPCS: 36415; 80053; 80061; 81001; 82306; 83036; 84439; 84443; 85027

== ENCOUNTER 2017-11-28 01:49 | Emergency (ER) | payer OTHER ==
[~2017-11-28] VITALS: Ht 167.6 cm; Wt 88.0 kg
[2017-11-28 02:15] VITALS: BP 135/76; PULSE 78; RESP 12; O2SAT 99
[2017-11-28] MEDS ORDERED: VIST50CA PO (03:14)
[2017-11-28] MEDS ORDERED: hydrOXYzine HCL 50 MG/ML VIAL IM ONE (03:15)
[2017-11-28] MEDS ORDERED: KETOROLAC TROMETHAMINE 60 MG/2 ML (IM) VIAL IM ONE (03:15)
--- NOTE | 2017-11-28 03:17 | PD ---
HPI Chief Complaint: Medical Clearance Time Seen by Provider: 03:13 Travel History International Travel<30 days: No Contact w/Intl Traveler<30days: No Traveled to known affect area: No History of Present Illness HPI 62-year-old female presents for evaluation of difficulty sleeping for the past 3 nights. Symptoms are mild, aggravated by inability to sleep. The patient is prescribed mirtazapine for depression, Ativan 0.5 mg twice a day for anxiety and this has not been helping. In addition the patient is complaining of chronic neck pain and bilateral arm pain and this is been going on for several months. She reports a sharp shooting pain down both arms with no aggravating or alleviating factors. She has no other complaints at this time. PFSH Past Medical History Hx Anticoagulant Therapy: Yes Arthritis: Yes Anxiety: Yes Depression: Yes Heart Rhythm Problems: No Cancer: No Cardiac Catheterization: No Cardiovascular Problems: Yes (HTN) High Cholesterol: No Chemotherapy: No Congestive Heart Failure: No Cerebrovascular Accident: No Diabetes: Yes (DIET/EXERCISE CONTROLLED) Patient Takes Glucophage: No Diminished Hearing: No Diverticulitis: Yes Endocrine: No Gastrointestinal Disorders: Yes (HIATAL HERNIA, CONSTIPATION) GERD: Yes (colon polyps h pylori) Genitourinary: No Hepatitis: No Hiatal Hernia: Yes Heparin Induced Thrombocytopen: No Hypertension: Yes Immune Disorder: No Musculoskeletal: Yes (BONE SPUR LEFT SHOULDER, BACK PROBLEMS) Neurologic: No Psychiatric: Yes (SLIGHTLY CLAUSTROPHOBIC) Reproductive: No Respiratory: No Immunizations Current: Yes Thyroid Disease: No Menopausal: Yes : 8 Para: 6 Miscarriage: 2 Past Surgical History Abdominal Surgery: Yes (CHOLECYSTECTOMY ) AICD: No Cholecystectomy: Yes Coronary Artery Bypass Graft: No Gynecologic Surgery: Yes Hysterectomy: Yes (TOTAL) Joint Replacement: Yes (left knee) Pacemaker: No Other Surgery: Yes Social History Alcohol Use: No Tobacco Use: No Substance Use: No Allergies-Medications (Allergen,Severity, Reaction): Coded Allergies: ciprofloxacin (Unverified Allergy, Severe, rash, 11/07/17) propoxyphene (Unverified Adverse Reaction, Severe, N&V, 11/07/17) Reported Meds & Prescriptions Reported Meds & Active Scripts Active Vistaril (Hydroxyzine Pamoate) 50 Mg Cap 50 Mg PO HS Pantoprazole (Pantoprazole Sodium) 40 Mg Tab 40 Mg PO DAILY Reported Xanax (Alprazolam) 0.5 Mg Tab 0.5 Mg PO TID PRN Norvasc (Amlodipine Besylate) 10 Mg Tab 10 Mg PO DAILY Review of Systems Except as stated in HPI: all other systems reviewed are Neg Physical Exam Narrative GENERAL: Well-nourished female no acute distress SKIN: Warm and dry. HEAD: Atraumatic. Normocephalic. EYES: Pupils equal and round. No scleral icterus. No injection or drainage. ENT: No nasal bleeding or discharge. Mucous membranes pink and moist. NECK: Trachea midline. No JVD. CARDIOVASCULAR: Regular rate and rhythm. No murmur appreciated. RESPIRATORY: No accessory muscle use. Clear to auscultation. Breath sounds equal bilaterally. GASTROINTESTINAL: Abdomen soft, non-tender, nondistended. Hepatic and splenic margins not palpable. MUSCULOSKELETAL: No obvious deformities. No tenderness to palpation in the arms or neck. Full range of motion of the arms and neck. No edema. 2+ radial pulse. Distal sensation preserved. NEUROLOGICAL: Awake and alert. No obvious cranial nerve deficits. Motor grossly within normal limits. Normal speech. PSYCHIATRIC: Anxious, restless Data Data Last Documented VS Vital Signs Date Time Temp Pulse Resp B/P (MAP) Pulse Ox O2 Delivery O2 Flow Rate FiO2 11/28/17 02:15 78 12 135/76 (95) 99 Orders Orders Ed Discharge Order (11/28/17 03:13) Ketorolac Inj (Toradol Inj) (11/28/17 03:15) Hydroxyzine Hcl Inj (Vistaril Inj) (11/28/17 03:15) [facility] Medical Decision Making Medical Screen Exam Complete: Yes Emergency Medical Condition: Yes Medical Record Reviewed: Yes Differential Diagnosis Radiculopathy, myalgias, carpal tunnel syndrome Narrative Course I recommended that the patient follow-up as an outpatient with her primary care physician to discuss MRI of the cervical spine. She will be given Toradol for her chronic neck and arm pain. I recommended that she increase her dose of Ativan at night to 1 mg. She will also be discharged with a short course of Vistaril to use at night to help her sleep. Diagnosis Primary Impression: Sleeplessness Additional Impression: Cervical radiculopathy Additional Instructions: Medication as prescribed. As discussed, take 2 Ativan tablets at night prior to going to sleep. Follow-up next week with your primary care physician. Med/Other Pt SpecificInfo: Prescription(s) given Scripts Hydroxyzine Pamoate (Vistaril) 50 Mg Cap 50 MG PO HS, #14 CAP 0 Refills Prov: Christopher Ellis MD 11/28/17 Disposition: 01 DISCHARGE HOME Condition: Stable Lucio Moreno Nov 28, 2017 03:17
== END 2017-11-28 04:37 | disposition home or self-care (01) ==
LOC: NEPD 01:49
DX: G47.00 Insomnia, unspecified (principal); M54.12 Radiculopathy, cervical region; F41.9 Anxiety disorder, unspecified; M54.2 Cervicalgia; M79.602 Pain in left arm; M79.601 Pain in right arm; G89.29 Other chronic pain; I10 Essential (primary) hypertension; E11.9 Type 2 diabetes mellitus without complications
CPT/HCPCS: 96372; 99283; J1885; J3410

== ENCOUNTER 2017-12-12 14:14 | Emergency (ER) | payer OTHER ==
[~2017-12-12 14:14] MED LIST changes: +VIST50CA PO
[2017-12-12 15:01] VITALS: BP 139/72; PULSE 85; RESP 18; TEMP 98.4; O2SAT 99
[2017-12-12] MEDS ORDERED: LORA0.5T PO (15:11)
[2017-12-12 15:50] LABS: AUTOMATED NEUTROPHIL # 2.4 TH/MM3 (1.8-7.7); BASOPHIL % 0.8 % (0.0-2.0); EOSINOPHIL % 0.6 % (0.0-4.0); HEMATOCRIT 37.6 % (35.0-46.0); HEMOGLOBIN 13.3 GM/DL (11.6-15.3); LYMPH % 38.2 % (9.0-44.0); LYMPHOCYTE # 1.7 TH/MM3 (1.0-4.8); MEAN CELL VOLUME 89.9 FL (80.0-100.0); MEAN CORPUSCULAR HEMOGLOBIN 31.9 PG (27.0-34.0); MEAN CORPUSCULAR HGB CONC 35.5 % (32.0-36.0); MEAN PLATELET VOLUME 7.7 FL (7.0-11.0); MONO % 8.6 % (0.0-8.0); MONOCYTE # 0.4 TH/MM3 (0-0.9); NEUT % 51.8 % (16.0-70.0); PLATELET COUNT 191 TH/MM3 (150-450); RED BLOOD COUNT 4.18 MIL/MM3 (4.00-5.30); RED CELL DISTRIBUTION WIDTH 14.8 % (11.6-17.2); WHITE BLOOD COUNT 4.6 TH/MM3 (4.0-11.0)
[2017-12-12 16:15] LABS: BICARBONATE 28.5 MEQ/L (21.0-32.0); BLOOD UREA NITROGEN 11 MG/DL (7-18); CALCIUM 9.1 MG/DL (8.5-10.1); CHLORIDE 109 MEQ/L (98-107); CREATININE 0.82 MG/DL (0.50-1.00); GLOMERULAR FILTRATION RATE 85 ML/MIN (>89); GLUCOSE,RANDOM 95 MG/DL (74-106); SODIUM (NA) 143 MEQ/L (136-145)
[2017-12-12 16:18] LABS: TROPONIN I LESS THAN 0.02 NG/ML (0.02-0.05)
[2017-12-12 19:00] VITALS: BP 145/68; PULSE 82; RESP 18; O2SAT 98
[2017-12-12] MEDS ORDERED: KETOROLAC TROMETHAMINE 60 MG/2 ML (IM) VIAL IM ONE (19:00)
--- NOTE | 2017-12-12 19:08 | PD ---
HPI Chief Complaint: Pain: Acute or Chronic Time Seen by Provider: 18:59 Travel History International Travel<30 days: No Contact w/Intl Traveler<30days: No Traveled to known affect area: No History of Present Illness HPI This patient complains of pain in both arms. Duration is 2 weeks. Severity is moderate. She saw her physician for this who ordered physical therapy for her arthritis issues. She says it's not helping. No specific injury. Denies muscle weakness or sensory loss. Pain is worse in her wrists and hands and shoulders. She also complains of palpitations. She is not having any chest pain or pressure or tightness or heaviness. No alleviating factors. Exacerbating factors. She does have history of anxiety and is taking Ativan as needed PFSH Past Medical History Hx Anticoagulant Therapy: Yes Arthritis: Yes Anxiety: Yes Depression: Yes Heart Rhythm Problems: No Cancer: No Cardiac Catheterization: No Cardiovascular Problems: Yes (HTN) High Cholesterol: No Chemotherapy: No Congestive Heart Failure: No Cerebrovascular Accident: No Diabetes: Yes (FOOD CONTROLLED) Patient Takes Glucophage: No Diminished Hearing: No Diverticulitis: Yes Endocrine: No Gastrointestinal Disorders: Yes (HIATAL HERNIA, CONSTIPATION) GERD: Yes (colon polyps h pylori) Genitourinary: No Hepatitis: No Hiatal Hernia: Yes Heparin Induced Thrombocytopen: No Hypertension: Yes Immune Disorder: No Musculoskeletal: Yes (BONE SPUR LEFT SHOULDER, BACK PROBLEMS) Neurologic: No Psychiatric: Yes (SLIGHTLY CLAUSTROPHOBIC) Reproductive: No Respiratory: No Immunizations Current: Yes Thyroid Disease: No Menopausal: Yes : 8 Para: 6 Miscarriage: 2 Past Surgical History Abdominal Surgery: Yes (CHOLECYSTECTOMY ) AICD: No Cholecystectomy: Yes Coronary Artery Bypass Graft: No Gynecologic Surgery: Yes Hysterectomy: Yes Joint Replacement: Yes (left knee) Pacemaker: No Other Surgery: Yes Social History Alcohol Use: No Tobacco Use: No Substance Use: No Allergies-Medications (Allergen,Severity, Reaction): Coded Allergies: ciprofloxacin (Unverified Allergy, Severe, rash, 12/12/17) propoxyphene (Unverified Adverse Reaction, Severe, N&V, 12/12/17) Reported Meds & Prescriptions Reported Meds & Active Scripts Active Tylenol-Codeine #3 (Acetaminophen-Codeine) 300-30 mg Tab 1 Tab PO Q6H PRN Reported Lorazepam 0.5 Mg Tab 0.5 Mg PO TID PRN Norvasc (Amlodipine Besylate) 10 Mg Tab 10 Mg PO DAILY Review of Systems General / Constitutional: No: Fever Eyes: No: Visual changes HENT: No: Headaches Cardiovascular: Positive: Palpitations, No: Chest Pain or Discomfort Respiratory: No: Shortness of Breath Gastrointestinal: No: Abdominal Pain Genitourinary: No: Dysuria Musculoskeletal: Positive: Pain Skin: No Rash Neurologic: No: Weakness Psychiatric: Positive: Anxiety, No: Depression Endocrine: No: Polydipsia Hematologic/Lymphatic: No: Easy Bruising Physical Exam Narrative GENERAL: Well-nourished, well-developed patient in no apparent distress. SKIN: Focused skin assessment reveals no rash and nodules. Skin is Warm and dry. HEAD: Atraumatic. Normocephalic. EYES: Pupils equal and round. No scleral icterus. No injection or drainage. ENT: No nasal bleeding or discharge. Mucous membranes pink and moist. NECK: Trachea midline. No JVD. CARDIOVASCULAR: Regular rate and rhythm. No murmur appreciated. RESPIRATORY: No accessory muscle use. Clear to auscultation. Breath sounds equal bilaterally. GASTROINTESTINAL: Abdomen soft, non-tender, nondistended. Hepatic and splenic margins not palpable. MUSCULOSKELETAL: No obvious deformities. No clubbing. No cyanosis. No edema. None of her joints are hot red swollen or obviously actively inflamed. NEUROLOGICAL: Awake and alert. No obvious cranial nerve deficits. Motor grossly within normal limits. Normal speech. PSYCHIATRIC: Appropriate mood and affect; insight and judgment normal. Data Data Last Documented VS Vital Signs Date Time Temp Pulse Resp B/P (MAP) Pulse Ox O2 Delivery O2 Flow Rate FiO2 12/12/17 20:48 59 18 138/83 (101) 100 Room Air 12/12/17 15:01 98.4 Orders Orders Electrocardiogram (12/12/17 15:08) Complete Blood Count With Diff (12/12/17 15:08) Basic Metabolic Panel (Bmp) (12/12/17 15:08) Ckmb (Isoenzyme) Profile (12/12/17 15:08) Troponin I (12/12/17 15:08) Ketorolac Inj (Toradol Inj) (12/12/17 19:00) Whirley Operator / Telemetry [email or web address] (12/12/17 18:59) Labs Laboratory Tests Test 12/12/17 15:28 White Blood Count 4.6 TH/MM3 Red Blood Count 4.18 MIL/MM3 Hemoglobin 13.3 GM/DL Hematocrit 37.6 % Mean Corpuscular Volume 89.9 FL Mean Corpuscular Hemoglobin 31.9 PG Mean Corpuscular Hemoglobin Concent 35.5 % Red Cell Distribution Width 14.8 % Platelet Count 191 TH/MM3 Mean Platelet Volume 7.7 FL Neutrophils (%) (Auto) 51.8 % Lymphocytes (%) (Auto) 38.2 % Monocytes (%) (Auto) 8.6 % Eosinophils (%) (Auto) 0.6 % Basophils (%) (Auto) 0.8 % Neutrophils # (Auto) 2.4 TH/MM3 Lymphocytes # (Auto) 1.7 TH/MM3 Monocytes # (Auto) 0.4 TH/MM3 Eosinophils # (Auto) 0.0 TH/MM3 Basophils # (Auto) 0.0 TH/MM3 CBC Comment DIFF FINAL Differential Comment Blood Urea Nitrogen 11 MG/DL Creatinine 0.82 MG/DL Random Glucose 95 MG/DL Calcium Level 9.1 MG/DL Sodium Level 143 MEQ/L Potassium Level 4.2 MEQ/L Chloride Level 109 MEQ/L Carbon Dioxide Level 28.5 MEQ/L Anion Gap 6 MEQ/L Estimat Glomerular Filtration Rate 85 ML/MIN Total Creatine Kinase 51 U/L Troponin I LESS THAN 0.02 NG/ML MDM Medical Decision Making Medical Screen Exam Complete: Yes Emergency Medical Condition: Yes Medical Record Reviewed: Yes Differential Diagnosis Osteoarthritis, rheumatoid, lupus, cardiac arrhythmia Narrative Course I have reviewed the patient's electronic medical record. I reviewed her EKG which shows sinus rhythm without ectopy or ST elevation Extended cardiac monitoring reveals sinus rhythm without ectopy I reviewed her labs. CBC and metabolic profiles and cardiac enzymes are all normal I gave her Toradol injection. Stable for outpatient follow-up She insists on pain medication I wrote her 10 Tylenol 3 and warned her about potential sedation and constipation She should wean herself off the Ativan Diagnosis Primary Impression: Arthritis pain Additional Impression: Palpitations Additional Instructions: The patient was advised to follow up with their physician and return if they worsen. Recommend weaning off Ativan, discuss this with your physician Med/Other Pt SpecificInfo: Prescription(s) given Scripts Acetaminophen-Codeine (Tylenol-Codeine #3) 300-30 mg Tab 1 TAB PO Q6H Y for PAIN, #10 TAB 0 Refills Prov: Brendon Mcnulty MD 12/12/17 Disposition: 01 DISCHARGE HOME Condition: Stable Brendon Mcnulty MD Dec 12, 2017 19:08
--- NOTE | 2017-12-12 19:32 | EKG ---
Date Performed: 12/12/2017 Time Performed: 15:24:16 PTAGE: 62 years EKG: Sinus rhythm NONSPECIFIC T-WAVE ABNORMALITY BORDERLINE ECG Since the PREVIOUS TRACING , no significant change noted PREVIOUS TRACIN06/22/2017 08.10 DOCTOR: Ramon Bernardo Interpretating Date/Time 12/12/2017 19:30:08
[2017-12-12 20:48] VITALS: BP 138/83; PULSE 59; RESP 18; O2SAT 100
[2017-12-12] MEDS ORDERED: TYLETAB34 PO (21:22)
== END 2017-12-12 21:42 | disposition home or self-care (01) ==
LOC: NEPD 14:14
DX: M19.90 Unspecified osteoarthritis, unspecified site (principal); M79.602 Pain in left arm; M79.601 Pain in right arm; R00.2 Palpitations; R94.31 Abnormal electrocardiogram [ECG] [EKG]; I10 Essential (primary) hypertension; E11.9 Type 2 diabetes mellitus without complications; F41.9 Anxiety disorder, unspecified; F32.9 Major depressive disorder, single episode, unspecified; Z88.1 Allergy status to other antibiotic agents; Z79.899 Other long term (current) drug therapy
CPT/HCPCS: 80048; 82550; 84484; 85025; 93005; 96372; 99283; J1885

== ENCOUNTER 2018-01-05 12:05 | Inpatient (IN) | payer OTHER ==
[~2018-01-05] VITALS: Ht 167.6 cm; Wt 85.7 kg
[~2018-01-05 12:05] MED LIST changes: -ALPR.5 PO; +LORA0.5T PO; -PANT40TA3 PO; +TYLETAB34 PO; -VIST50CA PO
[2018-01-05 12:08] VITALS: BP 149/85; PULSE 86; RESP 18; TEMP 98.1; O2SAT 100
[2018-01-05 12:43] LABS: AUTOMATED NEUTROPHIL # 2.7 TH/MM3 (1.8-7.7); BASOPHIL % 0.7 % (0.0-2.0); EOSINOPHIL % 0.6 % (0.0-4.0); HEMOGLOBIN 13.8 GM/DL (11.6-15.3); LYMPH % 37.3 % (9.0-44.0); LYMPHOCYTE # 1.8 TH/MM3 (1.0-4.8); MEAN CELL VOLUME 89.7 FL (80.0-100.0); MEAN CORPUSCULAR HEMOGLOBIN 30.2 PG (27.0-34.0); MEAN CORPUSCULAR HGB CONC 33.7 % (32.0-36.0); MONO % 6.2 % (0.0-8.0); MONOCYTE # 0.3 TH/MM3 (0-0.9); NEUT % 55.2 % (16.0-70.0); PLATELET COUNT 199 TH/MM3 (150-450); RED BLOOD COUNT 4.57 MIL/MM3 (4.00-5.30); WHITE BLOOD COUNT 4.9 TH/MM3 (4.0-11.0)
[2018-01-05] MEDS ORDERED: CEPH500C PO (12:50)
[2018-01-05 12:56] LABS: BACTERIA, URINE RARE /hpf; BILIRUBIN, URINE NEG (NEG); BLOOD, URINE NEG (NEG); GLUCOSE,URINE NEG (NEG); KETONE, URINE NEG (NEG); MUCUS URINE FEW /lpf (OCC); NITRITE,URINE NEG (NEG); PH, URINE 7.5 (5.0-8.5); SQUAMOUS EPITHELIAL CELL URINE <1 /hpf (0-5); URINE COLOR LIGHT-YELLOW (YELLW/STRAW); URINE LEUKOCYTE ESTERASE SMALL (NEG)
[2018-01-05 13:04] LABS: ALBUMIN 3.9 GM/DL (3.4-5.0); ALT (GPT) 20 U/L (10-53); AST (GOT) 16 U/L (15-37); BICARBONATE 25.5 MEQ/L (21.0-32.0); BLOOD UREA NITROGEN 9 MG/DL (7-18); CALCIUM 9.5 MG/DL (8.5-10.1); CHLORIDE 109 MEQ/L (98-107); CREATININE 0.72 MG/DL (0.50-1.00); GLOMERULAR FILTRATION RATE 99 ML/MIN (>89); GLUCOSE,RANDOM 97 MG/DL (74-106); SODIUM (NA) 145 MEQ/L (136-145)
[2018-01-05 13:14] LABS: ALKALINE PHOSPHATASE 129 U/L (45-117); TOTAL BILIRUBIN ADULT 0.6 MG/DL (0.2-1.0)
--- NOTE | 2018-01-05 14:40 | PD ---
HPI Chief Complaint: Psychiatric Symptoms Time Seen by Provider: 12:49 Travel History International Travel<30 days: No Contact w/Intl Traveler<30days: No Traveled to known affect area: No History of Present Illness HPI 62-year-old female presents to the emergency department voluntarily for psychiatric evaluation. She stopped taking mirtazapine about 2 or 3 weeks ago because her psychiatrist told her to stop taking it. She has history of depression and anxiety. She has been taking lorazepam as prescribed and her psychiatrist told her to continue that. She reports feeling anxious. She says "things are going on in my mind." She says she keeps worrying about things, such as her children, she cannot sleep at night and she feels depressed. She denies suicidal or homicidal ideations. Denies auditory or visual hallucinations. Denies illicit drug use, tobacco use, EtOH. Symptoms are moderate to severe in severity. No known aggravating or relieving factors. Onset unknown. Duration unknown. Psychiatrist is Jelly Bhagat. Primary care provider is Dr. Osborne. Allergies to Cipro. History of hypertension, depression, anxiety. Has no emergent medical complaints. Denies chest pain, shortness of breath, abdominal pain, nausea, vomiting, fevers, change in urine or stool. No other modifying factors or associated signs and symptoms. PFSH Past Medical History Hx Anticoagulant Therapy: Yes Arthritis: Yes Anxiety: Yes Depression: Yes Heart Rhythm Problems: No Cancer: No Cardiac Catheterization: No Cardiovascular Problems: Yes (HTN) High Cholesterol: No Chemotherapy: No Congestive Heart Failure: No Cerebrovascular Accident: No Diabetes: Yes (FOOD CONTROLLED) Diminished Hearing: No Diverticulitis: Yes Endocrine: No Gastrointestinal Disorders: Yes (HIATAL HERNIA, CONSTIPATION) GERD: Yes (colon polyps h pylori) Genitourinary: No Hepatitis: No Hiatal Hernia: Yes Heparin Induced Thrombocytopen: No Hypertension: Yes Immune Disorder: No Musculoskeletal: Yes (BONE SPUR LEFT SHOULDER, BACK PROBLEMS) Neurologic: No Psychiatric: Yes (SLIGHTLY CLAUSTROPHOBIC) Reproductive: No Respiratory: No Immunizations Current: Yes Thyroid Disease: No ?: Not Menopausal: Yes : 8 Para: 6 Miscarriage: 2 Past Surgical History Abdominal Surgery: Yes (CHOLECYSTECTOMY ) AICD: No Cholecystectomy: Yes Coronary Artery Bypass Graft: No Gynecologic Surgery: Yes Hysterectomy: Yes Joint Replacement: Yes (l knee) Pacemaker: No Other Surgery: Yes Social History Alcohol Use: No Tobacco Use: No Substance Use: No Allergies-Medications (Allergen,Severity, Reaction): Coded Allergies: ciprofloxacin (Unverified Allergy, Severe, rash, 12/12/17) propoxyphene (Unverified Adverse Reaction, Severe, N&V, 12/12/17) Reported Meds & Prescriptions Reported Meds & Active Scripts Active Tylenol-Codeine #3 (Acetaminophen-Codeine) 300-30 mg Tab 1 Tab PO Q6H PRN Reported Cephalexin 500 Mg Cap 500 Mg PO Q8H Lorazepam 0.5 Mg Tab 0.5 Mg PO TID PRN Norvasc (Amlodipine Besylate) 10 Mg Tab 10 Mg PO DAILY Review of Systems Except as stated in HPI: all other systems reviewed are Neg Physical Exam Narrative GENERAL: Well-nourished, well-developed black female patient, in no acute distress SKIN: Warm and dry. HEAD: Atraumatic. Normocephalic. EYES: Pupils equal and round. ENT: Mucosa pink and moist. NECK: Supple. Trachea midline. CARDIOVASCULAR: Regular rate and rhythm. No murmur appreciated. RESPIRATORY: No accessory muscle use. Clear to auscultation. Breath sounds equal bilaterally. GASTROINTESTINAL: Abdomen soft, non-tender, nondistended. Hepatic and splenic margins not palpable. Bowel sounds are active 4 quadrants. MUSCULOSKELETAL: No obvious deformities. No clubbing. No cyanosis. No edema. BACK: No CVA tenderness. NEUROLOGICAL: Awake and alert. Oriented 3. No obvious cranial nerve deficits. Motor grossly within normal limits. Normal speech. Moves all extremities. 5/5 strength to all extremities. PSYCHIATRIC: No delusional thought processes. No hallucinations. Data Data Last Documented VS Vital Signs Date Time Temp Pulse Resp B/P (MAP) Pulse Ox O2 Delivery O2 Flow Rate FiO2 01/05/18 12:08 98.1 86 18 149/85 (106) 100 Orders Orders Complete Blood Count With Diff (01/05/18 12:10) Comprehensive Metabolic Panel (01/05/18 12:10) Thyroid Stimulating Hormone (01/05/18 12:10) Urinalysis - C+S If Indicated (01/05/18 12:10) Psych Screen (01/05/18 12:10) Drug Screen, Random Urine (01/05/18 12:10) Alcohol (Ethanol) (01/05/18 12:10) Labs Laboratory Tests Test 01/05/18 12:20 White Blood Count 4.9 TH/MM3 Red Blood Count 4.57 MIL/MM3 Hemoglobin 13.8 GM/DL Hematocrit 41.0 % Mean Corpuscular Volume 89.7 FL Mean Corpuscular Hemoglobin 30.2 PG Mean Corpuscular Hemoglobin Concent 33.7 % Red Cell Distribution Width 15.0 % Platelet Count 199 TH/MM3 Mean Platelet Volume 8.0 FL Neutrophils (%) (Auto) 55.2 % Lymphocytes (%) (Auto) 37.3 % Monocytes (%) (Auto) 6.2 % Eosinophils (%) (Auto) 0.6 % Basophils (%) (Auto) 0.7 % Neutrophils # (Auto) 2.7 TH/MM3 Lymphocytes # (Auto) 1.8 TH/MM3 Monocytes # (Auto) 0.3 TH/MM3 Eosinophils # (Auto) 0.0 TH/MM3 Basophils # (Auto) 0.0 TH/MM3 CBC Comment DIFF FINAL Differential Comment Urine Color LIGHT-YELLOW Urine Turbidity CLEAR Urine pH 7.5 Urine Specific [place] 1.011 Urine Protein NEG mg/dL Urine Glucose (UA) NEG mg/dL Urine Ketones NEG mg/dL Urine Occult Blood NEG Urine Nitrite NEG Urine Bilirubin NEG Urine Urobilinogen LESS THAN 2.0 MG/DL Urine Leukocyte Esterase SMALL Urine RBC LESS THAN 1 /hpf Urine WBC 1 /hpf Urine Squamous Epithelial Cells <1 /hpf Urine Bacteria RARE /hpf Urine Mucus FEW /lpf Microscopic Urinalysis Comment CULT NOT INDICATED Blood Urea Nitrogen 9 MG/DL Creatinine 0.72 MG/DL Random Glucose 97 MG/DL Total Protein 8.0 GM/DL Albumin 3.9 GM/DL Calcium Level 9.5 MG/DL Alkaline Phosphatase 129 U/L Aspartate Amino Transf (AST/SGOT) 16 U/L Alanine Aminotransferase (ALT/SGPT) 20 U/L Total Bilirubin 0.6 MG/DL Sodium Level 145 MEQ/L Potassium Level 3.7 MEQ/L Chloride Level 109 MEQ/L Carbon Dioxide Level 25.5 MEQ/L Anion Gap 11 MEQ/L Estimat Glomerular Filtration Rate 99 ML/MIN Thyroid Stimulating Hormone 3rd Gen 0.607 uIU/ML Urine Opiates Screen NEG Urine Barbiturates Screen NEG Urine Amphetamines Screen NEG Urine Benzodiazepines Screen NEG Urine Cocaine Screen NEG Urine Cannabinoids Screen NEG Ethyl Alcohol Level 5 MG/DL [facility] Medical Decision Making Medical Screen Exam Complete: Yes Emergency Medical Condition: Yes Medical Record Reviewed: Yes Differential Diagnosis Depression, anxiety, medical clearance for psychiatric evaluation Narrative Course Patient presents voluntarily. Physical examination and vital signs are essentially unremarkable. Patient has no medical complaints to report. Psych screen has been ordered. If the laboratory results are unremarkable, the patient will be medically cleared for psychiatric evaluation and disposition. Diagnosis Primary Impression: Encounter for psychological evaluation Condition: Stable Jody Pinon PUMPER BREWERY Jan 05, 2018 14:40
[2018-01-05 16:30] VITALS: BP 120/77; PULSE 80; RESP 18; TEMP 96.9; O2SAT 98
--- NOTE | 2018-01-05 19:51 | PD ---
History of Present Illness Chief Complaint: Psychiatric Symptoms Time Seen by Provider: 19:30 Travel History International Travel<30 Days: No Contact w/Intl Traveler<30days: No Known affected area: No Legal Status Legal Status: Voluntary History of Present Illness: History of Present Illness HPI 62-year-old, , -[place] female, living with her daughter, with reported history of depression and anxiety, one previous psychiatric admission in October 2017, presents to the emergency department voluntarily for psychiatric evaluation with complaints of increased depressed mood, inability to function at home, difficulty with sleep, feeling nervous and afraid all day, increased worry over her adult children, feels like she is unable to take care of herself, ""feeling like things are going on in my mind". States symptoms began approximately a few days ago. She reports that 3 weeks ago her medications were changed by her outpatient psychiatrist, Dr. Alyse Bhagat, including discontinuation of Remeron. She has been taking lorazepam as prescribed and her psychiatrist told her to decrease it to twice a day. Reports medication compliance but current toxicology is negative for benzos which are prescribed.. EMR reviewed. The patient was seen in October 2017 with reported increased depression and suicidal ideation. She was transferred to the [facility]. She was seen again in November 28 with reported increased insomnia and was advised to increase her Ativan to 2 tabs at nighttime and Vistaril was added by ED provider. Patient is seen in J pod. Patient is alert, oriented, engaging, cooperative. Dressed in hospital gown and maintaining basic hygiene. Speech is clear and of normal rate and tone. Affect is blunted. Fair amount of eye contact. Mood is described as depressed. There is no evidence of any psychosis, no mauricio or hypomania. Patient denies suicidal or homicidal ideation, intent or plan. Attention and concentration are adequate. PFSH Past Medical History Hx Anticoagulant Therapy: Yes Arthritis: Yes Anxiety: Yes Depression: Yes Heart Rhythm Problems: No Cancer: No Cardiac Catheterization: No Cardiovascular Problems: Yes (HTN) High Cholesterol: No Chemotherapy: No Congestive Heart Failure: No Cerebrovascular Accident: No Diabetes: Yes (FOOD CONTROLLED) Diminished Hearing: No Diverticulitis: Yes Endocrine: No Gastrointestinal Disorders: Yes (HIATAL HERNIA, CONSTIPATION) GERD: Yes (colon polyps h pylori) Genitourinary: No Hepatitis: No Hiatal Hernia: Yes Heparin Induced Thrombocytopen: No Hypertension: Yes Immune Disorder: No Musculoskeletal: Yes (BONE SPUR LEFT SHOULDER, BACK PROBLEMS) Neurologic: No Psychiatric: Yes (SLIGHTLY CLAUSTROPHOBIC) Reproductive: No Respiratory: No Immunizations Current: Yes Thyroid Disease: No ?: Not Menopausal: Yes : 8 Para: 6 Miscarriage: 2 Past Surgical History Abdominal Surgery: Yes (CHOLECYSTECTOMY ) AICD: No Cholecystectomy: Yes Coronary Artery Bypass Graft: No Gynecologic Surgery: Yes Hysterectomy: Yes Joint Replacement: Yes (l knee) Pacemaker: No Other Surgery: Yes Psychiatric History Psychiatric History Hx Psychiatric Treatment: Hx of depression and anxiety. Receives outpatient care by Dr. Toya Bhagat. Began treatment in late 2017. No history of suicide attempt. History of Inpatient Treatment: Yes ([facility] Guns or firearms in home: No Social History Born in [place]. but . Her daughter has moved in with her to help care for her. Unemployed. Hx Alcohol Use: No Hx Tobacco Use: No Hx Substance Use: No Hx of Substance Use Treatment: No Family Psychiatric History Negative Allergies-Medications (Allergen,Severity, Reaction): Coded Allergies: ciprofloxacin (Unverified Allergy, Severe, rash, 12/12/17) propoxyphene (Unverified Adverse Reaction, Severe, N&V, 12/12/17) Reported Meds & Prescriptions Reported Meds & Active Scripts Active Tylenol-Codeine #3 (Acetaminophen-Codeine) 300-30 mg Tab 1 Tab PO Q6H PRN Reported Cephalexin 500 Mg Cap 500 Mg PO Q8H Lorazepam 0.5 Mg Tab 0.5 Mg PO TID PRN Norvasc (Amlodipine Besylate) 10 Mg Tab 10 Mg PO DAILY Review of Systems Musculoskeletal: COMPLAINS OF: Joint pain, Stiffness Psychiatric: COMPLAINS OF: Anxiety, Depression Mental Status Examination Appearance: Appropriate Consciousness: Alert Orientation: x4 Motor Activity: Normal gait Speech: Unremarkable Language: Adequate Fund of Knowledge: Adequate Attention and Concentration: Adequate Memory: Unremarkable Mood: Sad, Anxious Affect: Blunt Thought Process & Associations: Intact, Logical, Goal directed Thought Content: Appropriate Hallucination Type: None Delusion Type: None Suicidal Ideation: No Suicidal Plan: No Suicidal Intention: No Homicidal Ideation: No Homicidal Plan: No Homicidal Intention: No Insight: Fair Judgment: Adequate MDM Medical Decision Making Medical Record Reviewed: Yes Assessment/Plan 62-year-old, , -[place] female, living with her daughter, with reported history of depression and anxiety, one previous psychiatric admission in October 2017, presents to the emergency department voluntarily for psychiatric evaluation with complaints of increased depressed mood, inability to function at home, difficulty with sleep, feeling nervous and afraid all day, increased worry over her adult children, feels like she is unable to take care of herself," feeling like things are going on in my mind". States symptoms began approximately a few days ago. She reports that 3 weeks ago her medications were changed by her outpatient psychiatrist, Dr. Alyse Bhagat, including discontinuation of Remeron. She has been taking lorazepam as prescribed and her psychiatrist told her to decrease it to twice a day. Reports medication compliance but current toxicology is negative for benzos which are prescribed. Patient at this time meets criteria for inpatient psychiatric treatment due to increase in symptoms of depression and anxiety, subjective f feeling that she is unable to care for herself, and is unable to function in lower level of care. Orders Orders Complete Blood Count With Diff (01/05/18 12:10) Comprehensive Metabolic Panel (01/05/18 12:10) Thyroid Stimulating Hormone (01/05/18 12:10) Urinalysis - C+S If Indicated (01/05/18 12:10) Psych Screen (01/05/18 12:10) Drug Screen, Random Urine (01/05/18 12:10) Alcohol (Ethanol) (01/05/18 12:10) Diet Regular Basic (01/05/18 Dinner) Results Vital Signs Date Time Temp Pulse Resp B/P (MAP) Pulse Ox O2 Delivery O2 Flow Rate FiO2 01/05/18 16:30 96.9 80 18 120/77 (91) 98 Room Air 01/05/18 12:08 98.1 86 18 149/85 (106) 100 Laboratory Tests Test 01/05/18 12:20 White Blood Count 4.9 Red Blood Count 4.57 Hemoglobin 13.8 Hematocrit 41.0 Mean Corpuscular Volume 89.7 Mean Corpuscular Hemoglobin 30.2 Mean Corpuscular Hemoglobin Concent 33.7 Red Cell Distribution Width 15.0 Platelet Count 199 Mean Platelet Volume 8.0 Neutrophils (%) (Auto) 55.2 Lymphocytes (%) (Auto) 37.3 Monocytes (%) (Auto) 6.2 Eosinophils (%) (Auto) 0.6 Basophils (%) (Auto) 0.7 Neutrophils # (Auto) 2.7 Lymphocytes # (Auto) 1.8 Monocytes # (Auto) 0.3 Eosinophils # (Auto) 0.0 Basophils # (Auto) 0.0 CBC Comment DIFF FINAL Differential Comment Urine Color LIGHT-YELLOW Urine Turbidity CLEAR Urine pH 7.5 Urine Specific [place] 1.011 Urine Protein NEG Urine Glucose (UA) NEG Urine Ketones NEG Urine Occult Blood NEG Urine Nitrite NEG Urine Bilirubin NEG Urine Urobilinogen LESS THAN 2.0 Urine Leukocyte Esterase SMALL Urine RBC LESS THAN 1 Urine WBC 1 Urine Squamous Epithelial Cells <1 Urine Bacteria RARE Urine Mucus FEW Microscopic Urinalysis Comment CULT NOT INDICATED Blood Urea Nitrogen 9 Creatinine 0.72 Random Glucose 97 Total Protein 8.0 Albumin 3.9 Calcium Level 9.5 Alkaline Phosphatase 129 Aspartate Amino Transf (AST/SGOT) 16 Alanine Aminotransferase (ALT/SGPT) 20 Total Bilirubin 0.6 Sodium Level 145 Potassium Level 3.7 Chloride Level 109 Carbon Dioxide Level 25.5 Anion Gap 11 Estimat Glomerular Filtration Rate 99 Thyroid Stimulating Hormone 3rd Gen 0.607 Urine Opiates Screen NEG Urine Barbiturates Screen NEG Urine Amphetamines Screen NEG Urine Benzodiazepines Screen NEG Urine Cocaine Screen NEG Urine Cannabinoids Screen NEG Ethyl Alcohol Level 5 Diagnosis Primary Impression: Encounter for psychological evaluation Additional Impression: Adjustment disorder Admitting Information Admitting Physician Requests: Admit Condition: Stable Problem Qualifiers Additional Impression: Adjustment disorder Qualified Codes: F43.23 - Adjustment disorder with mixed anxiety and depressed mood Yaa Soria [facility] Jan 05, 2018 19:51
[2018-01-05] MEDS ORDERED: ALUMINUM/MAGNESIUM/SIMETH 30 ML CUP PO PRN (20:15)
[2018-01-05 21:10] VITALS: BP 144/74; PULSE 72; RESP 18; TEMP 97.3; O2SAT 99
[2018-01-05] MEDS: CEPHALEXIN MONOHYDRATE 500 MG CAP PO SCH (21:23)
[2018-01-05] MEDS: ACETAMINOPHEN 325 MG TAB PO PRN (21:27)
[2018-01-06 05:35] VITALS: BP 127/75; PULSE 61; RESP 16; TEMP 98; O2SAT 97
[2018-01-06] MEDS: CEPHALEXIN MONOHYDRATE 500 MG CAP PO SCH ×3 (05:48→20:48)
[2018-01-06] MEDS: ACETAMINOPHEN 325 MG TAB PO PRN (08:28)
[2018-01-06 09:50] LABS: BICARBONATE 24.1 MEQ/L (21.0-32.0); BLOOD UREA NITROGEN 9 MG/DL (7-18); CALCIUM 9.6 MG/DL (8.5-10.1); CHLORIDE 109 MEQ/L (98-107); CREATININE 0.87 MG/DL (0.50-1.00); GLOMERULAR FILTRATION RATE 79 ML/MIN (>89); GLUCOSE,RANDOM 152 MG/DL (74-106); SODIUM (NA) 144 MEQ/L (136-145)
[2018-01-06] MEDS ORDERED: SERTRALINE HCL 50 MG TAB PO ONE (10:15)
[2018-01-06 10:19] LABS: CHOLESTEROL 197 MG/DL (120-200); CHOLESTEROL/ HDL RATIO 3.51 RATIO; LDL CHOLESTEROL 125 MG/DL (0-99); TRIGLYCERIDES 79 MG/DL (42-150)
--- NOTE | 2018-01-06 10:49 | HHI.HP ---
Provisional Diagnosis Admission Date Jan 05, 2018 at 20:13 [place] I. Unspecified depressive disorder, unspecified anxiety disorder Certification of Person's Competence To Provide Express and Informed Consent I have personally examined Mary Borjas , a person being served at [facility] on, Jan 06, 2018 10:24. Express and informed consent means consent voluntarily given in writing, by a competent person, after sufficient explanation and disclosure of the subject matter involved to enable the person to make a knowing and willful decision without any element of force, fraud, deceit, duress, or other form of constraint or coercion. This person is 18 years of age or older, is not now known to be incompetent to consent to treatment with a guardian advocate, and does not have a health care surrogate or proxy currently making medical treatment decisions. I have found this person to be one of the following: [xxx] Competent to provide express and informed consent, as defined above, for voluntary admission to this facility and is competent to provide express and informed consent for treatment. He/she has the consistent capacity to make well reasoned, willful, and knowing decisions concerning his or her medical or mental health treatment. The person fully and consistently understands the purpose of the admission for examination/placement and is fully capable of personally exercising all rights assured [place] Incompetent to provide express and informed consent to voluntary admission, and this is incompetent to provide express and informed consent to treatment. The person must be transferred to involuntary status and a petition for a guardian advocate filed with the Circuit Court. [] Refusing to provide express and informed consent to voluntary admission but is competent to provide express and informed consent for treatment. The person must be discharged or transferred to involuntary status. Form shall be completed within 24 hours of a person's arrival at the receiving facility and filed in the clinical record of each person: 1. Admitted on a voluntary basis 2. Permitted to provide express and informed consent to his/her own treatment 3. Allowed to transfer from involuntary to voluntary status 4. Prior to permitting a person to consent to his or her own treatment after having been previously found incompetent to consent to treatment. History of Present Illness Capacity: Has Capacity HPI Patient is a 62-year-old -[place] woman, , domiciled with daughter, son-in-law, granddaughter, unemployed, with a past psychiatric history of depression and anxiety, one previous psychiatric admission in October 2017 at the [facility], no previous suicide attempt or self- injurious behavior, with a past medical history significant for hypertension, no substance use, who came to the ER voluntarily reporting worsening depression , anxiet in the context of recent medication changes by her outpatient provider which patient was admitted to the inpatient psychiatry unit for further evaluation and management. Patient was found to ambulate on the unit noted B, cooperative. Patient states she had been feeling anxious being home alone for the past 2-3 months was unable to identify any specific stressor related to his increased anxiety. Patient states that her daughter mood and with her 2 months ago to assist her. She states she has been having decreased sleep for the past 2 months, decreased energy, no change in appetite or concentration, denying any feelings of guilt but reporting having been experiencing depression for some time and worsening recently. She mentions that a year ago she was told she has diabetes and was noted to be tearful during this discussion and states feeling very stressed with the new diagnoses and her not feeling able to manage with the treatment. Patient later states that she was discontinued from any diabetic treatments and that her primary care doctor stated that she no longer had to continue treatment for her diabetes. She also mentions that her brother had couple of years ago which still affects her. Currently she denies any feelings of guilt, continues to enjoy her hobbies and pastimes, denies feeling hopeless or having suicide ideations but at times feels helpless. Patient denies any manic or psychotic symptoms at this time. She mentions that she feels more anxious recently and afraid to be home alone for the past 2-3 months. Patient states "so much still going on in my head" which she refers to "things I have to do and worrying about my kids". Patient this time continues report feeling depressed and anxious, denies SI, HI, AVH or delusions. Family psychiatric history: Denies Past psychiatric history: Previous psychiatric diagnoses of depression, anxiety , one previous psychiatric admission in October 2017 at the [facility] for 2-3 days for having made a suicidal statement, no previous suicide attempts or self-injurious behavior, no history of abuse. Patient reports outpatient provider to be Jelly jackson Furman, reports previous medication trials to include fluoxetine, mirtazapine, trazodone, lorazepam. Substance use history: Reports alcohol use every other day usually 2 glasses of wine at a time last use was 2 years ago, patient denies use of any other drugs. 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 Review of Systems Except as stated in HPI: all other systems reviewed are Neg Past Psych History Psychological trauma history Denies Violence risk - others (6 mos) Low Violence risk - self (6 mos) Low Substance Abuse History Drugs/Alcohol past 12 months Reports alcohol use every other day usually 2 glasses of wine at a time last use was 2 years ago, patient denies use of any other drugs. Past Family Social History Coded Allergies: ciprofloxacin (Unverified Allergy, Severe, rash, 12/12/17) propoxyphene (Unverified Adverse Reaction, Severe, N&V, 12/12/17) Active Scripts Acetaminophen-Codeine (Tylenol-Codeine #3) 300-30 mg Tab, 1 TAB PO Q6H Y for PAIN, #10 TAB 0 Refills Prov:Brendon Mcnulty MD 12/12/17 Reported Medications Cephalexin (Cephalexin) 500 Mg Cap, 500 MG PO Q8H for Infection, CAP 0 Refills 01/05/18 Lorazepam (Lorazepam) 0.5 Mg Tab, 0.5 MG PO TID Y for ANXIETY, TAB 0 Refills 12/12/17 Amlodipine (Norvasc) 10 Mg Tab, 10 MG PO DAILY for Blood Pressure Management, # 30 TAB 0 Refills 10/30/16 Current Medications Medications (Trade) Dose Ordered Sig/Dino Route Start Time Stop Time Status Last Admin (Tylenol) 650 mg Q4H PRN PO 01/05/18 20:15 01/06/18 08:28 (Milk Of Magnesia Liq) 30 ml DAILY PRN PO 01/05/18 20:15 (Mag-Al Plus Susp Liq) 30 ml Q6H PRN PO 01/05/18 20:15 (Norvasc) 10 mg DAILY PO 01/06/18 09:00 01/06/18 08:28 (Keflex) 500 mg Q8HR PO 01/05/18 22:00 01/06/18 05:48 (Zoloft) 25 mg ONCE ONCE PO 01/06/18 10:15 01/06/18 10:16 (Zoloft) 50 mg DAILY PO 01/07/18 09:00 (Benadryl) 50 mg HS PO 01/06/18 21:00 (Ativan) 1 mg Q6H PRN PO 01/06/18 10:30 UNV Family Psych History Denies Social History Domiciled with daughter, , 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 Patient's Strengths (min. 2) Verbal and communicative Physical Exam Patient not noted to be acute distress, no gross motor abnormalities, no tremor or EPS, no psychomotor agitation or retardation. Vital Signs Vital Signs Date Time Temp Pulse Resp B/P (MAP) Pulse Ox O2 Delivery O2 Flow Rate FiO2 01/06/18 05:35 98.0 61 16 127/75 (92) 97 01/05/18 16:30 Room Air Lab Results Labs reviewed Test 01/05/18 12:20 01/06/18 08:00 White Blood Count 4.9 TH/MM3 Red Blood Count 4.57 MIL/MM3 Hemoglobin 13.8 GM/DL Hematocrit 41.0 % Mean Corpuscular Volume 89.7 FL Mean Corpuscular Hemoglobin 30.2 PG Mean Corpuscular Hemoglobin Concent 33.7 % Red Cell Distribution Width 15.0 % Platelet Count 199 TH/MM3 Mean Platelet Volume 8.0 FL Neutrophils (%) (Auto) 55.2 % Lymphocytes (%) (Auto) 37.3 % Monocytes (%) (Auto) 6.2 % Eosinophils (%) (Auto) 0.6 % Basophils (%) (Auto) 0.7 % Neutrophils # (Auto) 2.7 TH/MM3 Lymphocytes # (Auto) 1.8 TH/MM3 Monocytes # (Auto) 0.3 TH/MM3 Eosinophils # (Auto) 0.0 TH/MM3 Basophils # (Auto) 0.0 TH/MM3 CBC Comment DIFF FINAL Differential Comment Urine Color LIGHT-YELLOW Urine Turbidity CLEAR Urine pH 7.5 Urine Specific [place] 1.011 Urine Protein NEG mg/dL Urine Glucose (UA) NEG mg/dL Urine Ketones NEG mg/dL Urine Occult Blood NEG Urine Nitrite NEG Urine Bilirubin NEG Urine Urobilinogen LESS THAN 2.0 MG/DL Urine Leukocyte Esterase SMALL Urine RBC LESS THAN 1 /hpf Urine WBC 1 /hpf Urine Squamous Epithelial Cells <1 /hpf Urine Bacteria RARE /hpf Urine Mucus FEW /lpf Microscopic Urinalysis Comment CULT NOT INDICATED Blood Urea Nitrogen 9 MG/DL 9 MG/DL Creatinine 0.72 MG/DL 0.87 MG/DL Random Glucose 97 MG/DL 152 MG/DL Total Protein 8.0 GM/DL Albumin 3.9 GM/DL Calcium Level 9.5 MG/DL 9.6 MG/DL Alkaline Phosphatase 129 U/L Aspartate Amino Transf (AST/SGOT) 16 U/L Alanine Aminotransferase (ALT/SGPT) 20 U/L Total Bilirubin 0.6 MG/DL Sodium Level 145 MEQ/L 144 MEQ/L Potassium Level 3.7 MEQ/L 3.6 MEQ/L Chloride Level 109 MEQ/L 109 MEQ/L Carbon Dioxide Level 25.5 MEQ/L 24.1 MEQ/L Anion Gap 11 MEQ/L 11 MEQ/L Estimat Glomerular Filtration Rate 99 ML/MIN 79 ML/MIN Thyroid Stimulating Hormone 3rd Gen 0.607 uIU/ML Urine Opiates Screen NEG Urine Barbiturates Screen NEG Urine Amphetamines Screen NEG Urine Benzodiazepines Screen NEG Urine Cocaine Screen NEG Urine Cannabinoids Screen NEG Ethyl Alcohol Level 5 MG/DL Triglycerides Level 79 MG/DL Cholesterol Level 197 MG/DL LDL Cholesterol 125 MG/DL HDL Cholesterol 56.0 MG/DL Cholesterol/HDL Ratio 3.51 RATIO Vitamin B12 Level 644 PG/ML Mental Status Examination Appearance: Appropriate Consciousness: Alert Orientation: x4 Motor Activity: Normal gait Speech: Unremarkable Language: Adequate Fund of Knowledge: Adequate Attention and Concentration: Adequate Memory: Unremarkable Mood: Sad, Anxious Affect: Sad, Anxious, Other (Tearful at times) Thought Process & Associations: Intact, Logical, Goal directed Thought Content: Appropriate Hallucination Type: None Delusion Type: None Suicidal Ideation: No Suicidal Plan: No Suicidal Intention: No Homicidal Ideation: No Homicidal Plan: No Homicidal Intention: No Insight: Fair Judgment: Adequate Assessment & Plan Problem List: (1) Depressive disorder ICD Codes: F32.9 - Major depressive disorder, single episode, unspecified (2) Anxiety disorder, unspecified ICD Codes: F41.9 - Anxiety disorder, unspecified Assessment & Plan Estimated LOS: 3-5 days. Patient is a 62 y/o woman who carries a diagnosis of depression and anxiety, who walked into the ER voluntarily due to worsening depression and anxiety in the context of recent medication changes. Patient this time endorsing depressive and anxiety symptoms which she would benefit from starting sertraline 25 mg 1 and 50 mg daily thereafter for depression and anxiety, will also start diphenhydramine 50 mg at bedtime for sleep disturbance, and will have patient on Lorazepam 1 mg every 6 hours as needed anxiety. The patient is noted to require lorazepam on a consistent basis we will consider having patient on a longer acting benzodiazepine to address breakthrough anxiety. We will continue monitoring with behavior. Collateral information pending from daughter. Discharge planning in progress. Discharge Planning Patient return back to her residence when psychiatrically stable. Fernando Bass MD Jan 06, 2018 10:49
[2018-01-06] MEDS: LORazepam 1 MG TAB PO PRN (11:33)
--- NOTE | 2018-01-06 12:22 | PD.CONS ---
[facility] Reason for Consult Medical management Primary Care Physician Non-Staff Diagnoses: History of Present Illness 62-year-old female with history of anxiety, depression went to the ED yesterday for evaluation of worsening depression symptoms, and patient was subsequently admitted voluntary to inpatient psychiatry.[facility] was consulted for medical management. Patient denies any chest pain or shortness of breath. Currently complains of dry and itchy skin Review of Systems Except as stated in HPI: all other systems reviewed are Neg Past Family Social History Allergies: Coded Allergies: ciprofloxacin (Unverified Allergy, Severe, rash, 12/12/17) propoxyphene (Unverified Adverse Reaction, Severe, N&V, 12/12/17) Past Medical History Anxiety Depression Diet controlled diabetes mellitus Diverticulitis Hiatal hernia Constipation GERD Hypertension Past Surgical History Cholecystectomy Hysterectomy Left knee replacement Reported Medications Cephalexin 500 Mg Cap 500 Mg PO Q8H Lorazepam 0.5 Mg Tab 0.5 Mg PO TID PRN Norvasc (Amlodipine Besylate) 10 Mg Tab 10 Mg PO DAILY Family History Significant family medical history significant for hypertension, hyperlipidemia , DM and stroke. Social History Denies any current tobacco use. Denies any alcohol use. Denies any illicit drug use. Physical Exam Vital Signs Vital Signs Date Time Temp Pulse Resp B/P (MAP) Pulse Ox O2 Delivery O2 Flow Rate FiO2 01/06/18 05:35 98.0 61 16 127/75 (92) 97 01/05/18 21:10 97.3 72 18 144/74 (97) 99 01/05/18 21:10 97.3 72 18 144/74 (97) 99 01/05/18 20:45 01/05/18 16:30 96.9 80 18 120/77 (91) 98 Room Air Physical Exam GENERAL: This is a well-nourished, well-developed patient, in no apparent distress. SKIN: No rashes, ecchymoses or lesions. Cool and dry. HEAD: Atraumatic. Normocephalic. No temporal or scalp tenderness. EYES: Pupils equal round and reactive. Extraocular motions intact. No scleral icterus. No injection or drainage. ENT: Nose without bleeding, purulent drainage or septal hematoma. Throat without erythema, tonsillar hypertrophy or exudate. Uvula midline. Airway patent. NECK: Trachea midline. No JVD or lymphadenopathy. Supple, nontender, no meningeal signs. CARDIOVASCULAR: Regular rate and rhythm without murmurs, gallops, or rubs. RESPIRATORY: Clear to auscultation. Breath sounds equal bilaterally. No wheezes , rales, or rhonchi. GASTROINTESTINAL: Abdomen soft, non-tender, nondistended. No hepato-splenomegaly , or palpable masses. No guarding. MUSCULOSKELETAL: Extremities without clubbing, cyanosis, or edema. No joint tenderness, effusion, or edema noted. No calf tenderness. Negative Homans sign bilaterally. NEUROLOGICAL: Awake and alert. Cranial nerves II through XII intact. Motor and sensory grossly within normal limits. Five out of 5 muscle strength in all muscle groups. Normal speech. Laboratory Laboratory Tests Test 01/06/18 08:00 Blood Urea Nitrogen 9 Creatinine 0.87 Random Glucose 152 Calcium Level 9.6 Sodium Level 144 Potassium Level 3.6 Chloride Level 109 Carbon Dioxide Level 24.1 Anion Gap 11 Estimat Glomerular Filtration Rate 79 Triglycerides Level 79 Cholesterol Level 197 LDL Cholesterol 125 HDL Cholesterol 56.0 Cholesterol/HDL Ratio 3.51 Vitamin B12 Level 644 25-Hydroxy Vitamin D Total 22.4 Result Diagram: 01/05/18 1220 01/06/18 0800 Assessment and Plan Assessment and Plan 62-year-old female with Anxiety Depression Adjustment disorder Management per psychiatry Hypertension Continue home Amlodipine. Monitor BP trends. Clonidine as needed Dry skin Start Eucerin PRN DVT prophylaxis: Encourage ambulation Thank you for this consultation Code Status Full code Discussed Condition With Patient,Fernando Dent MD Jan 06, 2018 12:22
[2018-01-06] MEDS ORDERED: cloNIDine HCL 0.1 MG TAB PO PRN (12:30)
[2018-01-06] MEDS ORDERED: EUCERIN CREAM 120 GM JAR TOPICAL PRN (12:30)
[2018-01-06 16:30] LABS: HEMOGLOBIN A1C 5.8 % (4.3-6.0)
[2018-01-06 17:07] VITALS: BP 124/66; PULSE 79; RESP 18; TEMP 98; O2SAT 98
[2018-01-06] MEDS: diphenhydrAMINE HCL 50 MG CAP PO SCH (20:48)
--- NOTE | 2018-01-06 21:42 | EKG ---
Date Performed: 01/06/2018 Time Performed: 11:05:39 PTAGE: 62 years EKG: SINUS BRADYCARDIA BORDERLINE ECG PREVIOUS TRACING : 12/12/2017 15.24 Compared to previous tracing, rate slower DOCTOR: Ankita Barber Interpretating Date/Time 01/06/2018 21:40:03
[2018-01-07] MEDS: CEPHALEXIN MONOHYDRATE 500 MG CAP PO SCH ×3 (05:25→21:23)
[2018-01-07 05:42] VITALS: BP 107/68; PULSE 73; RESP 16; TEMP 98.4; O2SAT 95
[2018-01-07] MEDS: SERTRALINE HCL 50 MG TAB PO SCH (08:57)
[2018-01-07] MEDS: LORazepam 1 MG TAB PO PRN (11:14)
--- NOTE | 2018-01-07 14:00 | HHI.PR ---
Subjective Remarks Follow-up visit for hypertension, and dry skin. Patient seen and examined today in room. She denies any dizziness, lightheadedness, fevers, chills, nausea, vomiting, diarrhea, constipation, shortness of breath or chest pain. She does endorse some itchiness mostly located on her groin area as well as buttocks folds. Objective Vitals Vital Signs Date Time Temp Pulse Resp B/P (MAP) Pulse Ox O2 Delivery O2 Flow Rate FiO2 01/07/18 05:42 98.4 73 16 107/68 (81) 95 01/06/18 17:07 98.0 79 18 124/66 (85) 98 I/O 01/06/18 01/06/18 01/06/18 01/07/18 01/07/18 01/07/18 07:00 15:00 23:00 07:00 15:00 23:00 Intake Total 240 ml Balance 240 ml Intake Oral 240 ml Result Diagram: 01/05/18 1220 01/06/18 0800 Objective Remarks GENERAL: Well-developed, well-nourished -[place] female in no acute distress.. SKIN: No rashes, ecchymoses or lesions. Cool and dry. HEAD: Atraumatic. EYES: Pupils equal round and reactive. No scleral icterus. No injection or drainage. ENT: Nose without bleeding, purulent drainage. Airway patent. NECK: Trachea midline. CARDIOVASCULAR: Regular rate and rhythm without murmurs, gallops, or rubs. RESPIRATORY: Clear to auscultation. Breath sounds equal bilaterally. No wheezes , rales, or rhonchi. GASTROINTESTINAL: Abdomen soft, non-tender, nondistended. No guarding. MUSCULOSKELETAL: Extremities without clubbing, cyanosis, or edema. No joint tenderness, effusion, or edema noted. NEUROLOGICAL: Awake and alert. Motor and sensory grossly within normal limits. Normal speech. A/P Assessment and Plan 62-year-old female with Anxiety Depression Adjustment disorder Management per psychiatry Hypertension, controlled Continue home Amlodipine. Blood pressure has been stable. Clonidine as needed Dry skin/itching Examined groin folds as well as buttocks folds no open skin, redness, or excoriation noted. Patient does have a foul odor, discussed with nurse for shower. Start Eucerin PRN DVT prophylaxis: Encourage ambulation Discussed with patient, and nurse. [facility] will sign off, please reconsult if needed. Taiwo Woodward Jan 07, 2018 14:00
--- NOTE | 2018-01-07 14:11 | HHI.PYPN ---
Subjective Remarks Patient seen for follow, chart reviewed. Discussion nursing staff reported the patient continues report feeling anxious. Patient was seen with counselor/ therapist during group activity. Patient was noted B, cooperative. Patient states that she is feeling "a little woozy" but denying feeling any dizziness or unstable gait. Patient recently started on sertraline which she reports tolerating well otherwise. Patient states she is sleeping better, states that she continues to feel somewhat depressed, 2 out of 10 (10 being its worst) denying suicide ideations and reported continued feelings of anxiety. When attempted to explore causes of her anxiety patient states "I do not know", simply stated that she feels anxious whenever she is at home, particularly at moments where her daughter is at work and she is home alone. Patient states she is able to perform basic ADLs, states that she continues to be able to drive , denies having gotten lost while driving or when she is where she is outside of the home. She states that she does not cook and usually has other family members cook her meals. Patient denies any perceptional disturbances or delusions. Review of Systems Except as stated in HPI: all other systems reviewed are Neg Mental Status Examination Appearance: Appropriate Consciousness: Alert Orientation: x4 Motor Activity: Normal gait Speech: Unremarkable Language: Adequate Fund of Knowledge: Adequate Attention and Concentration: Adequate Memory: Unremarkable Mood: Sad, Anxious Affect: Sad, Anxious, Other (Tearful at times) Thought Process & Associations: Intact, Logical, Goal directed Thought Content: Appropriate Hallucination Type: None Delusion Type: None Suicidal Ideation: No Suicidal Plan: No Suicidal Intention: No Homicidal Ideation: No Homicidal Plan: No Homicidal Intention: No Insight: Fair Judgment: Adequate Results Vitals/IOs Vital Signs Date Time Temp Pulse Resp B/P (MAP) Pulse Ox O2 Delivery O2 Flow Rate FiO2 01/07/18 05:42 98.4 73 16 107/68 (81) 95 01/05/18 16:30 Room Air Assessment & Plan Problem List: (1) Depressive disorder ICD Codes: F32.9 - Major depressive disorder, single episode, unspecified (2) Anxiety disorder, unspecified ICD Codes: F41.9 - Anxiety disorder, unspecified Assessment & Plan Patient recently started on sertraline for depression and anxiety, patient sleeping well but continues to be noted to be anxious throughout the day. We will continue current treatment regimen for now, continue to monitor mood and behavior. Collateral still pending from patient's daughter. Discussion of having patient be provided home health services and/or attend day programs to provide activity for the patient during the day was reviewed. Discharge planning in progress. Justification for Cont. Inpt. At risk of further decompensation at lower level of care Fernando Bass MD Jan 07, 2018 14:11
--- NOTE | 2018-01-07 14:19 | PD.TTN ---
Patient Problems 1. Discharge planning 2. Medication compliance 3. Knowledge deficit 4. Lack of coping skills Progress Toward Goals Provider Present: Dr. Antonio Bass Provider Input: 01/06/18 - Patient reports high anxiety when home alone. Psychiatric Counselors Present: ZAIRA Reynolds Psych Therapist Input: 01/06/18 - Counselor will work with patient and discuss coping skills for anxiety. Group Spec/RT/OT/SEE Present: ADRIANA Menon Group Spec/RT/OT/SEE Input: 01/06/18 - New patient Discharge Plan 01/06/18 - Patient will follow-up at the [facility]. Documentation Scribe: ZAIRA Reynolds Date Resolved: Jan 07, 2018 Latricia Lima Jan 07, 2018 14:19
[2018-01-07] MEDS: diphenhydrAMINE HCL 50 MG CAP PO SCH (21:23)
[2018-01-08 05:00] VITALS: BP 119/69; PULSE 73; RESP 16; TEMP 98.1; O2SAT 98
[2018-01-08] MEDS: CEPHALEXIN MONOHYDRATE 500 MG CAP PO SCH ×3 (09:09→20:53)
[2018-01-08] MEDS: SERTRALINE HCL 50 MG TAB PO SCH (09:09)
[2018-01-08] MEDS: LORazepam 1 MG TAB PO PRN ×2 (10:47→21:25)
--- NOTE | 2018-01-08 14:37 | HHI.PYPN ---
Subjective Remarks Patient seen for follow, chart reviewed. Discussion wishes to reported patient continues to be compliant with medications, did receive Ativan 1 earlier today and noted to have flat affect. Patient was found in the room notably, cooperative. Patient states that she is feeling "slow, not happy, not sad" stating that she continues to have some anxiety but not feeling any today. Patient states that she had taken Ativan in the morning which feels has been helping. Patient noted to have decreased energy but having slept better with improved appetite. Patient denies any SI, HI, AVH or delusions. Review of Systems Except as stated in HPI: all other systems reviewed are Neg Mental Status Examination Appearance: Appropriate Consciousness: Alert Orientation: x4 Motor Activity: Normal gait Speech: Unremarkable Language: Adequate Fund of Knowledge: Adequate Attention and Concentration: Adequate Memory: Unremarkable Mood: Sad, Anxious Affect: Sad, Anxious (Less so today) Thought Process & Associations: Intact, Logical, Goal directed Thought Content: Appropriate Hallucination Type: None Delusion Type: None Suicidal Ideation: No Suicidal Plan: No Suicidal Intention: No Homicidal Ideation: No Homicidal Plan: No Homicidal Intention: No Insight: Fair Judgment: Adequate Results Vitals/IOs Vital Signs Date Time Temp Pulse Resp B/P (MAP) Pulse Ox O2 Delivery O2 Flow Rate FiO2 01/08/18 05:00 98.1 73 16 119/69 (86) 98 01/05/18 16:30 Room Air Assessment & Plan Problem List: (1) Depressive disorder ICD Codes: F32.9 - Major depressive disorder, single episode, unspecified (2) Anxiety disorder, unspecified ICD Codes: F41.9 - Anxiety disorder, unspecified Assessment & Plan Patient at this time noted to have endorsed more anxiety more than depressive symptoms recently. Patient has been receiving lorazepam as needed for anxiety. Discussion of having patient on longer acting benzodiazepine for anxiety was reviewed with patient which she agreed. We will start clonazepam 0.5 mg p.o. daily for anxiety. Continue to monitor with behavior. Continue rest of medications. Discharge planning in progress. Justification for Cont. Inpt. At risk for further decompensation if at lower level of care Fernando Bass MD Jan 08, 2018 14:37
[2018-01-08] MEDS: diphenhydrAMINE HCL 50 MG CAP PO SCH (20:53)
[2018-01-09 06:05] VITALS: BP 116/70; PULSE 67; RESP 16; TEMP 98.2
[2018-01-09] MEDS: CEPHALEXIN MONOHYDRATE 500 MG CAP PO SCH ×3 (06:20→21:37)
[2018-01-09] MEDS: clonazePAM 0.5 MG TAB PO SCH (09:16)
[2018-01-09] MEDS: SERTRALINE HCL 50 MG TAB PO SCH (09:16)
[2018-01-09] MEDS: LORazepam 1 MG TAB PO PRN (14:18)
[2018-01-09 18:32] VITALS: BP 115/59; PULSE 85; RESP 18; TEMP 98.6; O2SAT 100
[2018-01-09] MEDS: MAGNESIUM HYDROXIDE SUSP 30 ML CUP PO PRN (19:44)
[2018-01-09] MEDS: diphenhydrAMINE HCL 50 MG CAP PO SCH (21:37)
[2018-01-10 05:24] VITALS: BP 122/75; PULSE 67; RESP 16; TEMP 97.6; O2SAT 96
[2018-01-10] MEDS: CEPHALEXIN MONOHYDRATE 500 MG CAP PO SCH ×3 (05:38→21:06)
[2018-01-10] MEDS: SERTRALINE HCL 50 MG TAB PO SCH (08:20)
[2018-01-10] MEDS: clonazePAM 0.5 MG TAB PO SCH (08:20)
[2018-01-10] MEDS: MAGNESIUM HYDROXIDE SUSP 30 ML CUP PO PRN (08:42)
--- NOTE | 2018-01-10 10:25 | HHI.PYPN ---
Subjective Remarks Patient was seen and case discussed with nursing. Patient is spending today and yesterday mostly in bed. She has psychomotor retardation and a blunted affect. Says she feels "tired." No longer complaining of anxiety. Had a conversation with her daughter. Sleeping well Mental Status Examination Appearance: Appropriate Consciousness: Alert Orientation: x4 Motor Activity: Normal gait Speech: Unremarkable Language: Adequate Fund of Knowledge: Adequate Attention and Concentration: Adequate Memory: Unremarkable Mood: Sad, Anxious Affect: Sad, Anxious (Less so today) Thought Process & Associations: Intact, Logical, Goal directed Thought Content: Appropriate Hallucination Type: None Delusion Type: None Suicidal Ideation: No Suicidal Plan: No Suicidal Intention: No Homicidal Ideation: No Homicidal Plan: No Homicidal Intention: No Insight: Fair Judgment: Adequate Results Vitals/IOs Vital Signs Date Time Temp Pulse Resp B/P (MAP) Pulse Ox O2 Delivery O2 Flow Rate FiO2 01/10/18 05:24 97.6 67 16 122/75 (91) 96 Assessment & Plan Problem List: (1) Depressive disorder ICD Codes: F32.9 - Major depressive disorder, single episode, unspecified (2) Anxiety disorder, unspecified ICD Codes: F41.9 - Anxiety disorder, unspecified Assessment & Plan Continue current treatment plan Justification for Cont. Inpt. Patient would decompensate in a less restrictive setting Luis Angel Conroy DO Jan 10, 2018 10:25
--- NOTE | 2018-01-10 14:45 | HHI.PYPN ---
Subjective Remarks This note is an entry for January 09 as it appears it was not registered on the date. Patient was seen on that date and her anxiety was noted to be improved. Patient appears mildly confused of what medications she is on. Spending most of the day in bed. No outbursts. Mental Status Examination Appearance: Appropriate Consciousness: Alert Orientation: x4 Motor Activity: Normal gait Speech: Unremarkable Language: Adequate Fund of Knowledge: Adequate Attention and Concentration: Adequate Memory: Unremarkable Mood: Sad, Anxious Affect: Sad, Anxious (Less so today) Thought Process & Associations: Intact, Logical, Goal directed Thought Content: Appropriate Hallucination Type: None Delusion Type: None Suicidal Ideation: No Suicidal Plan: No Suicidal Intention: No Homicidal Ideation: No Homicidal Plan: No Homicidal Intention: No Insight: Fair Judgment: Adequate Results Vitals/IOs Vital Signs Date Time Temp Pulse Resp B/P (MAP) Pulse Ox O2 Delivery O2 Flow Rate FiO2 01/10/18 05:24 97.6 67 16 122/75 (91) 96 Assessment & Plan Problem List: (1) Depressive disorder ICD Codes: F32.9 - Major depressive disorder, single episode, unspecified (2) Anxiety disorder, unspecified ICD Codes: F41.9 - Anxiety disorder, unspecified Assessment & Plan Continue current treatment plan Justification for Cont. Inpt. Patient would decompensate in a less restrictive setting Luis Angel Conroy DO Jan 10, 2018 14:45
[2018-01-10 18:17] VITALS: BP 111/60; PULSE 72; RESP 16; TEMP 98; O2SAT 95
[2018-01-10] MEDS: diphenhydrAMINE HCL 50 MG CAP PO SCH (21:05)
[2018-01-10] MEDS: ACETAMINOPHEN 325 MG TAB PO PRN (21:45)
[2018-01-11] MEDS: CEPHALEXIN MONOHYDRATE 500 MG CAP PO SCH ×2 (05:12→12:53)
[2018-01-11 06:24] VITALS: BP 111/64; PULSE 70; RESP 16; TEMP 98.1; O2SAT 100
[2018-01-11] MEDS: clonazePAM 0.5 MG TAB PO SCH (09:37)
[2018-01-11] MEDS: SERTRALINE HCL 50 MG TAB PO SCH (09:37)
[2018-01-11] MEDS ORDERED: CLON.5 PO (12:48)
[2018-01-11] MEDS ORDERED: DIPH50CA PO (12:48)
[2018-01-11] MEDS ORDERED: AMLO10 PO (12:48)
[2018-01-11] MEDS ORDERED: ZOLO50TA PO (12:48)
--- NOTE | 2018-01-11 12:49 | HHI.DS ---
Psychiatry Discharge Summary Inpatient Psychiatric care?: Yes Advance Directive: No Reason Not Provided: REFUSED Mental Health AdvanceDirective: No Health Care Proxy: No Admission Admission Date Jan 05, 2018 at 20:13 Admission Diagnosis: Brief History Patient is a 62-year-old -[place] woman, , domiciled with daughter, son-in-law, granddaughter, unemployed, with a past psychiatric history of depression and anxiety, one previous psychiatric admission in October 2017 at the [facility], no previous suicide attempt or self- injurious behavior, with a past medical history significant for hypertension, no substance use, who came to the ER voluntarily reporting worsening depression , anxiet in the context of recent medication changes by her outpatient provider which patient was admitted to the inpatient psychiatry unit for further evaluation and management. Patient was found to ambulate on the unit noted B, cooperative. Patient states she had been feeling anxious being home alone for the past 2-3 months was unable to identify any specific stressor related to his increased anxiety. Patient states that her daughter mood and with her 2 months ago to assist her. She states she has been having decreased sleep for the past 2 months, decreased energy, no change in appetite or concentration, denying any feelings of guilt but reporting having been experiencing depression for some time and worsening recently. She mentions that a year ago she was told she has diabetes and was noted to be tearful during this discussion and states feeling very stressed with the new diagnoses and her not feeling able to manage with the treatment. Patient later states that she was discontinued from any diabetic treatments and that her primary care doctor stated that she no longer had to continue treatment for her diabetes. She also mentions that her brother had couple of years ago which still affects her. Currently she denies any feelings of guilt, continues to enjoy her hobbies and pastimes, denies feeling hopeless or having suicide ideations but at times feels helpless. Patient denies any manic or psychotic symptoms at this time. She mentions that she feels more anxious recently and afraid to be home alone for the past 2-3 months. Patient states "so much still going on in my head" which she refers to "things I have to do and worrying about my kids". Patient this time continues report feeling depressed and anxious, denies SI, HI, AVH or delusions. Family psychiatric history: Denies Past psychiatric history: Previous psychiatric diagnoses of depression, anxiety , one previous psychiatric admission in October 2017 at the [facility] for 2-3 days for having made a suicidal statement, no previous suicide attempts or self-injurious behavior, no history of abuse. Patient reports outpatient provider to be Jelly Bhagat in [place], reports previous medication trials to include fluoxetine, mirtazapine, trazodone, lorazepam. Substance use history: Reports alcohol use every other day usually 2 glasses of wine at a time last use was 2 years ago, patient denies use of any other drugs. 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 Tobacco Use In Past 30 Days: No Tobacco Past 30 Days Alcohol Use: Never Results Blood Pressure 111 / 64 Vital Signs Date Time Temp Pulse Resp B/P (MAP) Pulse Ox O2 Delivery O2 Flow Rate FiO2 01/11/18 06:24 98.1 70 16 111/64 (80) 100 Laboratory Results Test 01/06/18 08:00 Cholesterol Level 197 MG/DL (120-200) HDL Cholesterol 56.0 MG/DL (40.0-60.0) Hemoglobin A1c 5.8 % (4.3-6.0) LDL Cholesterol 125 MG/DL (0-99) Triglycerides Level 79 MG/DL (42-150) Medications Approp Antipsych med options 1 - Minimum of three failed multiple trials of monotherapy. 2 - Documented plan to taper to monotherapy due to previous use of multiple meds OR cross-taper in progress at D/C. 3 - Documentation of augmentation of Clozapine. 4 - Justification other than those listed in allowable values 1-3, document here : Discharge Pt Condition on Discharge: Stable Discharge Disposition: Discharge Home Discharge Instructions Diet Instructions: Heart Healthy Diet Activities you can perform: Regular-No Restrictions Scheduled Appointment: [facility] Mental Status Examination Appearance: Appropriate Consciousness: Alert Orientation: x4 Motor Activity: Normal gait Speech: Unremarkable Language: Adequate Fund of Knowledge: Adequate Attention and Concentration: Adequate Memory: Unremarkable Mood: Sad, Anxious Affect: Sad, Anxious (Less so today) Thought Process & Associations: Intact, Logical, Goal directed Thought Content: Appropriate Hallucination Type: None Delusion Type: None Suicidal Ideation: No Suicidal Plan: No Suicidal Intention: No Homicidal Ideation: No Homicidal Plan: No Homicidal Intention: No Insight: Fair Judgment: Adequate Discharge/Advance Care Plan Health Problems: (1) Depressive disorder (2) Anxiety disorder, unspecified Goals to promote your health * To prevent worsening of your condition and complications * To maintain your health at the optimal level Directions to meet your goals Take your medications as prescribed Follow your dietary instruction Follow activity as directed Keep your appointments as scheduled Take your immunizations and boosters as scheduled If your symptoms worsen call your PCP, if no PCP go to Urgent Care Center or Emergency Room For 13/04 questions related to your inpatient stay or results of tests pending at discharge, please contact Dr. Fernando Bass at Smoking is Dangerous to Your Health. Avoid second hand smoking Fernando Bass MD Jan 11, 2018 12:49
== END 2018-01-11 15:50 | disposition home or self-care (01) | DRG 882 ==
LOC: NEPD 12:05 → NEDA 20:13 → H260 21:12
PROVIDERS: ADMIT Student in an Organized Health Care Education/Training Program; ATTEND Student in an Organized Health Care Education/Training Program
DX: F43.23 Adjustment disorder with mixed anxiety and depressed mood (principal); I10 Essential (primary) hypertension; G47.00 Insomnia, unspecified; E11.9 Type 2 diabetes mellitus without complications; F40.240 Claustrophobia; K21.9 Gastro-esophageal reflux disease without esophagitis; M19.90 Unspecified osteoarthritis, unspecified site; Z88.1 Allergy status to other antibiotic agents; Z96.652 Presence of left artificial knee joint
CPT/HCPCS: 80048; 80053; 80061; 80307; 81001; 82306; 82607; 83036; 84443; 85025; 93005; 99285; Q0163

== ENCOUNTER 2018-01-13 13:07 | Emergency (ER) | payer OTHER ==
[~2018-01-13 13:07] MED LIST changes: +CEPH500C PO; +CLON.5 PO; +DIPH50CA PO; -LORA0.5T PO; -TYLETAB34 PO; +ZOLO50TA PO
[2018-01-13 13:16] VITALS: BP 133/59; PULSE 93; RESP 1; RESP 16; TEMP 98.2; O2SAT 100
[2018-01-13] MEDS ORDERED: PANTOPRAZOLE SOD 40 MG DELAYED RELEASE TAB PO ONE (14:15)
[2018-01-13] MEDS ORDERED: ONDANSETRON ODT 4 MG TAB PO ONE (14:15)
--- NOTE | 2018-01-13 15:13 | PD ---
HPI Chief Complaint: GI Complaint Time Seen by Provider: 13:47 Travel History International Travel<30 days: No Contact w/Intl Traveler<30days: No Traveled to known affect area: No History of Present Illness HPI 62-year-old female presents to emergency department with complaint of nausea and a cough that started yesterday. She says she does feel stiff, but back of her throat and it cooper a little bit. Denies fever, vomiting, abdominal pain, diarrhea. Denies chest pain, shortness of breath. Denies recent illness to include nasal congestion, sore throat, ear pain. Denies tobacco use. Has not taken any medication or trying treatments to alleviate his symptoms. no known aggravating or relieving factors. Symptoms are mild in severity. Primary care provider is [facility]. Allergies to Darvon and Cipro. History of anxiety, hypertension and takes amlodipine. PFSH Past Medical History Hx Anticoagulant Therapy: Yes Arthritis: Yes Anxiety: Yes Depression: Yes Heart Rhythm Problems: No Cancer: No Cardiac Catheterization: No Cardiovascular Problems: Yes (Palpitations) High Cholesterol: No Chemotherapy: No Congestive Heart Failure: No Cerebrovascular Accident: No Diabetes: Yes (Type 1 per patient) Patient Takes Glucophage: Yes Diminished Hearing: No Diverticulitis: Yes Endocrine: No Gastrointestinal Disorders: Yes (HIATAL HERNIA, CONSTIPATION) GERD: Yes (COLON POLYPS) Genitourinary: No Headaches: No Hepatitis: No Hiatal Hernia: Yes Heparin Induced Thrombocytopen: No Hypertension: Yes Immune Disorder: No Medical other: No Musculoskeletal: Yes (BONE SPUR LEFT SHOULDER, BACK PROBLEMS) Neurologic: No Psychiatric: Yes Reproductive: No Respiratory: No Immunizations Current: Yes Seizures: No Thyroid Disease: No Tetanus Vaccination: < 5 Years Menopausal: Yes : 8 Para: 6 Miscarriage: 2 Past Surgical History Abdominal Surgery: Yes (CHOLECYSTECTOMY ) AICD: No Cholecystectomy: Yes Coronary Artery Bypass Graft: No Gynecologic Surgery: Yes Hysterectomy: Yes Joint Replacement: Yes (LEFT KNEE REPLACEMENT) Pacemaker: No Other Surgery: Yes Social History Alcohol Use: No Tobacco Use: No Substance Use: No Allergies-Medications (Allergen,Severity, Reaction): Coded Allergies: ciprofloxacin (Unverified Allergy, Severe, rash, 12/12/17) propoxyphene (Unverified Adverse Reaction, Severe, N&V, 12/12/17) Reported Meds & Prescriptions Reported Meds & Active Scripts Active Zoloft (Sertraline HCl) 50 Mg Tab 50 Mg PO DAILY 30 Days Klonopin (Clonazepam) 0.5 Mg Tab 0.5 Mg PO DAILY 30 Days Diphenhydramine HCl 50 Mg Cap 50 Mg PO HS 15 Days Norvasc (Amlodipine Besylate) 10 Mg Tab 10 Mg PO DAILY 30 Days Reported Cephalexin 500 Mg Cap 500 Mg PO Q8H Review of Systems Except as stated in HPI: all other systems reviewed are Neg Physical Exam Narrative GENERAL: Well-nourished, well-developed black female patient, in no acute distress SKIN: Warm and dry. HEAD: Atraumatic. Normocephalic. EYES: Pupils equal and round. No scleral icterus. No injection or drainage. ENT: Mucosa pink and moist. Airway patent. NECK: Trachea midline. CARDIOVASCULAR: Regular rate and rhythm. No murmur appreciated. RESPIRATORY: No accessory muscle use. Clear to auscultation. Breath sounds equal bilaterally. GASTROINTESTINAL: Abdomen soft, non-tender, nondistended. Hepatic and splenic margins not palpable. Bowel sounds are active 4 quadrants. MUSCULOSKELETAL: No obvious deformities. No clubbing. No cyanosis. No edema. NEUROLOGICAL: Awake and alert. Oriented 3. No obvious cranial nerve deficits. Motor grossly within normal limits. Normal speech. PSYCHIATRIC: Appropriate mood and affect; insight and judgment normal. Data Data Last Documented VS Vital Signs Date Time Temp Pulse Resp B/P (MAP) Pulse Ox O2 Delivery O2 Flow Rate FiO2 01/13/18 13:16 98.2 93 16 133/59 (83) 100 Orders Orders Pantoprazole (Protonix) (01/13/18 14:15) Ondansetron Odt (Zofran Odt) (01/13/18 14:15) [facility] Medical Decision Making Medical Screen Exam Complete: Yes Emergency Medical Condition: Yes Medical Record Reviewed: Yes Differential Diagnosis Gastric reflux, nausea, cough Narrative Course 62-year-old female complaining of nausea and cough since yesterday. She does report feeling a sensation of something coming up in her throat and burning sensation. Reported symptoms seem to be consistent with GERD. I discussed the patient with Dr. Howell and he agrees with plan of care. Zofran and Protonix ordered. 1520: On reexamination patient is sleeping calmly in the room. She denies continued nausea. I have not heard her cough one time since she has been here. I believe her symptoms are related to gastric reflux. Zofran and Zantac prescribed for home. Instructed patient to follow up with primary care provider. Patient verbalizes understanding and agreement with treatment plan. Patient is medically cleared and stable for discharge. Discussed reasons to return to the emergency department. Patient agrees with treatment plan. The patients vital signs are stable and the patient is stable for outpatient follow- up and treatment. Patient discharged home, stable and in no acute distress. Diagnosis Primary Impression: Gastric reflux Referrals: [facility] Primary Care Physician Patient Instructions: Gastroesophageal Reflux Disease (ED), General Instructions Additional Instructions: Avoid wearing tight-fitting clothes Try eating smaller meals Don't lie down after a meal; wait at least 3 hours after eating before lying down or going to bed Elevate your head of bed if you are experiencing reflux at night Avoid foods and drinks that trigger your heartburn; such foods can be tomato sauce, alcohol, chocolate, mint, garlic, onions, caffeine Follow up with a primary care provider Return to the emergency department immediately with worsening of symptoms Med/Other Pt SpecificInfo: Prescription(s) given Scripts Ondansetron Odt (Zofran Odt) 4 Mg Tab 4 MG SL Q8HR Y for Nausea/Vomiting, #6 TAB 0 Refills Prov: Jody Pinon 01/13/18 Ranitidine (Zantac) 150 Mg Tab 150 MG PO BID for Reduce Stomach Acid for 10 Days, #20 TAB 0 Refills Prov: Jody Pinon 01/13/18 Disposition: 01 DISCHARGE HOME Condition: Stable Jody Pinon Jan 13, 2018 15:13
[2018-01-13] MEDS ORDERED: ZANT150T2 PO (15:23)
[2018-01-13] MEDS ORDERED: ZOFR4TAB3 SL (15:23)
== END 2018-01-13 15:54 | disposition home or self-care (01) ==
LOC: NEPD 13:07
DX: K21.9 Gastro-esophageal reflux disease without esophagitis (principal); R05 Cough; I10 Essential (primary) hypertension; E10.9 Type 1 diabetes mellitus without complications; Z79.01 Long term (current) use of anticoagulants
CPT/HCPCS: 99283

== ENCOUNTER 2018-01-15 09:06 | Emergency (ER) | payer OTHER ==
[~2018-01-15] VITALS: Ht 167.6 cm; Wt 86.0 kg
[~2018-01-15 09:06] MED LIST changes: +ZANT150T2 PO; +ZOFR4TAB3 SL
[2018-01-15 09:10] VITALS: BP 122/80; PULSE 82; RESP 16; TEMP 98.5; O2SAT 98
[2018-01-15] MEDS ORDERED: RANI150T PO (09:27)
[2018-01-15] MEDS ORDERED: ZOFR4TAB PO (09:27)
--- NOTE | 2018-01-15 09:28 | PD ---
HPI Chief Complaint: GI Complaint Time Seen by Provider: 09:19 Travel History International Travel<30 days: No Contact w/Intl Traveler<30days: No Traveled to known affect area: No History of Present Illness HPI 62-year-old -Greek female presents to the emergency department complaining of ongoing nausea. She blames it on recent start of Zoloft 50 mg daily which she started when she was [place] acted for suicidal ideation on the . She was given a prescription for ranitidine, and Zofran on the but did not fill it due to money issues. She states no fever, chills, vomiting, heartburn, diarrhea, or significant abdominal pain. She questions whether she should continue the Zoloft. Patient does have her own psychiatrist and primary care physician. She is allergic to Cipro and propoxyphene. PFSH Past Medical History Hx Anticoagulant Therapy: Yes Arthritis: Yes Anxiety: Yes Depression: Yes Heart Rhythm Problems: No Cancer: No Cardiac Catheterization: No Cardiovascular Problems: Yes (Palpitations) High Cholesterol: No Chemotherapy: No Congestive Heart Failure: No Cerebrovascular Accident: No Diabetes: Yes (Type 1 per patient) Patient Takes Glucophage: No Diminished Hearing: No Diverticulitis: Yes Endocrine: No Gastrointestinal Disorders: Yes (HIATAL HERNIA, CONSTIPATION) GERD: Yes (COLON POLYPS) Genitourinary: No Headaches: No Hepatitis: No Hiatal Hernia: Yes Heparin Induced Thrombocytopen: No Hypertension: Yes Immune Disorder: No Musculoskeletal: Yes (BONE SPUR LEFT SHOULDER, BACK PROBLEMS) Neurologic: No Psychiatric: Yes Reproductive: No Respiratory: No Immunizations Current: Yes Seizures: No Thyroid Disease: No Menopausal: Yes : 8 Para: 6 Miscarriage: 2 Past Surgical History Abdominal Surgery: Yes (CHOLECYSTECTOMY ) AICD: No Cholecystectomy: Yes Coronary Artery Bypass Graft: No Gynecologic Surgery: Yes Hysterectomy: Yes Joint Replacement: Yes (LEFT KNEE REPLACEMENT) Pacemaker: No Other Surgery: Yes Social History Alcohol Use: No Tobacco Use: No Substance Use: No Allergies-Medications (Allergen,Severity, Reaction): Coded Allergies: ciprofloxacin (Unverified Allergy, Severe, rash, 01/15/18) propoxyphene (Unverified Adverse Reaction, Severe, N&V, 01/15/18) Reported Meds & Prescriptions Reported Meds & Active Scripts Active Zofran (Ondansetron HCl) 4 Mg Tab 4 Mg PO Q6HR PRN Ranitidine (Ranitidine HCl) 150 Mg Tab 150 Mg PO BID Zofran Odt (Ondansetron Odt) 4 Mg Tab 4 Mg SL Q8HR PRN Zoloft (Sertraline HCl) 50 Mg Tab 50 Mg PO DAILY 30 Days Klonopin (Clonazepam) 0.5 Mg Tab 0.5 Mg PO DAILY 30 Days Diphenhydramine HCl 50 Mg Cap 50 Mg PO HS 15 Days Norvasc (Amlodipine Besylate) 10 Mg Tab 10 Mg PO DAILY 30 Days Review of Systems Except as stated in HPI: all other systems reviewed are Neg General / Constitutional: No: Fever Eyes: No: Visual changes HENT: No: Headaches Cardiovascular: No: Chest Pain or Discomfort Respiratory: No: Shortness of Breath Gastrointestinal: Positive: Nausea, No: Vomiting, Diarrhea, Abdominal Pain Genitourinary: No: Dysuria Musculoskeletal: No: Pain Skin: No Rash Neurologic: No: Weakness Psychiatric: No: Depression Endocrine: No: Polydipsia Hematologic/Lymphatic: No: Easy Bruising Physical Exam Narrative GENERAL: Patient appears in no acute distress. SKIN: Warm and dry. Normal color. Normal turgor. HEAD: Atraumatic. Normocephalic. EYES: Pupils equal and round. No scleral icterus. No injection or drainage. ENT: No nasal bleeding or discharge. Mucous membranes pink and moist. Pharynx is clear. Airways patent. NECK: Trachea midline. Supple nontender. CARDIOVASCULAR: Regular rate and rhythm. RESPIRATORY: No accessory muscle use. Clear to auscultation. Breath sounds equal bilaterally. GASTROINTESTINAL: Abdomen soft, non-tender, nondistended. Hepatic and splenic margins not palpable. No CVA tenderness. MUSCULOSKELETAL: Extremities without clubbing, cyanosis, or edema. No obvious deformities. NEUROLOGICAL: Awake and alert. No obvious cranial nerve deficits. Motor grossly within normal limits. Five out of 5 muscle strength in the arms and legs. Normal speech. PSYCHIATRIC: Appropriate mood and affect; insight and judgment normal. Data Data Last Documented VS Vital Signs Date Time Temp Pulse Resp B/P (MAP) Pulse Ox O2 Delivery O2 Flow Rate FiO2 01/15/18 09:10 98.5 82 16 122/80 (94) 98 Orders Orders Pantoprazole (Protonix) (01/15/18 09:30) Ondansetron Odt (Zofran Odt) (01/15/18 09:30) [facility] Medical Decision Making Medical Screen Exam Complete: Yes Emergency Medical Condition: Yes Differential Diagnosis Gastritis. Nausea. Possible medication reaction. Narrative Course Patient appears medically stable at time of exam. Medical workup not felt warranted based on my history and physical. Patient is given pantoprazole 40 mg p.o. now. Patient is given Zofran 4 mg p.o. now. Patient is given a prescription for ranitidine 150 mg twice daily #60. Patient is given Zofran 4 mg every 6 hours as needed nausea. I recommend the patient continue her Zoloft until she sees her psychiatrist and follow-up. Patient is given a prescription card to hopefully help with her prescription payment. Patient can return if symptoms worsen as needed. Diagnosis Primary Impression: Gastritis Qualified Codes: K29.70 - Gastritis, unspecified, without bleeding Additional Impression: Nausea Referrals: Primary Care Physician Patient Instructions: Diet for Stomach Ulcers and Gastritis (ED), General Instructions Med/Other Pt SpecificInfo: Prescription(s) given Scripts Ondansetron (Zofran) 4 Mg Tab 4 MG PO Q6HR Y for NAUSEA OR VOMITING, #20 TAB 0 Refills Prov: Truman Perea MD 01/15/18 Ranitidine (Ranitidine) 150 Mg Tab 150 MG PO BID for Heartburn Management, #60 TAB 0 Refills Prov: Truman Perea MD 01/15/18 Disposition: 01 DISCHARGE HOME Condition: Stable Lowell Mcgee Jan 15, 2018 09:28
[2018-01-15] MEDS ORDERED: PANTOPRAZOLE SOD 40 MG DELAYED RELEASE TAB PO ONE (09:30)
[2018-01-15] MEDS ORDERED: ONDANSETRON ODT 4 MG TAB PO ONE (09:30)
== END 2018-01-15 09:56 | disposition home or self-care (01) ==
LOC: NEPD 09:06
DX: K29.70 Gastritis, unspecified, without bleeding (principal); I10 Essential (primary) hypertension; K21.9 Gastro-esophageal reflux disease without esophagitis
CPT/HCPCS: 99283

== ENCOUNTER 2018-01-19 15:49 | Emergency (ER) | payer OTHER ==
[~2018-01-19] VITALS: Ht 167.6 cm; Wt 85.0 kg
[~2018-01-19 15:49] MED LIST changes: -CEPH500C PO; +RANI150T PO; -ZANT150T2 PO; +ZOFR4TAB PO
[2018-01-19 15:56] VITALS: BP 119/58; PULSE 84; RESP 21; TEMP 98.8; O2SAT 99
--- NOTE | 2018-01-19 16:56 | PD ---
HPI Chief Complaint: Anxiety Time Seen by Provider: 16:42 Travel History International Travel<30 days: No Contact w/Intl Traveler<30days: No Traveled to known affect area: No History of Present Illness HPI 62-year-old female presents to the emergency department via EMS with complaint of having an anxiety attack earlier today. She has had anxiety for over one year. This is been addressed with her primary care provider and her psychiatrist who has been adjusting her medications and trying new medications. She takes Klonopin and states it works for anxiety but then when she wakes up she continues to feel anxiety. She is also taking Zoloft 25 mg, which she has started recently and still is having anxiety. She says that she called her psychiatrist today and was told to come to the ER because she could not see her in the office. Her anxiety is worse in the afternoon especially when she is left home alone. Better with taking Klonopin. Duration chronic. Onset unknown. Symptoms are mild to moderate in severity. Psychiatrist is Deanna Bhagat in [place]. Primary CARE providers Dr. Bellamy. Allergies to Darvon and Cipro. History of hypertension, borderline diabetes, anxiety. Has no other medical complaints. No other modifying factors or associated signs and symptoms. PFSH Past Medical History Hx Anticoagulant Therapy: Yes Arthritis: Yes Anxiety: Yes Depression: Yes Heart Rhythm Problems: No Cancer: No Cardiac Catheterization: No Cardiovascular Problems: Yes (Palpitations) High Cholesterol: No Chemotherapy: No Congestive Heart Failure: No Cerebrovascular Accident: No Diabetes: Yes (Type 1 per patient) Diminished Hearing: No Diverticulitis: Yes Endocrine: No Gastrointestinal Disorders: Yes (HIATAL HERNIA, CONSTIPATION) GERD: Yes (COLON POLYPS) Genitourinary: No Headaches: No Hepatitis: No Hiatal Hernia: Yes Heparin Induced Thrombocytopen: No Hypertension: Yes Immune Disorder: No Musculoskeletal: Yes (BONE SPUR LEFT SHOULDER, BACK PROBLEMS) Neurologic: No Psychiatric: Yes Reproductive: No Respiratory: No Immunizations Current: Yes Seizures: No Thyroid Disease: No ?: Not Menopausal: Yes : 8 Para: 6 Miscarriage: 2 Past Surgical History Abdominal Surgery: Yes (CHOLECYSTECTOMY ) AICD: No Cholecystectomy: Yes Coronary Artery Bypass Graft: No Gynecologic Surgery: Yes Hysterectomy: Yes Joint Replacement: Yes (LEFT KNEE REPLACEMENT) Pacemaker: No Other Surgery: Yes Social History Alcohol Use: No Tobacco Use: No Substance Use: No Allergies-Medications (Allergen,Severity, Reaction): Coded Allergies: ciprofloxacin (Unverified Allergy, Severe, rash, 01/19/18) propoxyphene (Unverified Adverse Reaction, Severe, N&V, 01/19/18) Reported Meds & Prescriptions Reported Meds & Active Scripts Active Zofran (Ondansetron HCl) 4 Mg Tab 4 Mg PO Q6HR PRN Ranitidine (Ranitidine HCl) 150 Mg Tab 150 Mg PO BID Zofran Odt (Ondansetron Odt) 4 Mg Tab 4 Mg SL Q8HR PRN Zoloft (Sertraline HCl) 50 Mg Tab 50 Mg PO DAILY 30 Days Klonopin (Clonazepam) 0.5 Mg Tab 0.5 Mg PO DAILY 30 Days Diphenhydramine HCl 50 Mg Cap 50 Mg PO HS 15 Days Norvasc (Amlodipine Besylate) 10 Mg Tab 10 Mg PO DAILY 30 Days Review of Systems Except as stated in HPI: all other systems reviewed are Neg Physical Exam Narrative GENERAL: Well-nourished, well-developed black female patient, in no acute distress; resting comfortably and sleeping in the bed prior to exam SKIN: Warm and dry. HEAD: Atraumatic. Normocephalic. EYES: Pupils equal and round. ENT: Mucosa pink and moist. NECK: Supple. Trachea midline. CARDIOVASCULAR: Regular rate and rhythm. No murmur appreciated. RESPIRATORY: No accessory muscle use. Clear to auscultation. Breath sounds equal bilaterally. GASTROINTESTINAL: Abdomen soft, non-tender, nondistended. Hepatic and splenic margins not palpable. Bowel sounds are active 4 quadrants. MUSCULOSKELETAL: No obvious deformities. No clubbing. No cyanosis. No edema. NEUROLOGICAL: Awake and alert. Oriented 3. No obvious cranial nerve deficits. Motor grossly within normal limits. Normal speech. Moves all extremities. 5/5 strength to all extremities. PSYCHIATRIC: No delusional thought processes. No hallucinations. Data Data Last Documented VS Vital Signs Date Time Temp Pulse Resp B/P (MAP) Pulse Ox O2 Delivery O2 Flow Rate FiO2 01/19/18 15:56 98.8 84 21 119/58 (78) 99 Orders Orders Hydroxyzine Pamoate (Vistaril) (01/19/18 17:00) Ed Discharge Order (01/19/18 16:58) MDM Medical Decision Making Medical Screen Exam Complete: Yes Emergency Medical Condition: Yes Medical Record Reviewed: Yes Differential Diagnosis Anxiety, medication side effect, normal physical exam, medical clearance Narrative Course 62-year-old female with history of anxiety and has outpatient follow-up with psychiatry and primary care. She is being managed by her psychiatrist and has been recently started on Zoloft. She also takes Klonopin. Patient denies suicidal or homicidal ideations. She is requesting something more for anxiety. Patient has outpatient follow-up and resources. I do not feel her complaint today is emergent and the patient can follow-up outpatient. This was discussed with Dr. Howell and he agrees with my plan of care. Vistaril administered in the ER. Instructed patient to follow-up with psychiatrist. Instructed patient to follow up with primary care provider. Patient verbalizes understanding and agreement with treatment plan. Patient is medically cleared and stable for discharge. Discussed reasons to return to the emergency department. Patient agrees with treatment plan. The patients vital signs are stable and the patient is stable for outpatient follow-up and treatment. Patient discharged home, stable and in no acute distress. Diagnosis Primary Impression: Anxiety Referrals: Primary Care Physician Psychiatrist Patient Instructions: Anxiety (ED), General Instructions Additional Instructions: Continue medications as prescribed Follow-up with your psychiatrist for anxiety management Follow-up with primary care provider Med/Other Pt SpecificInfo: No Change to Meds, No Meds Exist/No RX given Disposition: 01 DISCHARGE HOME Condition: Stable Jody Pinon January 19, 2018 16:56
[2018-01-19] MEDS ORDERED: hydrOXYzine PAMOATE 25 MG CAP PO ONE (17:00)
[2018-01-20] MEDS ORDERED: VIST25CA PO (15:36)
== END 2018-01-19 17:45 | disposition home or self-care (01) ==
LOC: NEPD 15:49
DX: F41.9 Anxiety disorder, unspecified (principal); I10 Essential (primary) hypertension; F32.9 Major depressive disorder, single episode, unspecified; Z88.8 Allergy status to other drugs, medicaments and biological substances; Z79.899 Other long term (current) drug therapy
CPT/HCPCS: 99283; Q0177

== ENCOUNTER 2018-01-20 15:12 | Emergency (ER) | payer OTHER ==
[~2018-01-20] VITALS: Ht 167.6 cm; Wt 80.0 kg
[2018-01-20 15:16] VITALS: BP 131/68; PULSE 86; RESP 18; TEMP 98.6; O2SAT 98
[2018-01-20] MEDS ORDERED: hydrOXYzine PAMOATE 25 MG CAP PO ONE (15:30)
[2018-01-20] MEDS ORDERED: VIST25CA PO (15:36)
--- NOTE | 2018-01-20 15:42 | PD ---
HPI Chief Complaint: Anxiety Time Seen by Provider: 15:21 Travel History International Travel<30 days: No Contact w/Intl Traveler<30days: No Traveled to known affect area: No History of Present Illness HPI 62-year-old -Citizen Of [place] female presents emergency department with ongoing symptoms of anxiety. Patient was seen yesterday for similar complaints, and was given 1 dose of Vistaril which she feels helped her very much. Her complaint yesterday as well as today is that the Zoloft 25 mg a she is currently taking and the clonazepam that was prescribed to her do not seem to work for her. She has history of anxiety attacks in the past and has been admitted to [facility] in [facility] past. [place] but has not been able to get an appointment before January 26. Patient denies suicidal or homicidal ideation. She has no other acute medical problems at this time. She is allergic to Cipro and propoxyphene. PFSH Past Medical History Hx Anticoagulant Therapy: Yes Arthritis: Yes Anxiety: Yes Depression: Yes Heart Rhythm Problems: No Cancer: No Cardiac Catheterization: No Cardiovascular Problems: Yes (Palpitations) High Cholesterol: No Chemotherapy: No Congestive Heart Failure: No Cerebrovascular Accident: No Diabetes: Yes (Type 1 per patient) Patient Takes Glucophage: No Diminished Hearing: No Diverticulitis: Yes Endocrine: No Gastrointestinal Disorders: Yes (HIATAL HERNIA, CONSTIPATION) GERD: Yes (COLON POLYPS) Genitourinary: No Headaches: No Hepatitis: No Hiatal Hernia: Yes Heparin Induced Thrombocytopen: No Hypertension: Yes Immune Disorder: No Medical other: No Musculoskeletal: Yes (BONE SPUR LEFT SHOULDER, BACK PROBLEMS) Neurologic: No Psychiatric: Yes Reproductive: No Respiratory: No Immunizations Current: Yes Seizures: No Thyroid Disease: No Tetanus Vaccination: < 5 Years Influenza Vaccination: No Menopausal: Yes : 8 Para: 6 Miscarriage: 2 Past Surgical History Abdominal Surgery: Yes (CHOLECYSTECTOMY ) AICD: No Cholecystectomy: Yes Coronary Artery Bypass Graft: No Gynecologic Surgery: Yes Hysterectomy: Yes Joint Replacement: Yes (LEFT KNEE REPLACEMENT) Pacemaker: No Other Surgery: Yes Social History Alcohol Use: No Tobacco Use: No Substance Use: No Allergies-Medications (Allergen,Severity, Reaction): Coded Allergies: ciprofloxacin (Unverified Allergy, Severe, rash, 01/19/18) propoxyphene (Unverified Adverse Reaction, Severe, N&V, 01/19/18) Reported Meds & Prescriptions Reported Meds & Active Scripts Active Vistaril (Hydroxyzine Pamoate) 25 Mg Cap 25 Mg PO Q6H PRN Zofran (Ondansetron HCl) 4 Mg Tab 4 Mg PO Q6HR PRN Ranitidine (Ranitidine HCl) 150 Mg Tab 150 Mg PO BID Zofran Odt (Ondansetron Odt) 4 Mg Tab 4 Mg SL Q8HR PRN Zoloft (Sertraline HCl) 50 Mg Tab 50 Mg PO DAILY 30 Days Klonopin (Clonazepam) 0.5 Mg Tab 0.5 Mg PO DAILY 30 Days Diphenhydramine HCl 50 Mg Cap 50 Mg PO HS 15 Days Norvasc (Amlodipine Besylate) 10 Mg Tab 10 Mg PO DAILY 30 Days Review of Systems Except as stated in HPI: all other systems reviewed are Neg General / Constitutional: No: Fever Eyes: No: Visual changes HENT: No: Headaches Cardiovascular: No: Chest Pain or Discomfort Respiratory: No: Shortness of Breath Gastrointestinal: No: Abdominal Pain Genitourinary: No: Dysuria Musculoskeletal: No: Pain Skin: No Rash Neurologic: No: Weakness Psychiatric: Positive: Anxiety, No: Depression, Suicidal Ideations, Substance Abuse, Homicidal Ideation Endocrine: No: Polydipsia Hematologic/Lymphatic: No: Easy Bruising Physical Exam Narrative GENERAL: Patient appears mildly anxious but otherwise in no acute distress. SKIN: Warm and dry. Normal color. Normal turgor. HEAD: Atraumatic. Normocephalic. EYES: Pupils equal and round. No scleral icterus. No injection or drainage. ENT: No nasal bleeding or discharge. Mucous membranes pink and moist. Pharynx is clear. Airways patent. NECK: Trachea midline. Supple nontender. No palpable thyroid CARDIOVASCULAR: Regular rate and rhythm. RESPIRATORY: No accessory muscle use. Clear to auscultation. Breath sounds equal bilaterally. GASTROINTESTINAL: Abdomen soft, non-tender, nondistended. Hepatic and splenic margins not palpable. MUSCULOSKELETAL: Extremities without clubbing, cyanosis, or edema. No obvious deformities. NEUROLOGICAL: Awake and alert. No obvious cranial nerve deficits. Motor grossly within normal limits. Five out of 5 muscle strength in the arms and legs. Normal speech. PSYCHIATRIC: Appropriate mood and affect; insight and judgment normal. Data Data Last Documented VS Vital Signs Date Time Temp Pulse Resp B/P (MAP) Pulse Ox O2 Delivery O2 Flow Rate FiO2 01/20/18 15:16 98.6 86 18 131/68 (89) 98 Orders Orders Hydroxyzine Pamoate (Vistaril) (01/20/18 15:30) MDM Medical Decision Making Medical Screen Exam Complete: Yes Emergency Medical Condition: Yes Medical Record Reviewed: Yes Differential Diagnosis Acute on chronic anxiety. Need for psychiatric evaluation. Anxiety disorder. Narrative Course Patient is medically stable at time of exam When I question whether the Vistaril worked well for the patient she agreed to do did. Patient is comfortable getting a prescription for Vistaril until she can meet with her psychiatrist on January 26. Patient is given a dose of Vistaril 25 mg p.o. now. Patient is given a prescription for Vistaril 25 mg up to 4 times daily as needed anxiety #40. Patient is recommended to continue her Zoloft as previously prescribed and follow-up with her psychiatrist as scheduled on January 26. Patient may return emergency department as needed. Diagnosis Primary Impression: Anxiety Referrals: Psychiatrist 1 week Patient Instructions: Anxiety (ED), General Instructions Additional Instructions: Patient is comfortable getting a prescription for Vistaril until she can meet with her psychiatrist on January 26. Patient is given a dose of Vistaril 25 mg p.o. now. Patient is given a prescription for Vistaril 25 mg up to 4 times daily as needed anxiety #40. Patient is recommended to continue her Zoloft as previously prescribed and follow-up with her psychiatrist as scheduled on January 26. Patient may return emergency department as needed. Med/Other Pt SpecificInfo: Prescription(s) given Scripts Hydroxyzine Pamoate (Vistaril) 25 Mg Cap 25 MG PO Q6H Y for ANXIETY, #40 CAP 0 Refills Prov: Ramos Mo MD 01/20/18 Disposition: 01 DISCHARGE HOME Condition: Stable Lowell Mcgee January 20, 2018 15:41
== END 2018-01-20 15:47 | disposition home or self-care (01) ==
LOC: NEPD 15:12
DX: F41.9 Anxiety disorder, unspecified (principal); I10 Essential (primary) hypertension; F32.9 Major depressive disorder, single episode, unspecified; K21.9 Gastro-esophageal reflux disease without esophagitis; Z88.1 Allergy status to other antibiotic agents; Z79.899 Other long term (current) drug therapy
CPT/HCPCS: 99283; Q0177

== ENCOUNTER 2018-01-25 12:46 | Emergency (ER) | payer OTHER ==
[~2018-01-25] VITALS: Ht 167.6 cm; Wt 85.0 kg
[~2018-01-25 12:46] MED LIST changes: +VIST25CA PO
[2018-01-25 13:08] VITALS: BP 129/76; PULSE 96; RESP 17; TEMP 98.4; O2SAT 97
--- NOTE | 2018-01-25 15:17 | PD ---
HPI Chief Complaint: Psychiatric Symptoms Time Seen by Provider: 13:15 Travel History International Travel<30 days: No Contact w/Intl Traveler<30days: No Traveled to known affect area: No History of Present Illness HPI 62-year-old female presents to the emergency department with complaint of not being able to sleep and "something is going on in my head." Patient has been seen here multiple times in the past week for anxiety. I saw her during 1 of these visits. She was given Vistaril which says is helping her anxiety and panic attacks. She is now complaining of not being able to sleep. She has a follow-up appointment with her psychiatrist tomorrow in [place]. She was started on Zoloft and says it is making her feel bad. She has not stopped taking it, although she has previously been advised to stop taking it if it is not making her feel good. She denies suicidal or homicidal ideations. Denies auditory or visual hallucinations. Symptoms are mild to moderate in severity. Onset unknown. Duration unknown. No known aggravating or relieving factors. Primary care provider is Dr. Bellamy. Allergies to ciprofloxacin and propoxyphene. History of hypertension, borderline diabetes. Has no other medical complaints. No other modifying factors or associated signs and symptoms. History Past Medical Histgory Menopausal: Yes Hx Cancer: No Hx Chemotherapy: No Social History Alcohol Use: No Tobacco Use: No Allergies-Medications (Allergen,Severity, Reaction): Coded Allergies: ciprofloxacin (Unverified Allergy, Severe, rash, 01/19/18) propoxyphene (Unverified Adverse Reaction, Severe, N&V, 01/19/18) Reported Meds & Prescriptions Reported Meds & Active Scripts Active Vistaril (Hydroxyzine Pamoate) 25 Mg Cap 25 Mg PO Q6H PRN Zofran (Ondansetron HCl) 4 Mg Tab 4 Mg PO Q6HR PRN Ranitidine (Ranitidine HCl) 150 Mg Tab 150 Mg PO BID Zofran Odt (Ondansetron Odt) 4 Mg Tab 4 Mg SL Q8HR PRN Zoloft (Sertraline HCl) 50 Mg Tab 50 Mg PO DAILY 30 Days Diphenhydramine HCl 50 Mg Cap 50 Mg PO HS 15 Days Norvasc (Amlodipine Besylate) 10 Mg Tab 10 Mg PO DAILY 30 Days Review of Systems Except as stated in HPI: all other systems reviewed are Neg Physical Exam Narrative GENERAL: Well-nourished, well-developed black female patient, in no acute distress SKIN: Warm and dry. HEAD: Atraumatic. Normocephalic. EYES: Pupils equal and round. ENT: Mucosa pink and moist. NECK: Supple. Trachea midline. CARDIOVASCULAR: Regular rate and rhythm. No murmur appreciated. RESPIRATORY: No accessory muscle use. Clear to auscultation. Breath sounds equal bilaterally. GASTROINTESTINAL: Abdomen soft, non-tender, nondistended. Hepatic and splenic margins not palpable. Bowel sounds are active 4 quadrants. MUSCULOSKELETAL: No obvious deformities. No clubbing. No cyanosis. No edema. NEUROLOGICAL: Awake and alert. Oriented 3. No obvious cranial nerve deficits. Motor grossly within normal limits. Normal speech. Moves all extremities. 5/5 strength to all extremities. PSYCHIATRIC: No delusional thought processes. No hallucinations. Data Data Last Documented VS Vital Signs Date Time Temp Pulse Resp B/P (MAP) Pulse Ox O2 Delivery O2 Flow Rate FiO2 01/25/18 13:08 98.4 96 17 129/76 (93) 97 MDM Medical Screen Exam Complete: Yes Emergency Medical Condition: No Differential Diagnosis Insomnia, anxiety Narrative Course This is a 62-year-old female who has been seen multiple times in the past week secondary to her anxiety and panic attacks. She was given Vistaril on January 20 and she says it has been helping her panic attacks and anxiety. She is now complaining of inability to sleep at night. She has a follow-up appointment with her psychiatrist tomorrow in [place]. Patient denies suicidal or homicidal ideations. Patient has appropriate follow-up outpatient at her scheduled appointment tomorrow. Instructed patient to follow-up with her psychiatrist tomorrow at her scheduled appointment. Patient verbalized understanding and agreement. Instructed patient to stop taking Zoloft if it is not making her feel well and to address this with her psychiatrist tomorrow. I discussed the patient with my attending physician, Dr. Hutton, and she agrees the patient can be medically screened and follow-up outpatient. Vital signs are stable and the patient is stable for outpatient follow-up and treatment. The patient has no urgent or emergent medical complaints. There is no emergent or urgent medical need at this time. I instructed the patient to follow up with their primary care provider. A medical screening exam was performed: At the time of evaluation the presenting medical condition was determined not to be of an emergent nature. The patient was given the option of receiving additional care, but declined. Patient was given options for additional community resources from which to obtain care. The Patient Has Been advised to seek medical attention for their presenting complaint. The patient has been advised to return to the ER at any time if an emergent condition develops. Primary Impression: Encounter for medical screening examination Disposition: 07 EDGO-ED USE ONLY Condition: Stable Jody Pinon January 25, 2018 15:17
== END 2018-01-25 14:00 | disposition left against medical advice (07) ==
LOC: NEPD 12:46
DX: Z13.89 Encounter for screening for other disorder (principal); G47.00 Insomnia, unspecified; F41.9 Anxiety disorder, unspecified; I10 Essential (primary) hypertension; Z88.1 Allergy status to other antibiotic agents; Z79.899 Other long term (current) drug therapy
CPT/HCPCS: 99281